=== PATIENT | female | born 1965 | race Caucasian/White ===

== ENCOUNTER 2020-08-08 12:08 | Inpatient (IN) | payer MEDICAID, SELFPAY ==
[2020-08-08 12:09] VITALS: BP 162/102; PULSE 70; RESP 15; TEMP 36.7; O2SAT 95; BMI 22.8
--- NOTE | 2020-08-08 12:12 | ECG_ITS ---
[facility] Test Date: 2020-08-08 Pat Name: Eboni Perez Department: Room: Gender: Female Director Business Intelligence: : 1965 Requested By: Keyshawn Mccray Order Number: [id number] Wheat MD: Althea Salinas M.D. 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 [id number]
--- NOTE | 2020-08-08 12:15 | ED_ITS ---
HPI - Psych General: Chief Complaint: Psychiatric Symptoms Stated Complaint: suicidal thoughts Time Seen by Provider: 08/08/20 12:12 History of Present Illness: HPI Narrative: The patient is a 55-year-old female who comes to the ER complaining of suicidal ideations. She was released from intermediate today and says she feels suicidal like she wants to take some pills and kill herself. She was in intermediate for 15 months. She was released from intermediate and says she did not have a ride to the shelters they gave her addresses for, felt suicidal and called an ambulance. MD complaint: suicidal ideation and feels depressed Associated psychiatric symptoms: depression and suicidal ideation Associated symptoms: Reports no associated symptoms; Deny depression Treatments prior to arrival: none If self harm: admits thoughts of self harm Review of Systems General: Reports: 10 or more systems reviewed and unremarkable except in HPI and below Const: Denies: fatigue Eyes: Denies: change in vision, blurry vision or eye redness ENMT: Denies: throat pain, swelling of lips/tongue, ear or mastoid pain or nasal congestion Card: Denies: chest pain, palpitations, irregular heart rhythm, edema, dyspnea on exertion or orthopnea Resp: Denies: dyspnea, productive cough or non-productive cough GI: Denies: abdominal pain, diarrhea or GI cramping : Denies: flank pain, difficulty voiding, urinary frequency or urinary urgency Musc: Denies: neck pain, back pain, extremity pain, joint pain, joint redness, limited range of motion or muscle weakness Skin/Breast: Denies: rash, pruritus, erythema, skin pain or skin tenderness Neuro: Denies: headache(s), numbness in extremities, weakness in extremities, sensory changes, difficulty walking, dizziness, confusion or Slurred speech present Psych: Denies: anxiety or depression Endo: Denies: polyuria All/Imm: Denies: urticaria, throat swelling or tongue swelling PFSH ED PFSH: Medical History Brain aneurysm CAD (coronary artery disease) Hepatitis C History of CVA (cerebrovascular accident) Hypertension Insulin dependent type 2 diabetes mellitus Peripheral vascular disease Surgical History History of angioplasty of peripheral vessel History of appendectomy History of cholecystectomy Family History Father Cancer of kidney Social History Smoking and tobacco status: current every day smoker e-cigarettes Alcohol intake: former Physical Exam Const: COMMON NORMALS: no acute distress, average body habitus, patient oriented x3, no limitations, healthy appearing, alert and well nourished GENERAL APPEARANCE: cooperative, comfortable, well kempt and well developed ORIENTATION/CONSCIOUSNESS: Yes awake, Yes oriented to person, Yes oriented to place and Yes oriented to time HENMT: COMMON NORMALS: normocephalic, external ears normal and Normal external nose present HEAD & SCALP: normal to inspection and normocephalic NOSE: Normal external nose present EXTERNAL EAR: Yes external ears normal MOUTH: Normal oral and palatal mucosa present THROAT: posterior oropharynx normal Eye: COMMON NORMALS: Equal, round and reactive pupils present and EOMs intact bilaterally GENERAL EYE: appearance normal, both eyes and all related structures PUPIL: Yes Equal, round and reactive pupils present Neck/C-Spine: COMMON NORMALS: full ROM, no lymphadenopathy, no meningeal signs and no JVD GENERAL: Yes normal visual inspection Lymph: LYMPHATIC: no lymphadenopathy noted Chest: COMMONS NORMALS: normal inspection of the chest and normal palpation of entire chest wall Resp: COMMON NORMALS: normal respiratory effort, No retractions, No use of accessory muscles, clear to auscultation bilaterally and percussion normal EFFORT & INSPECTION: Yes able to speak in complete sentences AUSCULTATION: clear to auscultation bilaterally PERCUSSION: percussion normal Cardio: COMMON NORMALS: no JVD, regular rate, regular rhythm, S1 normal heart sound present, S2 normal heart sound present and Peripheral pulses 2+ throughout RATE: regular rate RHYTHM: regular rhythm HEART SOUNDS: S1 normal heart sound present and S2 normal heart sound present PERIPHERAL PULSES: Peripheral pulses 2+ throughout GI: COMMON NORMALS: Normal to inspection, nondistended, normoactive bowel sounds present, Soft to palpation, non-tender and no masses INSPECTION: Yes normal to inspection PALPATION: Yes Soft to palpation : COMMON NORMALS: Yes no CVA tenderness BLADDER/KIDNEY EXAM: Yes no CVA tenderness Back/Pelvis: COMMON NORMALS: no CVA tenderness, thoracic and lumbar spine normal to inspection, no thoracic nor lumbar tenderness and thoraco-lumbar ROM normal Extremity: COMMON NORMALS: normal to inspection, full ROM, capillary refill normal, no joint enlargement and no pedal edema GENERAL: Yes normal exam except as noted Neuro: COMMON NORMALS: patient oriented x3, CN's II-XII intact bilaterally, moves all extremities, no focal motor deficits, no sensory deficits noted and gait normal SENSORIUM/ORIENTATION: Yes alert, Yes oriented to person, Yes oriented to place and Yes oriented to time MENINGEAL SIGNS: Yes no meningeal signs Psych: COMMON NORMALS: mental status grossly normal, Normal thought process present, cooperative, normal affect and speech normal APPEARANCE: Yes well kempt ATTITUDE: Yes calm SPEECH: Yes normal speech THOUGHT PROCESS: Normal thought process present THOUGHT CONTENT: Yes Suicidality present Skin: COMMON NORMALS: no rashes or lesions noted GENERAL SKIN EXAM: no rashes or lesions noted MDM - Psych Lab Data: Labs: Lab Results 08/08/20 08/08/20 08/08/20 Range/Units 12:32 12:32 12:38 WBC 8.8 (4.0-10.0) 10^3/ uL RBC 5.09 (4.1-5.3) 10^6/u L Hgb 16.1 H (11.5-15.3) g/dL Hct 47.2 H (37.0-47.0) % MCV 92.7 (81-99) fL MCH 31.6 (28.0-34.0) pg MCHC 34.1 (30.0-36.0) g/dL RDW 12.0 L (12.1-15.1) % Plt Count 205 (130-400) 10^3/c mm MPV 12.2 H (7.4-10.4) fL Neut % (Auto) 57.4 % Lymph % (Auto) 34.2 % [place] % (Auto) 6.8 % Eos % (Auto) 0.9 % Baso % (Auto) 0.6 % Neut # (Auto) 5.04 (1.8-7.7) 10^3/u L Lymph # (Auto) 3.0 (0.8-4.8) 10^3/u L [place] # (Auto) 0.6 (0.2-0.9) 10^3/u L Eos # (Auto) 0.1 (0.0-0.8) 10^3/u L Baso # (Auto) 0.1 (0.0-0.1) 10^3/u L Nucleated RBC % (a uto) 0 % Nucleated RBCs # 0.0 /100WBC Sodium (136-145) mmol/L Potassium (3.5-5.1) mmol/L Chloride (98-107) mmol/L Carbon Dioxide (22-29) mmol/L Anion Gap (5-19) BUN (6-20) mg/dL Creatinine (0.5-0.9) mg/dL GFR Calculation (90-130) mL/min Glucose (65-115) mg/dL Estimat Average Gl ucose Hemoglobin A1c (4.0-6.0) % Calculated Osmolal ity (285-295) mOsm/k g Calcium (8.5-10.5) mg/dL Total Bilirubin (0.15-1.2) mg/dL AST (0-32) U/L ALT (0-33) U/L Alkaline Phosphata se (35-105) IU/L Total Protein (6.6-8.7) g/dL Albumin (3.5-5.2) g/dL Globulin (1.3-4.6) g/dL Triglycerides (0-150) mg/dL Cholesterol (0-200) mg/dL LDL Cholesterol, C alc (50-129) mg/dL HDL Cholesterol (60-100) mg/dL LDL/HDL Ratio (0.00-3.22) RATI O Cholesterol/HDL Ra jun (0.0-4.40) mg/dL TSH (0.27-4.20) uIU/ mL Urine Color Yellow (Yellow) Urine Appearance Clear (CLEAR) Urine pH 5 (5-7) Ur Specific Gravit y 1.010 (1.005-1.030) Urine Protein Neg (Negative) Urine Glucose (UA) Norm (Normal) Urine Ketones Negative (Negative) Urine Blood Neg (Negative) Urine Nitrate Negative (Negative) Urine Bilirubin 1+ H (Negative) Urine Urobilinogen Norm (Negative) mg/dL Ur Leukocyte Kianna ase 1+ H (Negative) Urine RBC 0-4 H (0-2) /hpf Urine WBC 5-10 H (0-5) /hpf Ur Squamous Epith Cells 0-4 H (0-5) /hpf Amorphous Sediment Not Reportable Urine Bacteria 2+ H (NONE) /hpf Salicylates (3-10) mg/dL Urine Opiates Scre en Negative (Negative) ng/mL Acetaminophen (10-30) ug/mL Ur Barbiturates Sc reen Negative (Negative) ng/mL Ur Phencyclidine S crn Negative (Negative) ng/mL Ur Amphetamines Sc reen Negative (Negative) ng/mL U Benzodiazepines Scrn Negative (Negative) ng/mL Urine Cocaine Scre en Negative (Negative) ng/mL U Marijuana (THC) Screen Negative (Negative) ng/mL Ethyl Alcohol (0-10) mg/dL Hepatitis A IgM Ab (Nonreactive) Hep Bs Antigen (Nonreactive) Hep B Core IgM Ab (Nonreactive) Hepatitis C Antibo dy (Nonreactive) HIV 1&2 Ab & HIV 1 Ag (Non-Reactiv) HIV 1&2 Antibody (Non-Reactiv) 08/08/20 08/08/20 08/08/20 Range/Units 12:38 12:38 12:38 WBC (4.0-10.0) 10^3/ uL RBC (4.1-5.3) 10^6/u L Hgb (11.5-15.3) g/dL Hct (37.0-47.0) % MCV (81-99) fL MCH (28.0-34.0) pg MCHC (30.0-36.0) g/dL RDW (12.1-15.1) % Plt Count (130-400) 10^3/c mm MPV (7.4-10.4) fL Neut % (Auto) % Lymph % (Auto) % [place] % (Auto) % Eos % (Auto) % Baso % (Auto) % Neut # (Auto) (1.8-7.7) 10^3/u L Lymph # (Auto) (0.8-4.8) 10^3/u L [place] # (Auto) (0.2-0.9) 10^3/u L Eos # (Auto) (0.0-0.8) 10^3/u L Baso # (Auto) (0.0-0.1) 10^3/u L Nucleated RBC % (a uto) % Nucleated RBCs # /100WBC Sodium 137 (136-145) mmol/L Potassium 4.2 (3.5-5.1) mmol/L Chloride 100 (98-107) mmol/L Carbon Dioxide 28 (22-29) mmol/L Anion Gap 13.2 (5-19) BUN 12 (6-20) mg/dL Creatinine 0.6 (0.5-0.9) mg/dL GFR Calculation 103.8 (90-130) mL/min Glucose 121 H (65-115) mg/dL Estimat Average Gl ucose 131 Hemoglobin A1c 6.2 H (4.0-6.0) % Calculated Osmolal ity 285 (285-295) mOsm/k g Calcium 9.8 (8.5-10.5) mg/dL Total Bilirubin 0.5 (0.15-1.2) mg/dL AST 89 H (0-32) U/L ALT 110 H (0-33) U/L Alkaline Phosphata se 115 H (35-105) IU/L Total Protein 8.3 (6.6-8.7) g/dL Albumin 4.3 (3.5-5.2) g/dL Globulin 4.0 (1.3-4.6) g/dL Triglycerides 103 (0-150) mg/dL Cholesterol 144 (0-200) mg/dL LDL Cholesterol, C alc 67 (50-129) mg/dL HDL Cholesterol 56 L (60-100) mg/dL LDL/HDL Ratio 1.20 (0.00-3.22) RATI O Cholesterol/HDL Ra jun 2.57 (0.0-4.40) mg/dL TSH 2.19 (0.27-4.20) uIU/ mL Urine Color (Yellow) Urine Appearance (CLEAR) Urine pH (5-7) Ur Specific Gravit y (1.005-1.030) Urine Protein (Negative) Urine Glucose (UA) (Normal) Urine Ketones (Negative) Urine Blood (Negative) Urine Nitrate (Negative) Urine Bilirubin (Negative) Urine Urobilinogen (Negative) mg/dL Ur Leukocyte Kianna ase (Negative) Urine RBC (0-2) /hpf Urine WBC (0-5) /hpf Ur Squamous Epith Cells (0-5) /hpf Amorphous Sediment Urine Bacteria (NONE) /hpf Salicylates < 0.3 L (3-10) mg/dL Urine Opiates Scre en (Negative) ng/mL Acetaminophen < 5.0 L (10-30) ug/mL Ur Barbiturates Sc reen (Negative) ng/mL Ur Phencyclidine S crn (Negative) ng/mL Ur Amphetamines Sc reen (Negative) ng/mL U Benzodiazepines Scrn (Negative) ng/mL Urine Cocaine Scre en (Negative) ng/mL U Marijuana (THC) Screen (Negative) ng/mL Ethyl Alcohol < 10 (0-10) mg/dL Hepatitis A IgM Ab (Nonreactive) Hep Bs Antigen (Nonreactive) Hep B Core IgM Ab (Nonreactive) Hepatitis C Antibo dy (Nonreactive) HIV 1&2 Ab & HIV 1 Ag (Non-Reactiv) HIV 1&2 Antibody (Non-Reactiv) 08/08/20 08/08/20 Range/Units 12:38 12:47 WBC (4.0-10.0) 10^3/ uL RBC (4.1-5.3) 10^6/u L Hgb (11.5-15.3) g/dL Hct (37.0-47.0) % MCV (81-99) fL MCH (28.0-34.0) pg MCHC (30.0-36.0) g/dL RDW (12.1-15.1) % Plt Count (130-400) 10^3/c mm MPV (7.4-10.4) fL Neut % (Auto) % Lymph % (Auto) % [place] % (Auto) % Eos % (Auto) % Baso % (Auto) % Neut # (Auto) (1.8-7.7) 10^3/u L Lymph # (Auto) (0.8-4.8) 10^3/u L [place] # (Auto) (0.2-0.9) 10^3/u L Eos # (Auto) (0.0-0.8) 10^3/u L Baso # (Auto) (0.0-0.1) 10^3/u L Nucleated RBC % (a uto) % Nucleated RBCs # /100WBC Sodium (136-145) mmol/L Potassium (3.5-5.1) mmol/L Chloride (98-107) mmol/L Carbon Dioxide (22-29) mmol/L Anion Gap (5-19) BUN (6-20) mg/dL Creatinine (0.5-0.9) mg/dL GFR Calculation (90-130) mL/min Glucose (65-115) mg/dL Estimat Average Gl ucose Hemoglobin A1c (4.0-6.0) % Calculated Osmolal ity (285-295) mOsm/k g Calcium (8.5-10.5) mg/dL Total Bilirubin (0.15-1.2) mg/dL AST (0-32) U/L ALT (0-33) U/L Alkaline Phosphata se (35-105) IU/L Total Protein (6.6-8.7) g/dL Albumin (3.5-5.2) g/dL Globulin (1.3-4.6) g/dL Triglycerides (0-150) mg/dL Cholesterol (0-200) mg/dL LDL Cholesterol, C alc (50-129) mg/dL HDL Cholesterol (60-100) mg/dL LDL/HDL Ratio (0.00-3.22) RATI O Cholesterol/HDL Ra jun (0.0-4.40) mg/dL TSH (0.27-4.20) uIU/ mL Urine Color (Yellow) Urine Appearance (CLEAR) Urine pH (5-7) Ur Specific Gravit y (1.005-1.030) Urine Protein (Negative) Urine Glucose (UA) (Normal) Urine Ketones (Negative) Urine Blood (Negative) Urine Nitrate (Negative) Urine Bilirubin (Negative) Urine Urobilinogen (Negative) mg/dL Ur Leukocyte Kianna ase (Negative) Urine RBC (0-2) /hpf Urine WBC (0-5) /hpf Ur Squamous Epith Cells (0-5) /hpf Amorphous Sediment Urine Bacteria (NONE) /hpf Salicylates (3-10) mg/dL Urine Opiates Scre en (Negative) ng/mL Acetaminophen (10-30) ug/mL Ur Barbiturates Sc reen (Negative) ng/mL Ur Phencyclidine S crn (Negative) ng/mL Ur Amphetamines Sc reen (Negative) ng/mL U Benzodiazepines Scrn (Negative) ng/mL Urine Cocaine Scre en (Negative) ng/mL U Marijuana (THC) Screen (Negative) ng/mL Ethyl Alcohol (0-10) mg/dL Hepatitis A IgM Ab Non-reactive (Nonreactive) Hep Bs Antigen Non-reactive (Nonreactive) Hep B Core IgM Ab Non-reactive (Nonreactive) Hepatitis C Antibo dy Reactive H (Nonreactive) HIV 1&2 Ab & HIV 1 Ag Non-reactive (Non-Reactiv) HIV 1&2 Antibody Non-reactive (Non-Reactiv) Discharge Plan Discharge Patient Disposition: Admitted As Inpatient Admit Provider: Berlin Garcia Condition: Stable Discharge Diet: Diabetic Discharge Activity: Resume usual activity Coding Level of Care Code 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
[2020-08-08 12:29] VITALS: O2SAT 95
[2020-08-08 12:49] LABS: Basophils # 0.1 10^3/uL (0.0-0.1); Basophils % 0.6 %; Eosinophils # 0.1 10^3/uL (0.0-0.8); Eosinophils % 0.9 %; Hematocrit 47.2 % (37.0-47.0); Hemoglobin 16.1 g/dL (11.5-15.3); Lymphocytes % 34.2 %; Mean Corpuscular HGB Conc 34.1 g/dL (30.0-36.0); Mean Corpuscular Hemoglobin 31.6 pg (28.0-34.0); Mean Corpuscular Volume 92.7 fL (81-99); Mean Platelet Volume 12.2 fL (7.4-10.4); Monocytes # 0.6 10^3/uL (0.2-0.9); Monocytes % 6.8 %; Neutrophils # 5.04 10^3/uL (1.8-7.7); Neutrophils % 57.4 %; Nucleated Red Blood Cells % 0 %; Platelet Count 205 10^3/cmm (130-400); Red Blood Count 5.09 10^6/uL (4.1-5.3); White Blood Count 8.8 10^3/uL (4.0-10.0)
[2020-08-08 13:23] LABS: Alanine Aminotransferase 110 U/L (0-33); Albumin Level 4.3 g/dL (3.5-5.2); Alkaline Phosphatase 115 IU/L (35-105); Anion Gap 13.2 (5-19); Aspartate Amino Transferase 89 U/L (0-32); Blood Urea Nitrogen 12 mg/dL (6-20); Calcium 9.8 mg/dL (8.5-10.5); Carbon Dioxide 28 mmol/L (22-29); Chloride 100 mmol/L (98-107); Glomerular Filtration Rate 103.8 mL/min (90-130); Glucose 121 mg/dL (65-115); Osmolality Calculated 285 mOsm/kg (285-295); Potassium 4.2 mmol/L (3.5-5.1); Sodium 137 mmol/L (136-145); Thyroid Stimulating Hormone 2.19 uIU/mL (0.27-4.20); Total Bilirubin 0.5 mg/dL (0.15-1.2); Total Protein 8.3 g/dL (6.6-8.7)
[2020-08-08 13:24] LABS: Acetaminophen < 5.0 ug/mL (10-30); Alcohol Level < 10 mg/dL (0-10); Salicylate < 0.3 mg/dL (3-10)
[2020-08-08 13:50] LABS: Amphetamines Screen Urine Negative (Negative); Barbiturates Screen Urine Negative (Negative); Benzodiazepines Screen Urine Negative (Negative); Cocaine Screen Urine Negative (Negative); Opiate Screen Urine Negative (Negative); PCP Screen Urine Negative (Negative); THC Screen Urine Negative (Negative)
[2020-08-08 13:51] LABS: Urine Appearance Clear (CLEAR); Urine Color Yellow (Yellow)
[2020-08-08 13:52] LABS: Add Urine Culture? Yes; Add Urine Microscopic? YES; Bacteria Urine 2+ /hpf; Bilirubin Urine 1+ (Negative); Blood Urine Neg (Negative); Glucose Urine UA Norm (Normal); Ketones Urine Negative (Negative); Leukocyte Esterase Urine 1+ (Negative); Nitrate Urine Negative (Negative); Protein Urine Neg (Negative); RBC Urine 0-4 /hpf (0-2); Squamous Epithelial Cell Urine 0-4 /hpf (0-5); Urobilinogen Urine Norm (Negative); pH Urine 5 (5-7)
[2020-08-08 15:07] LABS: Hepatitis A Antibody IgM Non-Reactive (Nonreactive); Hepatitis B Core IgM Non-Reactive (Nonreactive); Hepatitis B Surface Antigen Non-Reactive (Nonreactive)
[2020-08-08 15:15] VITALS: BP 123/68; PULSE 63; RESP 18; O2SAT 99
[2020-08-08 15:36] LABS: Hepatitis C Virus Antibody Reactive (Nonreactive)
[2020-08-08 15:53] VITALS: BP 175/85; PULSE 66; RESP 18; TEMP 36.7; O2SAT 96
[2020-08-08] MEDS: nicotine 21 mg Patch 1 PATCH TRANSDERMA (17:36)
[2020-08-08] MEDS: BuSPIRONE 10 mg Tablet PO (17:49)
--- NOTE | 2020-08-08 18:41 | PM.CONSULT ---
Providers/Reason For Consult Consulting Physican/Specialty*: Psychiatry Reason for Consult*: Type 2 diabetes, leukoplakia, hepatitis C Attending Physician: Berlin Garcia MD History of Present Illness History of Present Illness Eboni Perez is a 55 year old female with a past medical history of a brain aneurysm status post surgery, history of subclavian steal syndrome, history of CVA, history of left carotid artery stenosis, history of nonobstructive CAD, history of peripheral vascular disease, hypertension, hyperlipidemia, insulin-dependent type 2 diabetes mellitus, recent diagnosis of hepatitis C in the last few months hospitalist team was consulted for diabetic management, evaluation of patient's tongue lesion For type 2 diabetes mellitus, she takes insulin, 10 units subcu daily, she does not remember her last hemoglobin A1c, does not know she has diabetic peripheral neuropathy or nephropathy For her tongue lesion, multiple, white she has had it for a few months, it does not really hurt her, is nonpruritic, Review of Systems Const: Denies: fever(s), chills, fatigue or malaise Eyes: Denies: change in vision or blurry vision ENMT: Denies: nasal congestion Resp: Denies: dyspnea, productive cough, non-productive cough or wheezing GI: Denies: abdominal pain, nausea, vomiting, hematemesis, diarrhea, constipation, hematochezia or melena : Denies: flank pain, dysuria or urinary frequency Musc: Denies: neck pain or back pain Skin/Breast: Denies: rash Neuro: Denies: headache(s), dizziness or vertigo Endo: Denies: polyuria or polydipsia Meds/Allergies Home Medications and Allergies Home Medications Medication Instructions Recorded Confirmed Last Taken Type aspirin 81 mg PO DAILY 08/08/20 08/08/20 08/08/20 History buspirone 10 mg PO BID 08/08/20 08/08/20 08/08/20 History insulin NPH isoph U-100 human 10 unit SUBCUT DAILY 08/08/20 08/08/20 08/08/20 History [Novolin N Flexpen] metoprolol tartrate 50 mg PO BID 08/08/20 08/08/20 08/08/20 History Allergies Allergy/AdvReac Type Severity Reaction Status Date / Time acetaminophen [From Vicodin] Allergy ADR-Nausea Verified 08/08/20 12:28 hydrocodone [From Vicodin] Allergy ADR-Nausea Verified 08/08/20 12:28 morphine Allergy ADR-Nausea Verified 08/08/20 12:28 Penicillins Allergy Unknown Verified 08/08/20 12:28 Current Medications Current Medications Generic Name Dose Route Start Last Admin Trade Name Freq PRN Reason Stop Dose Admin Buspirone HCl 10 mg 08/08/20 18:00 08/08/20 17:49 Buspirone 10 Mg Tablet PO 10 mg BID TIARA Administration Nicotine 1 patch 08/08/20 15:52 08/08/20 17:36 Nicotine 21 Mg Patch TRANSDERMA 1 patch DAILY PRN Administration NICOTINE WITHDRAWAL PFSH Acute PFSH: Medical History (Updated 08/08/20 @ 18:48 by Levar Hancock MD) Brain aneurysm CAD (coronary artery disease) Hepatitis C History of CVA (cerebrovascular accident) Hypertension Insulin dependent type 2 diabetes mellitus Peripheral vascular disease Surgical History (Updated 08/08/20 @ 18:45 by Levar Hancock MD) History of angioplasty of peripheral vessel History of appendectomy History of cholecystectomy Family History (Updated 08/08/20 @ 18:46 by Levar Hancock MD) Father Cancer of kidney Social History (Updated 08/08/20 @ 12:29 by Phi Sevilla RN) Smoking and tobacco status: current every day smoker e-cigarettes Alcohol intake: former Substance/Drug Use: never Vitals/I&O/Wt Last Vital Signs Temp 98.1 F 08/08/20 15:53 Pulse 66 08/08/20 15:53 Resp 18 08/08/20 15:53 BP 175/85 08/08/20 15:53 Pulse Ox 96 08/08/20 15:53 Weight last 48 hrs Weight 58.513 kg Physical Exam Const: COMMON NORMALS: no acute distress and patient oriented x3 GENERAL APPEARANCE: cooperative and comfortable HENMT: COMMON NORMALS: normocephalic HEAD & SCALP: normocephalic OTHER: Tongue, has multiple clear white, solid white lesions largest measuring 2 x 1 cm, with irregular borders, round Eye: COMMON NORMALS: Equal, round and reactive pupils present and EOMs intact bilaterally GENERAL EYE: appearance normal, both eyes and all related structures PUPIL: Yes Equal, round and reactive pupils present Neck/C-Spine: COMMON NORMALS: full ROM and no JVD Lymph: LYMPHATIC: no lymphadenopathy noted Resp: COMMON NORMALS: normal respiratory effort, No retractions, No use of accessory muscles and clear to auscultation bilaterally AUSCULTATION: clear to auscultation bilaterally Cardio: COMMON NORMALS: no JVD, regular rate, regular rhythm, S1 normal heart sound present, S2 normal heart sound present, No gallops present (Cardio), No clicks present (Cardio) and No murmurs present (Cardio) RATE: regular rate RHYTHM: regular rhythm HEART SOUNDS: S1 normal heart sound present and S2 normal heart sound present GI: COMMON NORMALS: Normal to inspection, nondistended, normoactive bowel sounds present, Soft to palpation, non-tender and No hepatosplenomegaly present PALPATION: Yes Soft to palpation and Yes No hepatosplenomegaly present Extremity: COMMON NORMALS: normal to inspection, full ROM and no pedal edema Neuro: COMMON NORMALS: patient oriented x3 and moves all extremities Psych: COMMON NORMALS: mental status grossly normal A&P Assessment and plan (1) CAD (coronary artery disease): Status: Acute (2) Peripheral vascular disease: Continue aspirin 81 mg Hold off on atorvastatin until LFTs are monitored Status: Acute (3) History of CVA (cerebrovascular accident): Status: Acute (4) Brain aneurysm: Status: Acute (5) Hypertension: Continue metoprolol 50 twice daily Add Norvasc 5 mg daily Status: Acute (6) Insulin dependent type 2 diabetes mellitus: Switch to insulin sliding scale monitor blood sugars, hemoglobin A1c Status: Acute (7) Hepatitis C: We will get a right upper quadrant ultrasound, monitor LFTs, order HIV Status: Acute (8) Leukoplakia: -History of smoking -Does have hep C -Differential his blood including lichen planus, multifocal leukoplakia, white spongy nevus, malignancy -We will need an outpatient follow-up with ENT for biopsy Status: Acute Coding Level of Care Code 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
[2020-08-08] MEDS: amlodipine 10 mg Tablet PO (18:52)
[2020-08-08 19:05] LABS: Chol HDL Ratio 2.57 mg/dL (0.0-4.40); Cholesterol 144 mg/dL (0-200); HDL Cholesterol 56 mg/dL (60-100); LDL Cholesterol Calculated 67 mg/dL (50-129); Triglycerides 103 mg/dL (0-150)
[2020-08-08 19:17] LABS: Estmated Average Glucose 131; Hemoglobin A1C 6.2 % (4.0-6.0)
[2020-08-08 20:03] LABS: HIV 1 & 2 Antibody Non-Reactive (Non-Reactiv); HIV 1 & 2 Antigen Non-Reactive (Non-Reactiv)
[2020-08-08] MEDS: OLANZapine 5 mg ODT PO (21:22)
[2020-08-08] MEDS: metoprolol tartrate 50 mg Tablet PO (21:22)
[2020-08-08] MEDS: trazodone 50 mg Tablet PO (21:23)
[2020-08-08 22:00] VITALS: BP 131/72; PULSE 73; RESP 16; TEMP 36.6; O2SAT 98
--- NOTE | 2020-08-08 23:15 | PC.NURSE ---
NURSE NOTE: AT 21:22, GAVE ZYPREXA 5MG PO FOR RACING THOUGHTS AND TRAZADONE 50MG PO FOR HELP WITH SLEEP. F/U: PT RESTING QUIETLY WITH EYES CLOSED. NO S&S OF DISTRESS OR ANXIETY NOTED AT THIS TIME.
[2020-08-09 06:00] VITALS: BP 88/56; PULSE 64; RESP 16; TEMP 36.7; O2SAT 96
--- NOTE | 2020-08-09 06:00 | US_ITS ---
WS: [id number] ULTRASOUND ABDOMEN LIMITED CLINICAL INFORMATION: acute hepatitis COMPARISON: None. FINDINGS: Liver Size: Hepatomegaly Craniocaudal length: 19.8 cm. Echogenicity: Normal. Surface nodularity: None. Mass (size and location): None. Bile ducts Intrahepatic ducts: Normal. Common bile duct diameter: 0.4 cm. Gallbladder Normal. Gallstones: None. Gallbladder sludge: None. Gallbladder wall thickening: None. Pericholecystic fluid: None. Sonographic Trejo sign: Absent. Pancreas Normal as visualized. Right kidney: Normal. Hydronephrosis: None. Size: 10.9 cm x 5.6 cm x 3.7 cm. Abdominal aorta and IVC Visualized portions are normal. Ascites: None. US/US liver [id number] IMPRESSION: 1. Hepatomegaly. Liver is otherwise normal in appearance. 2. Normal gallbladder. 3. No hydronephrosis in right kidney.
[2020-08-09 06:32] LABS: Glucose Point of Care 137 mg/dL (70-110)
[2020-08-09 07:05] LABS: Basophils % 0.4 %; Eosinophils # 0.1 10^3/uL (0.0-0.8); Eosinophils % 1.4 %; Hematocrit 39.9 % (37.0-47.0); Hemoglobin 13.8 g/dL (11.5-15.3); Lymphocytes # 3.2 10^3/uL (0.8-4.8); Lymphocytes % 45.6 %; Mean Corpuscular HGB Conc 34.6 g/dL (30.0-36.0); Mean Corpuscular Hemoglobin 31.9 pg (28.0-34.0); Mean Corpuscular Volume 92.4 fL (81-99); Mean Platelet Volume 12.4 fL (7.4-10.4); Monocytes # 0.5 10^3/uL (0.2-0.9); Neutrophils # 3.16 10^3/uL (1.8-7.7); Neutrophils % 45.5 %; Nucleated Red Blood Cells % 0 %; Platelet Count 139 10^3/cmm (130-400); Red Blood Count 4.32 10^6/uL (4.1-5.3)
[2020-08-09 07:54] LABS: Alanine Aminotransferase 78 U/L (0-33); Albumin Level 3.6 g/dL (3.5-5.2); Alkaline Phosphatase 100 IU/L (35-105); Anion Gap 14.7 (5-19); Aspartate Amino Transferase 58 U/L (0-32); Blood Urea Nitrogen 12 mg/dL (6-20); Calcium 8.7 mg/dL (8.5-10.5); Carbon Dioxide 24 mmol/L (22-29); Chloride 102 mmol/L (98-107); Globulin 2.7 g/dL (1.3-4.6); Glomerular Filtration Rate 128.1 mL/min (90-130); Glucose 212 mg/dL (65-115); Osmolality Calculated 288 mOsm/kg (285-295); Potassium 4.7 mmol/L (3.5-5.1); Sodium 136 mmol/L (136-145); Total Bilirubin 0.3 mg/dL (0.15-1.2); Total Protein 6.3 g/dL (6.6-8.7)
[2020-08-09] MEDS: BuSPIRONE 10 mg Tablet PO ×2 (08:37→21:18)
[2020-08-09] MEDS: sulfamethoxazole-trimeth DS 160-800 mg Tablet 1 TAB PO ×2 (08:37→21:17)
[2020-08-09] MEDS: aspirin 81 mg EC Tablet PO (08:37)
[2020-08-09] MEDS: metoprolol tartrate 50 mg Tablet PO ×2 (08:42→21:16)
[2020-08-09 11:34] LABS: Glucose Point of Care 310 mg/dL (70-110)
--- NOTE | 2020-08-09 11:57 | PM.NHP ---
Providers/Chief Complaint Admitting Physician: Jordana Evans DO Chief Complaint: suicidal thoughts HPI NPU History of Present Illness Eboni Perez is a 55 year old female with history of a brain aneurysm status post surgery, history of subclavian steal syndrome, history of CVA, history of left carotid artery stenosis, history of nonobstructive CAD, history of peripheral vascular disease, hypertension, hyperlipidemia, insulin-dependent type 2 diabetes mellitus, recent diagnosis of hepatitis C in the last few months presented to the emergency department after getting out of assisted for the past year reporting suicidal ideation and that she did not have a ride to a fci. Patient reports past substance abuse but currently denying any recent substance use or abuse. Patient reports past history of anxiety and depression but states that she had not been on any psychotropic medication for greater than 20 years and only recalls previously being on Xanax. Patient reports past suicide attempt by overdose over 20 years ago but denies any interval suicidal behavior or suicide attempts. She denies any interval psychiatric treatment or follow-up during this time. Patient reports experiencing intermittent depressive symptoms for periods of 7 to 10 days in which she experiences crying spells, low mood, decreased energy and interest in her usual activities with decreased motivation. She currently reports passive suicidal thoughts but denies any active intent or plan of harming herself. She denies any periods of manic or hypomanic symptoms. She denies any current or past psychotic symptoms. She states that she currently has no place to stay and does not have a means of supporting herself and plans on staying at a homeless fci when she discharges from the hospital. She reports being interested in starting low-dose SSRI targeting depressive symptoms, suicidal ideation. Review of Systems General: Reports: 10 or more systems reviewed and unremarkable except in HPI and below Meds NPU Home Medications Medication Instructions Recorded Confirmed Last Taken Type aspirin 81 mg PO DAILY 08/08/20 08/08/20 08/08/20 History buspirone 10 mg PO BID 08/08/20 08/08/20 08/08/20 History insulin NPH isoph U-100 human 10 unit SUBCUT DAILY 08/08/20 08/08/20 08/08/20 History [Novolin N Flexpen] metoprolol tartrate 50 mg PO BID 08/08/20 08/08/20 08/08/20 History Allergies Allergy/AdvReac Type Severity Reaction Status Date / Time acetaminophen [From Vicodin] Allergy ADR-Nausea Verified 08/08/20 12:28 hydrocodone [From Vicodin] Allergy ADR-Nausea Verified 08/08/20 12:28 morphine Allergy ADR-Nausea Verified 08/08/20 12:28 Penicillins Allergy Unknown Verified 08/08/20 12:28 PFSH NPU PFSH: Medical History Brain aneurysm CAD (coronary artery disease) Hepatitis C History of CVA (cerebrovascular accident) Hypertension Insulin dependent type 2 diabetes mellitus Peripheral vascular disease Surgical History History of angioplasty of peripheral vessel History of appendectomy History of cholecystectomy Family History Father Cancer of kidney Social History Smoking and tobacco status: current every day smoker e-cigarettes Alcohol intake: former Substance/Drug Use: never Other Psychiatric History: Other Psychiatric History: Per above, reports remote psychiatric treatment greater than 20 years ago, recalls being treated with Xanax but does not recall any other psychiatric medications. Reports previous psychiatric hospitalization around the time above after overdose attempt. Mental Status Exam MSE Comments: Appears older than stated age, long stringy, greasy hair, initially sitting at dining table eating her lunch, calm, cooperative, polite, good eye contact Psychomotor activity is somewhat decreased, no agitation Speech is low volume, normal rate, spontaneous, clear articulation, not pressured I feel depressed, constricted, not labile Alert and oriented to person, place, time, situation Memory and concentration appear to be fair per interview Intellectual functioning appears to be average at best based on vocabulary, interview Thought process, linear, no flight of ideas, no looseness of associations Thought content, no delusions, no hallucinations, reports passive suicidal ideation with no active intent or plan, no homicidal ideation Insight and judgment appear to be fair to intact Vitals/I&O/Wt Last Vital Signs Temp 98.0 F 08/09/20 06:00 Pulse 64 08/09/20 06:00 Resp 16 08/09/20 06:00 BP 88/56 08/09/20 06:00 Pulse Ox 96 08/09/20 06:00 Weight last 48 hrs Weight 58.513 kg Data NPU : 08/09/20 06:54 08/09/20 06:54 Micro: Microbiology 08/08/20 12:32 Urine Culture - Preliminary Urine,Clean Catch Microbiology 08/08/20 12:32 Urine,Clean Catch Urine Culture - Preliminary A&P Assessment and plan (1) Suicidal ideation: Status: Acute (2) Depressive disorder: Status: Acute Additional A&P Information 55-year-old female with multiple chronic medical issues to include insulin-dependent diabetes, coronary artery disease, history of brain aneurysm presented to the emergency department after getting out of assisted with suicidal ideation stating that she did not have a ride to a fci. Patient continues to report depressive symptoms and passive suicidal ideation with no active intent or plan. Patient would benefit from starting low-dose antidepressant and titrating for effect while coordinating for safe discharge, follow-up psychiatric care. VOLUNTARY ADMIT to inpatient psychiatry Appreciate hospitalist consult recommendations START citalopram 10 mg daily targeting depressive symptoms, suicidal ideation Encourage patient participate in unit activities to include unit milieu Coordinate with social work for post discharge follow-up Involuntary Hold Information 96 Hour Hold: 96 Hour Involuntary Admission: No Attestations NPU Medical Necessity Statement*: Require psychiatric hospitalization secondary to ongoing suicidal ideation in the context of multiple stressors, off medication Anticipate hospital stay to exceed 2 midnights Time Spent in Patient Care: Greater than 35 minutes (>than 50% of time spent in counselling and/or direct pt care on unit). Coding Level of Care Code Acute Client Service Executive for Mario Nielsen Diagnoses Suicidal ideation R45.851 Depressive disorder F32.9
[2020-08-09] MEDS: citalopram 20 mg Tablet 10 MG PO (12:12)
[2020-08-09 14:00] VITALS: BP 120/80; PULSE 72; RESP 18; TEMP 37.4; O2SAT 97
[2020-08-09 16:44] LABS: Glucose Point of Care 135 mg/dL (70-110)
--- NOTE | 2020-08-09 18:50 | USCV_ITS ---
Eboni Perez Age: 55 Gender: F : 1965 Exam Date: 08/09/2020 09:09 Ordering Phys: Levar Hanccok MD Technologist: Jarrett Muhammad Exam Location: [facility] [place] Indication: LT SUB CLAV GRAFT Risk Factors: Smoker Previous Vascular Surgery: Right Brachial BP: / Left Brachial BP: / Right Left Velocity (cm/s) Spectral Plaque Velocity (cm/s) Spectral Plaque Syst/Diast Broadening Syst/Diast Broadening 71.70/ 18.70 Prox CCA 53.60 / 14.20 62.80/ 16.50 Mid CCA 61.10 / 18.60 57.30/ 17.60 Hetro Distal CCA 55.10 / 14.90 Hetro 55.20/ 16.40 Hetro Prox ICA 69.30 / 13.40 Hetro 73.60/ 23.70 Hetro Mid ICA 76.00 / 23.10 Hetro 73.70/ 24.60 Distal ICA 53.60 / 17.90 101.40 ECA 96.80 1.03 ICA/CCA 1.24 Antegrade Vertebral Antegrade 29.80/ 2.20 cm/s 49.20/ 10.40 cm/s Bi Subclavian Bi 52.10 53.60 CONCLUSIONS Right ICA stenosis <50%. Mild atheromatous plaque right carotid bulb/ICA. Left ICA stenosis <50%. Mild atheromatous plaque left carotid bulb/ICA. Normal antegrade Doppler flow noted in the right vertebral artery. Normal antegrade Doppler flow noted in the left vertebral artery. Mustapha Durant MD (Electronically Signed) Final Date: 09 August 2020 10:30 S
[2020-08-09 19:33] LABS: Glucose Point of Care 207 mg/dL (70-110)
[2020-08-09 20:16] VITALS: BP 141/89; PULSE 88; RESP 18; TEMP 37.8; O2SAT 97
[2020-08-09] MEDS: amlodipine 10 mg Tablet PO (20:47)
[2020-08-09] MEDS: ibuprofen 600 mg Tablet PO (21:17)
[2020-08-09] MEDS: trazodone 50 mg Tablet PO (21:17)
[2020-08-09] MEDS: hyDROXYzine 25 mg Capsule 50 MG PO (21:18)
[2020-08-10 06:00] VITALS: BP 85/67; PULSE 68; RESP 15; TEMP 36.5; O2SAT 96
[2020-08-10 06:34] LABS: Glucose Point of Care 147 mg/dL (70-110)
[2020-08-10 07:13] LABS: Basophils % 0.4 %; Eosinophils # 0.1 10^3/uL (0.0-0.8); Eosinophils % 2.7 %; Hemoglobin 14.3 g/dL (11.5-15.3); Mean Corpuscular Hemoglobin 32.3 pg (28.0-34.0); Mean Corpuscular Volume 94.8 fL (81-99); Mean Platelet Volume 12.1 fL (7.4-10.4); Monocytes # 0.4 10^3/uL (0.2-0.9); Monocytes % 7.8 %; Neutrophils # 3.55 10^3/uL (1.8-7.7); Neutrophils % 69.7 %; Nucleated Red Blood Cells % 0 %; Platelet Count 118 10^3/cmm (130-400); Red Blood Count 4.43 10^6/uL (4.1-5.3); Red Cell Distribution Width 12.1 % (12.1-15.1); White Blood Count 5.1 10^3/uL (4.0-10.0)
[2020-08-10] MEDS: aspirin 81 mg EC Tablet PO (07:39)
[2020-08-10] MEDS: sulfamethoxazole-trimeth DS 160-800 mg Tablet 1 TAB PO (07:39)
[2020-08-10] MEDS: metoprolol tartrate 50 mg Tablet PO (07:39)
[2020-08-10 07:40] LABS: Alanine Aminotransferase 69 U/L (0-33); Albumin Level 3.7 g/dL (3.5-5.2); Alkaline Phosphatase 101 IU/L (35-105); Anion Gap 14.5 (5-19); Aspartate Amino Transferase 45 U/L (0-32); Blood Urea Nitrogen 18 mg/dL (6-20); Calcium 9.3 mg/dL (8.5-10.5); Carbon Dioxide 25 mmol/L (22-29); Chloride 102 mmol/L (98-107); Globulin 2.7 g/dL (1.3-4.6); Glomerular Filtration Rate 86.9 mL/min (90-130); Glucose 141 mg/dL (65-115); Osmolality Calculated 288 mOsm/kg (285-295); Potassium 4.5 mmol/L (3.5-5.1); Sodium 137 mmol/L (136-145); Total Bilirubin 0.4 mg/dL (0.15-1.2); Total Protein 6.4 g/dL (6.6-8.7)
[2020-08-10] MEDS: citalopram 20 mg Tablet 10 MG PO (07:40)
[2020-08-10] MEDS: BuSPIRONE 10 mg Tablet PO (07:41)
[2020-08-10] MEDS: ibuprofen 600 mg Tablet PO (07:41)
--- NOTE | 2020-08-10 09:33 | P.DS_ITS ---
Diagnoses at Discharge Discharge Diagnosis (1) Suicidal ideation: Status: Acute (2) Depressive disorder: Status: Acute Reason for Visit Reason for Visit: suicidal thoughts Hospital Course Hospital Course 55-year-old female with multiple chronic medical issues presented to the emergency department with suicidal ideation after getting out of long term. Some confusion with regards to recent substance use although patient states that she had not used any substances for many years. Patient also reported no psychiatric treatment or contact with mental health for over 20 years at which time she had been hospitalized for an overdose. Patient was reporting some depressive symptoms as well as multiple physical complaints and was medically cleared by the emergency department with further diagnostic testing including ultrasound of liver which demonstrated hepatomegaly but otherwise unremarkable and a carotid Doppler which was essentially unremarkable. Hospitalist was consulted for recommendations for management of her diabetes. Patient was started on citalopram 10 mg daily targeting her depressive symptoms. At the time of evaluation patient was no longer endorsing suicidal ideation. Patient participated in unit milieu with no reports of any behavioral disturbances. Social work had coordinated for patient to discharge to a local fpc with coordination for post discharge follow-up with primary care for medication management as well as for further evaluation and management of her chronic medical issues. Patient was not suicidal at the time of discharge and did not appear to pose an imminent threat of harm to self or others. Low to moderate risk of harm to self given no current suicidal ideation, no current depressive symptoms although patient's risk may be elevated if she is noncompliant with her medication, medication management follow-up and continues to have difficulty with mounting appropriate coping strategies in the context of ongoing stressors to include recent legal issues and unstable living arrangement. Risk mitigation included psychiatric hospitalization, medication stabilization as well as observation for return of any suicidal ideation and recommendation to abstain from the use of any substances or alcohol. Patient was able to indicate her understanding of the need to abstain from the use of any substances and alcohol as well as the need for compliance with the medication, medication management follow-up in order to further mitigate her risk of harm to herself. Involuntary Hold Information 96 Hour Hold: 96 Hour Involuntary Admission: No Mental Status Exam MSE Comments: Lying in bed, appears older than stated age, calm, cooperative, polite, good eye contact Psychomotor activity is somewhat decreased, no agitation Speech is low volume, normal rate, spontaneous, clear articulation, not pressured I feel much better, full range, not labile Alert and oriented to person, place, time, situation Memory and concentration appear to be fair to intact per interview Intellectual functioning appears to be average at best based on vocabulary, interview Thought process, linear, no flight of ideas, no looseness of associations Thought content, no delusions, no hallucinations, reports passive suicidal ideation with no active intent or plan, no homicidal ideation Insight and judgment appear to be fair to intact Discharge Data Data Completed and Pending: Completed Studies During Hospitalization Category Date Time Status CV carotid duplex BI* [id number] Routine Ultrasound 08/09/20 18:50 Completed US liver 79191 Ro utine Ultrasound 08/09/20 06:00 Completed Pending at discharge Category Date Time Status Complete Blood Co unt w/Auto AM LABS Lab 08/11/20 04:00 Ordered Comprehensive Met abolic Panel AM LA BS Lab 08/11/20 04:00 Ordered Urine Culture Sta t Lab 08/08/20 12:32 Results Labs from last 24 hours 08/10/20 08/10/20 08/10/20 06:52 06:52 06:05 WBC 5.1 RBC 4.43 Hgb 14.3 Hct 42.0 MCV 94.8 MCH 32.3 MCHC 34.0 RDW 12.1 Plt Count 118 L MPV 12.1 H Neut % (Auto) 69.7 Lymph % (Auto) 19.0 [place] % (Auto) 7.8 Eos % (Auto) 2.7 Baso % (Auto) 0.4 Neut # (Auto) 3.55 Lymph # (Auto) 1.0 [place] # (Auto) 0.4 Eos # (Auto) 0.1 Baso # (Auto) 0.0 Nucleated RBC % (a uto) 0 Nucleated RBCs # 0.0 Sodium 137 Potassium 4.5 Chloride 102 Carbon Dioxide 25 Anion Gap 14.5 BUN 18 Creatinine 0.7 GFR Calculation 86.9 L Glucose 141 H POC Glucose 147 H Calculated Osmolal ity 288 Calcium 9.3 Total Bilirubin 0.4 AST 45 H ALT 69 H Alkaline Phosphata se 101 Total Protein 6.4 L Albumin 3.7 Globulin 2.7 08/09/20 08/09/20 08/09/20 19:24 16:29 11:18 WBC RBC Hgb Hct MCV MCH MCHC RDW Plt Count MPV Neut % (Auto) Lymph % (Auto) [place] % (Auto) Eos % (Auto) Baso % (Auto) Neut # (Auto) Lymph # (Auto) [place] # (Auto) Eos # (Auto) Baso # (Auto) Nucleated RBC % (a uto) Nucleated RBCs # Sodium Potassium Chloride Carbon Dioxide Anion Gap BUN Creatinine GFR Calculation Glucose POC Glucose 207 H 135 H 310 H Calculated Osmolal ity Calcium Total Bilirubin AST ALT Alkaline Phosphata se Total Protein Albumin Globulin Vitals: Last Vital Signs Temp 97.7 F 08/10/20 06:00 Pulse 68 08/10/20 06:00 Resp 15 08/10/20 06:00 BP 85/67 08/10/20 06:00 Pulse Ox 96 08/10/20 06:00 Discharge Plan Discharge Prescriptions: New aspirin 81 mg Tablet,Delayed Release (Dr/Ec) 81 mg PO DAILY Qty: 30 RF: 0 citalopram 20 mg Tablet 10 mg PO DAILY Qty: 30 RF: 0 metoprolol tartrate 50 mg Tablet 50 mg PO 0900,2100 Qty: 60 RF: 0 amlodipine 10 mg Tablet 10 mg PO Q24H Qty: 30 RF: 0 buspirone 10 mg Tablet 10 mg PO 0900,2100 Qty: 60 RF: 0 sulfamethoxazole-trimethoprim 800-160 mg Tablet 1 tab PO 0900,2100 Qty: 16 RF: 0 Continued Novolin N Flexpen 100 unit/mL (3 mL) insulin pen 10 unit SUBCUT DAILY RF: 0 No Action aspirin 81 mg tablet,delayed release (DR/EC) 81 mg PO DAILY RF: 0 buspirone 10 mg tablet 10 mg PO BID RF: 0 metoprolol tartrate 50 mg tablet 50 mg PO BID RF: 0 Discharge Orders: Discharge Order (Routine); Ordered 08/10/20 Ordered By: Jordana Evans Referrals: [facility] [place] [facility] [Outside] Jenniffer Beltrán DO [Physician] - 08/30/20 9:00 am (You have a new patient appointment with Dr. Beltrán at the [facility] clinic on August 30 at 9AM. If unable to make it to the appointment, please call and cancel in advance.) Discharge Diet: Diabetic Discharge Activity: Resume usual activity Discharge Attestations NPU Time Spent in Discharge Care*: greater than 30 min Status at Discharge: Cognitive status at discharge: cognitively intact , Behavioral status at discharge: cooperative , Functional status at discharge: independent ambulation Overall status at discharge: patient is back to baseline Coding Level of Care Code Acute [employer] Dean for [employer] Fwd Diagnoses Suicidal ideation R45.851 Depressive disorder F32.9
[2020-08-10 09:57] VITALS: BP 85/67; PULSE 68; RESP 15; TEMP 36.5; O2SAT 96
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
--- NOTE | 2020-08-10 17:33 | PC.RESP ---
SMOKING CESSATION INFORMATION SENT TO PATIENT.
== END 2020-08-10 13:17 | disposition home or self-care (01) | DRG 880 ==
LOC: ER 13:22 → NP 15:41
PROVIDERS: Family Medicine; Admitting Provider Psychiatry & Neurology Psychiatry; Emergency Provider Family Medicine; Visit Provider Psychiatry & Neurology Psychiatry
DX: F41.8 Other specified anxiety disorders (principal); R45.851 Suicidal ideations; Z79.82 Long term (current) use of aspirin; Z91.5 Personal history of self-harm; Z59.0 Homelessness; Z86.73 Personal history of transient ischemic attack (TIA), and cerebral infarction without residual deficits; I25.10 Atherosclerotic heart disease of native coronary artery without angina pectoris; I50.814 Right heart failure due to left heart failure; I10 Essential (primary) hypertension; E11.51 Type 2 diabetes mellitus with diabetic peripheral angiopathy without gangrene; Z79.4 Long term (current) use of insulin; E78.5 Hyperlipidemia, unspecified; B19.20 Unspecified viral hepatitis C without hepatic coma; F17.290 Nicotine dependence, other tobacco product, uncomplicated
CPT/HCPCS: 12345; 36415; 36416; 76705; 80053; 80061; 80074; 80306; 80307; 81001; 82962; 83036; 84443; 85025; 87086; 87806; 90471; 90686; 93005; 93880; 96372; 99284; J1815

== ENCOUNTER 2020-10-18 18:37 | Emergency (ER) | payer MEDICAID, SELFPAY ==
--- NOTE | 2020-10-18 18:39 | XR_ITS ---
WS: [id number] Portable AP upright chest, Clinical Data: cp Comparison: None. Findings: No nodules, masses or effusions are seen. The heart is normal. The pulmonary vascularity is not increased. No pneumonia or pneumothorax is seen. There are clips in the right upper quadrant fro m a cholecystectomy. XR/XR chest 1V portable [id number] Impression: Negative chest.
--- NOTE | 2020-10-18 18:39 | ECG_ITS ---
[facility] Test Date: 2020-10-18 Pat Name: Eboni Perez Department: Room: Gender: Female Diagrammer: : 1965 Requested By: Sherice Ledesma Order Number: [id number] Jarret MD: Althea Salinas M.D. Measurements Intervals [place] Rate: 73 P: 75 CT: 133 QRS: 61 QRSD: 81 T: 26 QT: 372 QTc: 411 Interpretive Statements SINUS RHYTHM NONSPECIFIC ST & T-WAVE ABNORMALITY Compared to ECG 08/08/2020 12:35:25 T-wave abnormality now present Electronically Signed On 10-20-2020 5:21:10 CDT by Althea Salinas M.D. [id number] f
[2020-10-18 18:53] VITALS: BP 170/95; PULSE 77; RESP 18; TEMP 36.8; O2SAT 97; BMI 23.0
--- NOTE | 2020-10-18 20:39 | ECG_ITS ---
[facility] Test Date: 2020-10-18 Pat Name: Eboni Perez Department: Room: Gender: Female [employer] Technical: : 1965 Requested By: Sherice Ledesma Order Number: [id number] Jarret MD: Althea Salinas M.D. Measurements Intervals [address] Rate: 74 P: 74 AK: 133 QRS: 56 QRSD: 81 T: 53 QT: 416 QTc: 462 Interpretive Statements SINUS RHYTHM WARNING: DATA QUALITY MAY AFFECT INTERPRETATION Compared to ECG 08/08/2020 12:35:25 No significant changes Electronically Signed On 10-20-2020 5:27:48 CDT by Althea Salinas M.D. [email or web address]
--- NOTE | 2020-10-18 21:15 | W.ED.CHESTPA ---
HPI - Chest Pain General: Chief Complaint: Chest Pain Stated Complaint: LOSS OF TASTE X 2 DAYS, CP TODAY Time Seen by Provider: 10/18/20 20:53 Source: patient Mode of arrival: ambulatory Limitations: no limitations History of Present Illness: HPI narrative: 55-year-old female states she had a cough along with sinus congestion over the last 3 to 4 days. States her cough has been productive of sputum as well. States today started having a sharp pain in her left chest is worse with cough and palpation. States pain is currently 3 out of 10. She denies any dyspnea. Denies any fevers. She denies any radiation of her pain. She states she is also had thrush to her tongue as well. Associated symptoms: Deny abdominal pain, fever(s), nausea or vomiting Review of Systems Const: Denies: fever(s), chills, body aches or change in appetite Eyes: Denies: blurry vision or eye discomfort ENMT: Denies: throat pain or dental pain Card: Reports: chest pain Resp: Reports: non-productive cough and wheezing GI: Denies: abdominal pain, nausea, vomiting or diarrhea : Denies: dysuria Musc: Denies: neck pain or back pain Skin/Breast: Denies: rash Neuro: Denies: headache(s) Psych: Denies: depression Harish/Lymph: Denies: easy bruising All/Imm: Denies: urticaria PFSH ED PFSH: Medical History Brain aneurysm CAD (coronary artery disease) Hepatitis C History of CVA (cerebrovascular accident) Hypertension Insulin dependent type 2 diabetes mellitus Peripheral vascular disease Surgical History History of angioplasty of peripheral vessel History of appendectomy History of cholecystectomy Family History Father Cancer of kidney Social History Smoking and tobacco status: current every day smoker e-cigarettes Alcohol intake: former Physical Exam Const: COMMON NORMALS: no acute distress, patient oriented x3 and healthy appearing HENMT: COMMON NORMALS: normocephalic and atraumatic HEAD & SCALP: normocephalic and atraumatic OTHER: Multiple lesions to her tongue and mouth with thrush as well Eye: COMMON NORMALS: Equal, round and reactive pupils present and EOMs intact bilaterally PUPIL: Yes Equal, round and reactive pupils present Neck/C-Spine: COMMON NORMALS: full ROM and supple Chest: COMMONS NORMALS: normal inspection of the chest OTHER: Point tender to left chest Resp: COMMON NORMALS: normal respiratory effort, No retractions, No use of accessory muscles and clear to auscultation bilaterally AUSCULTATION: clear to auscultation bilaterally Cardio: COMMON NORMALS: regular rate, regular rhythm and No murmurs present (Cardio) RATE: regular rate RHYTHM: regular rhythm GI: COMMON NORMALS: Normal to inspection, nondistended, normoactive bowel sounds present, Soft to palpation, non-tender and no masses PALPATION: Yes Soft to palpation Extremity: COMMON NORMALS: normal to inspection and full ROM Neuro: COMMON NORMALS: patient oriented x3, moves all extremities and no focal motor deficits Psych: COMMON NORMALS: mental status grossly normal, Normal thought process present and cooperative THOUGHT PROCESS: Normal thought process present Skin: COMMON NORMALS: no rashes or lesions noted and no wounds GENERAL SKIN EXAM: no rashes or lesions noted Course Vital Signs: Vital signs: Vital Signs Temperature 98.2 F 10/18/20 18:53 Pulse Rate 65 10/18/20 22:02 Respiratory Rate 21 H 10/18/20 22:02 Blood Pressure 160/86 10/18/20 22:02 Pulse Oximetry 97 10/18/20 22:02 MDM - Chest Pain MDM Narrative: Medical decision making narrative: Presents with cough congestion likely bronchitis. Believe this is likely causing her chest pain as her initial and repeat troponin are negative. She has no signs of pulmonary embolism or acute coronary syndrome. We will place her on antibiotics. She does have some severe thrush with lesions on her tongue. We will place her on gentian beau and have her follow-up with ear nose and throat. Patient understands and agrees to plan is to return if worsening. Lab Data: Labs: Lab Results 10/18/20 10/18/20 10/18/20 Range/Units 21:40 21:40 21:40 WBC 5.3 (4.0-10.0) 10^3/ uL RBC 4.78 (4.1-5.3) 10^6/u L Hgb 15.0 (11.5-15.3) g/dL Hct 44.8 (37.0-47.0) % MCV 93.7 (81-99) fL MCH 31.4 (28.0-34.0) pg MCHC 33.5 (30.0-36.0) g/dL RDW 12.4 (12.1-15.1) % Plt Count 139 (130-400) 10^3/c mm MPV 12.3 H (7.4-10.4) fL Neut % (Auto) 50.3 % Lymph % (Auto) 38.2 % [place] % (Auto) 9.4 % Eos % (Auto) 1.3 % Baso % (Auto) 0.4 % Neut # (Auto) 2.69 (1.8-7.7) 10^3/u L Lymph # (Auto) 2.0 (0.8-4.8) 10^3/u L [place] # (Auto) 0.5 (0.2-0.9) 10^3/u L Eos # (Auto) 0.1 (0.0-0.8) 10^3/u L Baso # (Auto) 0.0 (0.0-0.1) 10^3/u L Nucleated RBC % (a uto) 0 % Nucleated RBCs # 0.0 /100WBC Sodium 137 (136-145) mmol/L Potassium 3.9 (3.5-5.1) mmol/L Chloride 98 (98-107) mmol/L Carbon Dioxide 30 H (22-29) mmol/L Anion Gap 12.9 (5-19) BUN 10 (6-20) mg/dL Creatinine 0.6 (0.5-0.9) mg/dL GFR Calculation 103.8 (90-130) mL/min Glucose 206 H (65-115) mg/dL Calculated Osmolal ity 289 (285-295) mOsm/k g Calcium 9.0 (8.5-10.5) mg/dL Total Bilirubin 0.3 (0.15-1.2) mg/dL AST 66 H (0-32) U/L ALT 72 H (0-33) U/L Alkaline Phosphata se 127 H (35-105) IU/L Troponin T Baselin e 7 (0-10) ng/L Troponin T 120 Min [place] (0-10) ng/L Delta Troponin T (0-10) ABS# Total Protein 6.9 (6.6-8.7) g/dL Albumin 4.1 (3.5-5.2) g/dL Globulin 2.8 (1.3-4.6) g/dL 10/18/20 Range/Units 23:33 WBC (4.0-10.0) 10^3/ uL RBC (4.1-5.3) 10^6/u L Hgb (11.5-15.3) g/dL Hct (37.0-47.0) % MCV (81-99) fL MCH (28.0-34.0) pg MCHC (30.0-36.0) g/dL RDW (12.1-15.1) % Plt Count (130-400) 10^3/c mm MPV (7.4-10.4) fL Neut % (Auto) % Lymph % (Auto) % [place] % (Auto) % Eos % (Auto) % Baso % (Auto) % Neut # (Auto) (1.8-7.7) 10^3/u L Lymph # (Auto) (0.8-4.8) 10^3/u L [place] # (Auto) (0.2-0.9) 10^3/u L Eos # (Auto) (0.0-0.8) 10^3/u L Baso # (Auto) (0.0-0.1) 10^3/u L Nucleated RBC % (a uto) % Nucleated RBCs # /100WBC Sodium (136-145) mmol/L Potassium (3.5-5.1) mmol/L Chloride (98-107) mmol/L Carbon Dioxide (22-29) mmol/L Anion Gap (5-19) BUN (6-20) mg/dL Creatinine (0.5-0.9) mg/dL GFR Calculation (90-130) mL/min Glucose (65-115) mg/dL Calculated Osmolal ity (285-295) mOsm/k g Calcium (8.5-10.5) mg/dL Total Bilirubin (0.15-1.2) mg/dL AST (0-32) U/L ALT (0-33) U/L Alkaline Phosphata se (35-105) IU/L Troponin T Baselin e (0-10) ng/L Troponin T 120 Min [place] 6.00 (0-10) ng/L Delta Troponin T -1.00 L (0-10) ABS# Total Protein (6.6-8.7) g/dL Albumin (3.5-5.2) g/dL Globulin (1.3-4.6) g/dL Imaging Data^: CXR: Attestation: I personally reviewed and interpreted this imaging study as follows: My impression: no acute abnormality EKG Data^: EKG 1: Attestation: I personally reviewed and interpreted this EKG as follows: EKG interpretation date: 10/18/20 EKG interpretation time: 18:58 Interpretation: nsr hr [address] or t wave abnormalities qrs 81 qtc 398 EKG 2: Attestation: I personally reviewed and interpreted this EKG as follows: EKG interpretation date: 10/18/20 EKG interpretation time: 23:26 Interpretation: nsr hr [address] or t wave abnormalities qrs 81 qtc 443 Discharge Plan Discharge Patient Disposition: Home Clinical Impression: Bronchitis, Atypical chest pain, Tongue lesion Condition: Stable Prescriptions: New cephalexin 500 mg capsule 500 mg PO TID 7 Days Qty: 21 RF: 0 gentian beau 2 % solution 1 applic topical BID 3 Days RF: 0 No Action Novolin N Flexpen 100 unit/mL (3 mL) insulin pen 10 unit SUBCUT DAILY@12 RF: 0 ibuprofen 200 mg Tablet 600 mg PO PRN RF: 0 aspirin 81 mg tablet,delayed release (DR/EC) 81 mg PO DAILY@10 RF: 0 metoprolol tartrate 50 mg tablet 50 mg PO BID@10,22 RF: 0 Discharge Orders: Discharge ED (Routine); Ordered 10/18/20 Ordered By: Sherice Ledesma Referrals: Artie Rodriguez MD [Physician] - 1-3 days Discharge Diet: Advance as tolerated Discharge Activity: Resume usual activity Patient Instructions: Acute Bronchitis (ED) Coding Level of Care Code ED Reagent Tender Helper for Chg Fwd Exam Comprehensive
--- NOTE | 2020-10-18 21:18 | PC.PHAR ---
PT STATES SHE TAKES CARE OF HER OWN MEDICATIONS-PT STATES SHE HASNT HAD HER NOVOLIN N FLEXPEN IN 3 WEEKS-PT STATES SHE CANT AFFORD THE MEDICATION-[facility] IS CLOSED TO CALL TO VERIFY CORRECT INSULIN AND LAST TIME FILLED-PT STATES SHE WAS TAKING AMLODIPINE, BUSPAR,CELEXA BUT ONLY TOOK THEM FOR A MONTH AND THEN HAD NO REFILLS EXT MED HISTORY SHOWS LAST FILLED ON 08/10/20 30D/S-PT STATES SHE USE TO BE ON A BLOOD THINNER AND AMITRIPTYLINE BUT HASNT TAKEN FOR OVER A YEAR
[2020-10-18 21:55] VITALS: RESP 18
[2020-10-18 21:55] LABS: Basophils % 0.4 %; Eosinophils # 0.1 10^3/uL (0.0-0.8); Eosinophils % 1.3 %; Hematocrit 44.8 % (37.0-47.0); Lymphocytes % 38.2 %; Mean Corpuscular HGB Conc 33.5 g/dL (30.0-36.0); Mean Corpuscular Hemoglobin 31.4 pg (28.0-34.0); Mean Corpuscular Volume 93.7 fL (81-99); Mean Platelet Volume 12.3 fL (7.4-10.4); Monocytes # 0.5 10^3/uL (0.2-0.9); Monocytes % 9.4 %; Neutrophils # 2.69 10^3/uL (1.8-7.7); Neutrophils % 50.3 %; Nucleated Red Blood Cells % 0 %; Platelet Count 139 10^3/cmm (130-400); Red Blood Count 4.78 10^6/uL (4.1-5.3); Red Cell Distribution Width 12.4 % (12.1-15.1); White Blood Count 5.3 10^3/uL (4.0-10.0)
[2020-10-18] MEDS: HYDROmorphone 1 mg/mL INJ 1 mL 0.5 MG IVP (21:55)
[2020-10-18] MEDS: ondansetron 2 mg/ML SDV 2 mL 4 MG IVP (21:56)
[2020-10-18 22:02] VITALS: BP 160/86; PULSE 65; RESP 21; O2SAT 97
[2020-10-18 22:22] LABS: Alanine Aminotransferase 72 U/L (0-33); Albumin Level 4.1 g/dL (3.5-5.2); Alkaline Phosphatase 127 IU/L (35-105); Anion Gap 12.9 (5-19); Aspartate Amino Transferase 66 U/L (0-32); Blood Urea Nitrogen 10 mg/dL (6-20); Carbon Dioxide 30 mmol/L (22-29); Chloride 98 mmol/L (98-107); Globulin 2.8 g/dL (1.3-4.6); Glomerular Filtration Rate 103.8 mL/min (90-130); Glucose 206 mg/dL (65-115); Osmolality Calculated 289 mOsm/kg (285-295); Potassium 3.9 mmol/L (3.5-5.1); Sodium 137 mmol/L (136-145); Total Bilirubin 0.3 mg/dL (0.15-1.2); Total Protein 6.9 g/dL (6.6-8.7)
[2020-10-18 22:24] LABS: Troponin(5th) Baseline 7 ng/L (0-10)
[2020-10-18 23:02] VITALS: BP 129/75; PULSE 64; RESP 17; O2SAT 96
[2020-10-19 01:00] VITALS: RESP 20; O2SAT 97
[2020-10-19] MEDS: HYDROmorphone 1 mg/mL INJ 1 mL IVP (01:00)
[2020-10-19 01:15] VITALS: BP 114/59; PULSE 67; RESP 18; O2SAT 98
[2020-10-19 01:27] LABS: HIV 1 & 2 Antibody Non-Reactive (Non-Reactiv); HIV 1 & 2 Antigen Non-Reactive (Non-Reactiv)
--- NOTE | 2020-10-19 07:35 | DCPLANNER ---
partnership manager had message to schedule a follow up appointment for patient with ENT for tongue lesions. partnership manager emailed patients information to [facility] at [facility] ENT clinic. Patients information will be printed and reviewed. Clinic will call patient with appointment information.
--- NOTE | 2020-10-22 13:43 | DCPLANNER ---
Patient has a follow up appointment scheduled for Friday, October 23, 2020 at 8:[address] Rodriguez. Clinic will call patient with appointment information.
[2020-10-23 15:53] LABS: HIV RNA (CPY/ML) <1.30 NOT DETECTED (NOT DETECTED); HIV RNA LOG <20 NOT DETECTED copies/mL (NOT DETECTED)
--- NOTE | 2020-10-24 11:01 | DCPLANNER ---
Patient had a follow up appointment scheduled for 10.23.[address] Rodriguez, ENT - patient did attend appointment.
== END 2020-10-19 00:55 | disposition home or self-care (01) ==
PROVIDERS: Emergency Provider Emergency Medicine
DX: J40 Bronchitis, not specified as acute or chronic (principal); R07.89 Other chest pain; K14.8 Other diseases of tongue; Z79.82 Long term (current) use of aspirin; Z79.4 Long term (current) use of insulin; I25.10 Atherosclerotic heart disease of native coronary artery without angina pectoris; Z86.19 Personal history of other infectious and parasitic diseases; Z86.73 Personal history of transient ischemic attack (TIA), and cerebral infarction without residual deficits; I10 Essential (primary) hypertension; E11.9 Type 2 diabetes mellitus without complications; F17.290 Nicotine dependence, other tobacco product, uncomplicated
CPT/HCPCS: 36415; 71045; 80053; 84484; 85025; 87536; 87806; 93005; 96374; 96375; 96376; 99284; J1170; J2405

== ENCOUNTER → 2020-10-25 09:41 | Outpatient (BNVA) | payer MEDICAID, SELFPAY | PROVIDERS: Visit Provider Otolaryngology | DX: K13.70 Unspecified lesions of oral mucosa (principal) | CPT/HCPCS: 87635 ==

== ENCOUNTER 2020-11-02 12:51 | Emergency (ER) | payer MEDICAID, SELFPAY ==
[2020-11-02 13:03] VITALS: BP 147/93; PULSE 83; RESP 17; O2SAT 96; BMI 23.0
--- NOTE | 2020-11-02 13:38 | W.ED.GENADLT ---
HPI - General Adult General: Chief complaint: General Medical Stated complaint: L LEG ISSUE, L ARM ISSUE Time Seen by Provider: 11/02/20 13:37 Source: patient Mode of arrival: ambulatory Limitations: physical limitation (walker) History of Present Illness: HPI narrative: left leg and arm pain started yesterday, some tingling Radiation: non-radiation Severity scale (1-10): 6 Quality: aching Pain Consistency: intermittent Review of Systems General: Reports: 10 or more systems reviewed and unremarkable except in HPI and below PFSH ED PFSH: Medical History Brain aneurysm CAD (coronary artery disease) Hepatitis C History of CVA (cerebrovascular accident) Hypertension Insulin dependent type 2 diabetes mellitus Peripheral vascular disease Surgical History History of angioplasty of peripheral vessel History of appendectomy History of cholecystectomy Family History Father Cancer of kidney Social History Smoking and tobacco status: current every day smoker e-cigarettes Quit status (tobacco): has quit using tobacco Year quit tobacco: 2019 Former quit date comment: 1 PPD X 20 YEARS Alcohol intake: former Physical Exam Const: COMMON NORMALS: no acute distress, patient oriented x3, no limitations and alert GENERAL APPEARANCE: cooperative and comfortable ORIENTATION/CONSCIOUSNESS: Yes awake, Yes oriented to person, Yes oriented to place and Yes oriented to time HENMT: COMMON NORMALS: normocephalic, atraumatic, external ears normal, EAC's normal, TM's normal bilaterally and Normal external nose present HEAD & SCALP: normal to inspection, normocephalic and atraumatic FACE & SINUS: normal facial exam, sinuses nontender and face symmetric NOSE: Normal external nose present, Normal nares present and No nasal discharge present EXTERNAL EAR: Yes external ears normal EXTERNAL AUDITORY CANAL: EAC's normal TYMPANIC MEMBRANE: TM's normal bilaterally MOUTH: Normal oral and palatal mucosa present, lip normal and tongue normal THROAT: posterior oropharynx normal, tonsils normal and uvula midline Eye: COMMON NORMALS: Equal, round and reactive pupils present, EOMs intact bilaterally and conjunctivae normal GENERAL EYE: appearance normal, both eyes and all related structures and normal light reflex EYELID: eyelids normal CONJUNCTIVA: Yes conjunctivae normal PUPIL: Yes Equal, round and reactive pupils present EOM: Yes EOM abnormal DIRECT OPHTHALMOSCOPY: Yes normal light reflex Neck/C-Spine: COMMON NORMALS: full ROM, no lymphadenopathy, supple, no meningeal signs, no JVD and Thyroid normal GENERAL: Yes normal visual inspection THYROID: Thyroid normal CERVICAL SPINE: Yes cervical ROM normal and Yes normal cervical lordosis Lymph: LYMPHATIC: no lymphadenopathy noted Chest: COMMONS NORMALS: normal inspection of the chest and normal palpation of entire chest wall Resp: COMMON NORMALS: normal respiratory effort, No retractions and clear to auscultation bilaterally AUSCULTATION: clear to auscultation bilaterally Cardio: COMMON NORMALS: no JVD, regular rate, regular rhythm, S1 normal heart sound present, S2 normal heart sound present, No gallops present (Cardio), No clicks present (Cardio), No murmurs present (Cardio), No rub (Cardio) and Peripheral pulses 2+ throughout RATE: regular rate RHYTHM: regular rhythm HEART SOUNDS: S1 normal heart sound present and S2 normal heart sound present PERIPHERAL PULSES: Peripheral pulses 2+ throughout GI: COMMON NORMALS: Normal to inspection, nondistended, normoactive bowel sounds present, Soft to palpation, non-tender and no masses PALPATION: Yes Soft to palpation : COMMON NORMALS: Yes no CVA tenderness and Yes normal external appearance BLADDER/KIDNEY EXAM: Yes no CVA tenderness Back/Pelvis: COMMON NORMALS: no CVA tenderness, thoracic and lumbar spine normal to inspection, no thoracic nor lumbar tenderness and thoraco-lumbar ROM normal Extremity: COMMON NORMALS: normal to inspection, full ROM, capillary refill normal, no joint enlargement, no clubbing, cyanosis or edema, no calf tenderness and no pedal edema GENERAL: Yes normal exam except as noted LEFT UPPER EXTREMITY: Yes upper arm Left upper arm: Yes inspection (wnl) LEFT LOWER EXTREMITY: Yes upper leg (wnl) Left upper leg: Yes inspection (wnl) and Yes neurovascular exam (wnl) and Yes lower leg (wnl) Left lower leg: Yes inspection (normal) and Yes neurovascular exam (intact) Neuro: COMMON NORMALS: patient oriented x3, moves all extremities, no focal motor deficits, no sensory deficits noted and gait normal SENSORIUM/ORIENTATION: Yes alert, Yes oriented to person, Yes oriented to place and Yes oriented to time MENINGEAL SIGNS: Yes no meningeal signs Psych: COMMON NORMALS: mental status grossly normal, Normal thought process present, cooperative, normal affect, speech normal and activity/motor behavior normal SPEECH: Yes normal speech THOUGHT PROCESS: Normal thought process present Skin: COMMON NORMALS: no rashes or lesions noted, no wounds and turgor normal GENERAL SKIN EXAM: no rashes or lesions noted and turgor normal Course ED course: Pt presents to ER with complaints or left sided pain, most notably in the left arm and leg. She states she had no known traumas and that she also has had some tingling and radiating pain shooting down the side of her left leg. CT ordered. Reevaluation(s): Reevaluation #1: Pt ct does not show evidence of any acute abnormalities. We will proceed with tx for cervical radiculopathy and DC pt. Time: 16:31 Vital Signs: Vital signs: Vital Signs Pulse Rate 83 11/02/20 13:03 Respiratory Rate 17 11/02/20 13:03 Blood Pressure 147/93 11/02/20 13:03 Pulse Oximetry 96 11/02/20 13:03 [facility] - General Adult Imaging Data^: CT Head: Radiologist's impression: [address] [address] [address] Scan Report Signed Patient: Eboni Perez Unit #: [id number] : 1965 Age/Sex: 55 / F ADM Date: 11/02/20 Loc: ER Room/Bed: Attending Dr: Ordering Provider/Ordering MD: Cristal Johnson NP Date of Service: 11/02/20 Procedure(s): CT head wo con* [id number] Accession Number(s): [id number] Report Number: [id number] PROCEDURE INFORMATION: Exam: CT Head Without Contrast Exam date and time: 11/02/2020 3:11 PM Age: 55 years old Clinical indication: Numbness / parasthesia; Left; Prior surgery; Surgery date: 6+ months; Surgery type: Craniotomy; Patient HX: C/O L side tingling w HX of CVA and aneurysm; Additional info: Left side pain and numbness TECHNIQUE: Imaging protocol: Computed tomography of the head without contrast. Radiation optimization: All CT scans at this facility use at least one of these dose optimization techniques: automated exposure control; mA and/or kV adjustment per patient size (includes targeted exams where dose is matched to clinical indication); or iterative reconstruction. COMPARISON: No relevant prior studies available. RADIATION DOSE METRICS: Total DLP (mGy-cm): 723.69 FINDINGS: Brain: There is encephalomalacia in the left frontal lobe.Moderate white matter disease and volume loss are identified. There is no acute infarct or edema. No hemorrhage. Cerebral ventricles: No ventriculomegaly. Bones/joints: Unremarkable. No acute fracture. Paranasal sinuses: Visualized sinuses are unremarkable. No fluid levels. Mastoid air cells: Visualized mastoid air cells are well aerated. Vasculature: There has been a left sided craniotomy with left MCA aneurysm clipping. Soft tissues: Unremarkable. CT/CT head wo con* [id number] IMPRESSION: There are no acute concerning abnormalities. Radiation Dose CTDIVOL = (mGy): DLP = 723.69 (mGy-cm) Dictated By: Al Jackson MD Signed By: Al Jackson MD Signed Date/Time: 11/02/201554 DD/ 53 Discharge Plan Discharge Patient Disposition: Home Clinical Impression: Cervical radiculopathy Condition: Stable Prescriptions: New Medrol (Carlos) 4 mg tablets,dose pack See Rx Instructions .ROUTE .COMPLEX Qty: 21 RF: 0 cyclobenzaprine 10 mg tablet 10 mg PO BID Qty: 10 RF: 0 tramadol 50 mg tablet 25 mg PO Q6H PRN (Reason: pain) Qty: 10 RF: 0 No Action Novolin N Flexpen 100 unit/mL (3 mL) insulin pen 10 unit SUBCUT DAILY@12 RF: 0 ibuprofen 200 mg Tablet 600 mg PO PRN RF: 0 aspirin 81 mg tablet,delayed release (DR/EC) 81 mg PO DAILY@10 RF: 0 metoprolol tartrate 50 mg tablet 50 mg PO BID@,22 RF: 0 Discharge Orders: Discharge ED (Routine); Ordered 11/02/20 Ordered By: Cristal Johnson Discharge Diet: Usual diet Discharge Activity: Increase activity as tolerated Patient Instructions: Opioid Safety Activity Restrictions/Additional Instructions: please return to ER if new or worsening symptoms follow up with PCP on Thursday to ensure evaluation of tx plan is still appropriate MRI not indicated today per ct results Coding Level of Care Code ED Defect Repairer Glassware for Mario Nielsen
--- NOTE | 2020-11-02 13:59 | CTR_ITS ---
PROCEDURE INFORMATION: Exam: CT Head Without Contrast Exam date and time: 11/02/2020 3:11 PM Age: 55 years old Clinical indication: Numbness / parasthesia; Left; Prior surgery; Surgery date: 6+ months; Surgery type: Craniotomy; Patient HX: C/O L side tingling w HX of CVA and aneurysm; Additional info: Left side pain and numbness TECHNIQUE: Imaging protocol: Computed tomography of the head without contrast. Radiation optimization: All CT scans at this facility use at least one of these dose optimization techniques: automated exposure control; mA and/or kV adjustment per patient size (includes targeted exams where dose is matched to clinical indication); or iterative reconstruction. COMPARISON: No relevant prior studies available. RADIATION DOSE METRICS: Total DLP (mGy-cm): 723.69 FINDINGS: Brain: There is encephalomalacia in the left frontal lobe.Moderate white matter disease and volume loss are identified. There is no acute infarct or edema. No hemorrhage. Cerebral ventricles: No ventriculomegaly. Bones/joints: Unremarkable. No acute fracture. Paranasal sinuses: Visualized sinuses are unremarkable. No fluid levels. Mastoid air cells: Visualized mastoid air cells are well aerated. Vasculature: There has been a left sided craniotomy with left MCA aneurysm clipping. Soft tissues: Unremarkable. CT/CT head wo con* [id number] IMPRESSION: There are no acute concerning abnormalities. Radiation Dose CTDIVOL = (mGy): DLP = 723.69 (mGy-cm)
--- NOTE | 2020-11-02 14:04 | PC.NURSE ---
Pt refused XR
[2020-11-02] MEDS: dexamethasone 10 mg/mL INJ IM (14:16)
[2020-11-02] MEDS: orphenadrine 30 mg/mL Inj 2 mL 60 MG IM (14:16)
[2020-11-02] MEDS: ketorolac 30 mg/mL INJ IM (14:16)
[2020-11-02] MEDS: TRAMadol 50 mg Tablet PO (15:50)
== END 2020-11-02 16:58 | disposition home or self-care (01) ==
PROVIDERS: Emergency Provider Nurse Practitioner Family
DX: M54.12 Radiculopathy, cervical region (principal); Z79.82 Long term (current) use of aspirin; I25.10 Atherosclerotic heart disease of native coronary artery without angina pectoris; Z86.19 Personal history of other infectious and parasitic diseases; I10 Essential (primary) hypertension; E11.9 Type 2 diabetes mellitus without complications; F17.290 Nicotine dependence, other tobacco product, uncomplicated
CPT/HCPCS: 70450; 96372; 99283; J1100; J1885; J2360

== ENCOUNTER 2020-12-18 16:55 | Emergency (ER) | payer MEDICAID, SELFPAY ==
[2020-12-18 17:08] VITALS: BP 151/94; PULSE 84; RESP 16; TEMP 36.9; O2SAT 94; BMI 21.7
--- NOTE | 2020-12-18 17:25 | ED_ITS ---
HPI - General Adult General: Chief complaint: Dental/Oral Stated complaint: pain in mouth, blisters Time Seen by Provider: 12/18/20 17:16 History of Present Illness: HPI narrative: Patient is a 55-year-old female comes to the ED with painful oral sores on the mouth. Patient saw Dr. Rodriguez the early intervention school psychologist on October 23 for same complaint. He set up a follow-up appointment on October 31 for patient to get a biopsy done on multiple lesions but patient says that she received a call from the office and they run delaying the biopsy procedure because her Medicaid has not activated yet. Patient says she is in the process still of getting her Medicaid and wants it is active she will be able to get the biopsy. Her main complaint today is the pain that they are causing and with like some relief. Associated symptoms: Deny chest pain, dyspnea, headache(s), nausea, rash, palpitations or vomiting Review of Systems Const: Denies: fever(s), chills or fatigue Eyes: Denies: change in vision or eye discomfort ENMT: Reports: oral sores (Patient has oral sores on tongue); Denies: throat pain, odynophagia, nasal discharge or nasal congestion Card: Denies: chest pain, palpitations, edema, swelling of feet/ankles, dyspnea on exertion or orthopnea Resp: Denies: dyspnea, productive cough or non-productive cough GI: Denies: abdominal pain, nausea, vomiting, diarrhea, constipation or hematochezia : Denies: flank pain, dysuria or hematuria Musc: Denies: neck pain, back pain or extremity swelling Skin/Breast: Denies: rash or new lesions Neuro: Denies: headache(s), numbness in extremities or weakness in extremities PFS ED PFSH: Medical History Brain aneurysm CAD (coronary artery disease) Hepatitis C History of CVA (cerebrovascular accident) Hypertension Insulin dependent type 2 diabetes mellitus Peripheral vascular disease Surgical History History of angioplasty of peripheral vessel History of appendectomy History of cholecystectomy Family History Father Cancer of kidney Social History Smoking and tobacco status: current every day smoker e-cigarettes Quit status (tobacco): has quit using tobacco Year quit tobacco: 2019 Former quit date comment: 1 PPD X 20 YEARS Alcohol intake: former Physical Exam Const: COMMON NORMALS: no acute distress, patient oriented x3 and alert GENERAL APPEARANCE: cooperative and comfortable HENMT: COMMON NORMALS: normocephalic HEAD & SCALP: normocephalic MOUTH: Normal oral and palatal mucosa present TEETH & GINGIVA: Yes caries and Yes poor dentition THROAT: posterior oropharynx normal and uvula midline OTHER: Abnormal oral and palate mucosa-patches of erythema and leukoplakia and ulceration throughout. Tongue has erythema and white areas of superficial ulcerations and is tender. Neck/C-Spine: COMMON NORMALS: supple GENERAL: Yes normal visual inspection Resp: COMMON NORMALS: normal respiratory effort, No retractions, No use of accessory muscles and clear to auscultation bilaterally AUSCULTATION: clear to auscultation bilaterally Cardio: COMMON NORMALS: regular rate, regular rhythm, S1 normal heart sound present, S2 normal heart sound present, No gallops present (Cardio), No clicks present (Cardio), No murmurs present (Cardio) and Peripheral pulses 2+ throughout RATE: regular rate RHYTHM: regular rhythm HEART SOUNDS: S1 normal heart sound present and S2 normal heart sound present PERIPHERAL PULSES: Peripheral pulses 2+ throughout GI: COMMON NORMALS: Normal to inspection, nondistended, normoactive bowel sounds present, Soft to palpation, non-tender and no masses PALPATION: Yes Soft to palpation : COMMON NORMALS: Yes no CVA tenderness BLADDER/KIDNEY EXAM: Yes no CVA tenderness Back/Pelvis: COMMON NORMALS: no CVA tenderness Extremity: COMMON NORMALS: normal to inspection Neuro: COMMON NORMALS: patient oriented x3 and moves all extremities SENSORIUM/ORIENTATION: Yes alert Skin: GENERAL SKIN EXAM: dry skin Course Vital Signs: Vital signs: Vital Signs Temperature 98.4 F 12/18/20 17:08 Pulse Rate 84 12/18/20 17:08 Respiratory Rate 16 12/18/20 17:08 Blood Pressure 151/94 12/18/20 17:08 Pulse Oximetry 94 12/18/20 17:08 MDM - General Adult MDM Narrative: Medical decision making narrative: Patient is a 55-year-old female comes to the ED with painful oral sores on the mouth. Patient saw Dr. Rodriguez the early intervention school psychologist on October 23 for same complaint. He set up a follow-up appointment on October 31 for patient to get a biopsy done on multiple lesions but patient says that she received a call from the office and they run delaying the biopsy procedure because her Medicaid has not activated yet. Patient says she is just waiting on her Medicaid to be fully active so she can get the biopsy done at the ear nose and throat doctor. Patient complaint was continued pain in mouth due to oral lesions. She denied having any other symptoms currently. Here in the ED patient was given some tramadol for pain. She was discharged home with a prescription for tramadol to help with pain and told to follow-up with Dr. Rodriguez early intervention school psychologist as soon as she can to get the biopsy complete. Patient understood and agree with plan. Discharge Plan Discharge Patient Disposition: Home Clinical Impression: Erythroplakia of mouth or tongue, Oral mucosal lesion Condition: Stable Prescriptions: New Zofran 4 mg tablet 4 mg PO Q8H PRN (Reason: nausea and vomiting) Qty: 20 RF: 0 cyclobenzaprine 10 mg tablet 10 mg PO BID PRN (Reason: muscle spasm) Qty: 15 RF: 0 No Action Novolin N Flexpen 100 unit/mL (3 mL) insulin pen 10 unit SUBCUT DAILY@12 RF: 0 ibuprofen 200 mg Tablet 600 mg PO PRN RF: 0 aspirin 81 mg tablet,delayed release (DR/EC) 81 mg PO DAILY@10 RF: 0 metoprolol tartrate 50 mg tablet 50 mg PO BID@10,22 RF: 0 Medrol (Carlos) 4 mg tablets,dose pack See Rx Instructions .ROUTE .COMPLEX Qty: 21 RF: 0 cyclobenzaprine 10 mg tablet 10 mg PO BID Qty: 10 RF: 0 tramadol 50 mg tablet 25 mg PO Q6H PRN (Reason: pain) Qty: 10 RF: 0 Discharge Orders: Discharge ED (Routine); Ordered 12/18/20 Ordered By: Silvio Lane Discharge Diet: Regular Discharge Activity: Resume usual activity Patient Instructions: Tramadol (By mouth) Activity Restrictions/Additional Instructions: Follow-up with your ear nose and throat doctor to get biopsy of oral lesions as soon as possible. Take medications as prescribed. Return to the ER or your medical provider if condition worsens. Please read and understand discharge instructions. Thank you for choosing [facility] for your healthcare needs today. Please realize this is an emergency room and that we are providing you with a medical screening exam and this may not be complete and all inclusive of all the testing and or work up that you may need to determine your ailment or severity of your illness. It is very important that you follow up as instructed or that you return to the Emergency Department should you have concerns or if your condition changes or worsens in any way. Coding Level of Care Code ED Plant Science Professor for Mario Fwd Exam Comprehensive
[2020-12-18] MEDS: TRAMadol 50 mg Tablet 100 MG PO (18:07)
[2020-12-18] MEDS: ondansetron 4 MG Tablet PO (18:08)
== END 2020-12-18 18:36 | disposition home or self-care (01) ==
PROVIDERS: Emergency Provider Physician Assistant
DX: K13.29 Other disturbances of oral epithelium, including tongue (principal); Z79.4 Long term (current) use of insulin; Z79.82 Long term (current) use of aspirin; I25.10 Atherosclerotic heart disease of native coronary artery without angina pectoris; Z86.19 Personal history of other infectious and parasitic diseases; Z86.73 Personal history of transient ischemic attack (TIA), and cerebral infarction without residual deficits; I10 Essential (primary) hypertension; E11.9 Type 2 diabetes mellitus without complications; F17.290 Nicotine dependence, other tobacco product, uncomplicated
CPT/HCPCS: 99283; Q0162

== ENCOUNTER → 2021-01-31 08:48 | Outpatient (BNVA) | payer MEDICAID, SELFPAY | PROVIDERS: Visit Provider Otolaryngology | DX: K13.70 Unspecified lesions of oral mucosa (principal); K14.0 Glossitis; K12.1 Other forms of stomatitis; K12.30 Oral mucositis (ulcerative), unspecified; E11.9 Type 2 diabetes mellitus without complications; K13.29 Other disturbances of oral epithelium, including tongue; I10 Essential (primary) hypertension; Z79.4 Long term (current) use of insulin; Z86.73 Personal history of transient ischemic attack (TIA), and cerebral infarction without residual deficits | CPT/HCPCS: 87635 ==

== ENCOUNTER 2021-02-05 10:40 | Day surgery (SDC) | payer MEDICAID, SELFPAY ==
[2021-02-04 16:43] VITALS: BMI 21.9
[2021-02-05] VITALS (7 sets, daily range): BP systolic 101–169; BP diastolic 58–87; PULSE 57–71; RESP 16–18; TEMP 36.8–37.3; O2SAT 92–97
[2021-02-05] MEDS: sodium chloride 0.9% 1,000 ML 30 ML IV (11:25)
[2021-02-05 11:27] LABS: Glucose Point of Care 203 mg/dL (70-110)
--- NOTE | 2021-02-05 12:48 | W.PM.OPSUD ---
Surgery/Procedure H&P Update DATE OF PROCEDURE: February 05, 2021 DATE H&P PERFORMED: 01/31/21 H&P UPDATE INFORMATION: I have reviewed H&P completed within last 30 days, I have examined patient prior to procedure and No changes to prior documentation PREOP DIAGNOSIS: Glossitis/stomatitis/mucositis/multiple oral ulcerations PLANNED PROCEDURE: Operation Date: 02/05/21 13:00 Proposed Procedures p BIOPSY VESTIBULE OF MOUTH 12741, BIOPSY TONGUE 60332 K14.0(Not Applicable) - Artie Rodriguez MD
--- NOTE | 2021-02-05 12:52 | ANES.PREANE2 ---
Pre-Anesthetic Assessment Pre-Anesthetic Assessment: Height/Weight: Height 1.6 m Weight 56.245 kg Temp Pulse Resp BP Pulse Ox 98.2 F 67 18 142/84 96 02/05/21 11:12 02/05/21 11:12 02/05/21 11:12 02/05/21 11:12 02/05/21 11:12 Preop Diagnosis: Glossitis/stomatitis/mucositis/multiple oral ulcerations Proposed Procedure: Operation Date: 02/05/21 13:00 Proposed Procedures p BIOPSY VESTIBULE OF MOUTH 98918, BIOPSY TONGUE 67292 K14.0(Not Applicable) - Artie Rodriguez MD Was Beta Rica taken within 24 hours: Yes Was Clonidine taken within 24 hours: N/A Last intake: Intake Last Liquid Date 02/05/21 Last Liquid Time 06:30 Last Solid Date 02/04/21 Last Solid Time 21:00 Social: Social History: Tobacco and No alcohol Exam: Pre-Anes Outpt Exam: alert, oriented x 3 and regular rate & rhythm Airway: Submandibular: WNL Cervical ROM: WNL MP: 2 Dentition: Chipped and Loose Additional comments: Very poor dentition Pulmonary: Pulmonary: COPD CV/HEM: CV/HEM: CAD, HTN and PVD Hepatic: Hepatic: Hepatitis Comments: Hep C Metabolic: Metabolic: DM Neuropsych: Neuropsych: Anxiety and Depression Anesthetic Plan: ASA status: 3 Anesthesia: General Risk of > 500 ml blood loss (7ml/kg in children): No Meds/Allergies Current Medications: Current Medications Generic Name Dose Route Start Last Admin Trade Name Freq PRN Reason Stop Dose Admin Sodium Chloride 1,000 mls @ 30 ml s/hr 02/05/21 11:15 02/05/21 11:25 Sodium Chloride 0.9% IV 02/06/21 11:14 30 mls/hr .Q24H TIARA Administration PFSH Anesthesia PFSH: Medical History Brain aneurysm CAD (coronary artery disease) Hepatitis C History of CVA (cerebrovascular accident) Hypertension Insulin dependent type 2 diabetes mellitus Peripheral vascular disease Surgical History History of angioplasty of peripheral vessel History of appendectomy History of cholecystectomy Family History Father Cancer of kidney Social History Alcohol intake: former Data Anesthesia Other Labs: Laboratory Results - last 48 hr 02/05/21 11:23 POC Glucose 203 H Cardiac Studies: No Data to Display
--- NOTE | 2021-02-05 13:59 | PM.OP ---
Operative Report Date of procedure: February 05, 2021 Pre-op Diagnosis: Glossitis/stomatitis/mucositis/multiple oral ulcerations Post-op diagnosis: same Post-op Findings: Multiple surface ulcerations of tongue with thick leukoplakic changes and generalized erythroplakia and leukoplakia of the buccal membranes with ulcerations. Procedure Done: Incisional biopsies of both buccal membrane lesions and central tongue incisional biopsy. Length of incisions 1.5 cm for each buccal membrane lesion excisions and 3 cm central tongue biopsy anterior to posterior. Specimens removed/disposition: Bilateral buccal membrane specimens and central tongue specimen. Pathology: Sent to pathology for fresh handling and culture and sensitivity. Surgeon: Artie Rodriguez Anesthesia: General and Local Estimated blood loss (mL): 20 Complications: No complications were encountered. Findings: Findings: Multiple dental abnormalities with cracked teeth and caries. Generalized gingivitis and stomatitis with worse areas on tongue with thick central leukoplakia and surface ulcerations centrally anteriorly and laterally on both sides. Both buccal membranes with superficial ulceration erythroplakia and leukoplakia. Condition: stable Disposition: PACU Brief History: 55-year-old female patient has had stomatitis glossitis and generalized mouth ulcerations and sores with erythema and white changes that have been going on for over a year. She was a smoker. She vapes. The patient has been treated with multiple antifungal medications as well as antibiotics and Magic mouthwash. Over the many months nothing has seemed to help and most of the treatments actually seem to aggravate it. As a result this patient is being brought to the operating room at this time to undergo biopsies of multiple areas for diagnosis and culture with sensitivity. The patient understood the procedure to include numbing medication to be injected after she is asleep into the biopsy areas and excisions of these lesions for diagnostic purposes with closure with sutures. Risks and complications discussed included bleeding infection numbness scarring swelling bruising persistence of problem need for additional treatment and more serious risk such as heart attack stroke or not surviving the surgery. She is certainly going to need to have her dentition evaluated and treated aggressively. 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 Patient understands and informed consent was granted and witnessed. Procedure: Description of procedure the patient was placed on the operating table in supine position. Adequate general endotracheal tube anesthesia was obtained. She was given Ancef IV for prophylaxis. A timeout was accomplished identifying the patient date of plan procedure allergies fire risk and medications given. With all in agreement the procedure continued. The table was rotated 90 degrees. The head was dropped 15 degrees to the horizontal. The eyes were taped shut and a head drape was applied in usual fashion. Infiltration with local was done in both buccal membrane area centrally and the central tongue. A total of 10 mL of 2% Xylocaine with 1-100,000 epinephrine was utilized. The left buccal biopsy was done first. This was done from anterior to posterior measuring approximately 1-1/2 cm. This was taken down to the subcutaneous tissue. This was an area with erythroplakia leukoplakia and surface ulcer. This was sent to pathology for fresh handling for culture and sensitivity as well as pathology. The surgical defect oozed somewhat but was controlled with sutures placed using 3-0 Vicryl suture interrupted. Then the central tongue biopsy was taken from near the tip ventrally to approximately two thirds of the tongue towards the posterior aspect. This incorporated a large area of leukoplakia thickening and ulceration. After the excision which was done down to the muscle layer the repair was done again with interrupted 3-0 Vicryl suture. Specimen was handed handled in a similar way. The right buccal membrane lesion was then done in a similar fashion nose was done on the left side. After completion the procedure note was no active bleeding encountered. The area was suctioned clean irrigated with saline and suctioned again including the oropharynx and hypopharyngeal area. With no bleeding evident self-retaining retractors were removed there was 1 small segment of a broken tooth that was removed. There was no evidence of further fractured segments. The drapes were removed. The face was cleansed and the patient was returned to the anesthesiologist for wake-up and extubation. She tolerated the procedure well and has been a blood loss of 20 mL and arrived in recovery in stable condition.
--- NOTE | 2021-02-05 14:26 | SUR.PHASEI ---
PT AWAKE ALERT ON RA SATS 92-93%, PT TAKING ICE CHIPS AND DENIES PAIN AND NAUSEA AT THIS TIME MONITOR SR NO ECTOPY VSS.
[2021-02-05 14:50] LABS: Glucose Point of Care 181 mg/dL (70-110)
--- NOTE | 2021-02-05 16:03 | ANE.PACU2 ---
Inpatient post-anesthesia follow up: Airway intact: Yes Vital signs: Temperature 98.8 F Pulse Rate 60 Respiratory Rate 16 Blood Pressure 101/58 Pulse Oximetry 92 Oxygen Delivery Me thod Room Air Oxygen Flow Rate 8 Fraction of Inspir ed Oxygen Hydration adequate: Yes Nausea and vomiting: No Pain level: 2 Mental status: Baseline
== END 2021-02-05 15:25 | disposition home or self-care (01) ==
PROVIDERS: PCP Family Medicine; Visit Provider Otolaryngology
PROC: (CPT 41100; principal; 2021-02-05 13:00)
DX: L43.9 Lichen planus, unspecified (principal); K14.0 Glossitis; K12.1 Other forms of stomatitis; K12.30 Oral mucositis (ulcerative), unspecified; F17.290 Nicotine dependence, other tobacco product, uncomplicated; K05.10 Chronic gingivitis, plaque induced; J44.9 Chronic obstructive pulmonary disease, unspecified; I25.10 Atherosclerotic heart disease of native coronary artery without angina pectoris; I10 Essential (primary) hypertension; Z86.19 Personal history of other infectious and parasitic diseases; E11.9 Type 2 diabetes mellitus without complications; F41.9 Anxiety disorder, unspecified; F32.9 Major depressive disorder, single episode, unspecified; Z86.73 Personal history of transient ischemic attack (TIA), and cerebral infarction without residual deficits
CPT/HCPCS: 41100; 41105; 36416; 82962; 87070; 87075; 87205; 88305; J0690; J2704; J2710; J3010; J3490; J7030

== ENCOUNTER → 2021-04-16 09:45 | Outpatient (BNVA) | payer MEDICAID, SELFPAY | PROVIDERS: PCP Family Medicine; Visit Provider Specialist | DX: I67.1 Cerebral aneurysm, nonruptured (principal); I73.9 Peripheral vascular disease, unspecified; G43.711 Chronic migraine without aura, intractable, with status migrainosus; I69.30 Unspecified sequelae of cerebral infarction | CPT/HCPCS: 99204 ==

== ENCOUNTER 2021-07-30 14:01 | Outpatient (CLI) | payer MEDICAID, SELFPAY ==
--- NOTE | 2021-07-30 15:45 | USR_ITS ---
PROCEDURE INFORMATION: Exam: US Duplex Lower Extremity Arteries Exam date and time: 07/30/2021 3:45 PM Age: 56 years old Clinical indication: Condition or disease; Peripheral vascular disease; Prior surgery; Surgery date: 6+ months; Surgery type: Unknown date of surgery. HX of balloon angioplasty; Additional info: I73.9 - peripheral vascular disease, unspecified, h/o pad with bilateral balloon angioplasty TECHNIQUE: Imaging protocol: Real-time ultrasound scan of the arteries of the bilateral lower extremities with 2-D valles scale, color Doppler flow and spectral waveform analysis. Images documented and saved. COMPARISON: No relevant prior studies available. FINDINGS: Right common femoral artery: No occlusion or significant stenosis. Biphasic waveform. Right superficial femoral artery: No occlusion or significant stenosis. Biphasic waveform. Right popliteal artery: No occlusion or significant stenosis. Biphasic waveform. Right calf/foot arteries: No occlusion or significant stenosis in the visualized arteries. Biphasic waveforms. Dorsalis pedis artery is patent. Left common femoral artery: No occlusion or significant stenosis. Normal waveform. Left superficial femoral artery: No occlusion or significant stenosis. Normal waveform. Left popliteal artery: No occlusion or significant stenosis. Normal waveform. Left calf/foot arteries: No occlusion or significant stenosis in the visualized arteries. Normal waveforms. Dorsalis pedis artery is patent. US/[place] [id number] IMPRESSION: Abnormal biphasic arterial waveforms within the right lower extremity, no significant stenosis or occlusion within either extremity.
== END 2021-07-30 14:02 | disposition home or self-care (01) ==
LOC: RAD 14:05
PROVIDERS: PCP Family Medicine; Visit Provider Internal Medicine Cardiovascular Disease
DX: I73.9 Peripheral vascular disease, unspecified (principal)
CPT/HCPCS: 93925

== ENCOUNTER 2021-08-15 13:28 | Outpatient (CLI) | payer MEDICAID, SELFPAY ==
--- NOTE | 2021-08-15 13:30 | USCV_ITS ---
Chris Eboni Age: 56 Gender: F : 1965 Exam Date: 08/15/2021 13:56 Ordering Phys: Althea Salinas MD ([email or web address]) Technologist: Jarrett Muhammad [place] [facility] [place]: chest pain BP: 180 / 90 HR: 73 Rhythm: Sinus Technical Quality: Adequate MEASUREMENTS (Male / Female) Normal Values 2D ECHO LV Diastolic Diameter PLAX 2.8 cm 4.2 - 5.9 / 3.9 - 5.3 cm LV Systolic Diameter PLAX 2.1 cm IVS Diastolic Thickness 0.6 cm 0.6 - 1.0 / 0.6 - 0.9 cm IVS Systolic Thickness 1.2 cm LVPW Diastolic Thickness 2.8 cm 0.6 - 1.0 / 0.6 - 0.9 cm LVPW Systolic Thickness 1.3 cm LVOT Diameter 1.9 cm LV Ejection Fraction 2D Teich 75.6 % LV Ejection Fraction MOD 2C 76.5 % LV Ejection Fraction 2C AL 77.2 % LA Diameter 2.4 cm Aorta at Sinotubular Diameter 2.3 cm M-MODE Aortic Annulus Diameter 3.6 cm LA Ao Ratio MM 0.8 MV E Point Septal Separation 0.7 cm DOPPLER AV Peak Velocity 105.7 cm/s LVOT Peak Velocity 80.0 cm/s AV Area Cont Eq vti 2.3 cm squared AV Area Cont Eq pk 2.2 cm squared MV Area PHT 4.5 cm squared Mitral E to A Ratio 0.7 MV E' Velocity 46.0 cm/s TR Peak Velocity 129.0 cm/s TR Peak Gradient 6.7 mmHg TV Peak E Velocity 56.0 cm/s Right Atrial Pressure 3.0 mmHg Pulmonary Artery Systolic Pressu 9.7 mmHg PV Peak Velocity 83.0 cm/s FINDINGS Left Ventricle Normal left ventricular size, systolic function and wall thickness, with no regional wall motion abnormalities. Left ventricular ejection fraction is estimated at 70 %. Right Ventricle Normal right ventricular size and systolic function. Normal right ventricular systolic pressure. Right Atrium Normal right atrial size. Left Atrium Normal left atrial size. Mitral Valve Mildly thickened mitral valve. No mitral valve stenosis. Mild mitral valve regurgitation. Aortic Valve Aortic valve not well visualized. No aortic valve stenosis. No aortic valve regurgitation. Tricuspid Valve Structurally normal tricuspid valve. Trace tricuspid valve regurgitation. Pulmonic Valve Pulmonic valve not well visualized. No pulmonary valve stenosis. Pericardium No pericardial effusion. Aorta Normal-sized aortic root. CONCLUSIONS 1. This is a technically difficult study. Ultrasound enhancing agent (Optison) was used per protocol. 2. Normal left ventricular size, systolic function and wall thickness, with no regional wall motion abnormalities. Left ventricular ejection fraction is estimated at 70 %. 3. Normal right ventricular size and systolic function. 4. Mild mitral valve regurgitation. 5. No prior similar studies to compare. Althea Salinas MD (Electronically Signed) Final Date: 16 August 2021 16:39 Amended: 20 August 2021 17:41 C
[2021-08-15] MEDS: perflutren protein-a microsphr 0.22 mg/mL SDV 3 mL IV (14:49)
== END 2021-08-15 13:29 | disposition home or self-care (01) ==
LOC: RAD 13:29
PROVIDERS: PCP Family Medicine; Visit Provider Internal Medicine Cardiovascular Disease
DX: I25.10 Atherosclerotic heart disease of native coronary artery without angina pectoris (principal); R07.9 Chest pain, unspecified; I34.0 Nonrheumatic mitral (valve) insufficiency
CPT/HCPCS: C8929

== ENCOUNTER → 2021-08-19 10:15 | Outpatient (BNVA) | payer MEDICAID, SELFPAY | PROVIDERS: PCP Family Medicine; Visit Provider Social Worker | DX: F32.9 Major depressive disorder, single episode, unspecified (principal); F41.1 Generalized anxiety disorder | CPT/HCPCS: 90834 ==

== ENCOUNTER 2021-09-11 22:30 | Emergency (ER) | payer MEDICAID, SELFPAY ==
[2021-09-11 22:33] VITALS: PULSE 75; RESP 18; TEMP 36.8; O2SAT 96
--- NOTE | 2021-09-11 22:43 | ECG_ITS ---
[facility] Test Date: 2021-09-12 Pat Name: Eboni Perez Department: Room: Gender: Female Puller Through: : 1965 Requested By: Mary Jo Borden Order Number: [id number] Jarret MD: Rosana Segovia M.D. Measurements Intervals Guild Rate: 72 P: 67 ND: 151 QRS: 52 QRSD: 88 T: 70 QT: 420 QTc: 460 Interpretive Statements SINUS RHYTHM NONSPECIFIC ST & T-WAVE ABNORMALITY Compared to ECG 10/18/2020 23:26:11 T-wave abnormality now present Electronically Signed On 09-12-2021 21:56:55 CDT by Rosana Segovia M.D. [email or web address]
--- NOTE | 2021-09-11 22:43 | CTR_ITS ---
PROCEDURE INFORMATION: Exam: CT Head Without Contrast Exam date and time: 09/11/2021 10:43 PM Age: 56 years old Clinical indication: Injury or trauma; Fall; Blunt trauma (contusions or hematomas); Syncope and collapse; Prior surgery; Surgery type: Craniotomy; Patient HX: Patient had syncopal episode and fell at home. History of CVA. ; Additional info: Fall, lightheaded; Reported loc TECHNIQUE: Imaging protocol: Computed tomography of the head without contrast. Radiation optimization: All CT scans at this facility use at least one of these dose optimization techniques: automated exposure control; mA and/or kV adjustment per patient size (includes targeted exams where dose is matched to clinical indication); or iterative reconstruction. COMPARISON: CT head wo con* [id number] 11/02/2020 3:23 PM RADIATION DOSE METRICS: Total DLP (mGy-cm): 793.68 FINDINGS: Brain: Chronic moderate size left frontal infarct with encephalomalacia. Mild generalized sulcal widening is an age related change. Aneurysm clips are noted in the left middle cranial fossa. Cerebral ventricles: mild age related large mint. Paranasal sinuses: Mild mucosal thickening in the paranasal sinuses. Mastoid air cells: Visualized mastoid air cells are well aerated. Bones/joints: Chronic left frontoparietal craniotomy changes. Soft tissues: Unremarkable. CT/CT head wo con* [id number] IMPRESSION: 1. No acute findings. 2. Chronic left frontal infarct with associated aneurysm clipping. 3. Other incidental findings as described
--- NOTE | 2021-09-11 22:44 | XRR_ITS ---
PROCEDURE INFORMATION: Exam: XR Chest Exam date and time: 09/11/2021 10:44 PM Age: 56 years old Clinical indication: Other: Syncope; Additional info: Fall, dizzy TECHNIQUE: Imaging protocol: XR of the chest. Views: 1 view. COMPARISON: CR XR chest 1V portable [id number] 10/18/2020 7:43 PM FINDINGS: Lungs: Unremarkable. No consolidation. Pleural spaces: Unremarkable. No pleural effusion. No pneumothorax. Heart/Mediastinum: There is a metallic stent arising superiorly from the aortic arch which is unchanged.. No cardiomegaly. Bones/joints: Unremarkable. XR/XR chest 1V portable [id number] IMPRESSION: No acute findings.
--- NOTE | 2021-09-11 22:44 | ED_ITS ---
Documented by User: AKIN Felix 09/12/21 18:21 HPI - Fall General: Chief Complaint: Fall Stated Complaint: fall Time Seen by Provider: 09/11/21 22:34 Source: patient Mode of arrival: EMS Limitations: no limitations History of Present Illness: Patient 56-year-old female presents to ED today with complaint of a fall. Patient tells me she has fallen approximately 5 times over the past month. When asked what is causing her to fall she is not really able to give me a definitive answer. First she tells me that she has chronic weakness to her bilateral lower extremities and feels like sometimes they give out . She states this has been chronic since her previous stroke. She is supposed to use a walker at all times but reportedly has not been when the falls are occuring. States she recently had arterial US on the LEs that were normal. Other times she tells me she feels like she gets slightly lightheaded. Patient tells me she is not ever having chest pains, shortness of breath, difficulty breathing, or palpitations. Patient recently had echo through cardiology-this was reviewed. She denies any injuries on the falls and currently has no physical complaints. She currently tells me that she feels at her baseline. She states her roommate called an ambulance today after she fell because she was not able to get up on her own secondary to the chronic leg weakness. complaint: fall Onset (ago): hour(s) Fall from: standing Fall witnessed: yes, by family Place fall occurred: home Loss of consciousness: None Length of LOC: minutes(s) Prolonged down time: yes Symptoms prior to fall: lightheadedness Associated symptoms-after fall: Denies abdominal pain, chest pain, confusion, headache(s), hematuria, lightheadedness or neck pain Review of Systems Const: Denies: fever(s), chills, body aches, fatigue or malaise Eyes: Denies: change in vision or blurry vision Card: Denies: chest pain, palpitations, irregular heart rhythm, edema, swelling of feet/ankles, lightheadedness, syncope, pre-syncope or dyspnea on exertion Resp: Denies: dyspnea, productive cough or pain on inspiration GI: Denies: abdominal pain, nausea, vomiting, heartburn or diarrhea : Denies: flank pain, dysuria or hematuria Musc: Reports: muscle weakness (bilateral LEs); Denies: neck pain, back pain, extremity pain, extremity swelling or joint pain Skin/Breast: Denies: rash Neuro: Reports: frequent falls and dizziness; Denies: headache(s), numbness in extremities, weakness in extremities, sensory changes, lack of coordination, confusion, behavioral changes, Slurred speech present, difficulty communicating thoughts or seizure-like activity PFSH ED PFSH: Medical History Brain aneurysm CAD (coronary artery disease) Hepatitis C History of CVA (cerebrovascular accident) Hypertension Insulin dependent type 2 diabetes mellitus Peripheral vascular disease Psychiatric care Surgical History History of angioplasty of peripheral vessel History of appendectomy History of cholecystectomy Family History Father Cancer of kidney Social History Smoking and tobacco status: current every day smoker cigarettes Packs smoked per day: 0.5 Years cigarettes smoked: 30 Alcohol intake: former Physical Exam Const: COMMON NORMALS: no acute distress, patient oriented x3, no limitations and alert GENERAL APPEARANCE: cooperative ORIENTATION/CONSCIOUSNESS: Yes awake, Yes oriented to person, Yes oriented to place and Yes oriented to time HENMT: COMMON NORMALS: normocephalic and atraumatic HEAD & SCALP: normal to inspection, normocephalic and atraumatic FACE & SINUS: normal facial exam TEETH & GINGIVA: Yes poor dentition Eye: COMMON NORMALS: Equal, round and reactive pupils present and EOMs intact bilaterally GENERAL EYE: appearance normal, both eyes and all related structures PUPIL: Yes Equal, round and reactive pupils present Neck/C-Spine: COMMON NORMALS: full ROM CERVICAL SPINE: Yes cervical ROM normal, No pain with cervical ROM, No Cervical spine tenderness, No step off deformity and No Paracervical muscle tenderness Chest: COMMONS NORMALS: normal inspection of the chest and normal palpation of the breasts BREAST/AXILLA PALPATION: Yes normal palpation of the breasts Resp: COMMON NORMALS: normal respiratory effort and clear to auscultation bilaterally AUSCULTATION: clear to auscultation bilaterally Cardio: COMMON NORMALS: regular rate and regular rhythm RATE: regular rate RHYTHM: regular rhythm GI: COMMON NORMALS: Normal to inspection, nondistended, normoactive bowel sounds present, Soft to palpation, non-tender, No hepatosplenomegaly present and no masses PALPATION: Yes Soft to palpation and Yes No hepatosplenomegaly present : COMMON NORMALS: Yes no CVA tenderness BLADDER/KIDNEY EXAM: Yes no CVA tenderness Back/Pelvis: COMMON NORMALS: no CVA tenderness, thoracic and lumbar spine normal to inspection, no thoracic nor lumbar tenderness and thoraco-lumbar ROM normal Extremity: COMMON NORMALS: normal to inspection and full ROM GENERAL: Yes normal exam except as noted Neuro: MARY COMA SCALE: document GCS findings [place] coma scale eye opening: Spontaneous Mary coma scale verbal response: Orientated [place] coma scale motor response: Obey commands [place] coma scale total score: 15 COMMON NORMALS: patient oriented x3, moves all extremities, no focal motor deficits and no sensory deficits noted SENSORIUM/ORIENTATION: Yes alert, Yes oriented to person, Yes oriented to place and Yes oriented to time MOTOR EXAM: 5/5 motor strength present throughout (overall poor conditioning but strength to UEs/LEs equal against resistance ) Psych: COMMON NORMALS: mental status grossly normal Skin: COMMON NORMALS: no rashes or lesions noted GENERAL SKIN EXAM: no rashes or lesions noted TRAUMA: no lacerations or abrasions Course Vital Signs: Vital signs: Vital Signs Temperature 98.2 F 09/11/21 22:33 Pulse Rate 75 09/12/21 09:43 Respiratory Rate 12 09/12/21 09:43 Blood Pressure 101/67 09/12/21 09:43 Pulse Oximetry 96 09/12/21 06:54 MDM - Fall Medical Decision Making Patient is a 56-year-old female here following a fall. Patient has no physical complaints. She states her roommate called an ambulance because she was unable to get herself off of the floor secondary to chronic lower extremity weakness. Patient states she is supposed to be walking with a walker at all times however was reportedly not using this when she fell. Again she has no physical complaints at this time. Patient's vital signs are stable. Labs overall are fairly unremarkable. She has mild hypokalemia at 3.2. She was given oral potassium supplementation for this. Glucose is elevated at 339. She admittedly has not taken her insulin today. This has improved after insulin here.She has no signs or symptoms and I have no concern for DKA. She has chronic mild LFT elevations. UA culture obtained. Head CT shows no acute findings. She has a chronic left frontal infarct. Patient's EKG showing some nonspecific T wave inversions to her inferior leads and V5/V6. Patient has no complaints of chest pain or difficulty breathing. She has no palpitations. Patient just had an echocardiogram by her manager social media last month-this was reviewed. EKG also reviewed with Dr. Rodríguez. Troponin here is negative. Recommend she follow-up with her manager social media and/or her PCP later this week or early next week for re- evaluation. Strict return ED precautions verbally given. Lab Data : 09/12/21 00:47 09/12/21 00:[address] 09/11/21 22:43 IMPRESSION: 1. No acute findings. 2. Chronic left frontal infarct with associated aneurysm clipping. 3. Other incidental findings as described Chest X-Ray 09/11/21 22:44 IMPRESSION: No acute findings. Laboratory Results WBC 7.3 10^3/uL (4.0-10.0) 09/12/21 00:47 RBC 4.53 10^6/uL (4.1-5.3) 09/12/21 00:47 Hgb 14.4 g/dL (11.5-15.3) 09/12/21 00:47 Hct 40.4 % (37.0-47.0) 09/12/21 00:47 MCV 89.2 fl (81-99) 09/12/21 00:47 MCH 31.8 pg (28.0-34.0) 09/12/21 00:47 MCHC 35.6 g/dL (30.0-36.0) 09/12/21 00:47 RDW 12.2 % (12.1-15.1) 09/12/21 00:47 Plt Count 104 10^3/cmm (130-400) L 09/12/21 00:47 MPV 12.8 fL (7.4-10.4) H 09/12/21 00:47 Neut % (Auto) 60.0 % 09/12/21 00:47 Lymph % (Auto) 31.5 % 09/12/21 00:47 [place] % (Auto) 6.7 % 09/12/21 00:47 Eos % (Auto) 1.0 % 09/12/21 00:47 Baso % (Auto) 0.5 % 09/12/21 00:47 Neut # (Auto) 4.39 10^3/uL (1.8-7.7) 09/12/21 00:47 Lymph # (Auto) 2.3 10^3/uL (0.8-4.8) 09/12/21 00:47 [place] # (Auto) 0.5 10^3/uL (0.2-0.9) 09/12/21 00:47 Eos # (Auto) 0.1 10^3/uL (0.0-0.8) 09/12/21 00:47 Baso # (Auto) 0.0 10^3/uL (0.0-0.1) 09/12/21 00:47 Nucleated RBC % (auto) 0 % 09/12/21 00:47 Nucleated RBCs # 0.0 /100WBC 09/12/21 00:47 Sodium 134 mmol/L (136-145) L 09/12/21 00:47 Potassium 3.2 mmol/L (3.5-5.1) L 09/12/21 00:47 Chloride 97 mmol/L (98-107) L 09/12/21 00:47 Carbon Dioxide 25 mmol/L (22-29) 09/12/21 00:47 Anion Gap 15.2 (5-19) 09/12/21 00:47 BUN 5 mg/dL (6-20) L 09/12/21 00:47 Creatinine 0.5 mg/dL (0.5-0.9) 09/12/21 00:47 GFR Calculation 127.6 mL/min (90-130) 09/12/21 00:47 Glucose 339 mg/dL (65-115) H 09/12/21 00:47 POC Glucose 110 mg/dL (70-110) 09/12/21 08:17 Calculated Osmolality 289 mOsm/kg (285-295) 09/12/21 00:47 Calcium 8.8 mg/dL (8.5-10.5) 09/12/21 00:47 Total Bilirubin 0.8 mg/dL (0.15-1.2) 09/12/21 00:47 AST 42 U/L (0-32) H 09/12/21 00:47 ALT 43 U/L (0-33) H 09/12/21 00:47 Alkaline Phosphatase 127 IU/L (35-105) H 09/12/21 00:47 Creatine Kinase 35 U/L (26-192) 09/12/21 00:47 Troponin T Gen 5 ng/L 8 ng/L (0-10) 09/12/21 00:47 Total Protein 6.4 g/dL (6.6-8.7) L 09/12/21 00:47 Albumin 3.6 g/dL (3.5-5.2) 09/12/21 00:47 Globulin 2.8 g/dL (1.3-4.6) 09/12/21 00:47 Urine Color Yellow (Yellow) 09/12/21 01:50 Urine Appearance Clear (CLEAR) 09/12/21 01:50 Urine pH 7 (5-7) 09/12/21 01:50 Ur Specific [place] 1.010 (1.005-1.030) 09/12/21 01:50 Urine Protein Neg (Negative) 09/12/21 01:50 Urine Glucose (UA) 4+ (Normal) H 09/12/21 01:50 Urine Ketones Negative (Negative) 09/12/21 01:50 Urine Blood Neg (Negative) 09/12/21 01:50 Urine Nitrate Negative (Negative) 09/12/21 01:50 Urine Bilirubin Neg (Negative) 09/12/21 01:50 Urine Urobilinogen 4 mg/dL (Negative) H 09/12/21 01:50 Ur Leukocyte Esterase Trace (Negative) H 09/12/21 01:50 Urine RBC 0-4 /hpf (0-2) H 09/12/21 01:50 Urine WBC 5-10 /hpf (0-5) H 09/12/21 01:50 Ur Squamous Epith Cells 0-4 /hpf (0-5) H 09/12/21 01:50 Amorphous Sediment 1+ /hpf 09/12/21 01:50 Urine Bacteria 1+ /hpf (NONE) H 09/12/21 01:50 Discharge Plan Discharge Patient Disposition: Home Clinical Impression: Bilateral leg weakness, Frequent falls, Acute hypokalemia, Acute hyperglycemia Condition: Stable Prescriptions: No Action topiramate 50 mg tablet 50 mg PO DAILY Qty: 30 3RF lisinopril 10 mg tablet 10 mg PO DAILY Qty: 30 3RF amitriptyline 10 mg tablet 10 mg PO DAILY 0RF clopidogrel [Plavix] 75 mg tablet 75 mg PO DAILY 0RF paroxetine HCl [Paxil] 10 mg tablet 10 mg PO DAILY 0RF aspirin 81 mg tablet,delayed release (DR/EC) 81 mg PO DAILY 0RF metoprolol tartrate 50 mg tablet 75 mg PO BID 0RF cyclobenzaprine 10 mg tablet 10 mg PO DAILY 0RF insulin NPH and regular human 100 unit/mL (70-30) Cartridge 10 unit SUBCUT QNOON 0RF Discharge Orders: Discharge ED (Routine); Ordered 09/12/21 Ordered By: Mary Jo Borden Referrals: Salomon Harp MD [Primary Care Provider] - Coding Level of Care Code ED Machine Shop Inspector for Chg Fwd Exam Comprehensive Documented by User: Gil Rodríguez MD 09/13/21 09:14 HPI - Fall General: Chief Complaint: Fall Stated Complaint: fall Time Seen by Provider: 09/11/21 22:34 PFS ED PFSH: Medical History Brain aneurysm CAD (coronary artery disease) Hepatitis C History of CVA (cerebrovascular accident) Hypertension Insulin dependent type 2 diabetes mellitus Peripheral vascular disease Psychiatric care Surgical History History of angioplasty of peripheral vessel History of appendectomy History of cholecystectomy Family History Father Cancer of kidney Social History Smoking and tobacco status: current every day smoker cigarettes Packs smoked per day: 0.5 Years cigarettes smoked: 30 Alcohol intake: former Physical Exam Neuro: MARY COMA SCALE: document GCS findings [place] coma scale total score: 15 Course Vital Signs: Vital signs: Vital Signs Temperature 98.2 F 09/11/21 22:33 Pulse Rate 75 09/12/21 09:43 Respiratory Rate 12 09/12/21 09:43 Blood Pressure 101/67 09/12/21 09:43 Pulse Oximetry 96 09/12/21 06:54 MDM - Fall Medical Decision Making Patient is a 56-year-old female here following a fall. Patient has no physical complaints. She states her roommate called an ambulance because she was unable to get herself off of the floor secondary to chronic lower extremity weakness. Patient states she is supposed to be walking with a walker at all times however was reportedly not using this when she fell. Again she has no physical complaints at this time. Patient's vital signs are stable. Labs overall are fairly unremarkable. She has mild hypokalemia at 3.2. She was given oral potassium supplementation for this. Glucose is elevated at 339. She admittedly has not taken her insulin today. This has improved after insulin here.She has no signs or symptoms and I have no concern for DKA. She has chronic mild LFT elevations. UA culture obtained. Head CT shows no acute findings. She has a chronic left frontal infarct. Patient's EKG showing some nonspecific T wave inversions to her inferior leads and V5/V6. Patient has no complaints of chest pain or difficulty breathing. She has no palpitations. Patient just had an echocardiogram by her manager social media last month-this was reviewed. EKG also reviewed with Dr. Rodríguez. Troponin here is negative. Recommend she follow-up with her manager social media and/or her PCP later this week or early next week for re-evaluation. Strict return ED precautions verbally given. I discussed this case with AKIN Felix. I have reviewed documentation, labs, imaging. Gil Rodríguez MD Emergency Medicine Lab Data : 09/12/21 00:47 09/12/21 00:[address] 09/11/21 22:43 IMPRESSION: 1. No acute findings. 2. Chronic left frontal infarct with associated aneurysm clipping. 3. Other incidental findings as described Chest X-Ray 09/11/21 22:44 IMPRESSION: No acute findings. Laboratory Results WBC 7.3 10^3/uL (4.0-10.0) 09/12/21 00:47 RBC 4.53 10^6/uL (4.1-5.3) 09/12/21 00:47 Hgb 14.4 g/dL (11.5-15.3) 09/12/21 00:47 Hct 40.4 % (37.0-47.0) 09/12/21 00:47 MCV 89.2 fl (81-99) 09/12/21 00:47 MCH 31.8 pg (28.0-34.0) 09/12/21 00:47 MCHC 35.6 g/dL (30.0-36.0) 09/12/21 00:47 RDW 12.2 % (12.1-15.1) 09/12/21 00:47 Plt Count 104 10^3/cmm (130-400) L 09/12/21 00:47 MPV 12.8 fL (7.4-10.4) H 09/12/21 00:47 Neut % (Auto) 60.0 % 09/12/21 00:47 Lymph % (Auto) 31.5 % 09/12/21 00:47 [place] % (Auto) 6.7 % 09/12/21 00:47 Eos % (Auto) 1.0 % 09/12/21 00:47 Baso % (Auto) 0.5 % 09/12/21 00:47 Neut # (Auto) 4.39 10^3/uL (1.8-7.7) 09/12/21 00:47 Lymph # (Auto) 2.3 10^3/uL (0.8-4.8) 09/12/21 00:47 [place] # (Auto) 0.5 10^3/uL (0.2-0.9) 09/12/21 00:47 Eos # (Auto) 0.1 10^3/uL (0.0-0.8) 09/12/21 00:47 Baso # (Auto) 0.0 10^3/uL (0.0-0.1) 09/12/21 00:47 Nucleated RBC % (auto) 0 % 09/12/21 00:47 Nucleated RBCs # 0.0 /100WBC 09/12/21 00:47 Sodium 134 mmol/L (136-145) L 09/12/21 00:47 Potassium 3.2 mmol/L (3.5-5.1) L 09/12/21 00:47 Chloride 97 mmol/L (98-107) L 09/12/21 00:47 Carbon Dioxide 25 mmol/L (22-29) 09/12/21 00:47 Anion Gap 15.2 (5-19) 09/12/21 00:47 BUN 5 mg/dL (6-20) L 09/12/21 00:47 Creatinine 0.5 mg/dL (0.5-0.9) 09/12/21 00:47 GFR Calculation 127.6 mL/min (90-130) 09/12/21 00:47 Glucose 339 mg/dL (65-115) H 09/12/21 00:47 POC Glucose 110 mg/dL (70-110) 09/12/21 08:17 Calculated Osmolality 289 mOsm/kg (285-295) 09/12/21 00:47 Calcium 8.8 mg/dL (8.5-10.5) 09/12/21 00:47 Total Bilirubin 0.8 mg/dL (0.15-1.2) 09/12/21 00:47 AST 42 U/L (0-32) H 09/12/21 00:47 ALT 43 U/L (0-33) H 09/12/21 00:47 Alkaline Phosphatase 127 IU/L (35-105) H 09/12/21 00:47 Creatine Kinase 35 U/L (26-192) 09/12/21 00:47 Troponin T Gen 5 ng/L 8 ng/L (0-10) 09/12/21 00:47 Total Protein 6.4 g/dL (6.6-8.7) L 09/12/21 00:47 Albumin 3.6 g/dL (3.5-5.2) 09/12/21 00:47 Globulin 2.8 g/dL (1.3-4.6) 03 00:47 Urine Color Yellow (Yellow) 09/12/21 01:50 Urine Appearance Clear (CLEAR) 09/12/21 01:50 Urine pH 7 (5-7) 09/12/21 01:50 Ur Specific [place] 1.010 (1.005-1.030) 09/12/21 01:50 Urine Protein Neg (Negative) 09/12/21 01:50 Urine Glucose (UA) 4+ (Normal) H 09/12/21 01:50 Urine Ketones Negative (Negative) 09/12/21 01:50 Urine Blood Neg (Negative) 09/12/21 01:50 Urine Nitrate Negative (Negative) 09/12/21 01:50 Urine Bilirubin Neg (Negative) 09/12/21 01:50 Urine Urobilinogen 4 mg/dL (Negative) H 09/12/21 01:50 Ur Leukocyte Esterase Trace (Negative) H 09/12/21 01:50 Urine RBC 0-4 /hpf (0-2) H 09/12/21 01:50 Urine WBC 5-10 /hpf (0-5) H 09/12/21 01:50 Ur Squamous Epith Cells 0-4 /hpf (0-5) H 09/12/21 01:50 Amorphous Sediment 1+ /hpf 09/12/21 01:50 Urine Bacteria 1+ /hpf (NONE) H 09/12/21 01:50 Discharge Plan Discharge Patient Disposition: Home Clinical Impression: Bilateral leg weakness, Frequent falls, Acute hypokalemia, Acute hyperglycemia Condition: Stable Prescriptions: No Action topiramate 50 mg tablet 50 mg PO DAILY Qty: 30 3RF lisinopril 10 mg tablet 10 mg PO DAILY Qty: 30 3RF amitriptyline 10 mg tablet 10 mg PO DAILY 0RF clopidogrel [Plavix] 75 mg tablet 75 mg PO DAILY 0RF paroxetine HCl [Paxil] 10 mg tablet 10 mg PO DAILY 0RF aspirin 81 mg tablet,delayed release (DR/EC) 81 mg PO DAILY 0RF metoprolol tartrate 50 mg tablet 75 mg PO BID 0RF cyclobenzaprine 10 mg tablet 10 mg PO DAILY 0RF insulin NPH and regular human 100 unit/mL (70-30) Cartridge 10 unit SUBCUT QNOON 0RF Discharge Orders: Discharge ED (Routine); Ordered 09/12/21 Ordered By: Mary Jo Borden Referrals: Salomon Harp MD [Primary Care Provider] - Coding Level of Care Code ED Machine Shop Inspector for Chg Fwd Exam Comprehensive
[2021-09-11 23:26] VITALS: BP 132/94; PULSE 74; RESP 16; O2SAT 94
[2021-09-12 00:54] LABS: Basophils % 0.5 %; Eosinophils # 0.1 10^3/uL (0.0-0.8); Hematocrit 40.4 % (37.0-47.0); Hemoglobin 14.4 g/dL (11.5-15.3); Lymphocytes # 2.3 10^3/uL (0.8-4.8); Lymphocytes % 31.5 %; Mean Corpuscular HGB Conc 35.6 g/dL (30.0-36.0); Mean Corpuscular Hemoglobin 31.8 pg (28.0-34.0); Mean Corpuscular Volume 89.2 fl (81-99); Mean Platelet Volume 12.8 fL (7.4-10.4); Monocytes # 0.5 10^3/uL (0.2-0.9); Monocytes % 6.7 %; Neutrophils # 4.39 10^3/uL (1.8-7.7); Nucleated Red Blood Cells % 0 %; Platelet Count 104 10^3/cmm (130-400); Red Blood Count 4.53 10^6/uL (4.1-5.3); Red Cell Distribution Width 12.2 % (12.1-15.1); White Blood Count 7.3 10^3/uL (4.0-10.0)
[2021-09-12 01:19] VITALS: BP 141/83; PULSE 74; RESP 17; O2SAT 94
[2021-09-12 01:25] LABS: Alanine Aminotransferase 43 U/L (0-33); Albumin Level 3.6 g/dL (3.5-5.2); Alkaline Phosphatase 127 IU/L (35-105); Anion Gap 15.2 (5-19); Aspartate Amino Transferase 42 U/L (0-32); Blood Urea Nitrogen 5 mg/dL (6-20); Calcium 8.8 mg/dL (8.5-10.5); Carbon Dioxide 25 mmol/L (22-29); Chloride 97 mmol/L (98-107); Creatine Phosphokinase 35 U/L (26-192); Globulin 2.8 g/dL (1.3-4.6); Glomerular Filtration Rate 127.6 mL/min (90-130); Glucose 339 mg/dL (65-115); Osmolality Calculated 289 mOsm/kg (285-295); Potassium 3.2 mmol/L (3.5-5.1); Sodium 134 mmol/L (136-145); Total Bilirubin 0.8 mg/dL (0.15-1.2); Total Protein 6.4 g/dL (6.6-8.7); Troponin T (5th) Once 8 ng/L (0-10)
[2021-09-12 02:03] LABS: Urine Appearance Clear (CLEAR); Urine Color Yellow (Yellow); pH Urine 7 (5-7)
[2021-09-12 02:04] LABS: Add Urine Culture? No; Add Urine Microscopic? YES; Amorphous Sediment Urine 1+ /hpf; Bacteria Urine 1+ /hpf; Bilirubin Urine Neg (Negative); Blood Urine Neg (Negative); Glucose Urine UA 4+ (Normal); Ketones Urine Negative (Negative); Leukocyte Esterase Urine Trace (Negative); Nitrate Urine Negative (Negative); Protein Urine Neg (Negative); RBC Urine 0-4 /hpf (0-2); Squamous Epithelial Cell Urine 0-4 /hpf (0-5); Urobilinogen Urine 4 mg/dL (Negative)
[2021-09-12] MEDS: potassium chloride ER 20 mEq Tablet 40 MEQ PO (02:24)
[2021-09-12] MEDS: insulin regular-human 100 units/1 mL 10 UNIT SUBCUT (02:25)
[2021-09-12 02:26] VITALS: BP 125/77; PULSE 74; RESP 16; O2SAT 94
[2021-09-12 02:57] LABS: Glucose Point of Care 314 mg/dL (70-110)
[2021-09-12] MEDS: insulin regular-human 100 units/1 mL 10 UNIT IVP (03:20)
[2021-09-12 03:50] LABS: Glucose Point of Care 278 mg/dL (70-110)
[2021-09-12 05:12] VITALS: BP 118/74; PULSE 68; RESP 16; O2SAT 95
[2021-09-12 06:54] VITALS: BP 109/67; PULSE 68; RESP 17; O2SAT 96
[2021-09-12 08:10] VITALS: BP 128/76; PULSE 80; RESP 14
[2021-09-12 08:21] LABS: Glucose Point of Care 110 mg/dL (70-110)
[2021-09-12 09:43] VITALS: BP 101/67; PULSE 75; RESP 12
== END 2021-09-12 09:44 | disposition home or self-care (01) ==
PROVIDERS: Emergency Provider Physician Assistant; PCP Family Medicine
DX: R29.6 Repeated falls (principal); R53.1 Weakness; E87.6 Hypokalemia; E11.65 Type 2 diabetes mellitus with hyperglycemia; I25.10 Atherosclerotic heart disease of native coronary artery without angina pectoris; Z86.19 Personal history of other infectious and parasitic diseases; Z86.73 Personal history of transient ischemic attack (TIA), and cerebral infarction without residual deficits; I10 Essential (primary) hypertension; F17.210 Nicotine dependence, cigarettes, uncomplicated; Z79.4 Long term (current) use of insulin; Z79.02 Long term (current) use of antithrombotics/antiplatelets; Z79.82 Long term (current) use of aspirin
CPT/HCPCS: 36415; 36416; 70450; 71045; 80053; 81001; 82550; 82962; 84484; 85025; 87086; 93005; 96372; 96374; 99284; J1815

== ENCOUNTER 2021-09-13 17:27 | Emergency (ER) | payer MEDICAID, SELFPAY ==
[2021-09-13 17:31] VITALS: BP 150/78; PULSE 89; RESP 16; TEMP 36.5; O2SAT 98; BMI 21.1
--- NOTE | 2021-09-13 17:52 | XRR_ITS ---
PROCEDURE INFORMATION: Exam: XR Chest Exam date and time: 09/13/2021 4:57 PM Age: 56 years old Clinical indication: Shortness of breath; Additional info: SOB TECHNIQUE: Imaging protocol: XR of the chest. Views: 1 view. COMPARISON: CR (CHEST, ) 09/11/2021 9:50 PM FINDINGS: Lungs: Right lower lobe minimal atelectasis versus early infiltrate. Pleural spaces: Unremarkable. No pleural effusion. No pneumothorax. Heart/Mediastinum: Unremarkable. No cardiomegaly. Bones/joints: Unremarkable. XR/XR chest 1V portable [id number] IMPRESSION: Right lower lobe minimal atelectasis versus early infiltrate.
--- NOTE | 2021-09-13 17:52 | ECG_ITS ---
[facility] Test Date: 2021-09-13 Pat Name: Eboni Perez Department: Room: Gender: Female [employer]'S [employer] Consultant: : 1965 Requested By: Sherice Ledesma Order Number: [id number] Jarret MD: Brandon Condon M.D. Measurements Intervals [place] Rate: 88 P: 80 CO: 132 QRS: 76 QRSD: 76 T: 81 QT: 368 QTc: 446 Interpretive Statements SINUS RHYTHM NONSPECIFIC ST & T-WAVE ABNORMALITY Compared to ECG 09/12/2021 00:19:11 No significant changes Electronically Signed On 09-13-2021 20:07:28 CDT by Brandon Condon M.D. [email or web address]
--- NOTE | 2021-09-13 17:54 | ED_ITS ---
HPI - General Adult General: Chief complaint: General Medical Stated complaint: Blood sugar high Time Seen by Provider: 09/13/21 17:33 Source: patient Mode of arrival: ambulatory Limitations: no limitations History of Present Illness: 56-year-old female has a history of diabetes and states the last 2 days she has not been feeling very well states she had a slight cough runny nose her boyfriend has been sick as well. States that her blood sugars been running high at home and earlier today was 410. States she also been having some lightheadedness and is passed out today. She denies any vomiting or diarrhea denies any chest pain denies any recent change of her diet. Associated symptoms: Deny chest pain, headache(s), nausea, rash or vomiting Review of Systems Const: Reports: chills and fatigue Eyes: Denies: blurry vision or eye discomfort ENMT: Denies: throat pain or dental pain Card: Denies: chest pain Resp: Reports: non-productive cough GI: Denies: abdominal pain, nausea, vomiting or diarrhea : Denies: dysuria Musc: Denies: neck pain or back pain Skin/Breast: Denies: rash Neuro: Denies: headache(s) Psych: Denies: depression Harish/Lymph: Denies: easy bruising All/Imm: Denies: urticaria PFSH ED PFSH: Medical History Brain aneurysm CAD (coronary artery disease) Hepatitis C History of CVA (cerebrovascular accident) Hypertension Insulin dependent type 2 diabetes mellitus Peripheral vascular disease Psychiatric care Surgical History History of angioplasty of peripheral vessel History of appendectomy History of cholecystectomy Family History Father Cancer of kidney Social History Smoking and tobacco status: current every day smoker cigarettes Packs smoked per day: 0.5 Years cigarettes smoked: 30 Alcohol intake: former Physical Exam Const: COMMON NORMALS: no acute distress, patient oriented x3 and healthy appearing HENMT: COMMON NORMALS: normocephalic and atraumatic HEAD & SCALP: normocephalic and atraumatic Eye: COMMON NORMALS: Equal, round and reactive pupils present and EOMs intact bilaterally PUPIL: Yes Equal, round and reactive pupils present Neck/C-Spine: COMMON NORMALS: full ROM and supple Chest: COMMONS NORMALS: normal inspection of the chest and normal palpation of entire chest wall Resp: COMMON NORMALS: normal respiratory effort, No retractions, No use of accessory muscles and clear to auscultation bilaterally AUSCULTATION: clear to auscultation bilaterally Cardio: COMMON NORMALS: regular rate, regular rhythm and No murmurs present (Cardio) RATE: regular rate RHYTHM: regular rhythm GI: COMMON NORMALS: Normal to inspection, nondistended, normoactive bowel sounds present, Soft to palpation, non-tender and no masses PALPATION: Yes Soft to palpation Extremity: COMMON NORMALS: normal to inspection and full ROM Neuro: COMMON NORMALS: patient oriented x3, moves all extremities and no focal motor deficits Psych: COMMON NORMALS: mental status grossly normal, Normal thought process present and cooperative THOUGHT PROCESS: Normal thought process present Skin: COMMON NORMALS: no rashes or lesions noted and no wounds GENERAL SKIN EXAM: no rashes or lesions noted Course Vital Signs: Vital signs: Vital Signs Temperature 97.7 F 09/13/21 17:31 Pulse Rate 89 09/13/21 17:31 Respiratory Rate 16 09/13/21 17:31 Blood Pressure 150/78 09/13/21 17:31 Pulse Oximetry 98 09/13/21 17:31 [facility] - General Adult Medical Decision Making Patient presents here with high blood sugar that is improved after IV fluids she is not in DKA. She does have a slight pneumonia and she has had a cough can be causing her blood sugars to be running a little higher will start on doxycycline she is to Lab Data : 09/13/21 18:10 09/13/21 18:10 Radiology Impressions Chest X-Ray 09/13/21 17:52 IMPRESSION: Right lower lobe minimal atelectasis versus early infiltrate. Laboratory Results WBC 8.6 10^3/uL (4.0-10.0) 09/13/21 18:10 RBC 4.86 10^6/uL (4.1-5.3) 09/13/21 18:10 Hgb 15.5 g/dL (11.5-15.3) H 09/13/21 18:10 Hct 44.7 % (37.0-47.0) 09/13/21 18:10 MCV 92.0 fl (81-99) 09/13/21 18:10 MCH 31.9 pg (28.0-34.0) 09/13/21 18:10 MCHC 34.7 g/dL (30.0-36.0) 09/13/21 18:10 RDW 12.5 % (12.1-15.1) 09/13/21 18:10 Plt Count 125 10^3/cmm (130-400) L 09/13/21 18:10 MPV 12.6 fL (7.4-10.4) H 09/13/21 18:10 Neut % (Auto) 47.3 % 09/13/21 18:10 Lymph % (Auto) 43.3 % 09/13/21 18:10 [place] % (Auto) 7.1 % 09/13/21 18:10 Eos % (Auto) 1.4 % 09/13/21 18:10 Baso % (Auto) 0.7 % 09/13/21 18:10 Neut # (Auto) 4.06 10^3/uL (1.8-7.7) 09/13/21 18:10 Lymph # (Auto) 3.7 10^3/uL (0.8-4.8) 09/13/21 18:10 [place] # (Auto) 0.6 10^3/uL (0.2-0.9) 09/13/21 18:10 Eos # (Auto) 0.1 10^3/uL (0.0-0.8) 09/13/21 18:10 Baso # (Auto) 0.1 10^3/uL (0.0-0.1) 09/13/21 18:10 Nucleated RBC % (auto) 0 % 09/13/21 18:10 Nucleated RBCs # 0.0 /100WBC 09/13/21 18:10 Sodium 132 mmol/L (136-145) L 09/13/21 18:10 Potassium 3.6 mmol/L (3.5-5.1) 09/13/21 18:10 Chloride 94 mmol/L (98-107) L 09/13/21 18:10 Carbon Dioxide 26 mmol/L (22-29) 09/13/21 18:10 Anion Gap 15.6 (5-19) 09/13/21 18:10 BUN 4 mg/dL (6-20) L 09/13/21 18:10 Creatinine 0.7 mg/dL (0.5-0.9) 09/13/21 18:10 GFR Calculation 86.6 mL/min (90-130) L 09/13/21 18:10 Glucose 299 mg/dL (65-115) H 09/13/21 18:10 POC Glucose 208 mg/dL (70-110) H 09/13/21 19:54 Calculated Osmolality 282 mOsm/kg (285-295) L 09/13/21 18:10 Calcium 9.2 mg/dL (8.5-10.5) 09/13/21 18:10 Total Bilirubin 0.5 mg/dL (0.15-1.2) 09/13/21 18:10 AST 57 U/L (0-32) H 09/13/21 18:10 ALT 50 U/L (0-33) H 09/13/21 18:10 Alkaline Phosphatase 132 IU/L (35-105) H 09/13/21 18:10 Total Protein 6.9 g/dL (6.6-8.7) 09/13/21 18:10 Albumin 4.0 g/dL (3.5-5.2) 09/13/21 18:10 Globulin 2.9 g/dL (1.3-4.6) 09/13/21 18:10 Lipase 25 U/L (13-60) 09/13/21 18:10 Urine Color Yellow (Yellow) 09/13/21 19:00 Urine Appearance Clear (CLEAR) 09/13/21 19:00 Urine pH 6 (5-7) 09/13/21 19:00 Ur Specific [place] 1.010 (1.005-1.030) 09/13/21 19:00 Urine Protein Neg (Negative) 09/13/21 19:00 Urine Glucose (UA) 4+ (Normal) H 09/13/21 19:00 Urine Ketones Negative (Negative) 09/13/21 19:00 Urine Blood Neg (Negative) 09/13/21 19:00 Urine Nitrate Negative (Negative) 09/13/21 19:00 Urine Bilirubin Neg (Negative) 09/13/21 19:00 Urine Urobilinogen 1 mg/dL (Negative) H 09/13/21 19:00 Ur Leukocyte Esterase 1+ (Negative) H 09/13/21 19:00 Urine RBC 0-4 /hpf (0-2) H 09/13/21 19:00 Urine WBC 15-25 /hpf (0-5) H 09/13/21 19:00 Ur Squamous Epith Cells 0-4 /hpf (0-5) H 09/13/21 19:00 Amorphous Sediment Not Reportable 09/13/21 19:00 Urine Bacteria 2+ /hpf (NONE) H 09/13/21 19:00 Serum Ketones Negative (Negative) 09/13/21 18:10 Influenza Type A Ag Negative (Negative) 09/13/21 18:01 Influenza Type B Ag Negative (Negative) 09/13/21 18:01 EKG Data EKG 1: I personally reviewed and interpreted this EKG as follows: EKG interpretation date: 09/13/21 EKG interpretation time: 18:08 Interpretation: nsr hr [address] or t wave abnormalities qrs 76 qtc 413 Computer generated interpretation: Chest X-Ray 09/13/21 17:52 IMPRESSION: Right lower lobe minimal atelectasis versus early infiltrate. Discharge Plan Discharge Patient Disposition: Home Clinical Impression: Hyperglycemia Pneumonia Qualifiers: Pneumonia type: due to unspecified organism Laterality: unspecified laterality Lung location: unspecified part of lung Qualified Code(s): J18.9 - Pneumonia, unspecified organism Condition: Stable Prescriptions: New doxycycline hyclate 100 mg tablet 100 mg PO BID 7 Days Qty: 14 0RF No Action topiramate 50 mg tablet 50 mg PO DAILY Qty: 30 3RF lisinopril 10 mg tablet 10 mg PO DAILY Qty: 30 3RF amitriptyline 10 mg tablet 10 mg PO DAILY 0RF clopidogrel [Plavix] 75 mg tablet 75 mg PO DAILY 0RF paroxetine HCl [Paxil] 10 mg tablet 10 mg PO DAILY 0RF aspirin 81 mg tablet,delayed release (DR/EC) 81 mg PO DAILY 0RF metoprolol tartrate 50 mg tablet 75 mg PO BID 0RF cyclobenzaprine 10 mg tablet 10 mg PO DAILY 0RF insulin NPH and regular human 100 unit/mL (70-30) Cartridge 10 unit SUBCUT QNOON 0RF Discharge Orders: Discharge ED (Routine); Ordered 09/13/21 Ordered By: Sherice Ledesma Referrals: Salomon Harp MD [Primary Care Provider] - Discharge Diet: Advance as tolerated Discharge Activity: Resume usual activity Patient Instructions: Pneumonia (ED), Diabetic Hyperglycemia (ED) Coding Level of Care Code ED Fuel Technician for Chg Fwd Exam Comprehensive
[2021-09-13 18:04] LABS: Glucose Point of Care 327 mg/dL (70-110)
[2021-09-13] MEDS: sodium chloride 0.9% 1,000 ML 999 ML IV (18:15)
[2021-09-13 18:24] LABS: Basophils # 0.1 10^3/uL (0.0-0.1); Basophils % 0.7 %; Eosinophils # 0.1 10^3/uL (0.0-0.8); Eosinophils % 1.4 %; Hematocrit 44.7 % (37.0-47.0); Hemoglobin 15.5 g/dL (11.5-15.3); Lymphocytes # 3.7 10^3/uL (0.8-4.8); Lymphocytes % 43.3 %; Mean Corpuscular HGB Conc 34.7 g/dL (30.0-36.0); Mean Corpuscular Hemoglobin 31.9 pg (28.0-34.0); Mean Platelet Volume 12.6 fL (7.4-10.4); Monocytes # 0.6 10^3/uL (0.2-0.9); Monocytes % 7.1 %; Neutrophils # 4.06 10^3/uL (1.8-7.7); Neutrophils % 47.3 %; Nucleated Red Blood Cells % 0 %; Platelet Count 125 10^3/cmm (130-400); Red Blood Count 4.86 10^6/uL (4.1-5.3); Red Cell Distribution Width 12.5 % (12.1-15.1); White Blood Count 8.6 10^3/uL (4.0-10.0)
[2021-09-13 18:43] LABS: Alanine Aminotransferase 50 U/L (0-33); Alkaline Phosphatase 132 IU/L (35-105); Aspartate Amino Transferase 57 U/L (0-32); Blood Urea Nitrogen 4 mg/dL (6-20); Calcium 9.2 mg/dL (8.5-10.5); Carbon Dioxide 26 mmol/L (22-29); Chloride 94 mmol/L (98-107); Globulin 2.9 g/dL (1.3-4.6); Glomerular Filtration Rate 86.6 mL/min (90-130); Glucose 299 mg/dL (65-115); Lipase 25 U/L (13-60); Osmolality Calculated 282 mOsm/kg (285-295); Sodium 132 mmol/L (136-145); Total Bilirubin 0.5 mg/dL (0.15-1.2); Total Protein 6.9 g/dL (6.6-8.7)
[2021-09-13 18:47] LABS: Influenza A by IFA Negative (Negative); Influenza B by IFA Negative (Negative)
[2021-09-13 18:48] LABS: Ketone (Acetest) Serum Negative (Negative)
[2021-09-13 18:54] LABS: Anion Gap 15.6 (5-19); Potassium 3.6 mmol/L (3.5-5.1)
[2021-09-13 19:16] LABS: Add Urine Microscopic? YES; Bilirubin Urine Neg (Negative); Blood Urine Neg (Negative); Glucose Urine UA 4+ (Normal); Ketones Urine Negative (Negative); Leukocyte Esterase Urine 1+ (Negative); Nitrate Urine Negative (Negative); Protein Urine Neg (Negative); RBC Urine 0-4 /hpf (0-2); Squamous Epithelial Cell Urine 0-4 /hpf (0-5); Urine Appearance Clear (CLEAR); Urine Color Yellow (Yellow); Urobilinogen Urine 1 mg/dL (Negative); WBC Urine 15-25 /hpf (0-5); pH Urine 6 (5-7)
[2021-09-13 19:17] LABS: Add Urine Culture? Yes; Bacteria Urine 2+ /hpf
[2021-09-13 19:58] LABS: Glucose Point of Care 208 mg/dL (70-110)
[2021-09-13 20:55] VITALS: BP 147/84; PULSE 78; RESP 16; O2SAT 98
== END 2021-09-13 20:56 | disposition home or self-care (01) ==
PROVIDERS: Physician Assistant; Emergency Provider Emergency Medicine; PCP Family Medicine
DX: E11.65 Type 2 diabetes mellitus with hyperglycemia (principal); J18.9 Pneumonia, unspecified organism; Z79.02 Long term (current) use of antithrombotics/antiplatelets; Z79.82 Long term (current) use of aspirin; Z79.4 Long term (current) use of insulin; I25.10 Atherosclerotic heart disease of native coronary artery without angina pectoris; Z86.19 Personal history of other infectious and parasitic diseases; Z86.73 Personal history of transient ischemic attack (TIA), and cerebral infarction without residual deficits; I10 Essential (primary) hypertension; E11.9 Type 2 diabetes mellitus without complications; F17.210 Nicotine dependence, cigarettes, uncomplicated
CPT/HCPCS: 36416; 71045; 80053; 81001; 82009; 82962; 83690; 85025; 87086; 87804; 93005; 96360; 99283; J7030

== ENCOUNTER → 2021-10-09 10:13 | Outpatient (BNVA) | payer MEDICAID, SELFPAY | PROVIDERS: PCP Family Medicine; Visit Provider Internal Medicine Cardiovascular Disease | DX: R55 Syncope and collapse (principal); R07.9 Chest pain, unspecified; I25.10 Atherosclerotic heart disease of native coronary artery without angina pectoris; I73.9 Peripheral vascular disease, unspecified; I10 Essential (primary) hypertension; I69.30 Unspecified sequelae of cerebral infarction; E11.9 Type 2 diabetes mellitus without complications; Z79.4 Long term (current) use of insulin; I67.1 Cerebral aneurysm, nonruptured; Z79.82 Long term (current) use of aspirin; Z79.02 Long term (current) use of antithrombotics/antiplatelets; F17.210 Nicotine dependence, cigarettes, uncomplicated | CPT/HCPCS: 99215 ==

== ENCOUNTER → 2021-10-14 08:40 | Outpatient (BNVA) | payer MEDICAID, SELFPAY | PROVIDERS: PCP Family Medicine; Visit Provider Internal Medicine Cardiovascular Disease | DX: R55 Syncope and collapse (principal) | CPT/HCPCS: 93229 ==

== ENCOUNTER 2021-12-02 18:49 | Inpatient (IN) | payer MEDICAID, SELFPAY ==
--- NOTE | 2021-12-02 18:50 | XRR_ITS ---
PROCEDURE INFORMATION: Exam: XR Chest Exam date and time: 12/02/2021 7:38 PM Age: 56 years old Clinical indication: Other: AMS TECHNIQUE: Imaging protocol: XR of the chest. Views: 1 view. COMPARISON: CR XR chest 1V portable [id number] 09/13/2021 4:57 PM FINDINGS: Lungs: No consolidation. Pleural spaces: No pleural effusion. No pneumothorax. Heart/Mediastinum: No cardiomegaly. Bones/joints: Visualized osseous structures are intact. XR/XR chest 1V portable [id number] IMPRESSION: No acute findings.
--- NOTE | 2021-12-02 18:50 | ECG_ITS ---
[facility] Test Date: 2021-12-02 Pat Name: Eboni Perez Department: Room: Gender: Female Director Of Informatics: : 1965 Requested By: Asael Flowers Order Number: [id number] Jarret MD: Brandon Condon M.D. Measurements Intervals [place] Rate: 78 P: 77 WI: 138 QRS: 69 QRSD: 84 T: 76 QT: 396 QTc: 453 Interpretive Statements SINUS RHYTHM MODERATE ST DEPRESSION [0.05+ mV ST DEPRESSION] Compared to ECG 09/13/2021 18:08:14 ST (T wave) deviation now present T-wave abnormality no longer present Electronically Signed On 12-03-2021 17:56:04 CDT by Brandon Condon M.D. [id number]
--- NOTE | 2021-12-02 18:51 | W.ED.GENADLT ---
HPI - General Adult General: Chief complaint: ER Hold Stated complaint: AMS Time Seen by Provider: 12/02/21 18:50 History of Present Illness: Patient is a 56-year-old female with a history of type 2 diabetes on insulin, hypertension, CAD, prior CVA presenting to the emergency room for concerns of altered mental status and hyperglycemia. Patient was found outside of the home confused. Last seen was 2 days ago by patient's neighbor. Patient's neighbor called EMS and patient was brought to the emergency room. On arrival, patient is AAO x1 occasionally following commands. Patient has no focal complaint this time. Per EMS, patient had normal vitals. Patient had a glucose that was read as high. Patient does not know when he last took her insulin. Onset: 2 days ago Duration:2 days Location:home Severity:moderate/severe Associated symptoms: Reports confusion Review of Systems General: Reports: ROS unobtainable due to mental status Neuro: Reports: confusion PFS ED PFSH: Medical History Brain aneurysm CAD (coronary artery disease) Hepatitis C History of CVA (cerebrovascular accident) Hypertension Insulin dependent type 2 diabetes mellitus Peripheral vascular disease Psychiatric care Surgical History History of angioplasty of peripheral vessel History of appendectomy History of cholecystectomy Family History Father Cancer of kidney Social History Smoking and tobacco status: current every day smoker cigarettes Packs smoked per day: 0.5 Years cigarettes smoked: 30 Alcohol intake: former Physical Exam Const: COMMON NORMALS: alert HENMT: COMMON NORMALS: atraumatic HEAD & SCALP: atraumatic MOUTH: moist mucous membranes abnormal Eye: COMMON NORMALS: EOMs intact bilaterally and conjunctivae normal CONJUNCTIVA: Yes conjunctivae normal Neck/C-Spine: COMMON NORMALS: full ROM and supple Resp: COMMON NORMALS: normal respiratory effort and clear to auscultation bilaterally AUSCULTATION: clear to auscultation bilaterally Cardio: COMMON NORMALS: regular rate RATE: regular rate GI: COMMON NORMALS: Soft to palpation and non-tender PALPATION: Yes Soft to palpation OTHER: No focal TTP. NO guarding rebound, guarding, rigidity. No CVA tenderness to percussion. Neg Trejo/Neg McBurney's point tenderness, no suprabupic tenderness to palpation. Extremity: COMMON NORMALS: full ROM OTHER: Following commands, AAO x1 to self only, moving all extremities, cranial nerves II through grossly intact Neuro: SENSORIUM/ORIENTATION: Yes alert MOTOR EXAM: No Abnormal motor strength present and Other motor observations present (no focal motor deficits) Psych: COMMON NORMALS: speech normal SPEECH: Yes normal speech MOOD & AFFECT: Yes euthymic mood Course Vital Signs: Vital signs: Vital Signs Temperature 98.3 F 12/04/21 15:10 Pulse Rate 77 12/04/21 15:10 Respiratory Rate 16 12/04/21 15:10 Blood Pressure 156/78 12/04/21 15:10 Pulse Oximetry 97 12/04/21 15:10 [facility] - General Adult Medical Decision Making Patient is a 56-year-old female with a history of type 2 diabetes on insulin, hypertension, CAD, prior CVA presented to the emergency room with altered mental status and hyperglycemia. On physical exam the patient is noted to have dry mucous membrane. AAO x1 confused unable to follow simple complaints occasionally. White count 11.9. Glucose of 552 improved to 300 on repeat. Potassium is mildly elevated at 5.3. EKG did not show any signs of hyperkalemia. Creatinine is 0.6. Patient was 10 units of insulin and 1 L fluid. Patient is found to have UTI on blood work. Patient received ceftriaxone. CT head and x-ray chest is negative for any acute findings. Given continue altered mental status and hyperglycemia as well as inability to care for self at home, patient will be brought to hospital for observation. Disposition: admission Lab Data : 12/04/21 07:22 12/04/21 07:22 Radiology Impressions Chest X-Ray 12/02/21 18:50 IMPRESSION: No acute findings. Head CT 12/02/21 18:50 IMPRESSION: 1. No acute intracranial abnormality. 2. Focal encephalomalacia within the left frontal lobe and sequela of prior aneurysm repair. Laboratory Results WBC 10.0 10^3/uL (4.0-10.0) 12/03/21 05:39 RBC 4.47 10^6/uL (4.1-5.3) 12/03/21 05:39 Hgb 13.9 g/dL (11.5-15.3) 12/03/21 05:39 Hct 39.7 % (37.0-47.0) 12/03/21 05:39 MCV 88.8 fl (81-99) 12/03/21 05:39 MCH 31.1 pg (28.0-34.0) 12/03/21 05:39 MCHC 35.0 g/dL (30.0-36.0) 12/03/21 05:39 RDW 12.3 % (12.1-15.1) 12/03/21 05:39 Plt Count 106 10^3/cmm (130-400) L 12/03/21 05:39 MPV 12.8 fL (7.4-10.4) H 12/03/21 05:39 Neut % (Auto) 55.9 % 12/03/21 05:39 Lymph % (Auto) 32.7 % 12/03/21 05:39 [place] % (Auto) 8.2 % 12/03/21 05:39 Eos % (Auto) 2.2 % 12/03/21 05:39 Baso % (Auto) 0.6 % 12/03/21 05:39 Neut # (Auto) 5.61 10^3/uL (1.8-7.7) 12/03/21 05:39 Lymph # (Auto) 3.3 10^3/uL (0.8-4.8) 12/03/21 05:39 [place] # (Auto) 0.8 10^3/uL (0.2-0.9) 12/03/21 05:39 Eos # (Auto) 0.2 10^3/uL (0.0-0.8) 12/03/21 05:39 Baso # (Auto) 0.1 10^3/uL (0.0-0.1) 12/03/21 05:39 Nucleated RBC % (auto) 0 % 12/03/21 05:39 Total Counted 100 (0-100) 12/02/21 19:50 Atypical Lymphs % 17.0 % (0-5) H 12/02/21 19:50 Absolute Neutrophils 7.1 10^3/cmm (1.4-6.5) H 12/02/21 19:50 Segmented Neutrophils 60 % 12/02/21 19:50 Abs Segm Neuts (Man) 7.1 10/cmm (1.6-7.1) 12/02/21 19:50 Band Neutrophils 0.0 % 12/02/21 19:50 Abs Band Neuts (Man) 0.0 10^3/cmm (0.0-1.2) 12/02/21 19:50 Absolute Lymphocytes 3.8 10^3/cmm (1.2-3.4) H 12/02/21 19:50 Lymphocytes (Manual) 15 % 12/02/21 19:50 Monocytes (Manual) 8.0 % 12/02/21 19:50 Absolute Monocytes 1.0 10^3/cmm (0.1-0.6) H 12/02/21 19:50 Eosinophils (Manual) 0 % 12/02/21 19:50 Absolute Eosinophils 0.0 10^3/cmm (0.0-0.7) 12/02/21 19:50 Basophils (Manual) 0.0 % 12/02/21 19:50 Absolute Basophils 0.0 10^3/cmm (0.0-0.2) 12/02/21 19:50 Nucleated RBCs # 0.0 /100WBC 12/03/21 05:39 Platelet Estimate Normal (Normal) 12/02/21 19:50 Specimen Type Arterial 12/02/21 19:23 Sample Site Radial, left 12/02/21 19:23 ABG pH 7.45 (7.35-7.45) 12/02/21 19:23 ABG pCO2 40.9 mmHg (35-45) 12/02/21 19:23 ABG pO2 73.6 mmHg (80.0-100.0) L 12/02/21 19:23 ABG HCO3 28.1 mmol/L (22-26) H 12/02/21 19:23 ABG O2 Saturation 96.0 12/02/21 19: ABG Base Excess 3.7 mmol/L (-2.0-2.0) H 12/02/21 19:23 Asif Test Pos 12/02/21 19:23 A-a O2 Gradient 3.1 mmHg (5-10) L 12/02/21 19:23 Hematocrit 44.0 % (37-47) 12/02/21 19:23 Hgb O2 Saturation 94.1 % (95-100) L 12/02/21 19:23 Carboxyhemoglobin 1.6 %THgb (0.4-20.1) 12/02/21 19:23 Methemoglobin 0.4 % (0.4-1.5) 12/02/21 19:23 Total Hemoglobin 14.4 g/dL (12-16) 12/02/21 19:23 Sodium 131.0 mmol/L (131-143) 12/02/21 19:23 Potassium 4.2 mmol/L (3.5-5.0) 12/02/21 19:23 Glucose 517.0 mg/dL (70-115) H 12/02/21 19:23 Ionized Calcium 1.3 mmol/L (1.1-1.4) 12/02/21 19:23 O2 Delivery Device Not Reportable 12/02/21 19:23 FiO2 21.0 % 12/02/21 19:23 Health Insurance Adjuster ID [place] 12/02/21 19:23 Sodium 136 mmol/L (136-145) 12/03/21 05:39 Potassium 3.5 mmol/L (3.5-5.1) 12/03/21 05:39 Chloride 100 mmol/L (98-107) 12/03/21 05:39 Carbon Dioxide 23 mmol/L (22-29) 12/03/21 05:39 Anion Gap 16.5 (5-19) 12/03/21 05:39 BUN 10 mg/dL (6-20) 12/03/21 05:39 Creatinine 0.4 mg/dL (0.5-0.9) L 12/03/21 05:39 GFR Calculation 165.1 mL/min (90-130) H 12/03/21 05:39 Glucose 255 mg/dL (65-115) H 12/03/21 05:39 POC Glucose 291 mg/dL (70-110) H 12/03/21 06:31 Calculated Osmolality 290 mOsm/kg (285-295) 12/03/21 05:39 Calcium 7.9 mg/dL (8.5-10.5) L 12/03/21 05:39 Phosphorus 2.2 mg/dL (2.5-4.5) L 12/03/21 05:39 Magnesium 1.4 mg/dL (1.7-2.3) L 12/03/21 05:39 Total Bilirubin 0.8 mg/dL (0.15-1.2) 12/03/21 05:39 AST 51 U/L (0-32) H 12/03/21 05:39 ALT 47 U/L (0-33) H 12/03/21 05:39 Alkaline Phosphatase 136 IU/L (35-105) H 12/03/21 05:39 Ammonia 30 umol/L (11-51) 12/03/21 05:39 Creatine Kinase 85 U/L (26-192) 12/03/21 05:39 Troponin T Baseline 7 ng/L (0-10) 12/02/21 19:30 Troponin T 120 Minute 8.01 ng/L (0-10) 12/02/21 21:27 Delta Troponin T 1.01 ABS# (0-10) 12/02/21 21:27 Total Protein 6.3 g/dL (6.6-8.7) L 12/03/21 05:39 Albumin 3.2 g/dL (3.5-5.2) L 12/03/21 05:39 Globulin 3.1 g/dL (1.3-4.6) 12/03/21 05:39 TSH 1.72 uIU/mL (0.27-4.20) 12/02/21 19:30 Free T4 1.45 ng/dL (0.82-1.77) 12/02/21 19:30 Urine Color Straw (Yellow) 12/02/21 19:50 Urine Appearance Hazy (CLEAR) A 12/02/21 19:50 Urine pH 5 (5-7) 12/02/21 19:50 Ur Specific [place] 1.010 (1.005-1.030) 12/02/21 19:50 Urine Protein Neg (Negative) 12/02/21 19:50 Urine Glucose (UA) 4+ (Normal) H 12/02/21 19:50 Urine Ketones 1+ (Negative) H 12/02/21 19:50 Urine Blood Trace (Negative) H 12/02/21 19:50 Urine Nitrate Negative (Negative) 12/02/21 19:50 Urine Bilirubin Neg (Negative) 12/02/21 19:50 Urine Urobilinogen Norm mg/dL (Negative) 12/02/21 19:50 Ur Leukocyte Esterase 2+ (Negative) H 12/02/21 19:50 Urine RBC 0-4 /hpf (0-2) H 12/02/21 19:50 Urine WBC 25-40 /hpf (0-5) H 12/02/21 19:50 Ur Squamous Epith Cells 5-10 /hpf (0-5) H 12/02/21 19:50 Amorphous Sediment Not Reportable 12/02/21 19:50 Urine Bacteria 4+ /hpf (NONE) H 12/02/21 19:50 Urine Yeast 1+ /hpf H 12/02/21 19:50 Salicylates < 0.3 mg/dL (3-10) L 12/02/21 19:30 Urine Opiates Screen Negative ng/mL (Negative) 12/02/21 19:50 Acetaminophen < 5.0 ug/mL (10-30) L 12/02/21 19:30 Ur Barbiturates Screen Negative ng/mL (Negative) 12/02/21 19:50 Ur Phencyclidine Scrn Negative ng/mL (Negative) 12/02/21 19:50 Ur Amphetamines Screen Negative ng/mL (Negative) 12/02/21 19:50 U Benzodiazepines Scrn Negative ng/mL (Negative) 12/02/21 19:50 Urine Cocaine Screen Negative ng/mL (Negative) 12/02/21 19:50 U Marijuana (THC) Screen Negative ng/mL (Negative) 12/02/21 19:50 Serum Ketones Negative (Negative) 12/02/21 19:30 HCV RNA (PCR) IUs/ml 6.52 Log IU/mL (NOT DETECTED) H 12/02/21 19:30 HCV RNA (PCR) IU log10 [id number] IU/mL (NOT DETECTED) H 12/02/21 19:30 Imaging Data Other Imaging: Radiologist's impression: [address] [place] [address] CT Scan Report Signed Patient: Eboni Perez Unit #: [id number] : 1965 Age/Sex: 56 / F ADM Date: 12/02/21 Loc: ER Room/Bed: Attending Dr: Ordering Provider/Ordering MD: Asael Flowers MD Date of Service: 12/02/21 Procedure(s): CT head wo con* [id number] Accession Number(s): [id number] Report Number: [id number] PROCEDURE INFORMATION: Exam: CT Head Without Contrast Exam date and time: 12/02/2021 8:06 PM Age: 56 years old Clinical indication: Alteration of consciousness; Other: AMS; Prior surgery; Surgery date: 6+ months; Surgery type: Brain aneurysm repair; Patient HX: Increased confusion , slurred speech, and intermittent consciousness /symtpoms x 2 days with worsening altered mental status. HX of brain aneurysm/ CVA TECHNIQUE: Imaging protocol: Computed tomography of the head without contrast. Radiation optimization: All CT scans at this facility use at least one of these dose optimization techniques: automated exposure control; mA and/or kV adjustment per patient size (includes targeted exams where dose is matched to clinical indication); or iterative reconstruction. COMPARISON: CT head wo con* [id number] 09/11/2021 10:57 PM RADIATION DOSE METRICS: Total DLP (mGy-cm): 757.98 FINDINGS: Brain: No hemorrhage. No edema. Focal encephalomalacia within the left frontal lobe corresponding to sequela of prior aneurysm/repair. Aneurysm clip noted in the region of the left middle cerebral artery. No mass effect. Cerebral ventricles: No ventriculomegaly. Paranasal sinuses: Visualized sinuses are unremarkable. No fluid levels. Mastoid air cells: Visualized mastoid air cells are well aerated. Bones/joints: Left frontotemporal craniotomy changes. No acute fracture. Soft tissues: Unremarkable. CT/CT head wo con* [id number] IMPRESSION: 1. No acute intracranial abnormality. 2. Focal encephalomalacia within the left frontal lobe and sequela of prior aneurysm repair. ? Dictated By: Saleem Zacarias DO Signed By: Saleem Zacarias DO Signed Date/Time: 12/02/212023 DD/ [address] [address] XRay Report Signed Patient: Eboni Perez Unit #: [id number] : 1965 Age/Sex: 56 / F ADM Date: 12/02/21 Loc: ER Room/Bed: Attending Dr: Ordering Provider/Ordering MD: Asael Flowers MD Date of Service: 12/02/21 Procedure(s): XR chest 1V portable [id number] Accession Number(s): [id number] Report Number: [id number] PROCEDURE INFORMATION: Exam: XR Chest Exam date and time: 12/02/2021 7:38 PM Age: 56 years old Clinical indication: Other: AMS TECHNIQUE: Imaging protocol: XR of the chest. Views: 1 view. COMPARISON: CR XR chest 1V portable [id number] 09/13/2021 4:57 PM FINDINGS: Lungs: No consolidation. Pleural spaces: No pleural effusion. No pneumothorax. Heart/Mediastinum: No cardiomegaly. Bones/joints: Visualized osseous structures are intact. XR/XR chest 1V portable [id number] IMPRESSION: No acute findings. ? 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
[2021-12-02 19:06] VITALS: BP 116/80; PULSE 76; RESP 16; TEMP 37.2; O2SAT 95; BMI 23.3
[2021-12-02 19:34] LABS: ABG PCO2 40.9 mmHg (35-45); ABG PH Result 7.45 (7.35-7.45); Alveolar-Arterial Oxygen Gradi 3.1 mmHg (5-10); Base Excess ABG 3.7 mmol/L (-2.0-2.0); Blood Gas Allen Test Pos; Blood Gas Operator Identificat WALCI; Blood Gas Sample Site Radial, left; Blood Gas Sample Type Arterial; Carboxyhemoglobin 1.6 %THgb (0.4-20.1); HCO3 ABG 28.1 mmol/L (22-26); HGB O2 Sat 94.1 % (95-100); Ionized Calcium Level - ABG 1.3 mmol/L (1.1-1.4); Methemoglobin 0.4 % (0.4-1.5); PO2 ABG 73.6 mmHg (80.0-100.0); Potassium Level - ABG 4.2 mmol/L (3.5-5.0); Total Hemoglobin 14.4 g/dL (12-16)
[2021-12-02 19:38] LABS: Glucose Point of Care 534 mg/dL (70-110)
[2021-12-02 19:51] LABS: Ketone (Acetest) Serum Negative (Negative)
[2021-12-02 19:57] LABS: Hematocrit 41.3 % (37.0-47.0); Hemoglobin 14.6 g/dL (11.5-15.3); Mean Corpuscular HGB Conc 35.4 g/dL (30.0-36.0); Mean Corpuscular Hemoglobin 31.5 pg (28.0-34.0); Mean Corpuscular Volume 89.2 fl (81-99); Platelet Count 140 10^3/cmm (130-400); Red Blood Count 4.63 10^6/uL (4.1-5.3); Red Cell Distribution Width 12.4 % (12.1-15.1); White Blood Count 11.9 10^3/uL (4.0-10.0)
[2021-12-02 20:07] LABS: Troponin(5th) Baseline 7 ng/L (0-10)
[2021-12-02 20:07] LABS: Amphetamines Screen Urine Negative (Negative); Barbiturates Screen Urine Negative (Negative); Benzodiazepines Screen Urine Negative (Negative); Cocaine Screen Urine Negative (Negative); Opiate Screen Urine Negative (Negative); PCP Screen Urine Negative (Negative); THC Screen Urine Negative (Negative)
[2021-12-02 20:15] LABS: Alanine Aminotransferase 60 U/L (0-33); Albumin Level 3.8 g/dL (3.5-5.2); Alkaline Phosphatase 169 IU/L (35-105); Anion Gap 17.3 (5-19); Aspartate Amino Transferase 48 U/L (0-32); Blood Urea Nitrogen 14 mg/dL (6-20); Calcium 9.7 mg/dL (8.5-10.5); Carbon Dioxide 28 mmol/L (22-29); Chloride 92 mmol/L (98-107); Free T4 Free Thyroxine 1.45 ng/dL (0.82-1.77); Globulin 3.8 g/dL (1.3-4.6); Glomerular Filtration Rate 103.4 mL/min (90-130); Osmolality Calculated 300 mOsm/kg (285-295); Potassium 5.3 mmol/L (3.5-5.1); Sodium 132 mmol/L (136-145); Thyroid Stimulating Hormone 1.72 uIU/mL (0.27-4.20); Total Bilirubin 0.8 mg/dL (0.15-1.2); Total Protein 7.6 g/dL (6.6-8.7)
[2021-12-02 20:16] LABS: Protein Urine Neg (Negative); Urine Appearance Hazy (CLEAR); Urine Color Straw (Yellow); pH Urine 5 (5-7)
[2021-12-02 20:17] LABS: Add Urine Microscopic? YES; Bacteria Urine 4+ /hpf; Bilirubin Urine Neg (Negative); Blood Urine Trace (Negative); Glucose Urine UA 4+ (Normal); Ketones Urine 1+ (Negative); Leukocyte Esterase Urine 2+ (Negative); Nitrate Urine Negative (Negative); RBC Urine 0-4 /hpf (0-2); Urobilinogen Urine Norm (Negative); WBC Urine 25-40 /hpf (0-5)
[2021-12-02 20:18] LABS: Add Urine Culture? Yes
[2021-12-02 20:31] LABS: Slide Review Slide Review Perform
[2021-12-02 20:32] LABS: Absolute Neutrophil 7.1 10^3/cmm (1.4-6.5); Absolute Segmented Neutrophil 7.1 10/cmm (1.6-7.1); Eosinophils 0 %; Lymphocytes 15 %; Lymphocytes Absolute 3.8 10^3/cmm (1.2-3.4); Platelet Estimate Normal (Normal); Segmented Neutrophils 60 %; Total Cells Counted 100 (0-100)
[2021-12-02 20:38] LABS: Acetaminophen < 5.0 ug/mL (10-30); Salicylate < 0.3 mg/dL (3-10)
[2021-12-02 20:39] LABS: Glucose 552 mg/dL (65-115)
[2021-12-02] MEDS: insulin lispro 100 unit/1 mL 10 UNIT SUBCUT (20:53)
[2021-12-02] MEDS: sodium chloride 0.9% 1,000 ML 999 ML IV ×2 (20:54)
[2021-12-02 20:57] VITALS: BP 120/82; PULSE 82; RESP 16; O2SAT 94
[2021-12-02 21:00] LABS: Glucose Point of Care 455 mg/dL (70-110)
--- NOTE | 2021-12-02 21:21 | PC.PHAR ---
PT UNABLE TO VERIFY DO TO AMS- PT CONTACTS DO NOT KNOW PT MEDICATIONS- PT PHARMACY [facility] IS CLOSED. VERIFIED USING EXTERNAL MED HISTORY.
[2021-12-02 21:53] LABS: Troponin 5 2HR 8.01 ng/L (0-10)
[2021-12-02 21:57] LABS: Troponin 5 2HR Delta 1.01 ABS# (0-10)
[2021-12-02 21:59] LABS: Glucose Point of Care 303 mg/dL (70-110)
[2021-12-02] MEDS: cefTRIAXone 1,000 MG in sodium chloride 0.9% (plus) 50 ML 100 MG IV (22:48)
--- NOTE | 2021-12-02 23:15 | P.HP_ITS ---
Providers/Chief Complaint Primary Care Provider: Salomon Harp MD Chief Complaint: AMS History of Present Illness Eboni Perez is a 56 year old female with PMH of cerebral aneurysm, h/o CVA, migraine and peripheral artery disease, DM, Hep c , nonobstructive CAD, history of peripheral vascular disease,?subclavian steal syndrome,? left subclavian stenosis s/p stenting?was brought in with c/o after found to be confused outside her home, EMS was called by the patient neighbor,upon arrival in the ER she was found to be AAO*1. She was worked up for above mention complain. Pertinent Imaging studies: C.T Head without contrast :No acute Intrcranial pathology Xray chest : No infiltrates,effusion, ptx EKG: Sinus Rthym , non specific ST-T Wave changes. Pertinent Labs : WBC: 11.9 H&H: 14/41 PLT : 140 , Na: 132, k:5.3 BUN/SCR: 14/0.6 , RBS: 552 , A, Serum ketones: Negative AST,ALT,ALP: 48/58142 , TSH:1.72, Troponin trend :Negative Urine Analysis : Hazy , UN:Negative, ULE : Positive, wbc: 25-40 , Bacteria :4+ Patient received I.V Fluids, I.V Insulin as well as Rocephin in the ER. Review of Systems General: Reports: 10 or more systems reviewed and unremarkable except in HPI and below Const: Denies: fever(s), chills, body aches, change in appetite or diaphoresis Card: Denies: palpitations, edema, swelling of feet/ankles, dyspnea on exertion, orthopnea or leg pain with exertion Resp: Denies: dyspnea, productive cough, wheezing or pain on inspiration GI: Denies: abdominal pain, nausea, vomiting, diarrhea or constipation : Denies: flank pain Musc: Denies: back pain, extremity pain or extremity swelling Neuro: Denies: headache(s), difficulty walking or confusion Medications/Allergies Home Medications Medication Instructions Recorded Confirmed Last Taken Type aspirin 81 mg tablet,delayed 81 mg PO DAILY 10/18/20 12/02/21 01/31/21 History release amitriptyline 10 mg tablet 10 mg PO DAILY 01/31/21 12/02/21 02/01/21 History clopidogrel 75 mg tablet (Plavix) 75 mg PO DAILY 01/31/21 12/02/21 01/31/21 History lisinopril 10 mg tablet 10 mg PO DAILY #30 tab 05/29/21 12/02/21 Unknown Rx insulin aspar prt-insulin aspart 10 unit SUBCUT DAILY 12/02/21 12/02/21 Unknown History 100 unit/mL (70-30) subcutaneous soln (Novolog Mix 70-30 U-100 Insuln) metoprolol tartrate 75 mg tablet 75 mg PO BID 12/02/21 12/02/21 Unknown History paroxetine HCl 20 mg tablet 20 mg PO DAILY 12/02/21 12/02/21 Unknown History topiramate 50 mg tablet See Rx Instructions .ROUTE 12/02/21 12/02/21 Unknown Rx .COMPLEX #30 tab zolpidem 10 mg tablet 10 mg PO BEDTIME PRN 12/02/21 12/02/21 Unknown History Allergies Allergy/AdvReac Type Severity Reaction Status Date / Time acetaminophen Allergy Unknown Verified 05/28/21 11:57 codeine Allergy Unknown Verified 05/28/21 11:57 hydrocodone [From Vicodin] Allergy ADR-Nausea Verified 05/28/21 11:57 morphine Allergy ADR-Nausea Verified 05/28/21 11:57 nystatin Allergy Unknown Verified 05/28/21 11:57 Penicillins Allergy Unknown Verified 05/28/21 11:57 PFSH Acute PFSH: Medical History Brain aneurysm CAD (coronary artery disease) Hepatitis C History of CVA (cerebrovascular accident) Hypertension Insulin dependent type 2 diabetes mellitus Peripheral vascular disease Psychiatric care Surgical History History of angioplasty of peripheral vessel History of appendectomy History of cholecystectomy Family History Father Cancer of kidney Social History Smoking and tobacco status: current every day smoker cigarettes Packs smoked per day: 0.5 Years cigarettes smoked: 30 Alcohol intake: former Vitals/I&O/Wt Last Vital Signs Temp 99.0 F 12/02/21 19:06 Pulse 82 12/02/21 20:57 Resp 16 12/02/21 20:57 BP 120/82 12/02/21 20:57 Pulse Ox 94 12/02/21 20:57 Weight last 48 hrs Weight 65.771 kg Physical Exam Narrative: AAO*1 To Self HENMT: COMMON NORMALS: normocephalic and atraumatic HEAD & SCALP: normoceph alic and atraumatic Resp: COMMON NORMALS: clear to auscultation bilaterally EFFORT & INSPECTION: Yes symmetric chest movement AUSCULTATION: clear to auscultation bilaterally Cardio: COMMON NORMALS: regular rate, regular rhythm, S1 normal heart sound present, S2 normal heart sound present, No gallops present (Cardio), No murmurs present (Cardio), No rub (Cardio) and Peripheral pulses 2+ throughout RATE: regular rate RHYTHM: regular rhythm HEART SOUNDS: S1 normal heart sound present and S2 normal heart sound present PERIPHERAL PULSES: Peripheral pulses 2+ throughout GI: COMMON NORMALS: Normal to inspection, nondistended, normoactive bowel sounds present, Soft to palpation, non-tender, No hepatosplenomegaly present and no masses AUSCULTATION: Yes normoactive bowel sounds PALPATION: Yes Soft to palpation and Yes No hepatosplenomegaly present RECTAL EXAM: deferred Extremity: COMMON NORMALS: no clubbing, cyanosis or edema and no pedal edema Data : 12/03/21 05:39 12/03/21 05:39 A&P Assessment and plan (1) Altered mental status: Status: Acute (2) Hyperglycemia: Status: Acute (3) UTI (urinary tract infection): Status: Acute (4) Chronic migraine without aura, intractable, with status migrainosus: Status: Acute (5) Brain aneurysm: Status: Acute (6) History of CVA (cerebrovascular accident): Status: Acute (7) Peripheral vascular disease: Status: Acute (8) CAD (coronary artery disease): Status: Acute Qualifiers: Associated angina: without angina Coronary Disease-Associated Artery/Lesion type: [place] artery [place] vs. transplanted heart: [place] heart Qualified Code(s): I25.10 - Atherosclerotic heart disease of [place] coronary artery without angina pectoris (9) Hepatitis C: Status: Acute (10) Insulin dependent type 2 diabetes mellitus: Status: Acute (11) Hypertension: Status: Acute Qualifiers: Hypertension type: primary hypertension Qualified Code(s): I10 - Essential (primary) hypertension (12) Hyperkalemia: Status: Acute Plan 56 year old female with PMH of cerebral aneurysm, h/o CVA, migraine and peripheral artery disease, DM, Hep c , nonobstructive CAD, history of peripheral vascular disease,?subclavian steal syndrome,? left subclavian stenosis s/p stenting?was brought in with c/o after found to be confused outside her home. 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 Coding Level of Care Code Acute Guide Rail Cleaner for Chg Fwd Exam Detailed Diagnoses Altered mental status R41.82 Hyperglycemia R73.9 UTI (urinary tract infection) N39.0 Chronic migraine without aura, intractable, with status migrainosus G43.711 Brain aneurysm I67.1 History of CVA (cerebrovascular accident) Z86.73 Peripheral vascular disease I73.9 CAD (coronary artery disease) I25.10 Associated angina: without angina Coronary Disease-Associated Artery/Lesion type: [place] artery [place] vs. transplanted heart: [place] heart Hepatitis C B19.20 Insulin dependent type 2 diabetes mellitus E11.9; Z79.4 Hypertension I10 Hypertension type: primary hypertension Hyperkalemia E87.5
[2021-12-03] VITALS (11 sets, daily range): BP systolic 126–186; BP diastolic 67–95; PULSE 76–88; RESP 14–18; TEMP 36.3–37.1; O2SAT 94–98
[2021-12-03] MEDS: insulin glargine 100 units/1 mL 20 UNIT SUBCUT ×2 (00:26→20:59)
[2021-12-03] MEDS: enoxaparin 40 mg/0.4 mL Syringe SUBCUT ×2 (00:27→22:32)
[2021-12-03] MEDS: sodium chloride 0.9% 1,000 ML 75 ML IV ×2 (00:27→14:11)
[2021-12-03 00:35] LABS: Glucose Point of Care 174 mg/dL (70-110)
--- NOTE | 2021-12-03 05:03 | PC.NURSE ---
patient resting comfortably in bed at this time. patient placed on bedpan per myself and Ilda RN with no difficulties. patient given warm blankets for comfort. patient in no obivous distress.
[2021-12-03 06:05] LABS: Basophils # 0.1 10^3/uL (0.0-0.1); Basophils % 0.6 %; Eosinophils # 0.2 10^3/uL (0.0-0.8); Eosinophils % 2.2 %; Hematocrit 39.7 % (37.0-47.0); Hemoglobin 13.9 g/dL (11.5-15.3); Lymphocytes # 3.3 10^3/uL (0.8-4.8); Lymphocytes % 32.7 %; Mean Corpuscular Hemoglobin 31.1 pg (28.0-34.0); Mean Corpuscular Volume 88.8 fl (81-99); Mean Platelet Volume 12.8 fL (7.4-10.4); Monocytes # 0.8 10^3/uL (0.2-0.9); Monocytes % 8.2 %; Neutrophils # 5.61 10^3/uL (1.8-7.7); Neutrophils % 55.9 %; Nucleated Red Blood Cells % 0 %; Platelet Count 106 10^3/cmm (130-400); Red Blood Count 4.47 10^6/uL (4.1-5.3); Red Cell Distribution Width 12.3 % (12.1-15.1)
[2021-12-03 06:27] LABS: Ammonia 30 umol/L (11-51)
[2021-12-03 06:28] LABS: Alanine Aminotransferase 47 U/L (0-33); Albumin Level 3.2 g/dL (3.5-5.2); Alkaline Phosphatase 136 IU/L (35-105); Aspartate Amino Transferase 51 U/L (0-32); Blood Urea Nitrogen 10 mg/dL (6-20); Calcium 7.9 mg/dL (8.5-10.5); Carbon Dioxide 23 mmol/L (22-29); Chloride 100 mmol/L (98-107); Globulin 3.1 g/dL (1.3-4.6); Glomerular Filtration Rate 165.1 mL/min (90-130); Glucose 255 mg/dL (65-115); Magnesium 1.4 mg/dL (1.7-2.3); Osmolality Calculated 290 mOsm/kg (285-295); Phosphorus 2.2 mg/dL (2.5-4.5); Sodium 136 mmol/L (136-145); Total Bilirubin 0.8 mg/dL (0.15-1.2); Total Protein 6.3 g/dL (6.6-8.7)
[2021-12-03 06:32] LABS: Anion Gap 16.5 (5-19); Potassium 3.5 mmol/L (3.5-5.1)
[2021-12-03 06:40] LABS: Glucose Point of Care 291 mg/dL (70-110)
[2021-12-03] MEDS: insulin lispro 100 unit/1 mL SUBCUT ×4 (09:05→20:59)
[2021-12-03] MEDS: lisinopril 10 mg Tablet PO (09:07)
[2021-12-03] MEDS: cefTRIAXone 1,000 MG in sodium chloride 0.9% (plus) 50 ML 100 MG IV (09:07)
[2021-12-03] MEDS: aspirin 81 mg EC Tablet PO (09:07)
[2021-12-03] MEDS: metoprolol tartrate 25 mg Tablet 75 MG PO ×2 (09:08→18:24)
[2021-12-03] MEDS: clopidogrel 75 mg Tablet PO (09:08)
--- NOTE | 2021-12-03 10:38 | PC.CHAP ---
Pastoral Care Encounter/Spiritual Assessment Type of Contact [] Declined brake lining driller visit [] Patient/Family/Request visit [] Outpatient visit [] Follow-up visit [] Physician referral [] Code/Alert [x] Routine visit [] Staff referral [] Actively dying [] Patient sleeping [] Family support [] [] Out of room [] Palliative care [] [] Receiving care in room [] Pre-surgical visit [] Trauma [] Long length of stay [] ICU visit [] Other: Relational/Emotional Strength [x] Patient feels connected with others/family/visitors/staff [] Distress [] Loneliness/isolation [] Abandonment Spirituality of Patient [x] Person of Susy [x] Attends Synagogue of their Susy [x] Believes in Prayer [] Reads Bible or Presybeterian materials [] There are Spiritual issues to be addressed [employer] Helper Interventions [x] Prayer [x] Active listening [x] Non-anxious presence [] Spiritual/emotional support [] Crisis/trauma care [] Spiritual counseling [] Bereavement support [] Provided bereavement packet [] Provided Bible/devotional materials [] Provided toy/stuffed animal, coloring book to patient or family member [] Provided Communion [] Anointing/[place] [] Salvation [x] Completed spiritual assessment [] Other: Impact on Illness or Injury [] Angry [] Fearful [] Anxious [] Often cries [] Exhaustion [] Unable to work [] Unable to attend orthodox [] Unable to walk/stand [] Unable to read [] Unable to drive [] Unable to eat/drink [] Unable to sleep [] Unable to be with family [] Patient intubated [] Other: Summary Time spent with patient 10 min
[2021-12-03 11:09] LABS: Glucose Point of Care 158 mg/dL (70-110)
--- NOTE | 2021-12-03 11:59 | PM.PN ---
Subjective Subjective: Seen this morning. Patient appears a little confused right now. She is unable to provide much of a history. She is alert and complaining of a headache but otherwise is talking about being in a restaurant and saying irrelevant things. Vitals/I&O/Wt Last Vital Signs Temp 98.8 F 12/03/21 11:45 Pulse 86 12/03/21 11:45 Resp 17 12/03/21 11:45 BP 161/85 12/03/21 11:45 Pulse Ox 96 12/03/21 11:45 12/02/21 12/03/21 12/03/21 22:59 06:59 14:59 Intake Total 740 / 740 Balance 740 / 740 Weight last 48 hrs Weight 65.771 kg Physical Exam Narrative: General: Alert oriented to self only, patient seen sitting up in bed appearing confused. Appears disheveled and like someone who has not been able to take care of themselves. HEENT: Normocephalic, atraumatic, EOMI, breathing normally. Very poor dentition Cardio: Regular rate rhythm, normal S1-S2, no murmurs Respiratory: Clear to auscultation bilaterally no gross wheezes or rhonchi GI: Abdomen soft, nontender, nondistended, bowel sounds + Extremities: No lower extremity edema Data : 12/03/21 05:39 12/03/21 05:39 A&P Assessment and plan (1) Hyperkalemia: Status: Acute (2) Altered mental status: Status: Acute (3) Hyperglycemia: Status: Acute (4) UTI (urinary tract infection): Status: Acute (5) Chest pain: Status: Acute (6) Chronic migraine without aura, intractable, with status migrainosus: Status: Acute (7) Chronic left arterial ischemic stroke, MCA (middle cerebral artery): Status: Acute (8) Insulin dependent type 2 diabetes mellitus: Status: Acute (9) Hypertension: Status: Acute Qualifiers: Hypertension type: primary hypertension Qualified Code(s): I10 - Essential (primary) hypertension (10) Peripheral vascular disease: Status: Acute Plan #Altered mental status/acute metabolic encephalopathy most likely secondary to UTI versus [place] #Insulin dependent diabetes mellitus complicated by hyperglycemia #UTI #Hypomagnesemia #Hypokalemia #Hypophosphatemia #Brain aneurysm, status post clipping #History of CVA #Peripheral artery disease #CAD #Hepatitis C Positive History #Hypertension -Follow urine culture ? Serum ammonia normal ? Continue IV hydration with normal saline ? Continue Lantus and insulin sliding scale ? Continue to monitor blood sugar - Carbohydrate consistent diet ? Continue aspirin Plavix statin - Check HCV RNA - Replete magnesium, potassium and phosphate - Thiamine 100 daily - Continue ceftriaxone 1 g daily DVT PPX: SCDS Full code She will need case management consult for safe discharge planning. Attestations Medical Necessity Statement*: will cross 48 hours stay. she is still altered. Coding Level of Care Code Acute Investment Consultant for g Fwd Diagnoses Hyperkalemia E87.5 Altered mental status R41.82 Hyperglycemia R73.9 UTI (urinary tract infection) N39.0 Chest pain R07.9 Chronic migraine without aura, intractable, with status migrainosus G43.711 Chronic left arterial ischemic stroke, MCA (middle cerebral artery) I69.30 Insulin dependent type 2 diabetes mellitus E11.9; Z79.4 Hypertension I10 Hypertension type: primary hypertension Peripheral vascular disease I73.9
[2021-12-03] MEDS: thiamine 100 mg Tablet PO (12:31)
[2021-12-03 13:42] LABS: Creatine Phosphokinase 85 U/L (26-192)
[2021-12-03] MEDS: magnesium sulfate premix 4 GM/100 ML PREMIX IV (14:12)
[2021-12-03 17:03] LABS: Glucose Point of Care 278 mg/dL (70-110)
[2021-12-03 20:38] LABS: Glucose Point of Care 220 mg/dL (70-110)
[2021-12-03] MEDS: sodium chloride 0.9% 1,000 ML 125 ML IV (22:32)
[2021-12-04] VITALS (7 sets, daily range): BP systolic 120–170; BP diastolic 75–96; PULSE 73–95; RESP 13–16; TEMP 36.3–37.4; O2SAT 95–97
[2021-12-04 06:10] LABS: Glucose Point of Care 118 mg/dL (70-110)
[2021-12-04] MEDS: sodium chloride 0.9% 1,000 ML 125 ML IV (07:09)
[2021-12-04 07:36] LABS: Basophils % 0.6 %; Eosinophils # 0.2 10^3/uL (0.0-0.8); Eosinophils % 2.9 %; Hematocrit 37.9 % (37.0-47.0); Hemoglobin 13.3 g/dL (11.5-15.3); Lymphocytes # 2.5 10^3/uL (0.8-4.8); Lymphocytes % 47.1 %; Mean Corpuscular HGB Conc 35.1 g/dL (30.0-36.0); Mean Corpuscular Hemoglobin 31.4 pg (28.0-34.0); Mean Corpuscular Volume 89.4 fl (81-99); Mean Platelet Volume 12.5 fL (7.4-10.4); Monocytes # 0.4 10^3/uL (0.2-0.9); Monocytes % 7.9 %; Neutrophils # 2.16 10^3/uL (1.8-7.7); Neutrophils % 41.3 %; Nucleated Red Blood Cells % 0 %; Platelet Count 88 10^3/cmm (130-400); Red Blood Count 4.24 10^6/uL (4.1-5.3); Red Cell Distribution Width 12.3 % (12.1-15.1); White Blood Count 5.2 10^3/uL (4.0-10.0)
[2021-12-04 07:59] LABS: Alanine Aminotransferase 41 U/L (0-33); Albumin Level 2.8 g/dL (3.5-5.2); Alkaline Phosphatase 124 IU/L (35-105); Aspartate Amino Transferase 50 U/L (0-32); Blood Urea Nitrogen 6 mg/dL (6-20); Calcium 7.6 mg/dL (8.5-10.5); Carbon Dioxide 23 mmol/L (22-29); Chloride 104 mmol/L (98-107); Globulin 3.3 g/dL (1.3-4.6); Glomerular Filtration Rate 165.1 mL/min (90-130); Glucose 110 mg/dL (65-115); Osmolality Calculated 280 mOsm/kg (285-295); Sodium 136 mmol/L (136-145); Total Bilirubin 0.6 mg/dL (0.15-1.2); Total Protein 6.1 g/dL (6.6-8.7)
[2021-12-04] MEDS: cefTRIAXone 1,000 MG in sodium chloride 0.9% (plus) 50 ML 100 MG IV (10:02)
[2021-12-04] MEDS: aspirin 81 mg EC Tablet PO (10:02)
[2021-12-04] MEDS: PARoxetine 20 mg Tablet PO (10:03)
[2021-12-04] MEDS: lisinopril 10 mg Tablet PO (10:03)
[2021-12-04] MEDS: clopidogrel 75 mg Tablet PO (10:03)
[2021-12-04] MEDS: thiamine 100 mg Tablet PO (10:03)
[2021-12-04] MEDS: metoprolol tartrate 25 mg Tablet 75 MG PO (10:03)
[2021-12-04 11:06] LABS: Glucose Point of Care 254 mg/dL (70-110)
[2021-12-04] MEDS: potassium chloride premix 100 ML 25 MEQ IV (11:50)
[2021-12-04] MEDS: potassium chloride ER 20 mEq Tablet 40 MEQ PO (11:50)
[2021-12-04] MEDS: ondansetron 2 mg/ML SDV 2 mL 4 MG IVP (11:50)
[2021-12-04] MEDS: insulin lispro 100 unit/1 mL SUBCUT (11:55)
--- NOTE | 2021-12-04 12:25 | PM.DCS ---
Discharge Providers Date of Admission: 12/03/21 10:02 Date of Discharge: December 04, 2021 Attending Provider at Admission: Nico Ann MD Attending Provider at Discharge: Roya Rodriguez MD Primary Care Provider: Salomon Harp MD Diagnoses at Discharge Discharge Diagnosis (1) Hyperkalemia: Status: Resolved (2) Altered mental status: Status: Resolved (3) Hyperglycemia: Status: Resolved (4) UTI (urinary tract infection): Status: Resolved (5) Chest pain: Status: Resolved (6) Chronic migraine without aura, intractable, with status migrainosus: Status: Acute (7) Chronic left arterial ischemic stroke, MCA (middle cerebral artery): Status: Acute (8) Insulin dependent type 2 diabetes mellitus: Status: Acute (9) Hypertension: Status: Acute Qualifiers: Hypertension type: primary hypertension Qualified Code(s): I10 - Essential (primary) hypertension (10) Peripheral vascular disease: Status: Acute Reason for Visit Reason for Visit: AMS Brief History: Eboni Perez is a 56 year old female with PMH of?cerebral aneurysm, h/o CVA, migraine and peripheral artery disease, DM, Hep c , nonobstructive CAD, history of peripheral vascular disease,?subclavian steal syndrome,? left subclavian stenosis s/p stenting?was brought in with c/o after found to be confused outside her home, EMS was called by the patient neighbor,upon arrival in the ER she was found to be AAO*1. She was worked up for above mention complain. Pertinent Imaging studies: C.T Head without contrast :No acute Intrcranial pathology Xray chest : No infiltrates,effusion, ptx EKG: Sinus Rthym , non specific ST-T Wave changes. Pertinent Labs : WBC: 11.9 H&H: 14/41 PLT : 140 , Na: 132, k:5.3 BUN/SCR: 14/0.6 , RBS: 552 , A, Serum ketones: Negative AST,ALT,ALP: 48/71424 ,? TSH:1.72, Troponin trend :Negative Urine Analysis : Hazy , UN:Negative, ULE : Positive, wbc: 25-40 , Bacteria :4+ ?Patient received I.V Fluids, I.V Insulin as well as Rocephin in the ER. Hospital Course Hospital Course Patient was admitted for altered mental status secondary to hypoglycemia/dehydration versus UTI. U tox was negative. Day 3 of hospitalization patient's mental status improved and she was back to baseline. She declined to have HIV testing during this hospital stay. Hepatitis C antibody was positive. HCV RNA [id number]. she was asked to follow-up with her primary care doctor for further management of hepatitis C. This is a new diagnosis for her. She says she will be seeing Dr. Harp soon. She also stated that she needed refill on all her medications and that she ran out on a lot of them. She said even the insulin she was running out of. She said that she was compliant to diet and is not sure how her sugar went up so high. She was hypokalemic during hospital stay and was repleted with potassium prior to discharge. She also says that she has not followed up with her primary care doctor in the last couple of months when she should have. She says she she will be compliant to medication and will also see her doctor this time at discharge. Due to these above reasons I did not increase her insulin at discharge and It at 10 units daily. I added metformin 500 mg twice daily. I gave her cefdinir 300 mg twice daily for 5 days to complete treatment of her UTI. All other home meds were refilled. I strongly advised her to follow-up with her primary care doctor. Patient was sent home in stable condition. Her boyfriend was going to come pick her up. Her blood pressure remained elevated during entire hospital stay. Her lisinopril was increased to 10 mg to 20 mg daily. Patient has a Rollator walker which she uses to get around and was independent at discharge. Physical Exam Narrative: General: Alert orientedx3, patient seen sitting up in bed comfortably. No acute distress, appears very well compared to admission. HEENT: Normocephalic, atraumatic, EOMI, breathing normally.? Very poor dentition Cardio: Regular rate rhythm, normal S1-S2, no murmurs Respiratory: Clear to auscultation bilaterally no gross wheezes or rhonchi GI: Abdomen soft, nontender, nondistended, bowel sounds + Extremities: No lower extremity edema Discharge Data Studies Completed and Pending Completed Studies During Hospitalization Category Date Time Status CT head wo con* [id number] Urgent Cat Scan 12/02/21 18:50 Completed XR chest 1V portable [id number] Urgent Exams 12/02/21 18:50 Completed Pending at discharge Category Date Time Status ABG FULL [Arterial Blood Gas Full] Stat Lab 12/02/21 19:23 Results Complete Blood Count w/Auto AM LABS Lab 12/05/21 04:00 Ordered Comprehensive Metabolic Panel AM LABS Lab 12/05/21 04:00 Ordered Hepatitis C RNA Viral Load Qnt Routine Lab 12/03/21 12:07 Received Urine Culture Routine Lab 12/02/21 23:07 Uncollected Urine Culture Stat Lab 12/02/21 19:50 Results Radiology Impressions Chest X-Ray 12/02/21 18:50 IMPRESSION: No acute findings. Head CT 12/02/21 18:50 IMPRESSION: 1. No acute intracranial abnormality. 2. Focal encephalomalacia within the left frontal lobe and sequela of prior aneurysm repair. Laboratory Results WBC 5.2 10^3/uL (4.0-10.0) 12/04/21 07:22 RBC 4.24 10^6/uL (4.1-5.3) 12/04/21 07:22 Hgb 13.3 g/dL (11.5-15.3) 12/04/21 07:22 Hct 37.9 % (37.0-47.0) 12/04/21 07:22 MCV 89.4 fl (81-99) 12/04/21 07:22 MCH 31.4 pg (28.0-34.0) 12/04/21 07:22 MCHC 35.1 g/dL (30.0-36.0) 12/04/21 07:22 RDW 12.3 % (12.1-15.1) 12/04/21 07:22 Plt Count 88 10^3/cmm (130-400) L 12/04/21 07:22 MPV 12.5 fL (7.4-10.4) H 12/04/21 07:22 Neut % (Auto) 41.3 % 12/04/21 07:22 Lymph % (Auto) 47.1 % 12/04/21 07:22 Josephine % (Auto) 7.9 % 12/04/21 07:22 Eos % (Auto) 2.9 % 12/04/21 07:22 Baso % (Auto) 0.6 % 12/04/21 07:22 Neut # (Auto) 2.16 10^3/uL (1.8-7.7) 12/04/21 07: Lymph # (Auto) 2.5 10^3/uL (0.8-4.8) 12/04/21 07:22 Josephine # (Auto) 0.4 10^3/uL (0.2-0.9) 12/04/21 07:22 Eos # (Auto) 0.2 10^3/uL (0.0-0.8) 12/04/21 07: Baso # (Auto) 0.0 10^3/uL (0.0-0.1) 12/04/21 07: Nucleated RBC % (auto) 0 % 12/04/21 07: Total Counted 100 (0-100) 12/02/21 19:50 Atypical Lymphs % 17.0 % (0-5) H 12/02/21 19:50 Absolute Neutrophils 7.1 10^3/cmm (1.4-6.5) H 12/02/21 19:50 Segmented Neutrophils 60 % 12/02/21 19:50 Abs Segm Neuts (Man) 7.1 10/cmm (1.6-7.1) 12/02/21 19:50 Band Neutrophils 0.0 % 12/02/21 19:50 Abs Band Neuts (Man) 0.0 10^3/cmm (0.0-1.2) 12/02/21 19:50 Absolute Lymphocytes 3.8 10^3/cmm (1.2-3.4) H 12/02/21 19:50 Lymphocytes (Manual) 15 % 12/02/21 19:50 Monocytes (Manual) 8.0 % 12/02/21 19:50 Absolute Monocytes 1.0 10^3/cmm (0.1-0.6) H 12/02/21 19:50 Eosinophils (Manual) 0 % 12/02/21 19:50 Absolute Eosinophils 0.0 10^3/cmm (0.0-0.7) 12/02/21 19:50 Basophils (Manual) 0.0 % 12/02/21 19:50 Absolute Basophils 0.0 10^3/cmm (0.0-0.2) 12/02/21 19:50 Nucleated RBCs # 0.0 /100WBC 12/04/21 07:22 Platelet Estimate Normal (Normal) 12/02/21 19:50 Specimen Type Arterial 12/02/21 19:23 Sample Site Radial, left 12/02/21 19: ABG pH 7.45 (7.35-7.45) 12/02/21: ABG pCO2 40.9 mmHg (35-45) 12/02/21: ABG pO2 73.6 mmHg (80.0-100.0) L 12/02/21 19: ABG HCO3 28.1 mmol/L (22-26) H 12/02/21 19:23 ABG O2 Saturation 96.0 12/02/21: ABG Base Excess 3.7 mmol/L (-2.0-2.0) H 12/02/21 19:23 Asif Test Pos 12/02/21: A-a O2 Gradient 3.1 mmHg (5-10) L 12/02/21 19: Hematocrit 44.0 % (37-47) 12/02/21 19: Hgb O2 Saturation 94.1 % (95-100) L 12/02/21 19:23 Carboxyhemoglobin 1.6 %THgb (0.4-20.1) 12/02/21 19: Methemoglobin 0.4 % (0.4-1.5) 12/02/21 19: Total Hemoglobin 14.4 g/dL (12-16) 12/02/21 19:23 Sodium 131.0 mmol/L (131-143) 12/02/21 19:23 Potassium 4.2 mmol/L (3.5-5.0) 12/02/21 19:23 Glucose 517.0 mg/dL (70-115) H 12/02/21 19:23 Ionized Calcium 1.3 mmol/L (1.1-1.4) 12/02/21 19:23 FiO2 21.0 % 12/02/21 19: Bicycle Racer ID [place] 12/02/21 19:23 Sodium 136 mmol/L (136-145) 12/04/21 07:22 Potassium 3.0 mmol/L (3.5-5.1) L 12/04/21 07:22 Chloride 104 mmol/L (98-107) 12/04/21 07:22 Carbon Dioxide 23 mmol/L (22-29) 12/04/21 07:22 Anion Gap 12.0 (5-19) 12/04/21 07:22 BUN 6 mg/dL (6-20) 12/04/21 07:22 Creatinine 0.4 mg/dL (0.5-0.9) L 12/04/21 07:22 GFR Calculation 165.1 mL/min (90-130) H 12/04/21 07:22 Glucose 110 mg/dL (65-115) 12/04/21 07:22 POC Glucose 254 mg/dL (70-110) H 12/04/21 10:54 Calculated Osmolality 280 mOsm/kg (285-295) L 12/04/21 07:22 Calcium 7.6 mg/dL (8.5-10.5) L 12/04/21 07:22 Phosphorus 2.2 mg/dL (2.5-4.5) L 12/03/21 05:39 Magnesium 1.4 mg/dL (1.7-2.3) L 12/03/21 05:39 Total Bilirubin 0.6 mg/dL (0.15-1.2) 12/04/21 07:22 AST 50 U/L (0-32) H 12/04/21 07:22 ALT 41 U/L (0-33) H 12/04/21 07:22 Alkaline Phosphatase 124 IU/L (35-105) H 12/04/21 07:22 Ammonia 30 umol/L (11-51) 12/03/21 05:39 Creatine Kinase 85 U/L (26-192) 12/03/21 05:39 Troponin T Baseline 7 ng/L (0-10) 12/02/21 19:30 Troponin T 120 Minute 8.01 ng/L (0-10) 12/02/21 21:27 Delta Troponin T 1.01 ABS# (0-10) 12/02/21 21:27 Total Protein 6.1 g/dL (6.6-8.7) L 12/04/21 07:22 Albumin 2.8 g/dL (3.5-5.2) L 12/04/21 07:22 Globulin 3.3 g/dL (1.3-4.6) 12/04/21 07:22 TSH 1.72 uIU/mL (0.27-4.20) 12/02/21 19:30 Free T4 1.45 ng/dL (0.82-1.77) 12/02/21 19:30 Urine Color Straw (Yellow) 12/02/21 19:50 Urine Appearance Hazy (CLEAR) A 12/02/21 19:50 Urine pH 5 (5-7) 12/02/21 19:50 Ur Specific [place] 1.010 (1.005-1.030) 12/02/21 19:50 Urine Protein Neg (Negative) 12/02/21 19:50 Urine Glucose (UA) 4+ (Normal) H 12/02/21 19:50 Urine Ketones 1+ (Negative) H 12/02/21 19:50 Urine Blood Trace (Negative) H 12/02/21 19:50 Urine Nitrate Negative (Negative) 12/02/21 19:50 Urine Bilirubin Neg (Negative) 12/02/21 19:50 Urine Urobilinogen Norm mg/dL (Negative) 12/02/21 19:50 Ur Leukocyte Esterase 2+ (Negative) H 12/02/21 19:50 Urine RBC 0-4 /hpf (0-2) H 12/02/21 19:50 Urine WBC 25-40 /hpf (0-5) H 12/02/21 19:50 Ur Squamous Epith Cells 5-10 /hpf (0-5) H 12/02/21 19:50 Amorphous Sediment Not Reportable 12/02/21 19:50 Urine Bacteria 4+ /hpf (NONE) H 12/02/21 19:50 Urine Yeast 1+ /hpf H 12/02/21 19:50 Salicylates < 0.3 mg/dL (3-10) L 12/02/21 19:30 Urine Opiates Screen Negative ng/mL (Negative) 12/02/21 19:50 Acetaminophen < 5.0 ug/mL (10-30) L 12/02/21 19:30 Ur Barbiturates Screen Negative ng/mL (Negative) 12/02/21 19:50 Ur Phencyclidine Scrn Negative ng/mL (Negative) 12/02/21 19:50 Ur Amphetamines Screen Negative ng/mL (Negative) 12/02/21 19:50 U Benzodiazepines Scrn Negative ng/mL (Negative) 12/02/21 19:50 Urine Cocaine Screen Negative ng/mL (Negative) 12/02/21 19:50 U Marijuana (THC) Screen Negative ng/mL (Negative) 12/02/21 19:50 Serum Ketones Negative (Negative) 12/02/21 19:30 Vitals Last Vital Signs Temp 97.3 F L 12/04/21 08:00 Pulse 95 12/04/21 10:45 Resp 14 12/04/21 08:00 BP 148/96 12/04/21 08:00 Pulse Ox 97 12/04/21 10:45 Discharge Plan Discharge Patient Disposition: Home Condition: Stable Prescriptions: New Vitamin B-1 (mononitrate) 100 mg Tablet 100 mg PO DAILY 30 Days Qty: 30 0RF cefdinir 300 mg capsule 300 mg PO BID 5 Days Qty: 10 0RF metformin 500 mg tablet 500 mg PO BID 30 Days Qty: 60 0RF lisinopril 20 mg tablet 20 mg PO DAILY 30 Days Qty: 30 0RF Continued amitriptyline 10 mg tablet 10 mg PO DAILY 0RF Plavix 75 mg tablet 75 mg PO DAILY 30 Days Qty: 30 0RF aspirin 81 mg tablet,delayed release (DR/EC) 81 mg PO DAILY 30 Days Qty: 30 0RF paroxetine HCl 20 mg Tablet 20 mg PO DAILY 30 Days Qty: 30 0RF topiramate 50 mg tablet See Rx Instructions .ROUTE .COMPLEX 30 Days Qty: 30 3RF Dose Instruction: TAKE 1 TABLET BY MOUTH EVERY DAY Rx Instructions: TAKE 1 TABLET BY MOUTH EVERY DAY metoprolol tartrate 75 mg Tablet 75 mg PO BID 30 Days Qty: 60 0RF Novolog Mix 70-30 U-100 Insuln 100 unit/mL (70-30) solution 10 unit SUBCUT DAILY 30 Days Qty: 3 0RF Held zolpidem 10 mg Tablet 10 mg PO BEDTIME PRN (Reason: Sleep) 0RF Hold Instructions: hold until seen by primary care doc Discontinued lisinopril 10 mg tablet 10 mg PO DAILY Qty: 30 3RF Discharge Orders: Discharge Order (Routine); Ordered 12/04/21 Ordered By: Roya Rodriguez Other Ambulatory Orders: Complete Blood Count w/Auto (Routine) Timeframe: 3 Days Location: Determined by Patient Ordered By: Roya Rodriguez Referrals: Salomon Harp MD [Primary Care Provider] - 12/09/21 10:30 am Discharge Diet: Cardiac and Diabetic Discharge Activity: Resume usual activity Patient Instructions: Lisinopril (By mouth), Thiamine (By mouth), Metformin (By mouth), Cefdinir (By mouth), Opioid Safety Activity Restrictions/Additional Instructions: Please follow-up with your primary care physician for treatment of hepatitis C as discussed in the hospital. Also please follow-up with your primary care for management of your diabetes. I have provided you refills for 1 month as per your request. Please complete your antibiotic until finished for urinary tract infection. Discharge Attestations Time Spent in Discharge Care*: greater than 30 min Status at Discharge: Cognitive status at discharge: cognitively intact, Behavioral status at discharge: cooperative, Quality Metrics Clinical Quality Measures [ No reported AMI, CVA or VTE this stay] Coding Level of Care Code Acute g FW MT note Diagnoses Hyperkalemia E87.5 Altered mental status R41.82 Hyperglycemia R73.9 UTI (urinary tract infection) N39.0 Chest pain R07.9 Chronic migraine without aura, intractable, with status migrainosus G43.711 Chronic left arterial ischemic stroke, MCA (middle cerebral artery) I69.30 Insulin dependent type 2 diabetes mellitus E11.9; Z79.4 Hypertension I10 Hypertension type: primary hypertension Peripheral vascular disease I73.9
[2021-12-05 07:38] LABS: HEP C RNA Viral Load Quant 3280000 IU/mL (NOT DETECTED); HEP C RNA Viral Load Quant 6.52 Log IU/mL (NOT DETECTED)
== END 2021-12-04 14:46 | disposition home or self-care (01) | DRG 689 ==
LOC: ER 12-03 03:34 → MEDSURG 12-03 05:40
PROVIDERS: Admitting Provider Internal Medicine; Emergency Provider Emergency Medicine; PCP Family Medicine; Visit Provider Internal Medicine
DX: N39.0 Urinary tract infection, site not specified (principal); G93.41 Metabolic encephalopathy; Z86.73 Personal history of transient ischemic attack (TIA), and cerebral infarction without residual deficits; E11.65 Type 2 diabetes mellitus with hyperglycemia; E11.51 Type 2 diabetes mellitus with diabetic peripheral angiopathy without gangrene; Z95.820 Peripheral vascular angioplasty status with implants and grafts; B19.20 Unspecified viral hepatitis C without hepatic coma; I25.10 Atherosclerotic heart disease of native coronary artery without angina pectoris; I10 Essential (primary) hypertension; F17.210 Nicotine dependence, cigarettes, uncomplicated; G43.711 Chronic migraine without aura, intractable, with status migrainosus; E86.0 Dehydration; E87.5 Hyperkalemia; Z79.4 Long term (current) use of insulin; Z79.82 Long term (current) use of aspirin; Z79.02 Long term (current) use of antithrombotics/antiplatelets; Z91.14 Patient's other noncompliance with medication regimen; E83.42 Hypomagnesemia
CPT/HCPCS: 36415; 36416; 36600; 70450; 71045; 80051; 80053; 80306; 80307; 81001; 82009; 82140; 82330; 82550; 82805; 82962; 83735; 84100; 84439; 84443; 84484; 85007; 85025; 87086; 87106; 87522; 93005; 96365; 96372; 99285; G0378; J0696; J1650; J1815 ×2; J2405; J3475; J3480; J7030

== ENCOUNTER → 2022-01-15 14:39 | Outpatient (BNVA) | payer MEDICAID, SELFPAY | PROVIDERS: PCP Family Medicine; Visit Provider Nurse Practitioner Family | DX: I25.10 Atherosclerotic heart disease of native coronary artery without angina pectoris (principal); I10 Essential (primary) hypertension; F17.210 Nicotine dependence, cigarettes, uncomplicated | CPT/HCPCS: 99213 ==

== ENCOUNTER 2022-02-24 09:35 | Outpatient (CLI) | payer MEDICAID, SELFPAY ==
--- NOTE | 2022-02-24 10:25 | MM_ITS ---
WS: [id number] SCREENING DIGITAL BREAST TOMOSYNTHESIS MAMMOGRAM WITH CAD HISTORY: SCREENING COMPARISON: None available. Bilateral CC and MLO with tomosynthesis and synthetic mammography submitted. Computer aided detection analyzed. Breast composition: There are scattered areas of fibroglandular density. Several bilateral benign-lianna earing calcifications. There are also well-circumscribed nodules in each breast. 4 mm nodule with a w all calcification in the central RIGHT breast near the 12:00 axis. There is an ovoid nodule measuring 6 mm in the medial inferior LEFT breast near 7:00. These nodules should be further evaluated by [facility]. MM/[place] [id number] IMPRESSION: BI-RADS: 0-Incomplete: Need additional imaging evaluation FOLLOW UP: Need Additional Imaging Bilateral breast ultrasound, limited. Ultrasound RIGHT breast near 12:00 centra l breast. Ultrasound LEFT breast 7:00.
== END 2022-02-24 09:36 | disposition home or self-care (01) ==
LOC: RAD 09:36
PROVIDERS: PCP Family Medicine; Visit Provider Family Medicine
DX: Z12.31 Encounter for screening mammogram for malignant neoplasm of breast (principal); Z86.010 Personal history of colon polyps
CPT/HCPCS: 77063; 77067; 99203

== ENCOUNTER 2022-03-07 11:35 | Outpatient (CLI) | payer MEDICAID, SELFPAY ==
--- NOTE | 2022-03-07 11:42 | US_ITS ---
WS: [id number] ULTRASOUND RIGHT BREAST, limited HISTORY: LUMP OR MASS IN BREAST/12 O'CLOCK R BREAST LEFT @ 7OCLOCK COMPARISON: Mammogram 02/24/2022 TECHNIQUE: 2-D and Doppler. Small hypoechoic nodule at 12:00, 1 cm from the nipple with an adjacent calcification. This nodule sl ightly lobulated measuring 5 x 6 x 4 mm. Corresponds in size and location to the mammographic abnorma lity. As this is not completely cystic 6 month follow-up is recommended. US/US breast BI limited* [id number] IMPRESSION: BI-RADS: 3-Probably Benign FOLLOW-UP: 6 Month Follow-up Limited RIGHT breast ultrasound follow-up in 6 months at 12:00 to reevaluate th e complex cystic nodule 1 cm from the nipple.
== END 2022-03-07 11:36 | disposition home or self-care (01) ==
LOC: RAD 11:36
PROVIDERS: PCP Family Medicine; Visit Provider Family Medicine
DX: N63.15 Unspecified lump in the right breast, overlapping quadrants (principal)
CPT/HCPCS: 76642

== ENCOUNTER 2022-03-22 18:32 | Emergency (ER) | payer MEDICAID, SELFPAY ==
--- NOTE | 2022-03-22 18:34 | XRR_ITS ---
PROCEDURE INFORMATION: Exam: XR Chest Exam date and time: 03/22/2022 7:40 PM Age: 56 years old Clinical indication: Shortness of breath; Additional info: Cough TECHNIQUE: Imaging protocol: Radiologic exam of the chest. Views: 1 view. COMPARISON: CR XR chest 1V portable [id number] 12/02/2021 7:38 PM FINDINGS: Lungs: Lungs are clear. Pleural spaces: There is no pleural effusion or pneumothorax. Heart/Mediastinum: Cardiomediastinal contours are unremarkable. Bones/joints: Bones are unremarkable. XR/XR chest 1V portable [id number] IMPRESSION: No acute findings.
[2022-03-22 18:45] VITALS: BP 113/76; PULSE 86; RESP 18; TEMP 36.6; O2SAT 97; BMI 20.8
--- NOTE | 2022-03-22 19:25 | W.ED.URI ---
HPI - URI/Sore Throat General: Chief Complaint: Upper Respiratory Infection Stated Complaint: coughing Time Seen by Provider: 03/22/22 19:24 History of Present Illness: Ms. Perez is a 56-year-old lady with history of asthma and COPD and tobaccoism who presents to the emergency department due to cough. Onset of symptoms was approximately 3 days ago and subacute. She denies associated upper respiratory or GI symptoms. Subjective fevers chills occasionally. Cough is productive and worse than her typical cough. Does have sick contacts with multiple individuals in her apartment building though she has been trying to stay away from them. Density symptoms is moderate. Course has worsened. No associated chest pain or significant shortness of breath. No other specific changes in health, exacerbating, or alleviating factors identified. Onset (ago): day(s) Consistency: progressively worsening Severity: moderate Able to tolerate fluids by mouth: Yes Relieving factors: nothing Context: sick contacts Review of Systems General: Reports: 10 or more systems reviewed and unremarkable except in HPI and below PFSH ED PFSH: Medical History Brain aneurysm CAD (coronary artery disease) Hepatitis C History of CVA (cerebrovascular accident) Hypertension Insulin dependent type 2 diabetes mellitus Peripheral vascular disease Psychiatric care Surgical History History of angioplasty of peripheral vessel History of appendectomy History of cholecystectomy Family History Father Cancer of kidney Cancer Lung Mother Hypertension CAD (coronary artery disease) Diabetes Social History Smoking and tobacco status: current every day smoker cigarettes Packs smoked per day: 0.5 Years cigarettes smoked: 30 Alcohol intake: former Physical Exam Const: COMMON NORMALS: alert GENERAL APPEARANCE: cooperative and well developed HENMT: COMMON NORMALS: normocephalic and atraumatic HEAD & SCALP: normocephalic and atraumatic THROAT: posterior oropharynx normal Eye: COMMON NORMALS: conjunctivae normal CONJUNCTIVA: Yes conjunctivae normal SCLERA: sclerae normal Neck/C-Spine: COMMON NORMALS: supple GENERAL: Yes trachea midline Resp: EFFORT & INSPECTION: Yes able to speak in complete sentences AUSCULTATION: diminished lung sounds Cardio: COMMON NORMALS: regular rate and regular rhythm RATE: regular rate RHYTHM: regular rhythm GI: COMMON NORMALS: Soft to palpation PALPATION: Yes Soft to palpation and No Tenderness to palpation present (GI) PERCUSSION: normal to percussion Extremity: GENERAL: Yes normal exam except as noted and No edema Neuro: COMMON NORMALS: moves all extremities SENSORIUM/ORIENTATION: Yes alert and No Orientation impaired Psych: COMMON NORMALS: mental status grossly normal and Normal thought process present THOUGHT PROCESS: Normal thought process present Course Vital Signs: Vital signs: Vital Signs Temperature 98 F 03/22/22 20:20 Pulse Rate 83 03/22/22 21:30 Respiratory Rate 22 H 03/22/22 21:30 Blood Pressure 142/92 03/22/22 21:30 Pulse Oximetry 97 03/22/22 21:30 Oxygen Delivery Me thod 03/22/22 20:20 MDM - URI/Sore Throat Medical Decision Making 56-year-old lady presenting with respiratory symptoms. Rapid COVID-negative. Chest x-ray with no lobar consolidation or pneumothorax. Vital signs are satisfactory. Patient improved with steroids and albuterol. Satisfactory for outpatient management of COPD exacerbation. Medical Records I reviewed the patient's medical records. Lab Data I reviewed the patient's lab results. Radiology Impressions Chest X-Ray 03/22/22 18:34 IMPRESSION: No acute findings. Laboratory Results SARS-CoV-2 Ag (Rapid) Negative (Negative) 03/22/22 20:03 Discharge Plan Discharge Patient Disposition: Home Clinical Impression: Acute exacerbation of chronic obstructive airways disease with asthma Condition: Stable Prescriptions: New albuterol sulfate 90 mcg/actuation HFA aerosol inhaler 2 inh inhalation Q4H Qty: 8.5 2RF No Action amitriptyline 10 mg tablet 10 mg PO DAILY aspirin 81 mg tablet,delayed release (DR/EC) 81 mg PO DAILY zolpidem 10 mg Tablet 10 mg PO BEDTIME PRN (Reason: Sleep) Hold Instructions: hold until seen by primary care doc paroxetine HCl 20 mg Tablet 20 mg PO DAILY 30 Days Qty: 30 0RF metoprolol tartrate 75 mg Tablet 75 mg PO BID 30 Days Qty: 60 0RF lisinopril 2.5 mg tablet 2.5 mg PO DAILY insulin asp prt-insulin aspart [Novolog Mix 70-30 U-100 Insuln] 100 unit/mL (70-30) solution 15 unit SUBCUT DAILY topiramate 50 mg tablet 50 mg PO DAILY Rx Instructions: TAKE 1 TABLET BY MOUTH EVERY DAY Discharge Orders: Discharge ED (Routine); Ordered 04/12/22 Ordered By: Gil Rodríguez Referrals: Salomon Harp MD [Primary Care Provider] - Discharge Diet: Usual diet Discharge Activity: Increase activity as tolerated Patient Instructions: COPD (Chronic Obstructive Pulmonary Disease) (ED) Activity Restrictions/Additional Instructions: Thank you for visiting the emergency department. You were seen and evaluated for cough with shortness of breath. The most likely cause of your symptoms is exacerbation of underlying lung disease. This will be treated with antibiotics, steroids, and albuterol as discussed. Please use albuterol inhaler 2 puffs every 4 hours for 24 hours followed by 2 puffs every 6 hours for 24 hours followed by 2 puffs every 8 hours for 24 hours and then resume normal schedule. Please follow-up with your primary care provider. Return to the emergency department for worsening symptoms or anything else that you are concerned about a feel needs emergency department evaluation. Coding Level of Care Code ED Customer Training Specialist for Mario Nielsen
[2022-03-22] MEDS: ipratropium-albuterol 3 mL Neb INHALATION (20:02)
[2022-03-22 20:03] VITALS: PULSE 74; RESP 22; O2SAT 97
[2022-03-22] MEDS: dexamethasone 4 mg Tablet 6 MG PO (20:18)
[2022-03-22 20:20] VITALS: BP 148/90; PULSE 83; RESP 20; TEMP 36.6; O2SAT 96
[2022-03-22 20:37] LABS: SARS Covid-2 Antigen Negative (Negative)
[2022-03-22 21:30] VITALS: BP 142/92; PULSE 83; RESP 22; O2SAT 97
== END 2022-03-22 21:30 | disposition home or self-care (01) ==
PROVIDERS: Emergency Provider Emergency Medicine; PCP Family Medicine
DX: J44.1 Chronic obstructive pulmonary disease with (acute) exacerbation (principal); Z79.82 Long term (current) use of aspirin; Z79.4 Long term (current) use of insulin; Z20.822 Contact with and (suspected) exposure to COVID-19; I25.10 Atherosclerotic heart disease of native coronary artery without angina pectoris; Z86.19 Personal history of other infectious and parasitic diseases; Z86.73 Personal history of transient ischemic attack (TIA), and cerebral infarction without residual deficits; I10 Essential (primary) hypertension; E11.9 Type 2 diabetes mellitus without complications; F17.210 Nicotine dependence, cigarettes, uncomplicated
CPT/HCPCS: 71045; 87426; 94640; 99283; J8540

== ENCOUNTER 2022-03-31 14:57 | Emergency (ER) | payer MEDICAID, SELFPAY ==
[2022-03-31 15:02] VITALS: BP 141/84; PULSE 71; RESP 16; TEMP 36.5; O2SAT 98
--- NOTE | 2022-03-31 15:09 | ECG_ITS ---
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 Measurements Intervals [place] Rate: 66 P: 80 NM: 144 QRS: 67 QRSD: 83 T: 69 QT: 411 QTc: 432 Interpretive Statements SINUS RHYTHM Compared to ECG 12/02/2021 19:21:59 ST (T wave) deviation no longer present Electronically Signed On 03-31-2022 17:35:57 CDT by Brandon Condon M.D. [id number]
== END 2022-03-31 16:55 | disposition left against medical advice (07) ==
PROVIDERS: Emergency Provider Family Medicine; PCP Family Medicine
DX: R07.9 Chest pain, unspecified (principal); R06.02 Shortness of breath; J44.9 Chronic obstructive pulmonary disease, unspecified; R91.8 Other nonspecific abnormal finding of lung field; Z53.21 Procedure and treatment not carried out due to patient leaving prior to being seen by health care provider
CPT/HCPCS: 93005

== ENCOUNTER → 2022-04-07 11:10 | Outpatient (BNVA) | payer MEDICAID, SELFPAY | PROVIDERS: PCP Family Medicine; Visit Provider Internal Medicine Cardiovascular Disease | DX: I67.1 Cerebral aneurysm, nonruptured (principal); Z86.73 Personal history of transient ischemic attack (TIA), and cerebral infarction without residual deficits; I25.10 Atherosclerotic heart disease of native coronary artery without angina pectoris; I73.9 Peripheral vascular disease, unspecified; I10 Essential (primary) hypertension; F17.210 Nicotine dependence, cigarettes, uncomplicated | CPT/HCPCS: 99214 ==

== ENCOUNTER 2022-04-10 06:00 | Day surgery (SDC) | payer MEDICAID, SELFPAY ==
[2022-04-07 10:48] VITALS: BMI 20.9
--- NOTE | 2022-04-10 06:18 | W.PM.OPSFHP ---
Same Day Surgery H&P Indication for Procedure/HPI DATE OF PROCEDURE: April 10, 2022 CHIEF COMPLAINT/INDICATIONFOR SURGICAL PROCEDURE: History of colon polyps PREOP DIAGNOSIS: history of colon polyps PLANNED PROCEDURE: Operation Date: 04/10/22 07:30 Proposed Procedures p Colonoscopy 20955,Z86.010(Not Applicable) - Carlos Quiñones MD This is a pleasant 56 years old female patient with history of colon polyps. Comes today for surveillance colonoscopy. ROS All systems have been reviewed negative except as for the above or per problem list. Medications/Allergies* Home Medications Medication Instructions Recorded Confirmed Type amitriptyline 10 mg tablet 10 mg PO DAILY 01/31/21 04/07/22 History zolpidem 10 mg tablet 10 mg PO BEDTIME PRN Sleep 12/02/21 04/07/22 History aspirin 81 mg tablet,delayed 81 mg PO DAILY 04/07/22 04/10/22 History release insulin aspar prt-insulin aspart 15 unit SUBCUT DAILY 04/07/22 04/10/22 History 100 unit/mL (70-30) subcutaneous soln (Novolog Mix 70-30 U-100 Insuln) lisinopril 2.5 mg tablet 2.5 mg PO DAILY 04/07/22 04/07/22 History topiramate 50 mg tablet 50 mg PO DAILY 04/07/22 04/07/22 History Allergies/Adverse Reactions Allergy/AdvReac Type Severity Reaction Status Date / Time codeine Allergy Unknown Verified 04/13/22 09:39 hydrocodone [From Vicodin] Allergy ADR-Nausea Verified 04/13/22 09:39 morphine Allergy ADR-Nausea Verified 04/13/22 09:39 nystatin Allergy Unknown Verified 04/13/22 09:39 Penicillins Allergy Unknown Verified 04/13/22 09:39 metformin Allergy Intermediate ADR-Vomitin Uncoded 04/13/22 09:39 g Pertinent History/Comorbid Conditions* Medical History (Updated 03/30/22 @ 00:01 by ) Brain aneurysm CAD (coronary artery disease) Hepatitis C History of CVA (cerebrovascular accident) Hypertension Insulin dependent type 2 diabetes mellitus Peripheral vascular disease Psychiatric care Surgical History (Updated 08/08/20 @ 18:45 by Levar Hancock MD) History of angioplasty of peripheral vessel History of appendectomy History of cholecystectomy Family History (Updated 12/11/21 @ 14:11 by Karen Moreno) Diabetes Mother CAD (coronary artery disease) Mother Cancer of kidney Father Cancer Father Lung Hypertension Mother Social History Smoking and tobacco status: current every day smoker cigarettes Packs smoked per day: 0.5 Years cigarettes smoked: 30 Alcohol intake: former Pertinent Exam Findings alert, oriented x 3, regular rate & rhythm and procedure specific exam findings (Abdominal exam nontender nondistended soft) Recommendations Surgery/Procedure today (Colonoscopy with possible biopsy) Coding Level of Care Code Acute [employer]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
[2022-04-10 06:29] VITALS: BP 162/99; PULSE 74; RESP 18; TEMP 36.2; O2SAT 97
[2022-04-10] MEDS: sodium chloride 0.9% 1,000 ML 30 ML IV (06:35)
[2022-04-10 06:37] LABS: Glucose Point of Care 225 mg/dL (70-110)
--- NOTE | 2022-04-10 07:06 | ANES.PREANE2 ---
Pre-Anesthetic Assessment Height/Weight: Height 1.68 m Weight 58.967 kg Temp Pulse Resp BP Pulse Ox O2 Del Method 97.2 F L 74 18 162/99 97 04/10/22 06:29 04/10/22 06:29 04/10/22 06:29 04/10/22 06:29 04/10/22 06:29 04/10/22 06:29 Preop Diagnosis: history of colon polyps Operation Date: 04/10/22 07:30 Proposed Procedures p Colonoscopy 42379,Z86.010(Not Applicable) - Carlos Quiñones MD Familial anesthetic complications: None Was Beta [place] taken within 24 hours: N/A Was Clonidine taken within 24 hours: N/A Last intake: Intake Last Liquid Date 04/09/22 Last Liquid Time 12:00 Last Solid Date 04/08/22 Last Solid Time 16:00 Social Tobacco and No tobacco 0.5 pack(s) per day 30 pack years Exam alert, oriented x 3, clear to auscultation bilaterally and regular rate & rhythm Airway Submandibular: within normal limits Cervical ROM: within normal limits Mallampati: Class II Dentition: chipped Comments: Comments: multiple broken and chipped. Poor dentition History/ROS No significant history except as noted Pulmonary Asthma and Chronic Obstructive Pulmonary Disease CV/HEM Coronary Artery Disease, Hypertension and Peripheral Vascular Disease None reported Hepatic Hepatitis (hepatitis c) GI None reported Metabolic Diabetes Mellitus (DM type 2) [facility] [place] None reported Neuropsych pt states she has had a brain aneurysm since 2010, stable with no symptoms. Extensive discussion regarding the risks of proceeding with procedure, Dr. Quiñones at bedside and discussed with Dr. Lamb. Pt aware of risks and wishes to proceed with procedure. Anesthetic Plan Anesthesia: Anesthesia Evaluation and MAC Risk of > 500 ml blood loss (7ml/kg in children): No Medications/Allergies Home Medications Medication Instructions Recorded Confirmed Last Taken Type amitriptyline 10 mg tablet 10 mg PO DAILY 01/31/21 04/07/22 04/03/22 History zolpidem 10 mg tablet 10 mg PO BEDTIME PRN Sleep 12/02/21 04/07/22 04/09/22 History metoprolol tartrate 75 mg tablet 75 mg PO BID 30 days #60 tabs 12/04/21 04/07/22 04/09/22 Rx paroxetine HCl 20 mg tablet 20 mg PO DAILY 30 days #30 tabs 12/04/21 04/07/22 04/03/22 Rx albuterol sulfate 90 mcg/actuation 2 inh inhalation Q4H #8.5 grams 03/22/22 04/07/22 04/09/22 Rx aerosol inhaler aspirin 81 mg tablet,delayed 81 mg PO DAILY 04/07/22 04/10/22 03/06/22 History release insulin aspar prt-insulin aspart 15 unit SUBCUT DAILY 04/07/22 04/10/22 04/08/22 History 100 unit/mL (70-30) subcutaneous soln (Novolog Mix 70-30 U-100 Insuln) lisinopril 2.5 mg tablet 2.5 mg PO DAILY 04/07/22 04/07/22 04/03/22 History topiramate 50 mg tablet 50 mg PO DAILY 04/07/22 04/07/22 04/03/22 History Allergies Allergy/AdvReac Type Severity Reaction Status Date / Time codeine Allergy Unknown Verified 04/07/22 10:44 hydrocodone [From Vicodin] Allergy ADR-Nausea Verified 04/07/22 10:44 morphine Allergy ADR-Nausea Verified 04/07/22 10:44 nystatin Allergy Unknown Verified 04/07/22 10:44 Penicillins Allergy Unknown Verified 04/07/22 10:44 metformin Allergy Intermediate ADR-Vomitin Uncoded 04/07/22 10:44 g Current Medications Generic Name Dose Route Start Last Admin Trade Name Freq PRN Reason Stop Dose Admin Sodium Chloride 1,000 mls @ 30 mls/hr 04/10/22 06:15 04/10/22 06:35 Sodium Chloride 0.9% IV 04/11/22 06:14 30 mls/hr .Q24H TIARA Administration PFSH Anesthesia Medical History Brain aneurysm CAD (coronary artery disease) Hepatitis C History of CVA (cerebrovascular accident) Hypertension Insulin dependent type 2 diabetes mellitus Peripheral vascular disease Psychiatric care Surgical History History of angioplasty of peripheral vessel History of appendectomy History of cholecystectomy Family History Father Cancer of kidney Cancer Lung Mother Hypertension CAD (coronary artery disease) Diabetes Social History Smoking and tobacco status: current every day smoker cigarettes Packs smoked per day: 0.5 Years cigarettes smoked: 30 Alcohol intake: former Data Anesthesia Cardiac Studies: Echocardiogram 08/15/21 Cardiac Event Monitor 10/14/21
[2022-04-10 07:29] VITALS: BP 89/59; PULSE 62; RESP 16; TEMP 36.1; O2SAT 99
[2022-04-10 07:34] VITALS: BP 102/69; PULSE 67; RESP 16; O2SAT 96
[2022-04-10 07:44] VITALS: BP 148/90; PULSE 69; RESP 18; O2SAT 98
--- NOTE | 2022-04-10 14:01 | ANE.PACU2 ---
Inpatient post-anesthesia follow up: Airway intact: Yes Vital signs: Temperature 97.0 F Pulse Rate 69 Respiratory Rate 18 Blood Pressure 148/90 Pulse Oximetry 98 Oxygen Delivery Me thod Room Air Oxygen Flow Rate Fraction of Inspir ed Oxygen Hydration adequate: Yes Nausea and vomiting: No Pain level: 1 Mental status: Baseline
== END 2022-04-10 08:02 | disposition home or self-care (01) ==
PROVIDERS: PCP Family Medicine; Visit Provider Surgery
PROC: 0DJD8ZZ Inspection of Lower Intestinal Tract, Via Natural or Artificial Opening Endoscopic (ICD-10-PCS; CPT 45378; principal; 2022-04-10 07:30)
DX: Z12.11 Encounter for screening for malignant neoplasm of colon (principal); Z86.010 Personal history of colon polyps; I25.10 Atherosclerotic heart disease of native coronary artery without angina pectoris; Z86.19 Personal history of other infectious and parasitic diseases; Z86.73 Personal history of transient ischemic attack (TIA), and cerebral infarction without residual deficits; I10 Essential (primary) hypertension; E11.9 Type 2 diabetes mellitus without complications; Z79.4 Long term (current) use of insulin; Z79.82 Long term (current) use of aspirin; F17.210 Nicotine dependence, cigarettes, uncomplicated
CPT/HCPCS: 36416; 45378; 82962; J2704; J3010; J7030

== ENCOUNTER 2022-07-07 15:49 | Emergency (ER) | payer MEDICAID, SELFPAY ==
[2022-07-07 15:55] VITALS: BP 142/93; PULSE 74; RESP 14; TEMP 36.8; O2SAT 98
--- NOTE | 2022-07-07 16:10 | ED_ITS ---
Documented by User: Efrain Bergeron DO 07/21/22 07:20 HPI - Altered Mental Status General: Chief Complaint: Altered Mental Status Stated Complaint: slurred speech, AMS Time Seen by Provider: 07/07/22 16:04 Source: family Mode of arrival: ambulatory History of Present Illness: 57 yo female presents emergency room with a complaint of altered mental status and slurred speech headache I felt she was drifting to her left side her last known well was Thursday which would have been 72 hours ago. She has a history of a previous brain aneurysm which was clipped she is also had some strokes. Caregiver thought that yesterday she talk to the patient on the phone her speech was not slurred but it is somewhat now. Onset (ago): day(s) (3) Severity: mild Review of Systems Const: Denies: fever(s), chills, body aches, change in appetite, fatigue or malaise ENMT: Denies: throat pain, ear or mastoid pain, nasal discharge or nasal congestion Card: Denies: chest pain, edema, dyspnea on exertion or orthopnea Resp: Denies: dyspnea, productive cough or non-productive cough GI: Denies: abdominal pain, nausea, vomiting, hematemesis, coffee ground emes is, diarrhea, constipation, bloating, hematochezia or melena : Denies: flank pain, difficulty voiding, dysuria, urinary frequency or urinary urgency Skin/Breast: Denies: rash or pruritus PFSH ED PFSH: Medical History Brain aneurysm CAD (coronary artery disease) Hepatitis C History of CVA (cerebrovascular accident) Hypertension Insulin dependent type 2 diabetes mellitus Peripheral vascular disease Psychiatric care Surgical History History of angioplasty of peripheral vessel History of appendectomy History of cholecystectomy Family History Father Cancer of kidney Cancer Lung Mother Hypertension CAD (coronary artery disease) Diabetes Social History Smoking and tobacco status: current every day smoker cigarettes Packs smoked per day: 0.5 Years cigarettes smoked: 30 Alcohol intake: former Physical Exam Const: COMMON NORMALS: no acute distress HENMT: COMMON NORMALS: normocephalic and atraumatic HEAD & SCALP: normocephalic and atraumatic Eye: COMMON NORMALS: Equal, round and reactive pupils present, EOMs intact bilaterally, conjunctivae normal and no scleral icterus GENERAL EYE: normal light reflex CONJUNCTIVA: Yes conjunctivae normal PUPIL: Yes Equal, round and reactive pupils present and Yes Pupil accommodation reflex normal DIRECT OPHTHALMOSCOPY: Yes normal light reflex Neck/C-Spine: COMMON NORMALS: full ROM, no lymphadenopathy and supple Resp: COMMON NORMALS: normal respiratory effort, No retractions, No use of accessory muscles and clear to auscultation bilaterally AUSCULTATION: clear to auscultation bilaterally Cardio: COMMON NORMALS: regular rate and regular rhythm RATE: regular rate RHYTHM: regular rhythm GI: COMMON NORMALS: Normal to inspection, nondistended, normoactive bowel sounds present, Soft to palpation, non-tender, No hepatosplenomegaly present and no masses PALPATION: Yes Soft to palpation and Yes No hepatosplenomegaly present : COMMON NORMALS: Yes no CVA tenderness BLADDER/KIDNEY EXAM: Yes no CVA tenderness Back/Pelvis: COMMON NORMALS: no CVA tenderness Course Vital Signs: Vital signs: Vital Signs Temperature 98.2 F 07/07/22 15:55 Pulse Rate 70 07/07/22 20:30 Respiratory Rate 12 07/07/22 20:30 Blood Pressure 128/93 07/07/22 20:30 Pulse Oximetry 98 07/07/22 20:30 Oxygen Delivery Me thod 07/07/22 18:22 MDM - Altered Mental Status Medical Decision Making Care signed out to Dr. Rodríguez at change of shift. See final notes for diagnosis a nd disposition. Patient care handoff received from Dr. Bergeron and completion of ED evaluation. Last known well places patient outside of tPA window. I personally reevaluated the patient and reperformed carvalho portions of E/M. Laboratory studies with mild hemoconcentration, thrombocytopenia noted and appears similar to prior. Mild dehydration on metabolic panel without significant derangement requiring acute intervention, glucose is elevated however no evidence of DKA. Transaminitis present and also similar to prior. Urinalysis with squamous epithelial contamination. Chest x-ray with no lobar consolidation or pneumothorax. CT negative for acute hemorrhage, prior MCA intervention noted. CTA without evidence of large vessel occlusion mild to moderate stenosis. Plans discussed with patient including incidental findings. On reassessment patient feels improved with fluids and analgesia. Given atypical nature of symptoms even though patient has squamous epithelial contamination I will treat for abnormal urinalysis. Patient reports a history of intolerance to statins, she is on aspirin for secondary stroke prevention. Most likely etiology of patient's symptoms is somewhat unclear and likely multifactorial. She prefers outpatient management. The results of ED evaluation were discussed with the patient including prescriptions and/or symptomatic cares (if applicable) including appropriate and responsible use, followup plan, and return precautions. The patient verbalized understanding and felt safe for discharge. Lab Data 07/07/22 18:10 07/07/22 18:[address] 07/07/22 16:11 IMPRESSION: 1. No acute intracranial abnormalities. 2. Stable area of encephalomalacia left posterior frontal lobe secondary to old insult. 3. Prior left MCA aneurysm clipping. Chest X-Ray 07/07/22 16:12 IMPRESSION: Negative chest Head/Neck CTA 07/07/22 19:03 IMPRESSION: 1. Left MCA bifurcation aneurysm clipping postoperative changes. No recurrent aneurysm identified. 2. No large vessel occlusion intracranially. Anatomic variant diminutive vertebrobasilar system with origin of both posterior cerebral arteries. IMPRESSION: Bilateral carotid bifurcation atherosclerosis, with 50% stenosis of the proximal left internal carotid artery. No high-grade narrowing identified. REFERENCES: NASCET CRITERIA. The degree of stenosis in the cervical segment of the internal carotid artery is based on NASCET criteria. Normal is no stenosis. Mild is less than 50% stenosis. Moderate is 50-69% stenosis. Severe is 70% to 99% stenosis. Total occlusion is no detectable patent lumen. Laboratory Results WBC 8.8 10^3/uL (4.0-10.0) 07/07/22 18:10 RBC 5.96 10^6/uL (4.1-5.3) H 07/07/22 18:10 Hgb 18.9 g/dL (11.5-15.3) H 07/07/22 18:10 Hct 55.2 % (37.0-47.0) H 07/07/22 18:10 MCV 92.6 fl (81-99) 07/07/22 18:10 MCH 31.7 pg (28.0-34.0) 07/07/22 18:10 MCHC 34.2 g/dL (30.0-36.0) 07/07/22 18:10 RDW 12.3 % (12.1-15.1) 07/07/22 18:10 Plt Count 128 10^3/cmm (130-400) L 07/07/22 18:10 MPV 12.2 fL (7.4-10.4) H 07/07/22 18:10 Neut % (Auto) 47.4 % 07/07/22 18:10 Lymph % (Auto) 45.0 % 07/07/22 18:10 [place] % (Auto) 5.4 % 07/07/22 18:10 Eos % (Auto) 1.4 % 07/07/22 18:10 Baso % (Auto) 0.6 % 07/07/22 18:10 Neut # (Auto) 4.18 10^3/uL (1.8-7.7) 07/07/22 18:10 Lymph # (Auto) 4.0 10^3/uL (0.8-4.8) 07/07/22 18:10 [place] # (Auto) 0.5 10^3/uL (0.2-0.9) 07/07/22 18:10 Eos # (Auto) 0.1 10^3/uL (0.0-0.8) 07/07/22 18:10 Baso # (Auto) 0.1 10^3/uL (0.0-0.1) 07/07/22 18:10 Nucleated RBC % (auto) 0 % 07/07/22 18:10 Nucleated RBCs # 0.0 /100WBC 07/07/22 18:10 Sodium 135 mmol/L (136-145) L 07/07/22 18:10 Potassium 4.2 mmol/L (3.5-5.1) 07/07/22 18:10 Chloride 96 mmol/L (98-107) L 07/07/22 18:10 Carbon Dioxide 28 mmol/L (22-29) 07/07/22 18:10 Anion Gap 15.2 (5-19) 07/07/22 18:10 BUN 8 mg/dL (6-20) 07/07/22 18:10 Creatinine 0.6 mg/dL (0.5-0.9) 07/07/22 18:10 GFR Calculation 103.0 mL/min (90-130) 07/07/22 18:10 Glucose 305 mg/dL (65-115) H 07/07/22 18:10 Calculated Osmolality 290 mOsm/kg (285-295) 07/07/22 18:10 Calcium 10.1 mg/dL (8.5-10.5) 07/07/22 18:10 Total Bilirubin 0.8 mg/dL (0.15-1.2) 07/07/22 18:10 AST 81 U/L (0-32) H 07/07/22 18:10 ALT 86 U/L (0-33) H 07/07/22 18:10 Alkaline Phosphatase 216 U/L (35-105) H 07/07/22 18:10 Total Protein 8.2 g/dL (6.6-8.7) 07/07/22 18:10 Albumin 4.2 g/dL (3.5-5.2) 07/07/22 18:10 Globulin 4.0 g/dL (1.3-4.6) 07/07/22 18:10 Urine Color Yellow (Yellow) 07/07/22 19:05 Urine Appearance Cloudy (CLEAR) A 07/07/22 19:05 Urine pH 5 (5-7) 07/07/22 19:05 Ur Specific [place] 1.020 (1.005-1.030) 07/07/22 19:05 Urine Protein Neg (Negative) 07/07/22 19:05 Urine Glucose (UA) 4+ (Normal) H 07/07/22 19:05 Urine Ketones Negative (Negative) 07/07/22 19:05 Urine Blood 2+ (Negative) H 07/07/22 19:05 Urine Nitrate Negative (Negative) 07/07/22 19:05 Urine Bilirubin Neg (Negative) 07/07/22 19:05 Urine Urobilinogen Neg mg/dL (Negative) 07/07/22 19:05 Ur Leukocyte Esterase 2+ (Negative) H 07/07/22 19:05 Urine RBC 15-25 /hpf (0-2) H 07/07/22 19:05 Urine WBC 25-40 /hpf (0-5) H 07/07/22 19:05 Ur Squamous Epith Cells 25-40 /hpf (0-5) H 07/07/22 19:05 Amorphous Sediment 1+ /hpf 07/07/22 19:05 Urine Bacteria 1+ /hpf (NONE) H 07/07/22 19:05 Urine Mucus 1+ /hpf 07/07/22 19:05 Discharge Plan Discharge Patient Disposition: Home Clinical Impression: Generalized weakness, Malaise and fatigue, Mild dehydration, Thrombocytopenia, Transaminitis Condition: Stable Prescriptions: No Action amitriptyline 10 mg tablet 10 mg PO BEDTIME aspirin 81 mg tablet,delayed release (DR/EC) 81 mg PO DAILY Farxiga 5 mg Tablet 5 mg PO DAILY albuterol sulfate 90 mcg/actuation HFA aerosol inhaler 2 inh inhalation Q4H PRN (Reason: Shortness Of Breath) zolpidem 10 mg Tablet 10 mg PO BEDTIME PRN (Reason: Sleep) Hold Instructions: hold until seen by primary care doc paroxetine HCl 20 mg Tablet 20 mg PO DAILY 30 Days Qty: 30 0RF metoprolol tartrate 75 mg Tablet 75 mg PO BID 30 Days Qty: 60 0RF insulin asp prt-insulin aspart [Novolog Mix 70-30 U-100 Insuln] 100 unit/mL (70-30) solution 15 unit SUBCUT DAILY topiramate 50 mg tablet 50 mg PO DAILY Rx Instructions: TAKE 1 TABLET BY MOUTH EVERY DAY Discharge Orders: Discharge ED (Routine); Ordered 07/07/22 Ordered By: Gil Rodríguez Referrals: Salomon Harp MD [Primary Care Provider] - Discharge Diet: Usual diet Discharge Activity: Increase activity as tolerated Patient Instructions: Dehydration (ED), Weakness (ED), Urinary Tract Infection in Older Adults (ED) Activity Restrictions/Additional Instructions: Thank you for visiting the emergency department. You were seen and evaluated for generalized weakness and malaise. The exact cause of your symptoms is unclear. You were found to have mild urinary tract infection which will be treated as well as dehydration which should improve with fluids. Please ensure that you are staying hydrated. I would expect improvement in symptoms over the next few days. Please follow-up with your primary care provider. You are again noted to have mild elevation in your AST and ALT as well as mildly decreased platelet count. This should be evaluated as deemed appropriate by your primary care provider. Return to the emergency department for worsening symptoms or anything else that you are concerned about a feel needs emergency department evaluation. Sign Out Sign Out Data: Patient Sign Out occurred on 07/07/22 at 18:21. Patient's care was discussed, and care was transferred from to Gil Rodríguez MD. Coding Level of Care Code ED Student Success Advisor for Chg Fwd Exam Comprehensive NIH stroke score NIHSS Level Of Consciousness - 1a: 0 Level Of Consciousness Questions - 1b: Both Correct Level Of Consciousness Commands - 1c: Both Correct Best Gaze - 2: Normal Visual Vincent - 3: No Visual Loss Facial Palsy - 4: Normal Motor Arm Right - 5: No Drift Motor Arm Left - 5: No Drift Motor Leg Right - 6: No Drift Motor Leg Left - 6: No Drift Limb Ataxia - 7: Absent Sensory - 8: Normal Best Language - 9: No Aphasia Dysarthia - 10: Normal Extinction And Inattention - 11: 0 Score Total Score: 0 Documented by User: Gil Rodríguez MD 07/15/22 04:53 HPI - Altered Mental Status General: Chief Complaint: Altered Mental Status Stated Complaint: slurred speech, AMS Time Seen by Provider: 07/07/22 16:04 [facility] ED PFSH: Medical History Brain aneurysm CAD (coronary artery disease) Hepatitis C History of CVA (cerebrovascular accident) Hypertension Insulin dependent type 2 diabetes mellitus Peripheral vascular disease Psychiatric care Surgical History History of angioplasty of peripheral vessel History of appendectomy History of cholecystectomy Family History Father Cancer of kidney Cancer Lung Mother Hypertension CAD (coronary artery disease) Diabetes Social History Smoking and tobacco status: current every day smoker cigarettes Packs smoked per day: 0.5 Years cigarettes smoked: 30 Alcohol intake: former Course Vital Signs: Vital signs: Vital Signs Temperature 98.2 F 07/07/22 15:55 Pulse Rate 70 07/07/22 20:30 Respiratory Rate 12 07/07/22 20:30 Blood Pressure 128/93 07/07/22 20:30 Pulse Oximetry 98 07/07/22 20:30 Oxygen Delivery Me thod 07/07/22 18:22 MDM - Altered Mental Status Medical Decision Making Patient care handoff received from Dr. Bergeron and completion of ED evaluation. Last known well places patient outside of tPA window. I personally reevaluated the patient and reperformed carvalho portions of E/M. Laboratory studies with mild hemoconcentration, thrombocytopenia noted and appears similar to prior. Mild dehydration on metabolic panel without significant derangement requiring acute intervention, glucose is elevated however no evidence of DKA. Transaminitis present and also similar to prior. Urinalysis with squamous epithelial contamination. Chest x-ray with no lobar consolidation or pneumothorax. CT negative for acute hemorrhage, prior MCA intervention noted. CTA without evidence of large vessel occlusion mild to moderate stenosis. Plans discussed with patient including inc idental findings. On reassessment patient feels improved with fluids and analgesia. Given atypical nature of symptoms even though patient has squamous epithelial contamination I will treat for abnormal urinalysis. Patient reports a history of intolerance to statins, she is on aspirin for secondary stroke prevention. Most likely etiology of patient's symptoms is somewhat unclear and likely mult ifactorial. She prefers outpatient management. The results of ED evaluation were discussed with the patient including prescriptions and/or symptomatic cares (if applicable) including appropriate and responsible use, followup plan, and return precautions. The patient verbalized understanding and felt safe for discharge. Lab Data 07/07/22 18:10 07/07/22 18:[address] 07/07/22 16:11 IMPRESSION: 1. No acute intracranial abnormalities. 2. Stable area of encephalomalacia left posterior frontal lobe secondary to old insult. 3. Prior left MCA aneurysm clipping. Chest X-Ray 07/07/22 16:12 IMPRESSION: Negative chest Head/Neck CTA 07/07/22 19:03 IMPRESSION: 1. Left MCA bifurcation aneurysm clipping postoperative changes. No recurrent aneurysm identified. 2. No large vessel occlusion intracranially. Anatomic variant diminutive vertebrobasilar system with origin of both posterior cerebral arteries. IMPRESSION: Bilateral carotid bifurcation atherosclerosis, with 50% stenosis of the proximal left internal carotid artery. No high-grade narrowing identified. REFERENCES: NASCET CRITERIA. The degree of stenosis in the cervical segment of the internal carotid artery is based on NASCET criteria. Normal is no stenosis. Mild is less than 50% stenosis. Moderate is 50-69% stenosis. Severe is 70% to 99% stenosis. Total occlusion is no detectable patent lumen. Laboratory Results WBC 8.8 10^3/uL (4.0-10.0) 07/07/22 18:10 RBC 5.96 10^6/uL (4.1-5.3) H 07/07/22 18:10 Hgb 18.9 g/dL (11.5-15.3) H 07/07/22 18:10 Hct 55.2 % (37.0-47.0) H 07/07/22 18:10 MCV 92.6 fl (81-99) 07/07/22 18:10 MCH 31.7 pg (28.0-34.0) 07/07/22 18:10 MCHC 34.2 g/dL (30.0-36.0) 07/07/22 18:10 RDW 12.3 % (12.1-15.1) 07/07/22 18:10 Plt Count 128 10^3/cmm (130-400) L 07/07/22 18:10 MPV 12.2 fL (7.4-10.4) H 07/07/22 18:10 Neut % (Auto) 47.4 % 07/07/22 18:10 Lymph % (Auto) 45.0 % 07/07/22 18:10 [place] % (Auto) 5.4 % 07/07/22 18:10 Eos % (Auto) 1.4 % 07/07/22 18:10 Baso % (Auto) 0.6 % 07/07/22 18:10 Neut # (Auto) 4.18 10^3/uL (1.8-7.7) 07/07/22 18:10 Lymph # (Auto) 4.0 10^3/uL (0.8-4.8) 07/07/22 18:10 [place] # (Auto) 0.5 10^3/uL (0.2-0.9) 07/07/22 18:10 Eos # (Auto) 0.1 10^3/uL (0.0-0.8) 07/07/22 18:10 Baso # (Auto) 0.1 10^3/uL (0.0-0.1) 07/07/22 18:10 Nucleated RBC % (auto) 0 % 07/07/22 18:10 Nucleated RBCs # 0.0 /100WBC 07/07/22 18:10 Sodium 135 mmol/L (136-145) L 07/07/22 18:10 Potassium 4.2 mmol/L (3.5-5.1) 07/07/22 18:10 Chloride 96 mmol/L (98-107) L 07/07/22 18:10 Carbon Dioxide 28 mmol/L (22-29) 07/07/22 18:10 Anion Gap 15.2 (5-19) 07/07/22 18:10 BUN 8 mg/dL (6-20) 07/07/22 18:10 Creatinine 0.6 mg/dL (0.5-0.9) 07/07/22 18:10 GFR Calculation 103.0 mL/min (90-130) 07/07/22 18:10 Glucose 305 mg/dL (65-115) H 07/07/22 18:10 Calculated Osmolality 290 mOsm/kg (285-295) 07/07/22 18:10 Calcium 10.1 mg/dL (8.5-10.5) 07/07/22 18:10 Total Bilirubin 0.8 mg/dL (0.15-1.2) 07/07/22 18:10 AST 81 U/L (0-32) H 07/07/22 18:10 ALT 86 U/L (0-33) H 07/07/22 18:10 Alkaline Phosphatase 216 U/L (35-105) H 07/07/22 18:10 Total Protein 8.2 g/dL (6.6-8.7) 07/07/22 18:10 Albumin 4.2 g/dL (3.5-5.2) 07/07/22 18:10 Globulin 4.0 g/dL (1.3-4.6) 07/07/22 18:10 Urine Color Yellow (Yellow) 07/07/22 19:05 Urine Appearance Cloudy (CLEAR) A 07/07/22 19:05 Urine pH 5 (5-7) 07/07/22 19:05 Ur Specific [place] 1.020 (1.005-1.030) 07/07/22 19:05 Urine Protein Neg (Negative) 07/07/22 19:05 Urine Glucose (UA) 4+ (Normal) H 07/07/22 19:05 Urine Ketones Negative (Negative) 07/07/22 19:05 Urine Blood 2+ (Negative) H 07/07/22 19:05 Urine Nitrate Negative (Negative) 07/07/22 19:05 Urine Bilirubin Neg (Negative) 07/07/22 19:05 Urine Urobilinogen Neg mg/dL (Negative) 07/07/22 19:05 Ur Leukocyte Esterase 2+ (Negative) H 07/07/22 19:05 Urine RBC 15-25 /hpf (0-2) H 07/07/22 19:05 Urine WBC 25-40 /hpf (0-5) H 07/07/22 19:05 Ur Squamous Epith Cells 25-40 /hpf (0-5) H 07/07/22 19:05 Amorphous Sediment 1+ /hpf 07/07/22 19:05 Urine Bacteria 1+ /hpf (NONE) H 07/07/22 19:05 Urine Mucus 1+ /hpf 07/07/22 19:05 Discharge Plan Discharge Patient Disposition: Home Clinical Impression: Generalized weakness, Malaise and fatigue, Mild dehydration, Thrombocytopenia, Transaminitis Condition: Stable Prescriptions: No Action amitriptyline 10 mg tablet 10 mg PO BEDTIME aspirin 81 mg tablet,delayed release (DR/EC) 81 mg PO DAILY Farxiga 5 mg Tablet 5 mg PO DAILY albuterol sulfate 90 mcg/actuation HFA aerosol inhaler 2 inh inhalation Q4H PRN (Reason: Shortness Of Breath) zolpidem 10 mg Tablet 10 mg PO BEDTIME PRN (Reason: Sleep) Hold Instructions: hold until seen by primary care doc paroxetine HCl 20 mg Tablet 20 mg PO DAILY 30 Days Qty: 30 0RF metoprolol tartrate 75 mg Tablet 75 mg PO BID 30 Days Qty: 60 0RF insulin asp prt-insulin aspart [Novolog Mix 70-30 U-100 Insuln] 100 unit/mL (70-30) solution 15 unit SUBCUT DAILY topiramate 50 mg tablet 50 mg PO DAILY Rx Instructions: TAKE 1 TABLET BY MOUTH EVERY DAY Discharge Orders: Discharge ED (Routine); Ordered 07/07/22 Ordered By: Gil Rodríguez Referrals: Salomon Harp MD [Primary Care Provider] - Discharge Diet: Usual diet Discharge Activity: Increase activity as tolerated Patient Instructions: Dehydration (ED), Weakness (ED), Urinary Tract Infection in Older Adults (ED) Activity Restrictions/Additional Instructions: Thank you for visiting the emergency department. You were seen and evaluated for generalized weakness and malaise. The exact cause of your symptoms is unclear. You were found to have mild urinary tract infection which will be treated as well as dehydration which should improve with fluids. Please ensure that you are staying hydrated. I would expect improvement in symptoms over the next few days. Please follow-up with your primary care provider. You are again noted to have mild elevation in your AST and ALT as well as mildly decreased platelet count. This should be evaluated as deemed appropriate by your primary care provider. Return to the emergency department for worsening symptoms or anything else that you are concerned about a feel needs emergency department evaluation. Sign Out Sign Out Data: Patient Sign Out occurred on 07/07/22 at 18:21. Patient's care was discussed, and care was transferred from to Gil Rodríguez MD. Coding Level of Care Code ED Student Success Advisor for Mario Fwd Exam Comprehensive NIH stroke score Score Total Score: 0
--- NOTE | 2022-07-07 16:11 | CTR_ITS ---
PROCEDURE INFORMATION: Exam: CT Head Without Contrast Exam date and time: 07/07/2022 5:36 PM Age: 57 years old Clinical indication: Other: Left side weakness; Prior surgery; Surgery date: 6+ months; Surgery type: Left side headache, HX of 2 aneurysm repairs; Additional info: Altered mental status headache left-sided weakness TECHNIQUE: Imaging protocol: Computed tomography of the head without contrast. Radiation optimization: All CT scans at this facility use at least one of these dose optimization techniques: automated exposure control; mA and/or kV adjustment per patient size (includes targeted exams where dose is matched to clinical indication); or iterative reconstruction. COMPARISON: CT head wo con* [id number] 12/02/2021 8:06 PM RADIATION DOSE METRICS: Total DLP (mGy-cm): 995.38 FINDINGS: Brain: There is a moderate size area of encephalomalacia left posterior frontal lobe unchanged consistent with old insult. There is adjacent aneurysm clipping of the left MCA unchanged. There are no other focal abnormalities detected. There is no evidence of intracranial hemorrhage. There are no areas of mass effect, edema or midline shift. Cerebral ventricles: Unremarkable for age. Paranasal sinuses: Visualized sinuses are unremarkable. No fluid levels. Mastoid air cells: Visualized mastoid air cells are well aerated. Bones/joints: There is a left craniotomy defect unchanged otherwise calvarium is unremarkable. Soft tissues: Unremarkable. CT/CT head wo con* [id number] IMPRESSION: 1. No acute intracranial abnormalities. 2. Stable area of encephalomalacia left posterior frontal lobe secondary to old insult. 3. Prior left MCA aneurysm clipping.
--- NOTE | 2022-07-07 16:12 | XRR_ITS ---
PROCEDURE INFORMATION: Exam: XR Chest Exam date and time: 07/07/2022 4:20 PM Age: 57 years old Clinical indication: Cough and dyspnea; Patient HX: Headache, slurred speech, sideways walking, tooth pain, lumps in breast. HX of cervical cancer; Additional info: Dyspnea/cough TECHNIQUE: Imaging protocol: Radiologic exam of the chest. Views: 1 view. COMPARISON: CR XR chest 1V portable [id number] 03/22/2022 7:40 PM FINDINGS: Lungs: Unremarkable. No consolidation. Pleural spaces: Unremarkable. No pleural effusion. No pneumothorax. Heart/Mediastinum: Unremarkable. No cardiomegaly. Bones/joints: Unremarkable for age. XR/XR chest 1V portable [id number] IMPRESSION: Negative chest
[2022-07-07 18:22] VITALS: BP 143/95; PULSE 70; O2SAT 97
[2022-07-07 18:36] LABS: Basophils # 0.1 10^3/uL (0.0-0.1); Basophils % 0.6 %; Eosinophils # 0.1 10^3/uL (0.0-0.8); Eosinophils % 1.4 %; Hematocrit 55.2 % (37.0-47.0); Hemoglobin 18.9 g/dL (11.5-15.3); Mean Corpuscular HGB Conc 34.2 g/dL (30.0-36.0); Mean Corpuscular Hemoglobin 31.7 pg (28.0-34.0); Mean Corpuscular Volume 92.6 fl (81-99); Mean Platelet Volume 12.2 fL (7.4-10.4); Monocytes # 0.5 10^3/uL (0.2-0.9); Monocytes % 5.4 %; Neutrophils # 4.18 10^3/uL (1.8-7.7); Neutrophils % 47.4 %; Nucleated Red Blood Cells % 0 %; Platelet Count 128 10^3/cmm (130-400); Red Blood Count 5.96 10^6/uL (4.1-5.3); Red Cell Distribution Width 12.3 % (12.1-15.1); White Blood Count 8.8 10^3/uL (4.0-10.0)
[2022-07-07] MEDS: sodium chloride 0.9% 1,000 ML 999 ML IV (18:42)
[2022-07-07 18:58] LABS: Alanine Aminotransferase 86 U/L (0-33); Albumin Level 4.2 g/dL (3.5-5.2); Alkaline Phosphatase 216 U/L (35-105); Anion Gap 15.2 (5-19); Aspartate Amino Transferase 81 U/L (0-32); Blood Urea Nitrogen 8 mg/dL (6-20); Calcium 10.1 mg/dL (8.5-10.5); Carbon Dioxide 28 mmol/L (22-29); Chloride 96 mmol/L (98-107); Glucose 305 mg/dL (65-115); Osmolality Calculated 290 mOsm/kg (285-295); Potassium 4.2 mmol/L (3.5-5.1); Sodium 135 mmol/L (136-145); Total Bilirubin 0.8 mg/dL (0.15-1.2); Total Protein 8.2 g/dL (6.6-8.7)
--- NOTE | 2022-07-07 19:03 | CTR_ITS ---
PROCEDURE INFORMATION: Exam: CTA Head With Contrast, Arteriography Exam date and time: 07/07/2022 7:37 PM Age: 57 years old Clinical indication: Weakness; Prior surgery; Surgery date: 6+ months; Surgery type: Aneurysm x 2, ; additional info: AMS, HX aneurysm, left side weakness with slurring of speech TECHNIQUE: Imaging protocol: Computed tomographic angiography of the head with contrast. Exam focused on the arteries. 3D rendering (Not supervised by radiologist): MIP and/or 3D reconstructed images were created by the technologist. Radiation optimization: All CT scans at this facility use at least one of these dose optimization techniques: automated exposure control; mA and/or kV adjustment per patient size (includes targeted exams where dose is matched to clinical indication); or iterative reconstruction. Contrast material: OMNIPAQUE 350; Contrast volume: 75 ml; Contrast route: INTRAVENOUS (IV); COMPARISON: 1. CT head wo con* [id number] 07/07/2022 5:36 PM 2. Aneurysm Clip present in the left sylvian fissure distally at the level of the MCA bifurcation. No residual or recurrent aneurysm is identified. Overlying left pterional region craniotomy postoperative changes are present. 3. Intracranial findings are stable with comparison noncontrast CT head same day. 4. origin of the bilateral lathe spotter is present, anatomic variant. The vertebrobasilar system is small in caliber, which is likely congenital. The distal basilar artery is diminutive. 5. Atherosclerosis of the intracranial carotids. RADIATION DOSE METRICS: Total DLP (mGy-cm): 392.87 FINDINGS: ANTERIOR CIRCULATION: Right internal carotid artery: Intracranial segment is patent with no significant stenosis. No aneurysm. Right middle cerebral artery: No occlusion or significant stenosis. No aneurysm. Right anterior cerebral artery: No occlusion or significant stenosis. No aneurysm. Left internal carotid artery: Intracranial segment is patent with no significant stenosis. No aneurysm. Left middle cerebral artery: No occlusion or significant stenosis. No aneurysm. Left anterior cerebral artery: No occlusion or significant stenosis. No aneurysm. POSTERIOR CIRCULATION: Right vertebral artery: No occlusion or significant stenosis. No aneurysm. Left vertebral artery: No occlusion or significant stenosis. No aneurysm. Basilar artery: No occlusion or significant stenosis. No aneurysm. Right posterior cerebral artery: No occlusion or significant stenosis. No aneurysm. Left posterior cerebral artery: No occlusion or significant stenosis. No aneurysm. Brain: No definite mass, mass effect, or midline shift. Cerebral ventricles: No ventriculomegaly. Bones/joints: Unremarkable. No acute fracture. Soft tissues: Unremarkable. PROCEDURE INFORMATION: Exam: CTA Neck With Contrast Exam date and time: 07/07/2022 7:37 PM Age: 57 years old Clinical indication: Weakness; Prior surgery; Surgery date: 6+ months; Surgery type: Aneurysm x 2, ; additional info: AMS, HX aneurysm, left side weakness with slurring of speech TECHNIQUE: Imaging protocol: Computed tomographic angiography of the neck with contrast. 3D rendering (Not supervised by radiologist): MIP and/or 3D reconstructed images were created by the technologist. Radiation optimization: All CT scans at this facility use at least one of these dose optimization techniques: automated exposure control; mA and/or kV adjustment per patient size (includes targeted exams where dose is matched to clinical indication); or iterative reconstruction. Contrast material: OMNIPAQUE 350; Contrast volume: 75 ml; Contrast route: INTRAVENOUS (IV); COMPARISON: CT head wo con* [id number] 07/07/2022 5:36 PM RADIATION DOSE METRICS: Total DLP (mGy-cm): 392.87 FINDINGS: Right common carotid artery: No stenosis. No dissection or occlusion. Right internal carotid artery: No stenosis of the extracranial segment. No dissection or occlusion. Right external carotid artery: No occlusion or stenosis of the origin. Left common carotid artery: Stent in the proximal left common carotid artery. Left internal carotid artery: Moderate calcified atherosclerotic plaque bilaterally in the carotid bulbs. No significant right-sided stenosis. On the left there is 50% stenosis of the proximal internal carotid artery, which is not considered significant by NASCET criteria. Left external carotid artery: No occlusion or stenosis of the origin. Right vertebral artery: No stenosis. No dissection or occlusion. Left vertebral artery: No stenosis. No dissection or occlusion. Soft tissues: Normal. No significant soft tissue swelling. Bones/joints: No acute fracture. CT/CT angio headneck* [id number] IMPRESSION: 1. Left MCA bifurcation aneurysm clipping postoperative changes. No recurrent aneurysm identified. 2. No large vessel occlusion intracranially. Anatomic variant diminutive vertebrobasilar system with origin of both posterior cerebral arteries. IMPRESSION: Bilateral carotid bifurcation atherosclerosis, with 50% stenosis of the proximal left internal carotid artery. No high-grade narrowing identified. REFERENCES: NASCET CRITERIA. The degree of stenosis in the cervical segment of the internal carotid artery is based on NASCET criteria. Normal is no stenosis. Mild is less than 50% stenosis. Moderate is 50-69% stenosis. Severe is 70% to 99% stenosis. Total occlusion is no detectable patent lumen.
[2022-07-07] MEDS: ketorolac 30 mg/mL INJ 15 MG IVP (19:16)
[2022-07-07] MEDS: acetaminophen 325 mg Tablet 650 MG PO (19:16)
[2022-07-07 19:24] VITALS: PULSE 67; RESP 12; O2SAT 98
[2022-07-07 19:50] VITALS: BP 130/102; PULSE 74; RESP 14; O2SAT 98
[2022-07-07 20:00] VITALS: BP 143/82; PULSE 71; RESP 12; O2SAT 97
[2022-07-07 20:01] LABS: Bilirubin Urine Neg (Negative); Blood Urine 2+ (Negative); Glucose Urine UA 4+ (Normal); Ketones Urine Negative (Negative); Nitrate Urine Negative (Negative); Protein Urine Neg (Negative); Urine Appearance Cloudy (CLEAR); Urine Color Yellow (Yellow); Urobilinogen Urine Neg (Negative); pH Urine 5 (5-7)
[2022-07-07 20:02] LABS: Add Urine Microscopic? YES; Amorphous Sediment Urine 1+ /hpf; Bacteria Urine 1+ /hpf; Leukocyte Esterase Urine 2+ (Negative); Mucus Urine 1+ /hpf; RBC Urine 15-25 /hpf (0-2); Squamous Epithelial Cell Urine 25-40 /hpf (0-5); WBC Urine 25-40 /hpf (0-5)
[2022-07-07 20:03] LABS: Add Urine Culture? No
[2022-07-07] MEDS: iohexol 350 mg/mL 500 mL Btl (per mL) IV (20:04)
[2022-07-07 20:30] VITALS: BP 128/93; PULSE 70; RESP 12; O2SAT 98
[2022-07-07] MEDS: cefTRIAXone 1,000 MG in sodium chloride 0.9% (plus) 50 ML 100 MG IV (21:11)
== END 2022-07-07 21:25 | disposition home or self-care (01) ==
PROVIDERS: Family Medicine; Emergency Provider Emergency Medicine; PCP Family Medicine
DX: R53.1 Weakness (principal); R53.81 Other malaise; R53.83 Other fatigue; E86.0 Dehydration; D69.6 Thrombocytopenia, unspecified; R74.01 Elevation of levels of liver transaminase levels; Z79.82 Long term (current) use of aspirin; Z79.4 Long term (current) use of insulin; F17.210 Nicotine dependence, cigarettes, uncomplicated; I25.10 Atherosclerotic heart disease of native coronary artery without angina pectoris; Z86.19 Personal history of other infectious and parasitic diseases; Z86.73 Personal history of transient ischemic attack (TIA), and cerebral infarction without residual deficits; I10 Essential (primary) hypertension; E11.9 Type 2 diabetes mellitus without complications
CPT/HCPCS: 70450; 70496; 70498; 71045; 80053; 81001; 85025; 96361; 96374; 99285; J0696; J1885; J7030; Q9967

== ENCOUNTER 2022-07-30 22:22 | Emergency (ER) | payer MEDICAID, SELFPAY ==
[2022-07-30 22:23] VITALS: BP 147/82; PULSE 74; RESP 18; TEMP 36.6; O2SAT 96; BMI 21.3
--- NOTE | 2022-07-30 22:27 | XRR_ITS ---
PROCEDURE INFORMATION: Exam: XR Chest Exam date and time: 07/30/2022 10:34 PM Age: 57 years old Clinical indication: Other: Weakness TECHNIQUE: Imaging protocol: Radiologic exam of the chest. Views: 1 view. COMPARISON: CR XR chest 1V portable [id number] 07/07/2022 4:20 PM FINDINGS: Lungs: Lungs are normally inflated and clear. There is no pulmonary venous congestion. Pleural spaces: Unremarkable. No pleural effusion. No pneumothorax. Heart/Mediastinum: Heart is within normal limits of size. Bones/joints: Unremarkable. XR/XR chest 1V portable [id number] IMPRESSION: No acute infiltrate.
--- NOTE | 2022-07-30 22:28 | W.ED.WEAKNES ---
HPI - Weakness General: Chief complaint: General Medical Stated complaint: WEAKNESS Time Seen by Provider: 07/30/22 22:26 Source: patient and EMS Mode of arrival: EMS Limitations: no limitations History of Present Illness: 57-year-old female states she been having generalized weakness for the last 2 months. She was seen here in June had a full work-up including CT angio that showed no acute occlusions she states that today she is feeling slightly weaker than normal states she felt like her legs were heavy patient able to ambulate here she had no slurred speech here she denies headache she did have some hyperglycemia. Denies any chest pain. Associated symptoms: Denies chest pain, dysuria, easy bruising, headache(s), nausea or vomiting Review of Systems Const: Reports: fatigue and malaise Eyes: Denies: blurry vision or eye discomfort ENMT: Denies: throat pain or dental pain Card: Denies: chest pain Resp: Denies: dyspnea GI: Denies: abdominal pain, nausea, vomiting or diarrhea : Denies: dysuria Musc: Denies: neck pain or back pain Skin/Breast: Denies: rash Neuro: Denies: headache(s) Psych: Denies: depression Harish/Lymph: Denies: easy bruising All/Imm: Denies: urticaria PFSH ED PFSH: Medical History Brain aneurysm CAD (coronary artery disease) Hepatitis C History of CVA (cerebrovascular accident) Hypertension Insulin dependent type 2 diabetes mellitus Peripheral vascular disease Psychiatric care Surgical History History of angioplasty of peripheral vessel History of appendectomy History of cholecystectomy Family History Father Cancer of kidney Cancer Lung Mother Hypertension CAD (coronary artery disease) Diabetes Social History Smoking and tobacco status: current every day smoker cigarettes Packs smoked per day: 0.5 Years cigarettes smoked: 30 Alcohol intake: former Physical Exam Const: COMMON NORMALS: no acute distress, patient oriented x3 and healthy appearing HENMT: COMMON NORMALS: normocephalic and atraumatic HEAD & SCALP: normocephalic and atraumatic Eye: COMMON NORMALS: Equal, round and reactive pupils present and EOMs intact bilaterally PUPIL: Yes Equal, round and reactive pupils present Neck/C-Spine: COMMON NORMALS: full ROM and supple Chest: COMMONS NORMALS: normal inspection of the chest and normal palpation of entire chest wall Resp: COMMON NORMALS: normal respiratory effort, No retractions, No use of accessory muscles and clear to auscultation bilaterally AUSCULTATION: clear to auscultation bilaterally Cardio: COMMON NORMALS: regular rate, regular rhythm and No murmurs present (Cardio) RATE: regular rate RHYTHM: regular rhythm GI: COMMON NORMALS: Normal to inspection, nondistended, normoactive bowel sounds present, Soft to palpation, non-tender and no masses PALPATION: Yes Soft to palpation Extremity: COMMON NORMALS: normal to inspection and full ROM Neuro: COMMON NORMALS: patient oriented x3, moves all extremities and no focal motor deficits CRANIAL NERVES: Yes CN normal except as noted SPEECH: speech normal MOTOR EXAM: 5/5 motor strength present throughout Psych: COMMON NORMALS: mental status grossly normal, Normal thought process present and cooperative THOUGHT PROCESS: Normal thought process present Skin: COMMON NORMALS: no rashes or lesions noted and no wounds GENERAL SKIN EXAM: no rashes or lesions noted Course Vital Signs: Vital signs: Vital Signs Temperature 97.8 F 07/30/22 22:23 Pulse Rate 71 07/31/22 01:33 Respiratory Rate 18 07/31/22 01:33 Blood Pressure 147/88 07/31/22 01:33 Pulse Oximetry 97 07/31/22 01:33 Oxygen Delivery Me thod 07/30/22 22:33 MDM - Weakness Medical Decision Making Patient presents here with generalized weakness she is well-appearing here blood work is normal her troponins are normal she did had a CT angio recently has no new findings does not need another CT scan of her head she is ambulatory she is stable for discharge her blood sugars improved. Her NIH here is 0 at discharge she is able to stand and ambulate her symptoms have been going on for months. Lab Data 07/30/22 22:51 07/30/22 22:51 Radiology Impressions Chest X-Ray 07/30/22 22:27 IMPRESSION: No acute infiltrate. Laboratory Results WBC 7.1 10^3/uL (4.0-10.0) 07/30/22 22:51 RBC 5.31 10^6/uL (4.1-5.3) H 07/30/22 22:51 Hgb 16.5 g/dL (11.5-15.3) H 07/30/22 22:51 Hct 48.5 % (37.0-47.0) H 07/30/22 22:51 MCV 91.3 fl (81-99) 07/30/22 22:51 MCH 31.1 pg (28.0-34.0) 07/30/22 22:51 MCHC 34.0 g/dL (30.0-36.0) 07/30/22 22:51 RDW 12.3 % (12.1-15.1) 07/30/22 22:51 Plt Count 93 10^3/cmm (130-400) L 07/30/22 22:51 MPV 11.8 fL (7.4-10.4) H 07/30/22 22:51 Neut % (Auto) 44.8 % 07/30/22 22:51 Lymph % (Auto) 46.0 % 07/30/22 22:51 [place] % (Auto) 6.5 % 07/30/22 22:51 Eos % (Auto) 1.7 % 07/30/22 22:51 Baso % (Auto) 0.7 % 07/30/22 22:51 Neut # (Auto) 3.20 10^3/uL (1.8-7.7) 07/30/22 22:51 Lymph # (Auto) 3.3 10^3/uL (0.8-4.8) 07/30/22 22:51 [place] # (Auto) 0.5 10^3/uL (0.2-0.9) 07/30/22 22:51 Eos # (Auto) 0.1 10^3/uL (0.0-0.8) 07/30/22 22:51 Baso # (Auto) 0.1 10^3/uL (0.0-0.1) 07/30/22 22:51 Nucleated RBC % (auto) 0 % 07/30/22 22:51 Nucleated RBCs # 0.0 /100WBC 07/30/22 22:51 PT 14.00 SECONDS (12.1-14.9) 07/30/22 22:51 INR 1.05 (0.8-1.2) 07/30/22 22:51 Sodium 136 mmol/L (136-145) 07/30/22 22:51 Potassium 4.5 mmol/L (3.5-5.1) 07/30/22 22:51 Chloride 98 mmol/L (98-107) 07/30/22 22:51 Carbon Dioxide 26 mmol/L (22-29) 07/30/22 22:51 Anion Gap 16.5 (5-19) 07/30/22 22:51 BUN 8 mg/dL (6-20) 07/30/22 22:51 Creatinine 0.5 mg/dL (0.5-0.9) 07/30/22 22:51 GFR Calculation 127.2 mL/min (90-130) 07/30/22 22:51 Glucose 246 mg/dL (65-115) H 07/30/22 22:51 Calculated Osmolality 289 mOsm/kg (285-295) 07/30/22 22:51 Calcium 9.2 mg/dL (8.5-10.5) 07/30/22 22:51 Total Bilirubin 0.6 mg/dL (0.15-1.2) 07/30/22 22:51 AST 70 U/L (0-32) H 07/30/22 22:51 ALT 71 U/L (0-33) H 07/30/22 22:51 Alkaline Phosphatase 168 U/L (35-105) H 07/30/22 22:51 Troponin T Baseline 6 ng/L (0-10) 07/30/22 22:51 Troponin T 120 Minute 6.00 ng/L (0-10) 07/31/22 00:35 Delta Troponin T 0 ABS# (0-10) 07/31/22 00:35 Total Protein 7.0 g/dL (6.6-8.7) 07/30/22 22:51 Albumin 3.7 g/dL (3.5-5.2) 07/30/22 22:51 Globulin 3.3 g/dL (1.3-4.6) 07/30/22 22:51 Urine Color Yellow (Yellow) 07/30/22 23:04 Urine Appearance Clear (CLEAR) 07/30/22 23:04 Urine pH 6 (5-7) 07/30/22 23:04 Ur Specific [place] 1.020 (1.005-1.030) 07/30/22 23:04 Urine Protein Neg (Negative) 07/30/22 23:04 Urine Glucose (UA) 4+ (Normal) H 07/30/22 23:04 Urine Ketones Negative (Negative) 07/30/22 23:04 Urine Blood Neg (Negative) 07/30/22 23:04 Urine Nitrate Negative (Negative) 07/30/22 23:04 Urine Bilirubin Neg (Negative) 07/30/22 23:04 Urine Urobilinogen Norm mg/dL (Negative) 07/30/22 23:04 Ur Leukocyte Esterase Negative (Negative) 07/30/22 23:04 EKG Data EKG 1: I personally reviewed and interpreted this EKG as follows: EKG interpretation date: 07/30/22 EKG interpretation time: 22:34 Interpretation: nsr hr [address] or t wave abnormalities qrs 84 qtc 420 Discharge Plan Discharge Patient Disposition: Home Clinical Impression: Weakness Condition: Stable Prescriptions: No Action amitriptyline 10 mg tablet 10 mg PO BEDTIME aspirin 81 mg tablet,delayed release (DR/EC) 81 mg PO DAILY Farxiga 5 mg Tablet 5 mg PO DAILY albuterol sulfate 90 mcg/actuation HFA aerosol inhaler 2 inh inhalation Q4H PRN (Reason: Shortness Of Breath) zolpidem 10 mg Tablet 10 mg PO BEDTIME PRN (Reason: Sleep) Hold Instructions: hold until seen by primary care doc paroxetine HCl 20 mg Tablet 20 mg PO DAILY 30 Days Qty: 30 0RF metoprolol tartrate 75 mg Tablet 75 mg PO BID 30 Days Qty: 60 0RF insulin asp prt-insulin aspart [Novolog Mix 70-30 U-100 Insuln] 100 unit/mL (70-30) solution 15 unit SUBCUT DAILY topiramate 50 mg tablet 50 mg PO DAILY Rx Instructions: TAKE 1 TABLET BY MOUTH EVERY DAY Discharge Orders: Discharge ED (Routine); Ordered 07/31/22 Ordered By: Sherice Ledesma Referrals: Salomon Harp MD [Primary Care Provider] - 1-3 days Discharge Diet: Advance as tolerated Discharge Activity: Resume usual activity Coding Level of Care Code ED Remnant Sorter for Chg Fwd Exam Comprehensive NIH stroke score NIHSS Level Of Consciousness - 1a: 0 Level Of Consciousness Questions - 1b: Both Correct Level Of Consciousness Commands - 1c: Both Correct Best Gaze - 2: Normal Visual Vincent - 3: No Visual Loss Facial Palsy - 4: Normal Motor Arm Right - 5: No Drift Motor Arm Left - 5: No Drift Motor Leg Right - 6: No Drift Motor Leg Left - 6: No Drift Limb Ataxia - 7: Absent Sensory - 8: Normal Best Language - 9: No Aphasia Dysarthia - 10: Normal Extinction And Inattention - 11: 0 Score Total Score: 0
[2022-07-30 22:33] VITALS: BP 114/95; PULSE 71; O2SAT 94
--- NOTE | 2022-07-30 22:34 | ECG_ITS ---
[facility] Test Date: 2022-07-30 Pat Name: Eboni Perez Department: Room: Gender: Female Edi Programmer: : 1965 Requested By: Sherice Ledesma Order Number: [id number] Jarrte MD: Brandon Condon M.D. Measurements Intervals [place] Rate: 69 P: 66 CO: 151 QRS: 53 QRSD: 84 T: 63 QT: 401 QTc: 431 Interpretive Statements SINUS RHYTHM Compared to ECG 03/31/2022 15:07:11 No significant changes Electronically Signed On 07-31-2022 8:08:43 PRODUCT MANAGENT INTERN by Brandon Condon M.D. [id number]
[2022-07-30] MEDS: sodium chloride 0.9% 1,000 ML 999 ML IV (22:53)
[2022-07-30 22:56] LABS: Basophils # 0.1 10^3/uL (0.0-0.1); Basophils % 0.7 %; Eosinophils # 0.1 10^3/uL (0.0-0.8); Eosinophils % 1.7 %; Hematocrit 48.5 % (37.0-47.0); Hemoglobin 16.5 g/dL (11.5-15.3); Lymphocytes # 3.3 10^3/uL (0.8-4.8); Mean Corpuscular Hemoglobin 31.1 pg (28.0-34.0); Mean Corpuscular Volume 91.3 fl (81-99); Mean Platelet Volume 11.8 fL (7.4-10.4); Monocytes # 0.5 10^3/uL (0.2-0.9); Monocytes % 6.5 %; Neutrophils % 44.8 %; Nucleated Red Blood Cells % 0 %; Platelet Count 93 10^3/cmm (130-400); Red Blood Count 5.31 10^6/uL (4.1-5.3); Red Cell Distribution Width 12.3 % (12.1-15.1); White Blood Count 7.1 10^3/uL (4.0-10.0)
[2022-07-30 23:06] LABS: INR 1.05 (0.8-1.2)
[2022-07-30 23:10] LABS: Add Urine Microscopic? NO; Charge for UA Resulting for Rev
[2022-07-30 23:12] VITALS: BP 129/84; PULSE 72; RESP 16; O2SAT 94
[2022-07-30 23:15] LABS: Alanine Aminotransferase 71 U/L (0-33); Albumin Level 3.7 g/dL (3.5-5.2); Alkaline Phosphatase 168 U/L (35-105); Aspartate Amino Transferase 70 U/L (0-32); Blood Urea Nitrogen 8 mg/dL (6-20); Calcium 9.2 mg/dL (8.5-10.5); Carbon Dioxide 26 mmol/L (22-29); Chloride 98 mmol/L (98-107); Globulin 3.3 g/dL (1.3-4.6); Glomerular Filtration Rate 127.2 mL/min (90-130); Glucose 246 mg/dL (65-115); Osmolality Calculated 289 mOsm/kg (285-295); Sodium 136 mmol/L (136-145); Total Bilirubin 0.6 mg/dL (0.15-1.2); Troponin(5th) Baseline 6 ng/L (0-10)
[2022-07-30 23:21] LABS: Anion Gap 16.5 (5-19); Potassium 4.5 mmol/L (3.5-5.1)
[2022-07-30 23:22] LABS: Glucose Urine UA 4+ (Normal); Protein Urine Neg (Negative); Urine Appearance Clear (CLEAR); Urine Color Yellow (Yellow); pH Urine 6 (5-7)
[2022-07-30 23:23] LABS: Bilirubin Urine Neg (Negative); Blood Urine Neg (Negative); Ketones Urine Negative (Negative); Leukocyte Esterase Urine Negative (Negative); Nitrate Urine Negative (Negative); Urobilinogen Urine Norm (Negative)
[2022-07-31] VITALS: BP 127/80; PULSE 69; RESP 14; O2SAT 94
--- NOTE | 2022-07-31 00:27 | ECG_ITS ---
[facility] Test Date: 2022-07-31 Pat Name: Eboni Perez Department: Room: Gender: Female Etiologist: : 1965 Requested By: Sherice Ledesma Order Number: [id number] Jarret MD: Althea Salinas M.D. Measurements Intervals [place] Rate: 68 P: 61 ND: 163 QRS: 51 QRSD: 88 T: 53 QT: 417 QTc: 444 Interpretive Statements SINUS RHYTHM Compared to ECG 07/30/2022 22:34:36 No significant changes Electronically Signed On 07-31-2022 8:40:47 CEMENT CAR DUMPER by Althea Salinas M.D. [id number]
[2022-07-31 01:02] LABS: Troponin 5 2HR Delta 0 ABS# (0-10)
[2022-07-31 01:33] VITALS: BP 147/88; PULSE 71; RESP 18; O2SAT 97
== END 2022-07-31 01:35 | disposition home or self-care (01) ==
PROVIDERS: Emergency Provider Emergency Medicine; PCP Family Medicine
DX: R53.1 Weakness (principal); I25.10 Atherosclerotic heart disease of native coronary artery without angina pectoris; I10 Essential (primary) hypertension; E11.9 Type 2 diabetes mellitus without complications
CPT/HCPCS: 71045; 80053; 81003; 84484; 85025; 85610; 93005; 96360; 99285; J7030

== ENCOUNTER → 2022-09-02 14:42 | Outpatient (BNVA) | payer MEDICAID, SELFPAY | PROVIDERS: PCP Family Medicine; Visit Provider Thoracic Surgery (Cardiothoracic Vascular Surgery) | DX: I65.23 Occlusion and stenosis of bilateral carotid arteries (principal); I10 Essential (primary) hypertension; F17.210 Nicotine dependence, cigarettes, uncomplicated | CPT/HCPCS: 99203 ==

== ENCOUNTER 2022-09-25 11:12 | Outpatient (CLI) | payer MEDICAID, SELFPAY ==
--- NOTE | 2022-09-25 11:25 | US_ITS ---
WS: [id number] ULTRASOUND RIGHT BREAST HISTORY: Follow-up indeterminate mass RIGHT breast. COMPARISON: Mammogram 02/24/2022 and prior ultrasound 03/07/2022 TECHNIQUE: 2-D and Doppler. Indeterminate but unchanged mass is reidentified within the RIGHT breast at 12:00, 1 cm from the nipp le. Slightly irregular mass measures 5 x 3 x 5 mm with central calcification. No increase in size. US/US breast RT limited* [id number] IMPRESSION: BI-RADS: 3-Probably Benign FOLLOW-UP: 6 Month Follow-up 1. No interval change in the indeterminate mass RIGHT breast at 12:00. Favor b enign etiology. 2. Patient should return for annual mammogram and January 2023. Ultrasound shou ld be performed of the RIGHT breast mass at that time to document continued sta bility.
== END 2022-09-25 11:13 | disposition home or self-care (01) ==
LOC: RAD 11:16
PROVIDERS: PCP Family Medicine; Visit Provider Family Medicine
DX: N63.15 Unspecified lump in the right breast, overlapping quadrants (principal)
CPT/HCPCS: 76642

== ENCOUNTER → 2022-11-04 07:59 | Outpatient (BNVA) | payer MEDICAID, SELFPAY | PROVIDERS: PCP Family Medicine; Visit Provider Specialist | DX: G43.711 Chronic migraine without aura, intractable, with status migrainosus (principal); R55 Syncope and collapse; I69.398 Other sequelae of cerebral infarction; G93.89 Other specified disorders of brain; F17.210 Nicotine dependence, cigarettes, uncomplicated | CPT/HCPCS: 99215 ==

== ENCOUNTER → 2023-02-26 09:28 | Outpatient (BNVA) | payer MEDICAID, SELFPAY | PROVIDERS: PCP Family Medicine; Visit Provider Student in an Organized Health Care Education/Training Program | DX: B19.20 Unspecified viral hepatitis C without hepatic coma (principal) | CPT/HCPCS: 36415; 86705; 86706; 86709; 86803; 87340; 87522; 99205 ==

== ENCOUNTER 2023-02-27 11:14 | Outpatient (CLI) | payer MEDICAID, SELFPAY ==
--- NOTE | 2023-02-27 12:00 | USCV_ITS ---
Eboni Perez Age: 57 Gender: F : 1965 Exam Date: 02/27/2023 11:50 Ordering Phys: William Davies MD (Andy) [email or web address] [place] Technologist: JOY [place] [facility] [place]: EVAL FOR CAROTID STENOSIS Risk Factors: Previous Vascular Surgery: Right Brachial BP: / Left Brachial BP: / Right Left Velocity (cm/s) Spectral Plaque Velocity (cm/s) Spectral Plaque Syst/Diast Broadening Syst/Diast Broadening 88.20/ 9.90 Prox CCA 62.90 / 14.80 60.30/ 14.20 Mid CCA 60.60 / 17.90 51.30/ 15.80 Distal CCA 55.90 / 15.50 44.30/ 14.80 Prox ICA 52.00 / 13.20 66.00/ 26.40 Mid ICA 69.90 / 23.30 56.40/ 21.40 Distal ICA 55.80 / 19.10 81.50 ECA 74.60 0.75 ICA/CCA 1.11 Antegrade Vertebral Antegrade 32.60/ 9.60 cm/s 39.60/ 13.90 cm/s Tri Subclavian Tri 70.70 87.70 FINDINGS Comparison:. 08/09/20 No significant elevation of systolic or diastolic velocities. Waveforms are normal. Mild carotid atherosclerosis. Antegrade vertebral arteries. CONCLUSIONS Bilateral ICA stenosis less than 50%. Mild carotid plaque. No interval change in stenosis since prior exam. Dr. Isabel Hernandez DO (Electronically Signed) Final Date: 27 February 2023 14:00 S
== END 2023-02-27 11:15 | disposition home or self-care (01) ==
LOC: RAD 11:17
PROVIDERS: PCP Family Medicine; Visit Provider Thoracic Surgery (Cardiothoracic Vascular Surgery)
DX: I65.23 Occlusion and stenosis of bilateral carotid arteries (principal)
CPT/HCPCS: 93880

== ENCOUNTER 2023-03-12 06:46 | Outpatient (CLI) | payer MEDICAID, SELFPAY ==
--- NOTE | 2023-03-12 07:30 | US_ITS ---
WS: [id number] RIGHT UPPER QUADRANT ULTRASOUND HISTORY: hepatitis C COMPARISON: 08/09/2020 Liver: 19.3 cm in length. Liver is mildly enlarged but similar size as the prior study. Surface of th e liver is irregular and nodular. No bile duct dilatation and no mass. Portal Vein: Normal hepatopetal flow with monophasic waveform. Gallbladder: Status post cholecystectomy. CBD: 0.4 cm Pancreas: Normal size and echogenicity. Right kidney: 11.6 cm in length. Normal size and echogenicity. No hydronephrosis or mass. Aorta and IVC: Unremarkable abdominal aorta and IVC. No ascites. IMPRESSION: 1. Status post cholecystectomy. 2. Mild hepatomegaly similar to the prior study from 08/09/2020. 3. Suspect cirrhosis.
== END 2023-03-12 06:47 | disposition home or self-care (01) ==
LOC: RAD 06:46
PROVIDERS: PCP Family Medicine; Visit Provider Student in an Organized Health Care Education/Training Program
DX: B19.20 Unspecified viral hepatitis C without hepatic coma (principal); R16.0 Hepatomegaly, not elsewhere classified; Z90.49 Acquired absence of other specified parts of digestive tract
CPT/HCPCS: 76705

== ENCOUNTER → 2023-03-26 10:08 | Outpatient (BNVA) | payer MEDICAID, SELFPAY | PROVIDERS: PCP Family Medicine; Visit Provider Thoracic Surgery (Cardiothoracic Vascular Surgery) | DX: I77.9 Disorder of arteries and arterioles, unspecified (principal) | CPT/HCPCS: 99213 ==

== ENCOUNTER 2023-03-30 09:44 | Outpatient (CLI) | payer MEDICAID, SELFPAY ==
--- NOTE | 2023-03-30 10:07 | MM_ITS ---
WS: [id number] DIAGNOSTIC BILATERAL DIGITAL BREAST TOMOSYNTHESIS MAMMOGRAPHY WITH CAD RIGHT breast ultrasound, limited HISTORY: 6-month follow-up RIGHT breast nodule. COMPARISON: 02/24/2022 and 09/25/2022, 03/07/2022 TECHNIQUE: Bilateral craniocaudad, mediolateral oblique, and mediolateral views are submitted with to mosynthesis and SM. Spot compression RIGHT MLO and CC computer aided detection utilized. Breast composition: There are scattered areas of fibroglandular density. Benign calcifications in eac h breast. Previously described nodule in the RIGHT breast adjacent to a calcification appears smaller in size and nearly completely resolved measuring approximately 3 mm. RIGHT breast ultrasound, limited. At 12:00, 1 cm from the nipple is a round 4 x 4 x 3 mm mass which corresponds to the mammographic abn ormality in the prior ultrasound. This is probably a small complex cyst or lymph node. IMPRESSION: MM/[place] [id number] BI-RADS: 2-Benign FOLLOW UP: 1 Year Follow-up Recommend return to annual screening mammography.
== END 2023-03-30 09:45 | disposition home or self-care (01) ==
LOC: RAD 09:44
PROVIDERS: PCP Family Medicine; Visit Provider Family Medicine
DX: R92.8 Other abnormal and inconclusive findings on diagnostic imaging of breast (principal)
CPT/HCPCS: 76642; 77062; G0279

== ENCOUNTER → 2023-06-11 11:42 | Outpatient (BNVA) | payer MEDICAID, SELFPAY | PROVIDERS: PCP Family Medicine; Visit Provider Thoracic Surgery (Cardiothoracic Vascular Surgery) | DX: I77.9 Disorder of arteries and arterioles, unspecified (principal) | CPT/HCPCS: 99213 ==

== ENCOUNTER 2023-07-02 21:20 | Emergency (ER) | payer MEDICAID, SELFPAY ==
[2023-07-02 21:21] VITALS: BP 137/97; PULSE 85; RESP 18; TEMP 37.1; O2SAT 97; BMI 22.6
--- NOTE | 2023-07-02 21:25 | ECG_ITS ---
[facility] Test Date: 2023-07-02 Pat Name: Eboni Perez Department: Room: Gender: Female Vessel Crew Member: : 1965 Requested By: Zac Frye Order Number: [id number] Jarret MD: Brandon Condon M.D. Measurements Intervals [place] Rate: 84 P: 63 WV: 150 QRS: 39 QRSD: 85 T: 63 QT: 375 QTc: 445 Interpretive Statements SINUS RHYTHM MODERATE ST DEPRESSION [0.05+ mV ST DEPRESSION] Compared to ECG 07/31/2022 00:32:49 ST (T wave) deviation now present Electronically Signed On 07-03-2023 7:40:18 BRAND MARKETING SPECIALIST by Brandon Condon M.D. [email or web address] UnwiredBrand a Trend GmbHascension standish [email or web address].[employer])/store/NU/[id number] f
--- NOTE | 2023-07-02 21:30 | CTR_ITS ---
PROCEDURE INFORMATION: Exam: CT Head Without Contrast Exam date and time: 07/02/2023 9:45 PM Age: 58 years old Clinical indication: Injury or trauma; Fall; Other: GARCIA; Prior surgery; Surgery date: 6+ months; Surgery type: HX aneurysm; Additional info: Fall headache TECHNIQUE: Imaging protocol: Computed tomography of the head without contrast. Radiation optimization: All CT scans at this facility use at least one of these dose optimization techniques: automated exposure control; mA and/or kV adjustment per patient size (includes targeted exams where dose is matched to clinical indication); or iterative reconstruction. COMPARISON: CT angio headneck* [id number] 07/07/2022 7:37 PM RADIATION DOSE METRICS: Total DLP (mGy-cm): 1004.48 FINDINGS: Brain: Encephalomalacia in the left frontal lobe. No acute intracranial abnormality. Cerebral ventricles: No ventriculomegaly. Paranasal sinuses: Mucous retention cyst in the right maxillary sinus. Mastoid air cells: Visualized mastoid air cells are well aerated. Bones/joints: Left frontal and temporal craniotomy. Soft tissues: Unremarkable. Vasculature: Vascular clip in the region the left middle cerebral artery. CT/CT head wo con* [id number] IMPRESSION: 1. No acute intracranial abnormality. 2. Encephalomalacia in the left frontal lobe.
--- NOTE | 2023-07-02 21:44 | W.ED.FALL ---
HPI - Fall General: Chief Complaint: Fall Stated Complaint: FALL Time Seen by Provider: 07/02/23 21:21 History of Present Illness: Patient presents to the ER with history of fall. Patient states she is to get dizzy and falls and has a history of this. Patient is currently being worked up for syncope per neurology and cardiovascular surgery. Patient denies loss consciousness and hitting her head. Patient does report having headache x 2 days. Patient also reports history of a stroke back in 2010. The headache is frontal in nature. Review of Systems General: Reports: 10 or more systems reviewed and unremarkable except in HPI and below PFSH ED PFSH: Medical History Hypertension Insulin dependent type 2 diabetes mellitus Hepatitis C CAD (coronary artery disease) Peripheral vascular disease History of CVA (cerebrovascular accident) Brain aneurysm Surgical History History of angioplasty of peripheral vessel History of appendectomy History of cholecystectomy Family History Father Renal cancer Cancer Lung Mother Hypertension CAD (coronary artery disease) Diabetes Social History Smoking and tobacco/nicotine status: current every day tobacco/nicotine user cigarettes Packs smoked per day: 0.5 Years cigarettes smoked: 30 Alcohol intake: former Substance/Drug Use: never Physical Exam Const: COMMON NORMALS: no acute distress, average body habitus, patient oriented x3, no limitations, healthy appearing, alert and well nourished HENMT: COMMON NORMALS: normocephalic, atraumatic, hearing grossly normal bilaterally, external ears normal, Normal external nose present, moist oral mucous membranes and oropharynx normal HEAD & SCALP: normocephalic and atraumatic NOSE: Normal external nose present EXTERNAL EAR: Yes external ears normal Eye: COMMON NORMALS: Equal, round and reactive pupils present, EOMs intact bilaterally, conjunctivae normal and no scleral icterus CONJUNCTIVA: Yes conjunctivae normal PUPIL: Yes Equal, round and reactive pupils present Neck/C-Spine: COMMON NORMALS: full ROM, no lymphadenopathy, supple, no meningeal signs, no JVD and Thyroid normal THYROID: Thyroid normal Chest: COMMONS NORMALS: normal inspection of the chest and normal palpation of entire chest wall Resp: COMMON NORMALS: normal respiratory effort, No retractions, No use of accessory muscles and clear to auscultation bilaterally AUSCULTATION: clear to auscultation bilaterally Cardio: COMMON NORMALS: no JVD, regular rate, regular rhythm, S1 normal heart sound present, S2 normal heart sound present, No gallops present (Cardio), No clicks present (Cardio), No murmurs present (Cardio) and No rub (Cardio) RATE: regular rate RHYTHM: regular rhythm HEART SOUNDS: S1 normal heart sound present and S2 normal heart sound present GI: COMMON NORMALS: Normal to inspection, nondistended, normoactive bowel sounds present, Soft to palpation, non-tender, No hepatosplenomegaly present and no masses PALPATION: Yes Soft to palpation and Yes No hepatosplenomegaly present Neuro: COMMON NORMALS: patient oriented x3 SENSORIUM/ORIENTATION: Yes alert MENINGEAL SIGNS: Yes no meningeal signs Course Vital Signs: Vital signs: Vital Signs Temperature 98.8 F 07/02/23 21:21 Pulse Rate 84 07/02/23 22:44 Respiratory Rate 16 07/02/23 22:44 Blood Pressure 137/97 07/02/23 22:44 Pulse Oximetry 94 07/02/23 22:44 Oxygen Delivery Me thod Room Air 07/02/23 22:44 MDM - Fall Medical Decision Making Patient presents to the ER status post fall with a headache. Patient head CT which is essentially negative as well as lab work that which showed patient's potassium is low at 3.1 and a urinary tract infection is present. Patient was given 40 mEq potassium and Cipro 500 mg both p.o. in ER. Patient be discharged home on potassium and Cipro to finish course treatment. Differential Diagnosis Unlikely syncope, dislocation of shoulder region, fracture of wrist, compression fracture, concussion with loss of consciousness or concussion without loss of consciousness Medical Records I reviewed the patient's medical records. Lab Data I reviewed the patient's lab results. 07/02/23 22:07 07/02/23 22:[address] 07/02/23 21:30 IMPRESSION: 1. No acute intracranial abnormality. 2. Encephalomalacia in the left frontal lobe. Laboratory Results WBC 7.58 10^3/uL (3.29-11.43) 07/02/23 22:07 RBC 5.02 10^6/uL (3.85-5.65) 07/02/23 22:07 Hgb 15.90 g/dL (11.27-16.99) 07/02/23 22:07 Hct 45.6 % (36-47) 07/02/23 22:07 MCV 90.8 fl (85-98) 07/02/23 22:07 MCH 31.7 pg (27-33) 07/02/23 22:07 MCHC 34.9 g/dL (30-55) 07/02/23 22:07 RDW 13.1 % (12.1-15.1) 07/02/23 22:07 Plt Count 117 10^3/cmm (157-399) L 07/02/23 22:07 MPV 12.1 fL (7.4-10.4) H 07/02/23 22:07 Neut % (Auto) 56.9 % 07/02/23 22:07 Lymph % (Auto) 32.3 % 07/02/23 22:07 [place] % (Auto) 8.7 % 07/02/23 22:07 Eos % (Auto) 1.1 % 07/02/23 22:07 Baso % (Auto) 0.7 % 07/02/23 22:07 Neut # (Auto) 4.32 10^3/uL (1.8-7.7) 07/02/23 22:07 Lymph # (Auto) 2.5 10^3/uL (0.8-4.8) 07/02/23 22:07 [place] # (Auto) 0.7 10^3/uL (0.2-0.9) 07/02/23 22:07 Eos # (Auto) 0.1 10^3/uL (0.0-0.8) 07/02/23 22:07 Baso # (Auto) 0.1 10^3/uL (0.0-0.1) 07/02/23 22:07 Nucleated RBC % (auto) 0 % 07/02/23 22:07 Nucleated RBCs # 0.0 /100WBC 07/02/23 22:07 Sodium 138 mmol/L (136-145) 07/02/23 22:07 Potassium 3.1 mmol/L (3.5-5.1) L 07/02/23 22:07 Chloride 99 mmol/L (98-107) 07/02/23 22:07 Carbon Dioxide 24 mmol/L (22-29) 07/02/23 22:07 Anion Gap 18.1 (5-19) 07/02/23 22:07 BUN 12 mg/dL (6-20) 07/02/23 22:07 Creatinine 0.8 mg/dL (0.5-0.9) 07/02/23 22:07 GFR Calculation 73.7 mL/min (90-130) L 07/02/23 22:07 Glucose 212 mg/dL (65-115) H 07/02/23 22:07 Calculated Osmolality 292 mOsm/kg (285-295) 07/02/23 22:07 Calcium 9.5 mg/dL (8.5-10.5) 07/02/23 22:07 Total Bilirubin 0.4 mg/dL (0.15-1.2) 07/02/23 22:07 AST 40 U/L (0-32) H 07/02/23 22:07 ALT 39 U/L (0-33) H 07/02/23 22:07 Alkaline Phosphatase 155 U/L (35-105) H 07/02/23 22:07 Total Protein 6.9 g/dL (6.6-8.7) 07/02/23 22:07 Albumin 3.5 g/dL (3.5-5.2) 07/02/23 22:07 Globulin 3.4 g/dL (1.3-4.6) 07/02/23 22:07 Urine Color Yellow (Yellow) 07/02/23 22:19 Urine Appearance Hazy (CLEAR) A 07/02/23 22:19 Urine pH 6 (5-7) 07/02/23 22:19 Ur Specific [place] 1.010 (1.005-1.030) 07/02/23 22:19 Urine Protein Neg (Negative) 07/02/23 22:19 Urine Glucose (UA) 4+ (Normal) H 07/02/23 22:19 Urine Ketones Negative (Negative) 07/02/23 22:19 Urine Blood Trace (Negative) H 07/02/23 22:19 Urine Nitrate Negative (Negative) 07/02/23 22:19 Urine Bilirubin Neg (Negative) 07/02/23 22:19 Urine Urobilinogen Norm mg/dL (Negative) 07/02/23 22:19 Ur Leukocyte Esterase 2+ (Negative) H 07/02/23 22:19 Urine RBC 0-4 /hpf (0-2) H 07/02/23 22:19 Urine WBC >100 /hpf (0-5) H 07/02/23 22:19 Ur Squamous Epith Cells 5-10 /hpf (0-5) H 07/02/23 22:19 Amorphous Sediment Not Reportable 07/02/23 22:19 Urine Bacteria 2+ /hpf (NONE) H 07/02/23 22:19 Urine Yeast Trace /hpf 07/02/23 22:19 All radiology interpretation(s) finalized by discharge EKG Data EKG 1: I personally reviewed and interpreted this EKG as follows: EKG interpretation date: 07/02/23 EKG interpretation time: 21:27 Prior EKG tracings: not available for review Interpretation: EKG showed ventricular rate 84 bpm, MO interval 150, QRS duration 85, QTc of 416, sinus rhythm, Discharge Plan Discharge Patient Disposition: Home Clinical Impression: Urinary tract infection, Acute hypokalemia Condition: Stable Prescriptions: No Action amitriptyline 10 mg tablet 10 mg PO BEDTIME aspirin 81 mg tablet,delayed release (DR/EC) 325 mg PO DAILY Trulicity 0.75 mg/0.5 mL pen injector SUBCUT Mavyret 100-40 mg tablet 3 tab PO DAILY 56 Days Qty: 168 0RF Rx Instructions: must administer with a meal/food Farxiga 5 mg Tablet 5 mg PO DAILY albuterol sulfate 90 mcg/actuation HFA aerosol inhaler 2 inh inhalation Q4H PRN (Reason: Shortness Of Breath) zolpidem 10 mg Tablet 10 mg PO BEDTIME PRN (Reason: Sleep) Hold Instructions: hold until seen by primary care doc paroxetine HCl 20 mg Tablet 20 mg PO DAILY 30 Days Qty: 30 0RF metoprolol tartrate 75 mg Tablet 75 mg PO BID 30 Days Qty: 60 0RF insulin asp prt-insulin aspart [Novolog Mix 70-30 U-100 Insuln] 100 unit/mL (70-30) solution 20 unit SUBCUT DAILY Discharge Orders: Discharge ED (Routine); Ordered 07/02/23 Ordered By: Zac Frye Referrals: Salomon Harp MD [Primary Care Provider] - 1 week Patient Instructions: Urinary Tract Infection in Women (DC), Hypokalemia (ED) Activity Restrictions/Additional Instructions: Please take all your medicine as directed. Please follow-up with your family practice physician within the next 7 to 10 days for further evaluation and treatment. Coding Level of Care Code ED Printing Sales Representative for Mario Nielsen
[2023-07-02 22:01] VITALS: BP 137/97; PULSE 84; RESP 22; O2SAT 91
[2023-07-02 22:13] LABS: Basophils # 0.1 10^3/uL (0.0-0.1); Basophils % 0.7 %; Eosinophils # 0.1 10^3/uL (0.0-0.8); Eosinophils % 1.1 %; Hematocrit 45.6 % (36-47); Lymphocytes # 2.5 10^3/uL (0.8-4.8); Lymphocytes % 32.3 %; Mean Corpuscular HGB Conc 34.9 g/dL (30-55); Mean Corpuscular Hemoglobin 31.7 pg (27-33); Mean Corpuscular Volume 90.8 fl (85-98); Mean Platelet Volume 12.1 fL (7.4-10.4); Monocytes # 0.7 10^3/uL (0.2-0.9); Monocytes % 8.7 %; Neutrophils # 4.32 10^3/uL (1.8-7.7); Neutrophils % 56.9 %; Nucleated Red Blood Cells % 0 %; Platelet Count 117 10^3/cmm (157-399); Red Blood Count 5.02 10^6/uL (3.85-5.65); Red Cell Distribution Width 13.1 % (12.1-15.1); White Blood Count 7.58 10^3/uL (3.29-11.43)
[2023-07-02 22:28] LABS: Alanine Aminotransferase 39 U/L (0-33); Albumin Level 3.5 g/dL (3.5-5.2); Alkaline Phosphatase 155 U/L (35-105); Anion Gap 18.1 (5-19); Aspartate Amino Transferase 40 U/L (0-32); Blood Urea Nitrogen 12 mg/dL (6-20); Calcium 9.5 mg/dL (8.5-10.5); Carbon Dioxide 24 mmol/L (22-29); Chloride 99 mmol/L (98-107); Globulin 3.4 g/dL (1.3-4.6); Glomerular Filtration Rate 73.7 mL/min (90-130); Glucose 212 mg/dL (65-115); Osmolality Calculated 292 mOsm/kg (285-295); Potassium 3.1 mmol/L (3.5-5.1); Sodium 138 mmol/L (136-145); Total Bilirubin 0.4 mg/dL (0.15-1.2); Total Protein 6.9 g/dL (6.6-8.7)
[2023-07-02 22:34] LABS: Bilirubin Urine Neg (Negative); Blood Urine Trace (Negative); Glucose Urine UA 4+ (Normal); Ketones Urine Negative (Negative); Nitrate Urine Negative (Negative); Protein Urine Neg (Negative); Urine Appearance Hazy (CLEAR); Urine Color Yellow (Yellow); pH Urine 6 (5-7)
[2023-07-02 22:35] LABS: Leukocyte Esterase Urine 2+ (Negative); Urobilinogen Urine Norm (Negative)
[2023-07-02 22:36] LABS: Add Urine Microscopic? YES; Bacteria Urine 2+ /hpf; RBC Urine 0-4 /hpf (0-2); WBC Urine >100 /hpf (0-5)
[2023-07-02 22:37] LABS: Add Urine Culture? Yes
[2023-07-02] MEDS: potassium chloride ER 20 mEq Tablet 40 MEQ PO (22:43)
[2023-07-02] MEDS: ciprofloxacin 500 mg Tablet PO (22:43)
[2023-07-02 22:44] VITALS: BP 137/97; PULSE 84; RESP 16; O2SAT 94
== END 2023-07-03 00:25 | disposition home or self-care (01) ==
PROVIDERS: Emergency Provider Emergency Medicine; PCP Family Medicine
DX: N39.0 Urinary tract infection, site not specified (principal); E87.6 Hypokalemia; Z79.82 Long term (current) use of aspirin; Z79.85 Long-term (current) use of injectable non-insulin antidiabetic drugs; Z79.4 Long term (current) use of insulin; F17.210 Nicotine dependence, cigarettes, uncomplicated; I10 Essential (primary) hypertension; E11.9 Type 2 diabetes mellitus without complications; Z86.19 Personal history of other infectious and parasitic diseases; I25.10 Atherosclerotic heart disease of native coronary artery without angina pectoris; Z86.73 Personal history of transient ischemic attack (TIA), and cerebral infarction without residual deficits
CPT/HCPCS: 36415; 70450; 80053; 81001; 85025; 87086; 93005; 99285

== ENCOUNTER → 2023-07-07 12:39 | Outpatient (BNVA) | payer MEDICAID, SELFPAY | PROVIDERS: PCP Family Medicine; Visit Provider Specialist | DX: R55 Syncope and collapse (principal) | CPT/HCPCS: 95816 ==

== ENCOUNTER 2023-09-10 11:50 | Outpatient (CLI) | payer MEDICAID, SELFPAY ==
--- NOTE | 2023-09-10 13:00 | USCV_ITS ---
Eboni Perez Age: 58 Gender: F : 1965 Exam Date: 09/10/2023 12:41 Ordering Phys: William Davies MD (Andy) Technologist: Exam Location: [facility] [place] Indication: tia cad Risk Factors: Previous Vascular Surgery: Right Brachial BP: / Left Brachial BP: / Right Left Velocity (cm/s) Spectral Plaque Velocity (cm/s) Spectral Plaque Syst/Diast Broadening Syst/Diast Broadening 63.40/ 16.70 Prox CCA 51.40 / 11.20 69.70/ 16.70 Mid CCA 52.10 / 13.80 35.70/ 11.40 Hetro Distal CCA 57.30 / 13.00 Hetro 43.00/ 12.00 Hetro Prox ICA 56.00 / 13.00 Hetro 46.70/ 16.30 Mid ICA 44.90 / 14.60 64.40/ 22.60 Distal ICA 46.10 / 15.90 63.10 ECA 72.00 1.80 ICA/CCA 0.90 Antegrade Vertebral Antegrade 21.20/ 6.30 cm/s 43.30/ 11.60 cm/s Bi Subclavian Bi FINDINGS Comparison: none available. No significant elevation of systolic or diastolic velocities. Waveforms are normal. Minimal amount of calcified plaque identified. Antegrade vertebral arteries. CONCLUSIONS Bilateral ICA stenosis less than 50%. Mild carotid atherosclerosis. Dr. Isabel Hernandez DO (Electronically Signed) Final Date: 10 September 2023 15:12 S
== END 2023-09-10 11:51 | disposition home or self-care (01) ==
LOC: RAD 11:50
PROVIDERS: PCP Family Medicine; Visit Provider Thoracic Surgery (Cardiothoracic Vascular Surgery)
DX: I65.23 Occlusion and stenosis of bilateral carotid arteries (principal)
CPT/HCPCS: 93880

== ENCOUNTER → 2023-09-28 12:29 | Outpatient (BNVA) | payer MEDICAID, SELFPAY | PROVIDERS: PCP Family Medicine; Visit Provider Thoracic Surgery (Cardiothoracic Vascular Surgery) | DX: I77.9 Disorder of arteries and arterioles, unspecified (principal); F17.210 Nicotine dependence, cigarettes, uncomplicated | CPT/HCPCS: 99213 ==

== ENCOUNTER 2023-10-19 09:46 | Inpatient (IN) | payer MEDICAID, SELFPAY ==
[2023-10-19] VITALS (71 sets, daily range): BP systolic 116–227; BP diastolic 64–155; PULSE 89–113; RESP 14–38; TEMP 35.9–36.8; O2SAT 93–100
--- NOTE | 2023-10-19 09:47 | CT_ITS ---
WS: [id number] CT HEAD NONCONTRAST HISTORY: Symptoms of acute stroke TECHNIQUE: Contiguous axial imaging performed through the brain in 2.5 mm imaging. Bone and soft tiss ue windows. Sagittal and coronal reformats reviewed. All CT scans at [facility] use at least one of these dose optimization techniques: automated exposure control; mA and/or kV adjustment per pa tient size (includes targeted exams where dose is matched to clinical indication); or iterative recon struction. DLP: 964.28 mGy COMPARISON: 07/02/2023 Large area of encephalomalacia in the LEFT frontal lobe. Volume loss with prior infarct. Prior aneury sm clip in the LEFT MCA. Mild atrophy and mild small vessel ischemic disease. No acute blood. Mild cerebellar atrophy. Ventricles: No ventriculomegaly. There is slight ex vacuo dilatation of the LEFT lateral ventricle ne ar the encephalomalacia. No inferior displacement of the cerebellar tonsils. Paranasal sinuses: As visualized are clear. Mastoid air cells: Well pneumatized. Calvarium and scalp: LEFT craniotomy defect. IMPRESSION: 1. No acute intracranial hemorrhage or edema. 2. Large stable area of encephalomalacia in the LEFT frontal lobe. 3. Prior aneurysm clipping LEFT MCA. Notified Efrain Bergeron DO at 10/19/2023 10:07 AM.
--- NOTE | 2023-10-19 09:52 | ED_ITS ---
HPI - Neuro Symptoms/Deficit 2 General: Chief Complaint: Altered Mental Status Stated Complaint: Headache/N/V Time Seen by Provider: 10/19/23 09:47 Source: patient Mode of arrival: ambulatory History of Present Illness: 58-year-old female presents emergency ro with complaint of headache for the last 2 days and difficulty with speaking. EMS was not able to get a distinct last known well from patient's significant other who was on scene patient is unable to really provide either. Reviewing her chart she has a history of previous CVA history of aneurysms that were clipped. She does according to Dr. Owens does not have some residual difficulty with speech and weakness in her legs from previous stroke although I am not sure of the extent of it. She presents extremely hypertensive she denies chest or abdominal pain does seem to indicate she still has a headache. No family in attendance when patient first arrives. She does have a history of hypertension diabetes mellitus chronic headaches previous strokes and history of cerebral aneurysm Onset (ago): unknown Location: speech History of same: Yes Quality: weak Associated symptoms: Reports headache(s) and weakness; Deny chest pain, cough, diaphoresis, fevers/chills, anorexia, malaise, nausea, seizures, short of breath, syncope, tingling, vertigo or vomiting Review of Systems 2 Const: Denies: malaise or diaphoresis Card: Denies: chest pain or syncope Resp: Denies: dyspnea GI: Denies: abdominal pain, nausea or vomiting : Denies: dysuria, urinary frequency or urinary urgency Musc: Denies: neck pain or back pain Skin/Breast: Denies: rash Neuro: Reports: headache(s), Slurred speech present and difficulty communicating thoughts; Denies: vertigo PFSH ED 2 PFSH: Medical History Hypertension Insulin dependent type 2 diabetes mellitus Hepatitis C CAD (coronary artery disease) Peripheral vascular disease History of CVA (cerebrovascular accident) Brain aneurysm Surgical History History of angioplasty of peripheral vessel History of appendectomy History of cholecystectomy Family History Father Renal cancer Cancer Lung Mother Hypertension CAD (coronary artery disease) Diabetes Social History Smoking and tobacco/nicotine status: current every day tobacco/nicotine user cigarettes Packs smoked per day: 0.5 Years cigarettes smoked: 30 Alcohol intake: former Substance/Drug Use: never NIH stroke score 2 NIHSS: Level Of Consciousness - 1a: 0 Level Of Consciousness Questions - 1b: Both Correct Level Of Consciousness Commands - 1c: Both Correct Best Gaze - 2: Normal Visual Vincent - 3: No Visual Loss Facial Palsy - 4: N ormal Motor Arm Right - 5: No Drift Motor Arm Left - 5: No Drift Motor Leg Right - 6: No Drift Motor Leg Left - 6: No Drift Limb Ataxia - 7: A bsent Sensory - 8: Normal Best Language - 9: Mild/Moderate Aphasia D ysarthia - 10: Mild/Moderate Dysarthia Extinction And Inattention - 11: 0 Score: Total Score: 2 Course 2 Vital Signs: Vital signs: Vital Signs Temperature 98.2 F 10/19/23 09:46 Pulse Rate 109 H 10/19/23 13:46 Respiratory Rate 20 H 10/19/23 13:46 Blood Pressure 155/99 10/19/23 13:46 Pulse Oximetry 98 10/19/23 13:46 Oxygen Delivery Me thod Room Air 10/19/23 12:46 MDM - Neuro Symptoms/Deficit Medical Decision Making Initially on presentation patient has a stroke score of 2 with difficulty with aphasia and dysarthria. Reviewing her chart some of this may be a chronic baseline there is no family available to establish a last known well or help establish a baseline stroke order set was initiated with a stroke alert was not called at this time because of the history we were able to reveal in the old chart. Patient given antihypertensives and a CT for acute neurodeficit ordered immediately. Febrile to the finger trying to find family to establish last known well time and establish her baseline. Labs and imaging reviewed. Patient's blood pressure remained elevated despite labetalol and hydralazine and started on nicardipine we were able to control her pressure. Will admit. She seems to be mostly at her baseline she continues to have the nausea vomiting CT of the abdomen done showed some questionable colitis with increased attenuation in the colon and small bowel. Reviewed case with Dr. Holman orders written for admission. Medical Records I reviewed the patient's medical records. Lab Data I reviewed the patient's lab results. 10/19/23 10:15 10/19/23 11:30 Laboratory Results WBC 11.81 10^3/uL (3.29-11.43) H 10/19/23 10:15 RBC 5.33 10^6/uL (3.85-5.65) 10/19/23 10:15 Hgb 17.10 g/dL (11.27-16.99) H 10/19/23 10:15 Hct 47.9 % (36-47) H 10/19/23 10:15 MCV 89.9 fl (85-98) 10/19/23 10:15 MCH 32.1 pg (27-33) 10/19/23 10:15 MCHC 35.7 g/dL (30-55) 10/19/23 10:15 RDW 13.6 % (12.1-15.1) 10/19/23 10:15 Plt Count 168 10^3/cmm (157-399) 10/19/23 10:15 MPV 12.5 fL (7.4-10.4) H 10/19/23 10:15 Neut % (Auto) 77.9 % 10/19/23 10:15 Lymph % (Auto) 18.5 % 10/19/23 10:15 [place] % (Auto) 2.5 % 10/19/23 10:15 Eos % (Auto) 0.3 % 10/19/23 10:15 Baso % (Auto) 0.5 % 10/19/23 10:15 Neut # (Auto) 9.19 10^3/uL (1.8-7.7) H 10/19/23 10:15 Lymph # (Auto) 2.2 10^3/uL (0.8-4.8) 10/19/23 10:15 [place] # (Auto) 0.3 10^3/uL (0.2-0.9) 10/19/23 10:15 Eos # (Auto) 0.0 10^3/uL (0.0-0.8) 10/19/23 10:15 Baso # (Auto) 0.1 10^3/uL (0.0-0.1) 10/19/23 10:15 Nucleated RBC % (auto) 0 % 10/19/23 10:15 Nucleated RBCs # 0.0 /100WBC 10/19/23 10:15 PT 13.90 SECONDS (12.1-14.9) 10/19/23 11:30 INR 1.04 (0.8-1.2) 10/19/23 11:30 APTT 26.3 SECONDS (23.9-36.7) 10/19/23 11:30 Specimen Type Arterial 10/19/23 12:01 Sample Site Radial, left 10/19/23 12:01 ABG pH 7.48 (7.35-7.45) H 10/19/23 12:01 ABG pCO2 32.6 mmHg (35-45) L 10/19/23 12:01 ABG pO2 81.3 mmHg (80.0-100.0) 10/19/23 12:01 ABG PO2/FiO2 Ratio 0 10/19/23 12:01 ABG HCO3 24.1 mmol/L (22-26) 10/19/23 12:01 ABG O2 Saturation 97.4 10/19/23 12:01 ABG Base Excess 1.3 mmol/L (-2.0-2.0) 10/19/23 12:01 Asif Test Pos 10/19/23 12:01 A-a O2 Gradient 3.7 mmHg (5-10) L 10/19/23 12:01 Hematocrit 53.6 % (37-47) H 10/19/23 12:01 Hgb O2 Saturation 95.9 % (95-100) 10/19/23 12:01 Carboxyhemoglobin 1.4 %THgb (0.4-20.1) 10/19/23 12:01 Methemoglobin 0.1 % (0.4-1.5) L 10/19/23 12:01 Total Hemoglobin 17.5 g/dL (12-16) H 10/19/23 12:01 Sodium 138.0 mmol/L (131-143) 10/19/23 12:01 Potassium 3.5 mmol/L (3.5-5.0) 10/19/23 12:01 Glucose 271.0 mg/dL (70-115) H 10/19/23 12:01 Ionized Calcium 1.2 mmol/L (1.1-1.4) 10/19/23 12:01 O2 Delivery Device Room air 10/19/23 12:01 FiO2 21.0 % 10/19/23 12:01 Design And Sales Consultant ID [id number] 10/19/23 12:01 Sodium 136 mmol/L (136-145) 10/19/23 11:30 Potassium 4.1 mmol/L (3.5-5.1) 10/19/23 11:30 Chloride 96 mmol/L (98-107) L 10/19/23 11:30 Carbon Dioxide 23 mmol/L (22-29) 10/19/23 11:30 Anion Gap 21.1 (5-19) H 10/19/23 11:30 BUN 13 mg/dL (6-20) 10/19/23 11:30 Creatinine 0.5 mg/dL (0.5-0.9) 10/19/23 11:30 GFR Calculation 126.7 mL/min (90-130) 10/19/23 11:30 Glucose 252 mg/dL (65-115) H 10/19/23 11:30 POC Glucose 257 mg/dL (70-110) H 10/19/23 10:33 Calculated Osmolality 291 mOsm/kg (285-295) 10/19/23 11:30 Calcium 9.7 mg/dL (8.5-10.5) 10/19/23 11:30 Total Bilirubin 0.7 mg/dL (0.15-1.2) 10/19/23 11:30 AST 38 U/L (0-32) H 10/19/23 11:30 ALT 35 U/L (0-33) H 10/19/23 11:30 Alkaline Phosphatase 126 U/L (35-105) H 10/19/23 11:30 Troponin T Baseline < 6 ng/L (0-10) 10/19/23 11:30 Total Protein 8.5 g/dL (6.6-8.7) 10/19/23 11:30 Albumin 4.1 g/dL (3.5-5.2) 10/19/23 11:30 Globulin 4.4 g/dL (1.3-4.6) 10/19/23 11:30 Serum Ketones Negative (Negative) 10/19/23 11:30 All radiology interpretation(s) finalized by discharge Discharge Plan Discharge Patient Disposition: Admitted As Inpatient Admit Provider: Murtaza Elliott Clinical Impression: Accelerated hypertension, History of CVA (cerebrovascular accident) Condition: Stable Coding Level of Care Code ED Store Hand for Mario Nielsen
[2023-10-19 10:21] LABS: Basophils # 0.1 10^3/uL (0.0-0.1); Basophils % 0.5 %; Eosinophils % 0.3 %; Hematocrit 47.9 % (36-47); Lymphocytes # 2.2 10^3/uL (0.8-4.8); Lymphocytes % 18.5 %; Mean Corpuscular HGB Conc 35.7 g/dL (30-55); Mean Corpuscular Hemoglobin 32.1 pg (27-33); Mean Corpuscular Volume 89.9 fl (85-98); Mean Platelet Volume 12.5 fL (7.4-10.4); Monocytes # 0.3 10^3/uL (0.2-0.9); Monocytes % 2.5 %; Neutrophils # 9.19 10^3/uL (1.8-7.7); Neutrophils % 77.9 %; Nucleated Red Blood Cells % 0 %; Platelet Count 168 10^3/cmm (157-399); Red Blood Count 5.33 10^6/uL (3.85-5.65); Red Cell Distribution Width 13.6 % (12.1-15.1); White Blood Count 11.81 10^3/uL (3.29-11.43)
[2023-10-19 10:35] LABS: Glucose Point of Care 257 mg/dL (70-110)
--- NOTE | 2023-10-19 10:48 | ECG_ITS ---
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 Measurements Intervals [place] Rate: 91 P: 66 [place]: 160 QRS: 40 QRSD: 77 T: 42 QT: 388 QTc: 479 Interpretive Statements SINUS RHYTHM MODERATE ST DEPRESSION [0.05+ mV ST DEPRESSION] Compared to ECG 07/02/2023 21:27:54 No significant changes Electronically Signed On 10-19-2023 15:03:42 CDT by Nasir Leonardo M.D. [id number]
[2023-10-19] MEDS: labetalol 5 mg/mL SDV 20mL 10 MG IVP (11:04)
[2023-10-19] MEDS: hyDRALAzine 20 mg/mL INJ 1 mL 10 MG IVP (11:05)
--- NOTE | 2023-10-19 11:34 | PC.PHAR ---
Addendum entered by Karissa Leonardo 10/19/23 12:28: pts home health nurse silvina jeffrey [phone] called back states she was out of the office and didnt have the pts med list but states she knew them-silvina states the pt stop taking her mavyret ext shows last filled 08/03/23 28d/s states pt stop taking because it made her sick-states the pt takes care of her own insulin-pt states she takes insulin aspart 20 units hs ext shows last filled 15 units daily on 10/03/23 66d/s- Original Note: pt unable to verify medications states she has home healthcare-family states she uses [facility]-called [facility] [phone] aerial from [facility] states she will fax med list
[2023-10-19] MEDS: nicardipine 20 MG/200 ML PREMIX 50 MG IV ×2 (11:44→16:14)
[2023-10-19 11:49] LABS: INR 1.04 (0.8-1.2); Partial Thromboplastin Time 26.3 SECONDS (23.9-36.7)
[2023-10-19 11:50] LABS: Ketone (Acetest) Serum Negative (Negative)
[2023-10-19 11:56] LABS: Albumin Level 4.1 g/dL (3.5-5.2); Alkaline Phosphatase 126 U/L (35-105); Blood Urea Nitrogen 13 mg/dL (6-20); Calcium 9.7 mg/dL (8.5-10.5); Carbon Dioxide 23 mmol/L (22-29); Chloride 96 mmol/L (98-107); Globulin 4.4 g/dL (1.3-4.6); Glomerular Filtration Rate 126.7 mL/min (90-130); Glucose 252 mg/dL (65-115); Osmolality Calculated 291 mOsm/kg (285-295); Sodium 136 mmol/L (136-145); Total Bilirubin 0.7 mg/dL (0.15-1.2); Total Protein 8.5 g/dL (6.6-8.7)
[2023-10-19 12:02] LABS: Alanine Aminotransferase 35 U/L (0-33); Anion Gap 21.1 (5-19); Aspartate Amino Transferase 38 U/L (0-32); Potassium 4.1 mmol/L (3.5-5.1)
[2023-10-19 12:10] LABS: ABG PCO2 32.6 mmHg (35-45); ABG PH Result 7.48 (7.35-7.45); Alveolar-Arterial Oxygen Gradi 3.7 mmHg (5-10); Arterial Blood Gas Hematocrit 53.6 % (37-47); Base Excess ABG 1.3 mmol/L (-2.0-2.0); Blood Gas Allen Test Pos; Blood Gas Operator Identificat glc; Blood Gas Sample Site Radial, left; Blood Gas Sample Type Arterial; Carboxyhemoglobin 1.4 %THgb (0.4-20.1); HCO3 ABG 24.1 mmol/L (22-26); HGB O2 Sat 95.9 % (95-100); Ionized Calcium Level - ABG 1.2 mmol/L (1.1-1.4); Methemoglobin 0.1 % (0.4-1.5); Oxygen Device ROOM AIR; Oxygen Saturation ABG 97.4; PO2 ABG 81.3 mmHg (80.0-100.0); PO2 FiO2 Ratio Arterial Blood 0; Potassium Level - ABG 3.5 mmol/L (3.5-5.0); Total Hemoglobin 17.5 g/dL (12-16)
--- NOTE | 2023-10-19 12:28 | CT_ITS ---
WS: [id number] CT ABDOMEN AND PELVIS WITH CONTRAST HISTORY: abd pain TECHNIQUE: Imaging performed of the abdomen and pelvis with IV contrast. Single phase imaging of the abdomen. Coronal and sagittal reformats are submitted. All CT scans at [facility] use at [address] one of these dose optimization techniques: automated exposure control; mA and/or kV adjustment per patient size (includes targeted exams where dose is matched to clinical indication); or iterative re construction. IV CONTRAST: Omnipaque 350; 100 mL IV. Oral contrast: No DLP: 430.62 mGy.cm COMPARISON: None available. Lower thorax: Lung bases are clear. Heart is normal size. Small hiatal hernia. Liver/biliary system: Mild hepatomegaly. No mass. Normal portal vein. Gallbladder: Status post cholecystectomy. Pancreas: Normal size pancreas and pancreatic duct. No adjacent inflammation. Spleen: Normal size spleen. No mass or infarct. Adrenal glands: Normal. Right kidney: Motion artifact. No abnormality identified. Left kidney: Motion artifact. Nonobstructing calcification in the mid kidney. Aorta: Moderate atherosclerosis with no aneurysm. Lymphadenopathy: None. Free fluid: None. GI tract: Stomach is distended with fluid. No small bowel obstruction. Mild submucosal haziness. Jung on artifact is causing limited evaluation of the GI tract. There is a mild shaggy attenuation involvi ng portions of the colon suggesting colitis. No obstructive pattern. Prior appendectomy. Abdominal wall: Unremarkable abdominal wall. No hernia. Pelvis: Well-distended urinary bladder. No free fluid and no adenopathy. Heavy calcification in the i liac arteries. Bones: Grade 1 spondylolisthesis of L5 with bilateral pars defects. IMPRESSION: 1. This study is compromised by motion artifact. 2. No GI tract obstruction. 3. Mild hazy attenuation involving portions of the colon and small bowel suggestive of colitis and i leitis. Consider infectious process due to the extent of the abnormality. 4. There is no ascites or adenopathy. 5. Prior appendectomy. 6. Heavy calcification in the aorta and the iliac arteries. More than expected for patient of this a ge. Component of arterial stenosis is likely.
[2023-10-19 12:59] LABS: Troponin(5th) Baseline < 6 ng/L (0-10)
[2023-10-19] MEDS: metoprolol tartrate 50 mg Tablet PO (13:00)
[2023-10-19] MEDS: iohexol 350 mg/mL 500 mL Btl (per mL) IV (13:01)
--- NOTE | 2023-10-19 13:57 | ECG_ITS ---
[facility] Test Date: 2023-10-19 Pat Name: Eboni Perez Department: Room: [facility] Gender: Female Route Agent: : 1965 Requested By: Efrain Gupta Order Number: [id number] Jarret MD: Nasir Leonardo M.D. Measurements Intervals [place] Rate: 110 P: 74 [place]: 163 QRS: 48 QRSD: 79 T: 52 QT: 342 QTc: 464 Interpretive Statements SINUS TACHYCARDIA NONSPECIFIC ST & T-WAVE ABNORMALITY ABNORMAL RHYTHM ECG Compared to ECG 10/19/2023 10:48:37 T-wave abnormality now present Sinus rhythm no longer present ST (T wave) deviation no longer present Electronically Signed On 10-19-2023 15:05:11 CDT by Nasir Leonardo M.D. [id number]
--- NOTE | 2023-10-19 14:42 | P.HP_ITS ---
Providers/Chief Complaint 2 Admitting Physician: Murtaza Elliott MD Primary Care Provider: Salomon Harp MD Chief Complaint: Headache/N/V History of Present Illness Eboni Perez is a 58 year old female presenting to the emergency department with concerns of headache, difficulty with her speech. She is also had some abdominal pain and vomiting. She relates her may have gastroenteritis. She does not think her speech is normal at this time. She denies any focal weakness on one side or the other that is new. She has not had any diarrhea. There is no mention of fever. History is somewhat difficult to obtain secondary to the patient's speech impediment which the emergency department physician believes is at baseline. During her emergency department course she was started on nicardipine for markedly elevated blood pressures. Medications/Allergies Home Medications Medication Instructions Recorded Confirmed Last Taken Type amitriptyline 10 mg tablet 10 mg PO BEDTIME 01/31/21 10/19/23 07/06/22 History zolpidem 10 mg tablet 10 mg PO BEDTIME PRN Sleep 12/02/21 10/19/23 04/09/22 History metoprolol tartrate 75 mg tablet 75 mg PO BID 30 days #60 tabs 12/04/21 10/19/23 07/06/22 Rx albuterol sulfate 90 mcg/actuation 2 inh inhalation Q4H PRN Shortness 07/07/22 10/19/23 Unknown History aerosol inhaler Of Breath dapagliflozin propanediol 5 mg 5 mg PO DAILY 07/07/22 10/19/23 07/06/22 History tablet (Farxiga) dulaglutide 0.75 mg/0.5 mL 0.75 mg SUBCUT Q7D 06/11/23 10/19/23 Unknown History subcutaneous pen injector (Trulicity) ondansetron 4 mg disintegrating 4 mg PO Q8H PRN nausea and 08/12/23 10/19/23 Unknown Rx tablet vomiting 30 days #30 tabs aspirin 325 mg tablet 325 mg PO DAILY 10/19/23 10/19/23 Unknown History atorvastatin 20 mg tablet 20 mg PO DAILY 10/19/23 10/19/23 Unknown History insulin aspart U-100 100 unit/mL 20 unit SUBCUT BEDTIME 10/19/23 10/19/23 Unknown History subcutaneous solution pantoprazole 40 mg tablet,delayed 40 mg PO DAILY 10/19/23 10/19/23 Unknown History release (Protonix) paroxetine HCl 30 mg tablet 30 mg PO DAILY 10/19/23 10/19/23 Unknown History Allergies Allergy/AdvReac Type Severity Reaction Status Date / Time codeine Allergy Unknown Verified 09/28/23 13:32 hydrocodone [From Vicodin] Allergy ADR-Nausea Verified 09/28/23 13:32 lisinopril Allergy ADR-Headach Verified 09/28/23 13:32 e morphine Allergy ADR-Nausea Verified 09/28/23 13:32 nystatin Allergy Unknown Verified 09/28/23 13:32 Penicillins Allergy Unknown Verified 09/28/23 13:32 metformin Allergy Intermediate ADR-Vomitin Uncoded 09/28/23 13:32 g PFSH Acute 2 PFSH: Medical History Hypertension Insulin dependent type 2 diabetes mellitus Hepatitis C CAD (coronary artery disease) Peripheral vascular disease History of CVA (cerebrovascular accident) Brain aneurysm Surgical History History of angioplasty of peripheral vessel History of appendectomy History of cholecystectomy Family History Father Renal cancer Cancer Lung Mother Hypertension CAD (coronary artery disease) Diabetes Social History Smoking and tobacco/nicotine status: current every day tobacco/nicotine user cigarettes Packs smoked per day: 0.5 Years cigarettes smoked: 30 Alcohol intake: former Substance/Drug Use: never Vitals/I&O/Wt Last Vital Signs Temp 98.2 F 10/19/23 09:46 Pulse 109 H 10/19/23 13:46 Resp 20 H 10/19/23 13:46 BP 155/99 10/19/23 13:46 Pulse Ox 98 10/19/23 13:46 O2 Del Method Room Air 10/19/23 12:46 10/18/23 10/19/23 10/19/23 22:59 06:59 14:59 Intake Total 56.666 / 56.666 Balance 56.666 / 56.666 Physical Exam 2 Narrative: General exam is white female, somewhat difficult to understand. Speech is a little bit slurred but is difficult to know her baseline. HEENT: Atraumatic normocephalic. Pupils equally round and reactive. Oropharynx demonstrates extremely poor dentition Neck is supple no lymphadenopathy thyromegaly Cardiovascular regular rate and rhythm, no murmur Lungs clear no wheezing or crackles Abdomen is soft with positive bowel sounds. No obvious tenderness. exams deferred Extremities no sinus clubbing edema, cap refill brisk Skin no rash Neuro no obvious focal deficits other than perhaps slurring of speech. No facial droop or focal weakness. No obvious cerebellar signs. Data 10/19/23 10:15 10/19/23 11:30 Other Labs: ABG demonstrates pH 7.48, pCO2 32, pO2 81 on room air LFTs demonstrate elevated AST and ALT of 3835 respectively. Alk phos slightly elevated 126. Bilirubin, calcium, albumin are normal. Serum ketones negative Urinalysis, TSH ordered. Magnesium ordered Initial troponin less than [address] demonstrates possible colitis. Heavy calcification is noted encephalomalacia in the left frontal lobe EKG by my read demonstrates sinus rhythm, normal axis, no acute changes. Some nonspecific ST-T wave flattening is noted in V4 through 6. Recent carotid ultrasound less than 50% stenosis A&P Assessment and plan (1) Accelerated hypertension: Markedly elevated blood pressure on arrival Nicardipine has been initiated Stroke is doubtful. Emergency Department physician, family believes she is at baseline. Initiate her metoprolol which she missed this morning Continue neurologic checks. (2) Colitis: She has vomiting, and there is concern of colitis on CT Initiate Cipro and Flagyl C. difficile testing No need for further stool cultures currently unless symptomatology persists or worsens Secondary to vomiting Protonix IV Nausea control (3) Headache: Patient reports frequent headaches. She has seen neurology in the past There is concern currently this may be secondary to accelerated hypertension Continue treatment of blood pressure. Currently she is headache free. (4) Insulin dependent type 2 diabetes mellitus: Sliding scale insulin Consistent carb diet when starting p.o. solids Plan History of atherosclerotic disease. Continue statin and aspirin History of aneurysm Attestations 2 Medical Necessity Statement*: Will require greater than 2 midnight stay secondary to accelerated hypertension requiring nicardipine in the ICU as well as IV antibiotics for colitis. Diagnoses Accelerated hypertension I10 Colitis K52.9 Headache R51.9 Insulin dependent type 2 diabetes mellitus E11.9; Z79.4 Time Spent (min) 45
--- NOTE | 2023-10-19 15:07 | ECG_ITS ---
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 Measurements Intervals [place] Rate: 109 P: 45 RI: 163 QRS: 44 QRSD: 72 T: 46 QT: 368 QTc: 496 Interpretive Statements SINUS TACHYCARDIA NONSPECIFIC ST & T-WAVE ABNORMALITY ABNORMAL RHYTHM ECG Compared to ECG 10/19/2023 13:57:26 No significant changes Electronically Signed On 10-19-2023 15:08:30 CDT by Nasir Leonardo M.D. [id number]
[2023-10-19 15:36] LABS: Amphetamines Screen Urine Negative (Negative); Barbiturates Screen Urine Negative (Negative); Benzodiazepines Screen Urine Negative (Negative); Cocaine Screen Urine Negative (Negative); Opiate Screen Urine Negative (Negative); PCP Screen Urine Negative (Negative); THC Screen Urine Negative (Negative)
[2023-10-19 15:54] LABS: Add Urine Culture? No; Bacteria Urine TRACE /hpf; Bilirubin Urine Neg (Negative); Blood Urine Neg (Negative); Glucose Urine UA 4+ (Normal); Ketones Urine 1+ (Negative); Leukocyte Esterase Urine Negative (Negative); Nitrate Urine Negative (Negative); Protein Urine Neg (Negative); RBC Urine 0-4 /hpf (0-2); Squamous Epithelial Cell Urine 0-4 /hpf (0-5); Urine Appearance SL Hazy (CLEAR); Urine Color Yellow (Yellow); Urobilinogen Urine Norm (Negative); WBC Urine 0-4 /hpf (0-5); pH Urine 7 (5-7)
[2023-10-19 15:55] LABS: Magnesium 1.7 mg/dL (1.7-2.3); Thyroid Stimulating Hormone 4.21 uIU/mL (0.27-4.20)
[2023-10-19] MEDS: ondansetron 2 mg/ML SDV 2 mL 4 MG IVP (16:11)
[2023-10-19] MEDS: enoxaparin 40 mg/0.4 mL Syringe SUBCUT (16:12)
[2023-10-19 16:13] LABS: Glucose Point of Care 372 mg/dL (70-110)
[2023-10-19] MEDS: ciprofloxacin 400 MG/200 ML PREMIX 200 MG IV (16:15)
[2023-10-19] MEDS: metroNIDAZOLE IV 500 MG/100 ML PREMIX 100 MG IV ×2 (16:16→22:59)
[2023-10-19] MEDS: insulin lispro 100 unit/1 mL SUBCUT ×2 (17:22→20:11)
[2023-10-19 17:27] LABS: Troponin 5 2HR Delta 0.00001 ABS# (0-10)
--- NOTE | 2023-10-19 18:09 | ECG_ITS ---
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 Measurements Intervals [place] Rate: 97 P: 69 [place]: 136 QRS: 57 QRSD: 89 T: 57 QT: 365 QTc: 465 Interpretive Statements SINUS RHYTHM NONSPECIFIC ST & T-WAVE ABNORMALITY Compared to ECG 10/19/2023 15:07:12 Sinus tachycardia no longer present T-wave abnormality still present Electronically Signed On 10-20-2023 21:45:05 CDT by Rosana Segovia M.D. [id number]
[2023-10-19] MEDS: sodium chloride 0.9% 1,000 ML 100 ML IV (18:23)
[2023-10-19 20:08] LABS: Glucose Point of Care 246 mg/dL (70-110)
[2023-10-19] MEDS: metoprolol tartrate 50 mg Tablet 100 MG PO (20:11)
[2023-10-19] MEDS: amitriptyline 25 mg Tablet 12.5 MG PO (20:11)
[2023-10-19 20:55] LABS: Troponin 5 6HR Delta 0.00001 ng/L (0-12)
[2023-10-20] VITALS (36 sets, daily range): BP systolic 104–167; BP diastolic 66–99; PULSE 84–101; RESP 10–24; TEMP 36.4–36.8; O2SAT 91–98
[2023-10-20] MEDS: ondansetron 2 mg/ML SDV 2 mL 4 MG IVP ×2 (02:22→21:14)
[2023-10-20] MEDS: morphine 4 mg/mL SDV 1 mL 2 MG IVP ×4 (02:23→21:14)
[2023-10-20] MEDS: ciprofloxacin 400 MG/200 ML PREMIX 200 MG IV ×2 (02:26→15:00)
[2023-10-20] MEDS: sodium chloride 0.9% 1,000 ML 100 ML IV ×3 (03:24→22:57)
[2023-10-20 04:35] LABS: Basophils # 0.1 10^3/uL (0.0-0.1); Basophils % 0.4 %; Eosinophils # 0.1 10^3/uL (0.0-0.8); Eosinophils % 0.5 %; Lymphocytes # 3.7 10^3/uL (0.8-4.8); Lymphocytes % 23.1 %; Mean Corpuscular Volume 91.3 fl (85-98); Mean Platelet Volume 12.1 fL (7.4-10.4); Monocytes # 1.4 10^3/uL (0.2-0.9); Monocytes % 8.9 %; Neutrophils # 10.58 10^3/uL (1.8-7.7); Neutrophils % 66.6 %; Nucleated Red Blood Cells % 0 %; Platelet Count 166 10^3/cmm (157-399); Red Blood Count 4.71 10^6/uL (3.85-5.65); Red Cell Distribution Width 13.7 % (12.1-15.1); White Blood Count 15.89 10^3/uL (3.29-11.43)
[2023-10-20 04:57] LABS: Alanine Aminotransferase 26 U/L (0-33); Albumin Level 3.7 g/dL (3.5-5.2); Alkaline Phosphatase 100 U/L (35-105); Anion Gap 14.3 (5-19); Aspartate Amino Transferase 24 U/L (0-32); Blood Urea Nitrogen 14 mg/dL (6-20); Calcium 8.8 mg/dL (8.5-10.5); Carbon Dioxide 24 mmol/L (22-29); Chloride 98 mmol/L (98-107); Creatinine Clr Calc Pharmacy 118.0664; Globulin 3.7 g/dL (1.3-4.6); Glomerular Filtration Rate 126.7 mL/min (90-130); Glucose 195 mg/dL (65-115); Magnesium 1.6 mg/dL (1.7-2.3); Osmolality Calculated 282 mOsm/kg (285-295); Potassium 3.3 mmol/L (3.5-5.1); Sodium 133 mmol/L (136-145); Total Bilirubin 0.6 mg/dL (0.15-1.2); Total Protein 7.4 g/dL (6.6-8.7)
[2023-10-20] MEDS: metroNIDAZOLE IV 500 MG/100 ML PREMIX 100 MG IV ×3 (06:13→22:57)
[2023-10-20] MEDS: potassium chloride ER 20 mEq Tablet 40 MEQ PO (08:17)
[2023-10-20] MEDS: magnesium sulfate premix 2 GM/50 ML PIGGYBACK IV (08:17)
[2023-10-20] MEDS: pantoprazole 40 mg SDV IVP (08:17)
[2023-10-20] MEDS: PARoxetine 20 mg Tablet 30 MG PO (08:17)
[2023-10-20] MEDS: amlodipine 5 mg Tablet PO (08:18)
[2023-10-20] MEDS: aspirin 325 mg Tablet PO (08:18)
[2023-10-20] MEDS: atorvastatin 40 mg Tablet PO (08:18)
[2023-10-20] MEDS: metoprolol tartrate 50 mg Tablet 100 MG PO ×2 (08:18→21:15)
[2023-10-20] MEDS: insulin lispro 100 unit/1 mL SUBCUT ×3 (08:21→21:16)
[2023-10-20 09:41] LABS: Glucose Point of Care 164 mg/dL (70-110)
--- NOTE | 2023-10-20 10:15 | P.PN_ITS ---
Documented by User: JUSTIN Triana STDSHERRY 10/20/23 10:24 Subjective 2 Subjective: Patient is resting in bed on room air with sitting at bedside. Mrs. Perez reports a headache this morning and throwing up serval times overnight, the last time being at 0600 this morning. She states that she does feel a lot better compared to when she had first come in to the hospital. Denies chest pain, and shortness of breath. Medications: Reviewed: Yes Vitals/I&O/Wt Last Vital Signs Temp 97.9 F 10/20/23 08:00 Pulse 94 10/20/23 09:30 Resp 19 H 10/20/23 09:48 BP 144/84 10/20/23 10:00 Pulse Ox 94 10/20/23 09:00 O2 Del Method Room Air 10/20/23 08:00 10/19/23 10/20/23 10/20/23 22:59 06:59 14:59 Intake Total 999.167 / 9933.290 2306.500 / 2443.333 630 / 630 Output Total 400 / 400 900 / 1300 Balance 599.167 / 655.833 487.500 / 1143.333 630 / 630 Weight last 48 hrs Weight 139 lb 8 oz Weight 140 lb Physical Exam 2 Narrative: General exam is white female, somewhat difficult to understand. Speech is better this morning. HEENT:Oropharynx demonstrates extremely poor dentition Neck is supple no lymphadenopathy thyromegaly Cardiovascular regular rate and rhythm, no murmur Lungs sounds clear, no wheezing or crackles. Abdomen is soft with positive bowel sounds. No obvious tenderness. Extremities no sinus clubbing edema, cap refill brisk. Neuro no obvious focal deficits, speech recovered. No facial droop or focal weakness. No obvious cerebellar signs. Data 10/20/23 03:56 10/20/23 03:56 A&P Assessment and plan (1) Accelerated hypertension: Markedly elevated blood pressure on arrival Nicardipine has been initiated, discontinued. Patient BP this am 122/74. Stroke is doubtful. Emergency Department physician, family believes she is at baseline. Continue metoprolol Continue neurologic checks. (2) Colitis: She has vomiting, and there is concern of colitis on CT Continue Cipro and Flagyl C. difficile testing to be obtained. No need for further stool cultures currently unless symptomatology persists or worsens Secondary to vomiting Protonix IV Nausea control (3) Headache: Patient reports frequent headaches. She has seen neurology in the past There is concern currently this may be secondary to accelerated hypertension Continue treatment of blood pressure. Reports headache this morning. (4) Insulin dependent type 2 diabetes mellitus: Sliding scale insulin Consistent carb diet when starting p.o. solids Plan History of atherosclerotic disease. Continue statin and aspirin History of aneurysm Coding Level of Care Code 82190 Diagnoses Accelerated hypertension I10 Colitis K52.9 Headache R51.9 Insulin dependent type 2 diabetes mellitus E11.9; Z79.4 Time Spent (min) 24 Documented by User: Murtaza Elliott MD 10/20/23 11:38 Data 10/20/23 03:56 10/20/23 03:56 A&P Assessment and plan (1) Accelerated hypertension: Markedly elevated blood pressure on arrival Nicardipine has been initiated, discontinued. Patient BP this am 122/74. Stroke is doubtful. Emergency Department physician, family believes she is at baseline. Slurred speech is slightly improved. Patient believes it is at baseline. Metoprolol has been increased Norvasc has been added Continue to monitor blood pressure closely but can be done on the floor. (2) Colitis: She has vomiting, and there is concern of colitis on CT Continue Cipro and Flagyl C. difficile testing to be obtained. No need for further stool cultures currently unless symptomatology persists or worsens Secondary to vomiting continue Protonix IV Nausea control (3) Headache: (4) Insulin dependent type 2 diabetes mellitus: Plan Hypokalemia, supplement Hypomagnesemia, supplement History of atherosclerotic disease. Continue statin and aspirin History of aneurysm Attestations 2 Medical Necessity Statement*: Needs continued hospitalization secondary to continued nausea with poor oral intake and for adjustment of blood pressure medication for hypertension, correction of electrolytes. Diagnoses Accelerated hypertension I10 Colitis K52.9 Headache R51.9 Insulin dependent type 2 diabetes mellitus E11.9; Z79.4 Time Spent (min) 24
[2023-10-20 12:07] LABS: Glucose Point of Care 134 mg/dL (70-110)
[2023-10-20] MEDS: enoxaparin 40 mg/0.4 mL Syringe SUBCUT (15:00)
--- NOTE | 2023-10-20 16:06 | PC.NURSE ---
Transfer Note Patient transferred to [facility] from ICU via wheelchair. Handoff report given to GARFIELD Han. Patient oriented to environment and equipment. Covering service notified. Orders reviewed and will continue to monitor. Family notified. Upon transfer patient is alert/oriented x4 on room air. All patient belongings including purse, phone and clothing transferred with patient and placed at bedside.
[2023-10-20 16:34] LABS: Glucose Point of Care 169 mg/dL (70-110)
[2023-10-20 20:46] LABS: Glucose Point of Care 151 mg/dL (70-110)
[2023-10-20] MEDS: amitriptyline 25 mg Tablet 12.5 MG PO (21:15)
[2023-10-21 01:07] VITALS: BP 124/75; PULSE 83; RESP 18; TEMP 36.3; O2SAT 93
[2023-10-21] MEDS: ciprofloxacin 400 MG/200 ML PREMIX 200 MG IV (02:36)
[2023-10-21 04:00] VITALS: BP 123/71; PULSE 80; RESP 18; TEMP 36.3; O2SAT 94
[2023-10-21 04:58] LABS: Basophils # 0.1 10^3/uL (0.0-0.1); Eosinophils # 0.2 10^3/uL (0.0-0.8); Eosinophils % 2.5 %; Hematocrit 39.7 % (36-47); Lymphocytes # 2.3 10^3/uL (0.8-4.8); Mean Corpuscular HGB Conc 33.2 g/dL (30-55); Mean Corpuscular Hemoglobin 31.6 pg (27-33); Mean Platelet Volume 11.6 fL (7.4-10.4); Monocytes # 0.5 10^3/uL (0.2-0.9); Monocytes % 7.9 %; Neutrophils # 3.13 10^3/uL (1.8-7.7); Neutrophils % 51.4 %; Nucleated Red Blood Cells % 0 %; Platelet Count 79 10^3/cmm (157-399); Red Blood Count 4.18 10^6/uL (3.85-5.65); Red Cell Distribution Width 14.1 % (12.1-15.1); White Blood Count 6.08 10^3/uL (3.29-11.43)
[2023-10-21 05:17] LABS: Alanine Aminotransferase 18 U/L (0-33); Albumin Level 3.2 g/dL (3.5-5.2); Alkaline Phosphatase 90 U/L (35-105); Aspartate Amino Transferase 28 U/L (0-32); Blood Urea Nitrogen 18 mg/dL (6-20); Calcium 7.8 mg/dL (8.5-10.5); Carbon Dioxide 23 mmol/L (22-29); Chloride 106 mmol/L (98-107); Creatinine Clr Calc Pharmacy 84.2076; Globulin 3.1 g/dL (1.3-4.6); Glomerular Filtration Rate 85.9 mL/min (90-130); Glucose 177 mg/dL (65-115); Magnesium 1.9 mg/dL (1.7-2.3); Osmolality Calculated 290 mOsm/kg (285-295); Sodium 137 mmol/L (136-145); Total Bilirubin 0.3 mg/dL (0.15-1.2); Total Protein 6.3 g/dL (6.6-8.7)
[2023-10-21 05:19] LABS: Slide Review Slide Review Perform
[2023-10-21] MEDS: metroNIDAZOLE IV 500 MG/100 ML PREMIX 100 MG IV (06:14)
[2023-10-21 06:35] LABS: Glucose Point of Care 186 mg/dL (70-110)
--- NOTE | 2023-10-21 07:55 | PM.DCS ---
Discharge Providers Date of Admission: 10/19/23 12:44 Date of Discharge: October 21, 2023 Attending Provider at Admission: Murtaza Elliott MD Attending Provider at Discharge: Murtaza Elliott MD Primary Care Provider: Salomon Harp MD Diagnoses at Discharge Discharge Diagnosis (1) Accelerated hypertension: Status: Acute (2) Colitis: Status: Acute (3) Headache: Status: Acute (4) Insulin dependent type 2 diabetes mellitus: Status: Acute Reason for Visit Reason for Visit: Headache/N/V Hospital Course Hospital Course Eboni presented to the hospital with markedly elevated blood pressure and vomiting. There was concern about some slurring of her speech, but this was determined to likely be her baseline. She was placed on nicardipine, in the ICU for blood pressure lowering. Her metoprolol was increased, Norvasc added. CT scan demonstrated possible colitis and Cipro and Flagyl were initiated the following day she was doing better, endocardial pain was able to be discontinued. She was still significantly nauseous and unable to take significant liquids. Cipro and Flagyl were continued, and she was transferred out of the ICU to the floor. By October 20 she was doing much better, able to tolerate p.o. without nausea, blood pressure under control and it was thought she could transition to home with a short course of antibiotics. Medication adjustments were also made with increase of her metoprolol to 100 mg twice daily, and addition of 5 mg of Norvasc daily. She was able to ask questions, and agreed with the plan. Head CT was also done during her hospital stay which showed no acute changes. Physical Exam Narrative: General exam no distress Cardiovascular regular rate and rhythm without murmur Lungs clear Abdomen soft Extremities no sinuses lymphedema Skin no rash Neuro no focal deficits Discharge Data Studies Completed and Pending Completed Studies During Hospitalization Category Date Time Status CT abdomen pelvis w con* [id number] Stat Cat Scan 10/19/23 12:[address] head thrombolytic [id number] Stat Cat Scan 10/19/23 09:47 Completed Pending at discharge Category Date Time Status CDIFF [C.Diff PCR (Lab)] Routine Lab 10/19/23 14:57 Uncollected Laboratory Results WBC 6.08 10^3/uL (3.29-11.43) 10/21/23 04:35 RBC 4.18 10^6/uL (3.85-5.65) 10/21/23 04:35 Hgb 13.20 g/dL (11.27-16.99) 10/21/23 04:35 Hct 39.7 % (36-47) 10/21/23 04:35 MCV 95.0 fl (85-98) 10/21/23 04:35 MCH 31.6 pg (27-33) 10/21/23 04:35 MCHC 33.2 g/dL (30-55) 10/21/23 04:35 RDW 14.1 % (12.1-15.1) 10/21/23 04:35 Plt Count 79 10^3/cmm (157-399) L D 10/21/23 04:35 MPV 11.6 fL (7.4-10.4) H 10/21/23 04:35 Neut % (Auto) 51.4 % 10/21/23 04:35 Lymph % (Auto) 37.0 % 10/21/23 04:35 [place] % (Auto) 7.9 % 10/21/23 04:35 Eos % (Auto) 2.5 % 10/21/23 04:35 Baso % (Auto) 1.0 % 10/21/23 04:35 Neut # (Auto) 3.13 10^3/uL (1.8-7.7) 10/21/23 04:35 Lymph # (Auto) 2.3 10^3/uL (0.8-4.8) 10/21/23 04:35 [place] # (Auto) 0.5 10^3/uL (0.2-0.9) 10/21/23 04:35 Eos # (Auto) 0.2 10^3/uL (0.0-0.8) 10/21/23 04:35 Baso # (Auto) 0.1 10^3/uL (0.0-0.1) 10/21/23 04:35 Nucleated RBC % (auto) 0 % 10/21/23 04:35 Nucleated RBCs # 0.0 /100WBC 10/21/23 04:35 PT 13.90 SECONDS (12.1-14.9) 10/19/23 11:30 INR 1.04 (0.8-1.2) 10/19/23 11:30 APTT 26.3 SECONDS (23.9-36.7) 10/19/23 11:30 Specimen Type Arterial 10/19/23 12:01 Sample Site Radial, left 10/19/23 12:01 ABG pH 7.48 (7.35-7.45) H 10/19/23 12:01 ABG pCO2 32.6 mmHg (35-45) L 10/19/23 12:01 ABG pO2 81.3 mmHg (80.0-100.0) 10/19/23 12:01 ABG PO2/FiO2 Ratio 0 10/19/23 12:01 ABG HCO3 24.1 mmol/L (22-26) 10/19/23 12:01 ABG O2 Saturation 97.4 10/19/23 12:01 ABG Base Excess 1.3 mmol/L (-2.0-2.0) 10/19/23 12:01 Asif Test Pos 10/19/23 12:01 A-a O2 Gradient 3.7 mmHg (5-10) L 10/19/23 12:01 Hematocrit 53.6 % (37-47) H 10/19/23 12:01 Hgb O2 Saturation 95.9 % (95-100) 10/19/23 12:01 Carboxyhemoglobin 1.4 %THgb (0.4-20.1) 10/19/23 12:01 Methemoglobin 0.1 % (0.4-1.5) L 10/19/23 12:01 Total Hemoglobin 17.5 g/dL (12-16) H 10/19/23 12:01 Sodium 138.0 mmol/L (131-143) 10/19/23 12:01 Potassium 3.5 mmol/L (3.5-5.0) 10/19/23 12:01 Glucose 271.0 mg/dL (70-115) H 10/19/23 12:01 Ionized Calcium 1.2 mmol/L (1.1-1.4) 10/19/23 12:01 O2 Delivery Device Room air 10/19/23 12:01 FiO2 21.0 % 10/19/23 12:01 Accounting Officer ID glc 10/19/23 12:01 Sodium 137 mmol/L (136-145) 10/21/23 04:35 Potassium 4.0 mmol/L (3.5-5.1) 10/21/23 04:35 Chloride 106 mmol/L (98-107) 10/21/23 04:35 Carbon Dioxide 23 mmol/L (22-29) 10/21/23 04:35 Anion Gap 12.0 (5-19) 10/21/23 04:35 BUN 18 mg/dL (6-20) 10/21/23 04:35 Creatinine 0.7 mg/dL (0.5-0.9) 10/21/23 04:35 GFR Calculation 85.9 mL/min (90-130) L 10/21/23 04:35 Glucose 177 mg/dL (65-115) H 10/21/23 04:35 POC Glucose 186 mg/dL (70-110) H 10/21/23 06:32 Calculated Osmolality 290 mOsm/kg (285-295) 10/21/23 04:35 Calcium 7.8 mg/dL (8.5-10.5) L 10/21/23 04:35 Magnesium 1.9 mg/dL (1.7-2.3) 10/21/23 04:35 Total Bilirubin 0.3 mg/dL (0.15-1.2) 10/21/23 04:35 AST 28 U/L (0-32) 10/21/23 04:35 ALT 18 U/L (0-33) 10/21/23 04:35 Alkaline Phosphatase 90 U/L (35-105) 10/21/23 04:35 Troponin T Baseline < 6 ng/L (0-10) 10/19/23 11:30 Troponin T 120 Minute 6.00 ng/L (0-10) 10/19/23 16:42 Delta Troponin T 0.00040 ABS# (0-10) 10/19/23 16:42 Troponin T Hi Sens 6Hr 6.00 ng/L (0-10) 10/19/23 19:20 Troponin T Hi Sens 6Hr Delta 0.31996 ng/L (0-12) 10/19/23 19:20 Total Protein 6.3 g/dL (6.6-8.7) L 10/21/23 04:35 Albumin 3.2 g/dL (3.5-5.2) L 10/21/23 04:35 Globulin 3.1 g/dL (1.3-4.6) 10/21/23 04:35 TSH 4.21 uIU/mL (0.27-4.20) H 10/19/23 11:30 Urine Color Yellow (Yellow) 10/19/23 15:05 Urine Appearance Sl hazy (CLEAR) A 10/19/23 15:05 Urine pH 7 (5-7) 10/19/23 15:05 Ur Specific [place] 1.000 (1.005-1.030) L 10/19/23 15:05 Urine Protein Neg (Negative) 10/19/23 15:05 Urine Glucose (UA) 4+ (Normal) H 10/19/23 15:05 Urine Ketones 1+ (Negative) H 10/19/23 15:05 Urine Blood Neg (Negative) 10/19/23 15:05 Urine Nitrate Negative (Negative) 10/19/23 15:05 Urine Bilirubin Neg (Negative) 10/19/23 15:05 Urine Urobilinogen Norm mg/dL (Negative) 10/19/23 15:05 Ur Leukocyte Esterase Negative (Negative) 10/19/23 15:05 Urine RBC 0-4 /hpf (0-2) H 10/19/23 15:05 Urine WBC 0-4 /hpf (0-5) H 10/19/23 15:05 Ur Squamous Epith Cells 0-4 /hpf (0-5) H 10/19/23 15:05 Amorphous Sediment Not Reportable 10/19/23 15:05 Urine Bacteria Trace /hpf (NONE) 10/19/23 15:05 Urine Opiates Screen Negative ng/mL (Negative) 10/19/23 15:05 Ur Barbiturates Screen Negative ng/mL (Negative) 10/19/23 15:05 Ur Phencyclidine Scrn Negative ng/mL (Negative) 10/19/23 15:05 Ur Amphetamines Screen Negative ng/mL (Negative) 10/19/23 15:05 U Benzodiazepines Scrn Negative ng/mL (Negative) 10/19/23 15:05 Urine Cocaine Screen Negative ng/mL (Negative) 10/19/23 15:05 U Marijuana (THC) Screen Negative ng/mL (Negative) 10/19/23 15:05 Serum Ketones Negative (Negative) 10/19/23 11:30 Vitals Last Vital Signs Temp 97.3 F L 10/21/23 04:00 Pulse 80 10/21/23 04:00 Resp 18 04/24/24 04:00 BP 123/71 10/21/23 04:00 Pulse Ox 94 10/21/23 04:00 O2 Del Method Room Air 10/21/23 04:00 Discharge Plan Discharge Patient Disposition: Home Condition: Stable Prescriptions: New amlodipine 5 mg Tablet 5 mg PO DAILY Qty: 30 0RF metoprolol tartrate 50 mg Tablet 100 mg PO BID@0900,2100 Qty: 120 0RF Cipro 500 mg tablet 500 mg PO BID Qty: 10 0RF metronidazole 500 mg tablet 500 mg PO TID Qty: 15 0RF Continued amitriptyline 10 mg tablet 10 mg PO BEDTIME Trulicity 0.75 mg/0.5 mL pen injector 0.75 mg SUBCUT Q7D ondansetron 4 mg tablet,disintegrating 4 mg PO Q8H PRN (Reason: nausea and vomiting) 30 Days Qty: 30 0RF dapagliflozin propanediol [Farxiga] 5 mg Tablet 5 mg PO DAILY albuterol sulfate 90 mcg/actuation HFA aerosol inhaler 2 inh inhalation Q4H PRN (Reason: Shortness Of Breath) zolpidem 10 mg Tablet 10 mg PO BEDTIME PRN (Reason: Sleep) Hold Instructions: hold until seen by primary care doc atorvastatin 20 mg tablet 20 mg PO DAILY aspirin 325 mg Tablet 325 mg PO DAILY insulin aspart U-100 100 unit/mL solution 20 unit SUBCUT BEDTIME paroxetine HCl 30 mg tablet 30 mg PO DAILY Protonix 40 mg tablet,delayed release (DR/EC) 40 mg PO DAILY Discontinued metoprolol tartrate 75 mg Tablet 75 mg PO BID 30 Days Qty: 60 0RF Discharge Orders: Discharge Order (Routine); Ordered 10/21/23 Ordered By: Murtaza Elliott Referrals: Salomon Harp MD [Primary Care Provider] - 10/28/23 1:30 pm Discharge Diet: Cardiac and Diabetic Discharge Activity: Increase activity as tolerated Patient Instructions: Ciprofloxacin (By mouth), Metoprolol (By mouth), Metronidazole (By mouth), Amlodipine (By mouth), Colitis (ED), Opioid Safety Activity Restrictions/Additional Instructions: Take all medicine as prescribed Follow-up with your primary care provider 5 days Return for any concerns Take antibiotics as prescribed. Discharge Attestations Time Spent in Discharge Care*: greater than 30 min Status at Discharge: Cognitive status at discharge: cognitively intact, Behavioral status at discharge: cooperative, Quality Metrics Clinical Quality Measures [ No reported AMI, CVA or VTE this stay] Coding Level of Care Code 61942 Diagnoses Accelerated hypertension I10 Colitis K52.9 Headache R51.9 Insulin dependent type 2 diabetes mellitus E11.9; Z79.4 Time Spent (min) 33
[2023-10-21 08:00] VITALS: BP 157/85; PULSE 84; RESP 16; TEMP 36.5; O2SAT 93
[2023-10-21 08:19] VITALS: RESP 18
[2023-10-21] MEDS: insulin lispro 100 unit/1 mL SUBCUT (08:19)
[2023-10-21] MEDS: morphine 4 mg/mL SDV 1 mL 2 MG IVP (08:19)
[2023-10-21] MEDS: PARoxetine 20 mg Tablet 30 MG PO (08:20)
[2023-10-21] MEDS: pantoprazole 40 mg SDV IVP (08:20)
[2023-10-21] MEDS: metoprolol tartrate 50 mg Tablet 100 MG PO (08:21)
[2023-10-21] MEDS: atorvastatin 40 mg Tablet PO (08:21)
[2023-10-21] MEDS: aspirin 325 mg Tablet PO (08:21)
[2023-10-21] MEDS: amlodipine 5 mg Tablet PO (08:21)
[2023-10-21 11:47] VITALS: RESP 18
== END 2023-10-21 11:00 | disposition home or self-care (01) | DRG 392 ==
LOC: ER 09:58 → ICU 12:45 → MEDSURG 10-20 15:54
PROVIDERS: Admitting Provider Internal Medicine; Emergency Provider Family Medicine; PCP Family Medicine; Visit Provider Internal Medicine
DX: K52.9 Noninfective gastroenteritis and colitis, unspecified (principal); I10 Essential (primary) hypertension; R51.9 Headache, unspecified; E11.9 Type 2 diabetes mellitus without complications; Z79.4 Long term (current) use of insulin
CPT/HCPCS: 36415; 36416; 36600; 70450; 74177; 80051; 80053; 80306; 81001; 82009; 82330; 82805; 82962; 83735; 84443; 84484; 85025; 85610; 85730; 92523; 92610; 93005; 96365; 96366; 96372; 96374; 96375; 96376; 99285; C9113; J0360; J0744; J1650; J1815; J2270; J2405; J3475; J3490; J7030; Q9967

== ENCOUNTER 2023-11-12 13:45 | Outpatient (CLI) | payer MEDICAID, SELFPAY ==
--- NOTE | 2023-11-12 13:50 | XR_ITS ---
WS: [id number] Left foot, 3 views, 11/12/2023 Clinical Data: LEFT FOOT PAIN/DROPPED SOMETHING ON FOOT Comparison: None. Findings: No fractures or dislocations are seen. No bone destruction or erosion is noted. The joint spaces and soft tissues are normal. XR/XR foot LT min 3V* [id number] Impression: Negative left foot.
== END 2023-11-12 13:46 | disposition home or self-care (01) ==
LOC: RAD 13:46
PROVIDERS: PCP Family Medicine; Visit Provider Nurse Practitioner Family
DX: M79.672 Pain in left foot (principal)
CPT/HCPCS: 73630

== ENCOUNTER 2023-12-07 11:48 | Observation (INO) | payer MEDICAID, SELFPAY ==
[2023-12-07] VITALS (14 sets, daily range): BP systolic 132–202; BP diastolic 78–134; PULSE 79–95; RESP 16–18; TEMP 36.8; O2SAT 94–98; BMI 22.6
--- NOTE | 2023-12-07 11:54 | ECG_ITS ---
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 Measurements Intervals [place] Rate: 82 P: 63 [place]: 168 QRS: 45 QRSD: 78 T: 44 QT: 370 QTc: 434 Interpretive Statements SINUS RHYTHM INTERPRETATION BASED ON A DEFAULT AGE OF 40 YEARS Compared to ECG 10/19/2023 18:09:07 T-wave abnormality no longer present Electronically Signed On 12-07-2023 19:02:47 CDT by Rosana Segovia M.D. [id number] f
--- NOTE | 2023-12-07 11:54 | CT_ITS ---
WS: [id number] CT HEAD TECHNIQUE: Noncontrast CT of the head obtained from the skullbase to the vertex. CLINICAL INFORMATION: Weakness COMPARISON: CT 10/19/2023 DLP: 991.[address] scans at [facility] use at least one of these dose optimization techniques: automated e xposure control; mA and/or kV adjustment per patient size (includes targeted exams where dose is matc hed to clinical indication); or iterative reconstruction. FINDINGS: No evidence of intracranial hemorrhage or mass effect. Ventricular system and basal cisterns are avelar nt. Moderate small vessel changes with moderate parenchymal volume loss. No extra-axial fluid collect ions. No evidence of mass or mass effect. LEFT frontal craniotomy with encephalomalacia in the LEFT f rontal lobe extending into the inferior LEFT frontal lobe. Intracranial vascular calcification. Prior aneurysm clipping in the LEFT MCA territory. Paranasal sinuses and mastoid air cells are well aerated. .Normal visualized soft tissues. CT/CT head wo con* [id number] IMPRESSION: 1. No evidence of intracranial hemorrhage or mass effect. 2. Moderate small vessel changes with moderate parenchymal volume loss. 3. LEFT frontal craniotomy with encephalomalacia in the LEFT frontal lobe unch anged from previous. 4. No acute intracranial findings.
--- NOTE | 2023-12-07 11:54 | XRR_ITS ---
PROCEDURE INFORMATION: Exam: XR Chest Exam date and time: 12/07/2023 12:03 PM Age: 58 years old Clinical indication: Other: Weakness TECHNIQUE: Imaging protocol: Radiologic exam of the chest. Views: 1 view. COMPARISON: CR XR chest 1V portable [id number] 07/30/2022 10:34 PM FINDINGS: Airway: Patent Lungs: There are multiple punctate pulmonary parenchymal calcifications, consistent with remote granulomatous organism exposure. No acute interstitial or airspace disease. Pleural spaces: Unremarkable. No pleural effusion. No pneumothorax. Heart/Mediastinum: Unremarkable. No cardiomegaly. Bones/joints: No acute skeletal abnormality or aggressive osseous lesion. XR/XR chest 1V portable [id number] IMPRESSION: No acute findings.
--- NOTE | 2023-12-07 11:54 | ECG_ITS ---
[facility] Test Date: 2023-12-07 Pat Name: Eboni Perez Department: Room: Gender: Female [employer] Cr[employer] Operator: : 1965 Requested By: Sunshine Gupta Order Number: [id number] Jarret MD: Rosana Segovia M.D. Measurements Intervals [place] Rate: 82 P: 63 MI: 168 QRS: 45 QRSD: 78 T: 44 QT: 370 QTc: 434 Interpretive Statements SINUS RHYTHM INTERPRETATION BASED ON A DEFAULT AGE OF 40 YEARS Compared to ECG 10/19/2023 18:09:07 T-wave abnormality no longer present Electronically Signed On 12-07-2023 19:02:40 CDT by Rosana Segovia M.D. [id number]
--- NOTE | 2023-12-07 12:04 | W.ED.WEAKNES ---
HPI - Weakness General: Chief complaint: Weakness Stated complaint: hypertension Time Seen by Provider: 12/07/23 11:49 History of Present Illness: 58-year-old female with a history of stroke, hypertension, coronary artery disease, insulin-dependent diabetes mellitus with some baseline weakness in her legs who says today she woke up and her right leg was more weak than normal. No new altered mental status. Her right leg does seem to be slightly weaker than the left. Is not flaccid and she can lift it off the bed but cannot hold it there very long. EMS reports she was hypertensive on their arrival. No nausea or vomiting. No chest pain. No shortness of breath. No abdominal pain. Review of Systems Narrative: Constitutional symptoms: Negative except as documented in HPI. Skin symptoms: Negative except as documented in HPI. Eye symptoms: Negative except as documented in HPI. ENMT symptoms: Negative except as documented in HPI. Respiratory symptoms: Negative except as documented in HPI. Cardiovascular symptoms: Negative except as documented in HPI. Gastrointestinal symptoms: Negative except as documented in HPI. Genitourinary symptoms: Negative except as documented in HPI. Musculoskeletal symptoms: Negative except as documented in HPI. Neurologic symptoms: Negative except as documented in HPI. Psychiatric symptoms: Negative except as documented in HPI. Endocrine symptoms: Negative except as documented in HPI. [facility] ED PFSH: Medical History Hypertension Insulin dependent type 2 diabetes mellitus Hepatitis C CAD (coronary artery disease) Peripheral vascular disease History of CVA (cerebrovascular accident) Brain aneurysm Surgical History History of angioplasty of peripheral vessel History of appendectomy History of cholecystectomy Family History Father Renal cancer Cancer Lung Mother Hypertension CAD (coronary artery disease) Diabetes Social History Smoking and tobacco/nicotine status: current every day tobacco/nicotine user cigarettes Packs smoked per day: 0.5 Years cigarettes smoked: 30 Alcohol intake: former Substance/Drug Use: never Physical Exam Narrative: EXAM NARRATIVE: General: Alert, no acute distress. Skin: Warm, dry. Head: Normocephalic, atraumatic. Neck: Supple, trachea midline. Eye: Extraocular movements are intact. Ears, nose, mouth and throat: mucosa moist. Cardiovascular: Regular, Normal peripheral perfusion. Respiratory: Lungs are clear to auscultation, respirations are non-labored, breath sounds are equal, Symmetrical chest wall expansion. Gastrointestinal: Soft, Nontender, Non distended, Normal bowel sounds. Musculoskeletal: Normal ROM, no deformity. Neurological: Alert and oriented, patient is a bit weaker in her right leg than her left. She can lift the leg off the bed but seems to have more difficulty Psychiatric: Cooperative, appropriate mood & affect. Course Vital Signs: Vital signs: Vital Signs Temperature 98.3 F 12/07/23 11:52 Pulse Rate 85 12/07/23 14:30 Respiratory Rate 16 12/07/23 14:30 Blood Pressure 185/101 12/07/23 14:30 Pulse Oximetry 98 12/07/23 14:30 Oxygen Delivery Me thod Room Air 12/07/23 14:30 MDM - Weakness Medical Decision Making Medical decision making: Differential diagnosis for patient presenting with generalized weakness including but not limited to and based on the above HPI, review of systems and physical exam: Sepsis. Dehydration. Renal failure. Electrolyte abnormalities. Anemia. Congestive heart failure. Hypotension. Coronary syndrome. Hepatitis. Cirrhosis. Infections such as pneumonia, urinary tract infection, [place] illness, Cellulitis, Viral infections including influenza and Covid-19. Workup: labwork and lab/exam driven imaging ordered to evaluate, rule in and rule out above pathologies. EKG: Time 1154 rate 82. Normal sinus rhythm, No ST-T changes, no ectopy, normal NE & QRS intervals, This was reviewed and interpreted by myself the ER physician at 1200. Chest x-ray: No acute process. No infiltrate. No pneumothorax. No cardiomegaly. This was reviewed and interpreted by myself the ER physician at 12:[address] head: Large area of encephalomalacia stable compared to 10/19/2023. This is in the left frontal parietal region. No acute intracranial process. no intracranial hemorrhage, no evidence of new infarct. no evidence of acute fracture.This was reviewed and interpreted by myself the ER physician at 12:37 PM. Lab Review: Laboratory results were reviewed and interpreted by myself the emergency room physician. Patient does have a bit of a UTI which might explain her worsening symptoms, however she does not feel like she is stable to walk. And given that she is hypertensive and she has these new symptoms she may have had a subacute/acute stroke and likely needs an MRI. Consultation: I spoke with Dr. Bowie who is on-call for neurology. Patient has had an aneurysmal clipping in the past so she cannot have an MRI done but she does need a CTA. He saw the patient here in the emergency room. Consultation: I spoke with hospitalist Dr Alvarez, on-call who agrees with admission. I reviewed the patient's medical record. Reexamination: Patient continues to have right-sided leg weakness versus her left. She says this is new. She currently has no altered mental status. No slurred speech out of her baseline. Her is present and says that over the last month he has been having to pick her up off the floor a lot and she has been falling so it is a little unclear if this is an acute event. CT scan shows old encephalomalacia but nothing new. She has no increased work of breathing. No oxygen requirements. Prolonged emergency room stay: CBC was apparently clotted and had to be redrawn. Decided neck significant amount of time before I could call for admission. Assessment and plan: Cerebrovascular accident Accelerated hypertension Right-sided weakness Urinary tract infection History of traumatic brain injury and craniotomy with left frontal lobe encephalomalacia -I discussed the patient with the hospitalist on-call who is admitting the patient. - Discussed findings and plan with patient. Answered any questions. - All laboratory values were reviewed and interpreted personally by myself, the ER physician - All imaging was reviewed and interpreted personally by myself, the ER physician. - Evaluation and treatment of this problem were appropriate in the emergency setting Lab Data 12/07/23 14:55 12/07/23 12:54 Radiology Impressions Chest X-Ray 12/07/23 11:54 IMPRESSION: No acute findings. Head CT 12/07/23 11:54 IMPRESSION: 1. No evidence of intracranial hemorrhage or mass effect. 2. Moderate small vessel changes with moderate parenchymal volume loss. 3. LEFT frontal craniotomy with encephalomalacia in the LEFT frontal lobe unchanged from previous. 4. No acute intracranial findings. Laboratory Results WBC 5.53 10^3/uL (3.29-11.43) 12/07/23 14:55 Corrected WBC Cancelled 12/07/23 12:54 RBC 4.85 10^6/uL (3.85-5.65) 12/07/23 14:55 Hgb 15.00 g/dL (11.27-16.99) 12/07/23 14:55 Hct 43.7 % (36-47) 12/07/23 14:55 MCV 90.1 fl (85-98) 12/07/23 14:55 MCH 30.9 pg (27-33) 12/07/23 14:55 MCHC 34.3 g/dL (30-55) 12/07/23 14:55 RDW 12.9 % (12.1-15.1) 12/07/23 14:55 Plt Count 105 10^3/cmm (157-399) L 12/07/23 14:55 MPV 11.8 fL (7.4-10.4) H 12/07/23 14:55 Gran % Cancelled 12/07/23 12:54 Neut % (Auto) 51.0 % 12/07/23 14:55 Lymph % (Auto) 39.8 % 12/07/23 14:55 [place] % (Auto) 6.9 % 12/07/23 14:55 Eos % (Auto) 1.6 % 12/07/23 14:55 Baso % (Auto) 0.5 % 12/07/23 14:55 Neut # (Auto) 2.82 10^3/uL (1.8-7.7) 12/07/23 14:55 Lymph # (Auto) 2.2 10^3/uL (0.8-4.8) 12/07/23 14:55 [place] # (Auto) 0.4 10^3/uL (0.2-0.9) 12/07/23 14:55 Eos # (Auto) 0.1 10^3/uL (0.0-0.8) 12/07/23 14:55 Baso # (Auto) 0.0 10^3/uL (0.0-0.1) 12/07/23 14:55 Absolute Gran (auto) Cancelled 12/07/23 12:54 Nucleated RBC % (auto) 0 % 12/07/23 14:55 Nucleated RBCs # 0.0 /100WBC 12/07/23 14:55 PT 13.50 SECONDS (12.1-14.9) 12/07/23 13:45 INR 1.00 (0.8-1.2) 12/07/23 13:45 APTT 26.6 SECONDS (23.9-36.7) 12/07/23 13:45 Sodium 135 mmol/L (136-145) L 12/07/23 12:54 Potassium 4.1 mmol/L (3.5-5.1) 12/07/23 12:54 Chloride 98 mmol/L (98-107) 12/07/23 12:54 Carbon Dioxide 23 mmol/L (22-29) 12/07/23 12:54 Anion Gap 18.1 (5-19) 12/07/23 12:54 BUN 9 mg/dL (6-20) 12/07/23 12:54 Creatinine 0.5 mg/dL (0.5-0.9) 12/07/23 12:54 GFR Calculation 126.7 mL/min (90-130) 12/07/23 12:54 Glucose 141 mg/dL (65-115) H 12/07/23 12:54 Calculated Osmolality 281 mOsm/kg (285-295) L 12/07/23 12:54 Lactic Acid 2.6 mmol/L (0.5-2.2) H 12/07/23 12:54 Calcium 9.3 mg/dL (8.5-10.5) 12/07/23 12:54 Total Bilirubin 0.5 mg/dL (0.15-1.2) 12/07/23 12:54 AST 29 U/L (0-32) 12/07/23 12:54 ALT 27 U/L (0-33) 12/07/23 12:54 Alkaline Phosphatase 132 U/L (35-105) H 12/07/23 12:54 C-Reactive Protein 3.0 mg/L (0.0-4.9) 12/07/23 12:54 Total Protein 7.3 g/dL (6.6-8.7) 12/07/23 12:54 Albumin 3.8 g/dL (3.5-5.2) 12/07/23 12:54 Globulin 3.5 g/dL (1.3-4.6) 12/07/23 12:54 Urine Color Yellow (Yellow) 12/07/23 12:21 Urine Appearance Clear (CLEAR) 12/07/23 12:21 Urine pH 7 (5-7) 12/07/23 12:21 Ur Specific [place] 1.005 (1.005-1.030) 12/07/23 12:21 Urine Protein Neg (Negative) 12/07/23 12:21 Urine Glucose (UA) 4+ (Normal) H 12/07/23 12:21 Urine Ketones Negative (Negative) 12/07/23 12:21 Urine Blood Neg (Negative) 12/07/23 12:21 Urine Nitrate Negative (Negative) 12/07/23 12:21 Urine Bilirubin Neg (Negative) 12/07/23 12:21 Urine Urobilinogen Norm mg/dL (Negative) 12/07/23 12:21 Ur Leukocyte Esterase Trace (Negative) H 12/07/23 12:21 Urine RBC None /hpf (0-2) 12/07/23 12:21 Urine WBC 10-15 /hpf (0-5) H 12/07/23 12:21 Ur Squamous Epith Cells 5-10 /hpf (0-5) H 12/07/23 12:21 Amorphous Sediment Not Reportable 12/07/23 12:21 Urine Bacteria 1+ /hpf (NONE) H 12/07/23 12:21 All radiology interpretation(s) finalized by discharge Discharge Plan Discharge Patient Disposition: Admitted As Inpatient Clinical Impression: Acute right-sided muscle weakness Cerebrovascular accident Qualifiers: CVA mechanism: unspecified Qualified Code(s): I63.9 - Cerebral infarction, unspecified Condition: Stable Coding Level of Care Code ED Manager Technical Services for Mario Nielsen
[2023-12-07 12:44] LABS: Bilirubin Urine Neg (Negative); Blood Urine Neg (Negative); Glucose Urine UA 4+ (Normal); Ketones Urine Negative (Negative); Leukocyte Esterase Urine Trace (Negative); Nitrate Urine Negative (Negative); Protein Urine Neg (Negative); Specific Gravity, Urine 1.005 (1.005-1.030); Urine Appearance Clear (CLEAR); Urine Color Yellow (Yellow); Urobilinogen Urine Norm (Negative); pH Urine 7 (5-7)
[2023-12-07 12:45] LABS: Add Urine Culture? No; Bacteria Urine 1+ /hpf
[2023-12-07 13:21] LABS: Lactic Sepsis W/Reflex 2.6 mmol/L (0.5-2.2)
[2023-12-07 13:22] LABS: Alanine Aminotransferase 27 U/L (0-33); Albumin Level 3.8 g/dL (3.5-5.2); Alkaline Phosphatase 132 U/L (35-105); Blood Urea Nitrogen 9 mg/dL (6-20); Calcium 9.3 mg/dL (8.5-10.5); Carbon Dioxide 23 mmol/L (22-29); Chloride 98 mmol/L (98-107); Creatinine Clr Calc Pharmacy 118.0664; Globulin 3.5 g/dL (1.3-4.6); Glomerular Filtration Rate 126.7 mL/min (90-130); Glucose 141 mg/dL (65-115); Osmolality Calculated 281 mOsm/kg (285-295); Sodium 135 mmol/L (136-145); Total Bilirubin 0.5 mg/dL (0.15-1.2); Total Protein 7.3 g/dL (6.6-8.7)
[2023-12-07 13:24] LABS: Anion Gap 18.1 (5-19); Aspartate Amino Transferase 29 U/L (0-32); Potassium 4.1 mmol/L (3.5-5.1)
[2023-12-07] MEDS: cefTRIAXone 1,000 MG in sodium chloride 0.9% (plus) 50 ML 100 MG IV (13:56)
[2023-12-07] MEDS: sodium chloride 0.9% 1,000 ML 999 ML IV (14:06)
[2023-12-07 14:23] LABS: Partial Thromboplastin Time 26.6 SECONDS (23.9-36.7)
[2023-12-07] MEDS: hyDRALAzine 20 mg/mL INJ 1 mL 10 MG IVP (14:23)
[2023-12-07 14:45] LABS: Reflex Lactate Order REFLEX LACTIC ORDERD
[2023-12-07 15:03] LABS: Basophils % 0.5 %; Eosinophils # 0.1 10^3/uL (0.0-0.8); Eosinophils % 1.6 %; Hematocrit 43.7 % (36-47); Lymphocytes # 2.2 10^3/uL (0.8-4.8); Lymphocytes % 39.8 %; Mean Corpuscular HGB Conc 34.3 g/dL (30-55); Mean Corpuscular Hemoglobin 30.9 pg (27-33); Mean Corpuscular Volume 90.1 fl (85-98); Mean Platelet Volume 11.8 fL (7.4-10.4); Monocytes # 0.4 10^3/uL (0.2-0.9); Monocytes % 6.9 %; Neutrophils # 2.82 10^3/uL (1.8-7.7); Nucleated Red Blood Cells % 0 %; Platelet Count 105 10^3/cmm (157-399); Red Blood Count 4.85 10^6/uL (3.85-5.65); Red Cell Distribution Width 12.9 % (12.1-15.1); White Blood Count 5.53 10^3/uL (3.29-11.43)
--- NOTE | 2023-12-07 16:09 | P.CONIM_ITS ---
Providers/Reason For Consult 2 Consulting Physician/Specialty*: Kenneth Bowie MD neurology and epilepsy Reason for Consult*: History of left hemispheric aneurysm coiling surgery with residual right-sided weakness and speech difficulty with reports of increasing right-sided weakness and numbness after awakening from sleep on 12/07/2023. Since the patient's last known well could not be determined, and the patient has history of left hemispheric aneurysm surgery the patient was not a candidate for thrombolytics and no thrombolytics were administered. According to the patient, the right sided weakness and speech difficulty has continued but according to the patient's the patient's speech has been this way for years. The patient underwent carotid duplex study on 09/10/2023 which revealed mild bilateral internal carotid artery stenosis measuring less than 50%. 2D echocardiogram 08/15/2021 was reported to be essentially unrevealing with ejection fraction of 70%. Cardiac event monitoring 10/14/2021 which was reported to be within normal limits. Patient admitted with elevated blood pressure in the emergency room. Blood pressure currently 186/129 heart rate 85 O2 saturation 96% on room air. NIH score = 5 (secondary to patient reporting weakness in the right leg with inability to lift the right leg off the bed, pronator drift in the right upper extremity, worsening dysarthria). Note: According to the patient's who was at the bedside in the emergency department room #2, the patient is weakness and speech findings are chronic. Serum glucose 141. Drug allergies: Codeine type reaction unknown Vicodin which resulted in nausea Lisinopril which resulted in headache Morphine which resulted in nausea Nystatin type reaction unknown Penicillins type reaction unknown Metformin which resulted in vomiting Primary Care Provider: Salomon Harp MD History of Present Illness History of Present Illness Eboni Perez is a 58 year old female History of left hemispheric aneurysm coiling surgery with residual right-sided weakness and speech difficulty with reports of increasing right-sided weakness and numbness after awakening from sleep on 12/07/2023. Since the patient's last known well could not be determined, and the patient has history of left hemispheric aneurysm surgery the patient was not a candidate for thrombolytics and no thrombolytics were administered. According to the patient, the right sided weakness and speech difficulty has continued but according to the patient's the patient's speech has been this way for years. The patient underwent carotid duplex study on 09/10/2023 which revealed mild bilateral internal carotid artery stenosis measuring less than 50%. 2D echocardiogram 08/15/2021 was reported to be essentially unrevealing with ejection fraction of 70%. Cardiac event monitoring 10/14/2021 which was reported to be within normal limits. Patient admitted with elevated blood pressure in the emergency room. Blood pressure currently 186/129 heart rate 85 O2 saturation 96% on room air. NIH score = 5 (secondary to patient reporting weakness in the right leg with inability to lift the right leg off the bed, pronator drift in the right upper extremity, worsening dysarthria). Note: According to the patient's who was at the bedside in the emergency department room #2, the patient is weakness and speech findings are chronic. Serum glucose 141. Drug allergies: Codeine type reaction unknown Vicodin which resulted in nausea Lisinopril which resulted in headache Morphine which resulted in nausea Nystatin type reaction unknown Penicillins type reaction unknown Metformin which resulted in vomiting Current medications: Elavil 10 mg p.o. nightly Norvasc 5 mg p.o. daily Aspirin 325 mg p.o. daily Lipitor 20 mg p.o. daily Farxiga 5 mg p.o. daily Dulaglutide 0.75 mg subcutaneously every 7 days Insulin 20 units subcutaneously at bedtime Metoprolol 100 mg p.o. twice daily Zofran 4 mg p.o. every 8 hours as needed Naproxen see instructions Protonix 40 mg p.o. daily Paxil 30 mg p.o. daily Ambien 10 mg p.o. nightly as needed for sleep Past medical history: Left craniotomy for aneurysm surgery. Patient reports aneurysm coiling of 2 aneurysms on the left and reports an aneurysm in the right hemisphere that was not surgically treated Remote left frontal encephalomalacia and atrophy Thrombocytopenia Chronic migraine headaches without aura Colitis Seizures Left hemispheric stroke with residual right-sided weakness and dysarthria/nonfluent aphasia History of colon polyps Lower extremity diabetic polyneuropathy Habits: The patient smokes 1 pack/day. She denied other drug use. Patient is aware of the potential health risks associated with smoking and voiced understanding. Review of Systems 2 General: Reports: 10 or more systems reviewed and unremarkable except in HPI and below Medications/Allergies Home Medications Medication Instructions Recorded Confirmed Last Taken Type amitriptyline 10 mg tablet 10 mg PO BEDTIME 01/31/21 12/07/23 12/06/23 History zolpidem 10 mg tablet 10 mg PO BEDTIME PRN Sleep 12/02/21 12/07/23 12/06/23 History dapagliflozin propanediol 5 mg 5 mg PO DAILY 07/07/22 12/07/23 12/07/23 History tablet (Farxiga) dulaglutide 0.75 mg/0.5 mL 0.75 mg SUBCUT Q7D 06/11/23 12/07/23 12/04/23 History subcutaneous pen injector (Trulicity) ondansetron 4 mg disintegrating 4 mg PO Q8H PRN nausea and 08/12/23 12/07/23 Unknown Rx tablet vomiting 30 days #30 tabs aspirin 325 mg tablet 325 mg PO DAILY 10/19/23 12/07/23 12/07/23 History atorvastatin 20 mg tablet 20 mg PO DAILY 10/19/23 12/07/23 12/07/23 History insulin aspart U-100 100 unit/mL 20 unit SUBCUT BEDTIME 10/19/23 12/07/23 12/06/23 History subcutaneous solution pantoprazole 40 mg tablet,delayed 40 mg PO DAILY 10/19/23 12/07/23 12/07/23 History release (Protonix) paroxetine HCl 30 mg tablet 30 mg PO DAILY 10/19/23 12/07/23 12/07/23 History amlodipine 5 mg tablet 5 mg PO DAILY #30 tabs 10/21/23 12/07/23 12/07/23 Rx metoprolol tartrate 100 mg tablet 100 mg PO BID 12/07/23 12/07/23 12/07/23 History naproxen 500 mg tablet See Rx Instructions .Route .COMPLEX 12/07/23 12/07/23 12/07/23 History Allergies Allergy/AdvReac Type Severity Reaction Status Date / Time codeine Allergy Unknown Verified 09/28/23 13:32 hydrocodone [From Vicodin] Allergy ADR-Nausea Verified 09/28/23 13:32 lisinopril Allergy ADR-Headach Verified 09/28/23 13:32 e morphine Allergy ADR-Nausea Verified 09/28/23 13:32 nystatin Allergy Unknown Verified 09/28/23 13:32 Penicillins Allergy Unknown Verified 09/28/23 13:32 metformin Allergy Intermediate ADR-Vomitin Uncoded 09/28/23 13:32 g PFSH Acute 2 PFSH: Medical History Hypertension Insulin dependent type 2 diabetes mellitus Hepatitis C CAD (coronary artery disease) Peripheral vascular disease History of CVA (cerebrovascular accident) Brain aneurysm Surgical History History of angioplasty of peripheral vessel History of appendectomy History of cholecystectomy Family History Father Renal cancer Cancer Lung Mother Hypertension CAD (coronary artery disease) Diabetes Social History Smoking and tobacco/nicotine status: current every day tobacco/nicotine user cigarettes Packs smoked per day: 0.5 Years cigarettes smoked: 30 Alcohol intake: former Substance/Drug Use: never Vitals/I&O/Wt Last Vital Signs Temp 98.3 F 12/07/23 11:52 Pulse 85 12/07/23 14:30 Resp 16 12/07/23 14:30 BP 185/101 12/07/23 14:30 Pulse Ox 98 12/07/23 14:30 O2 Del Method Room Air 12/07/23 14:30 Weight last 48 hrs Weight 140 lb Physical Exam 2 Narrative: NIH score = 5 (secondary to patient reporting weakness in the right leg with inability to lift the right leg off the bed, pronator drift in the right upper extremity, worsening dysarthria). Note: According to the patient's who was at the bedside in the emergency department room #2, the patient is weakness and speech findings are chronic. Serum glucose 141. Blood pressure 186/129 heart rate 85 O2 saturation 96% on room air The patient is alert and in no apparent distress. Speech dysarthric. There was some signs of intermittent nonfluent aphasia. Head revealed left craniotomy no signs of infection. Cranial nerves II through XII grossly intact pupils 4 mm round reactive to light and accommodation. Extraocular movements intact. There were no nystagmus. Motor testing revealed drift in the right upper extremity. Patient was able to hold the right arm up against resistance. There was some questionable decreased right hand belt sander stone. Patient reported difficulty lifting the right leg off of the bed. There was some increased tone/spasticity in the right lower extremity. Plantar response was extensor on the right and flexor on the left. Sensory examination was intact to touch. There was no obvious extinction on double sensory stimulation and no obvious neglect. Throat clear. Lungs clear. Heart regular rhythm and rate. Extremities were negative for cyanosis. Data 12/07/23 14:55 12/07/23 12:54 Micro: Microbiology 12/07/23 13:56 Blood Culture - Preliminary Blood SPECIMEN COLLECTED 12/07/23 13:45 Blood Culture - Preliminary Blood SPECIMEN COLLECTED A&P Assessment and plan (1) Chronic left arterial ischemic stroke, MCA (middle cerebral artery): Impression: 1. Remote left MCA distribution stroke with residual dysarthria/nonfluent aphasia and right-sided weakness with patient reporting increasing speech difficulty and right-sided weakness when she woke up on 12/07/2023. Since the patient last known well could not be determined, and the patient has history of left craniotomy with aneurysm surgery, and reported history of right aneurysm that have not been treated, the patient was not a candidate for thrombolytics and no thrombolytics were administered. 2. History of left craniotomy with left aneurysm coiling 3. History of untreated right hemispheric aneurysm 4. Type 2 diabetes mellitus, insulin requiring 5. History of thrombocytopenia 6. History of seizures 7. History of chronic migraine headaches without aura 8. History of colon polyps and colitis Plan: 1. Recommend obtaining CT angiogram of the head and neck since patient reports history of left craniotomy with aneurysm coiling and untreated right cerebral aneurysm 2. Patient cannot undergo head MRI secondary to history of left craniotomy and aneurysm surgery in the past 3. Recommend occupational therapy, physical therapy and speech therapy consult 4. Continue aspirin and lipid-lowering agents per NIH stroke protocol 5. Neurochecks per NIH stroke protocol 6. Address hypertension and lower blood pressure slowly and maintain mean arterial blood pressure (MAP) between 70 to 110 7. Fall precautions 8. Patient encouraged to stop smoking. Patient is aware of the potential risk associated with smoking and voiced understanding. Recommend nicotine patch. Do not recommend Chantix since Chantix can potentially precipitate seizures 9. Recommend discontinuing amitriptyline since the patient is on Paxil and Ambien and Zofran to minimize potential serotonin syndrome (2) Acute right-sided weakness: (3) Dysarthria: (4) History of surgery for cerebral aneurysm: Consult Attestations 2 Medical Necessity Statement: The patient was evaluated by neurology for reports of increasing right-sided weakness right nails/toe numbness and worsening speech difficulty Coding Level of Care Code 33562 Diagnoses Chronic left arterial ischemic stroke, MCA (middle cerebral artery) I69.30 Acute right-sided weakness R53.1 Dysarthria R47.1 History of surgery for cerebral aneurysm Z98.890
[2023-12-07] MEDS: hyDRALAzine 20 mg/mL INJ 1 mL IVP (17:18)
--- NOTE | 2023-12-07 17:35 | P.HP_ITS ---
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 Patient woke up from sleep 12/06 with the symptoms. Last known well time unknown. Code stroke was not called however patient was evaluated by the neurology Dr. Bowie she was not a candidate of thrombolysis or thrombolytics as per the he has helped her to get up multiple times in the last 1 month, her dysarthria is chronic. Patient has preserved ejection fraction 70%, patient was diagnosed with hypertensive emergency and had score of 5 for right- sided leg weakness, pronator drift right upper extremity worsening dysarthria, Hospitalist was requested to admit the patient for further observation Review of Systems 2 Const: Denies: fever(s) Eyes: Denies: change in vision ENMT: Denies: throat pain Card: Denies: chest pain Resp: Denies: dyspnea GI: Denies: abdominal pain : Denies: flank pain Musc: Reports: back pain Skin/Breast: Denies: rash Neuro: Reports: numbness in extremities, weakness in extremities, lack of coordination, difficulty walking and frequent falls Medications/Allergies Home Medications Medication Instructions Recorded Confirmed Last Taken Type amitriptyline 10 mg tablet 10 mg PO BEDTIME 01/31/21 12/07/23 12/06/23 History zolpidem 10 mg tablet 10 mg PO BEDTIME PRN Sleep 12/02/21 12/07/23 12/06/23 History dapagliflozin propanediol 5 mg 5 mg PO DAILY 07/07/22 12/07/23 12/07/23 History tablet (Farxiga) dulaglutide 0.75 mg/0.5 mL 0.75 mg SUBCUT Q7D 06/11/23 12/07/23 12/04/23 History subcutaneous pen injector (Trulicity) ondansetron 4 mg disintegrating 4 mg PO Q8H PRN nausea and 08/12/23 12/07/23 Unknown Rx tablet vomiting 30 days #30 tabs aspirin 325 mg tablet 325 mg PO DAILY 10/19/23 12/07/23 12/07/23 History atorvastatin 20 mg tablet 20 mg PO DAILY 10/19/23 12/07/23 12/07/23 History insulin aspart U-100 100 unit/mL 20 unit SUBCUT BEDTIME 10/19/23 12/07/23 12/06/23 History subcutaneous solution pantoprazole 40 mg tablet,delayed 40 mg PO DAILY 10/19/23 12/07/23 12/07/23 History release (Protonix) paroxetine HCl 30 mg tablet 30 mg PO DAILY 10/19/23 12/07/23 12/07/23 History amlodipine 5 mg tablet 5 mg PO DAILY #30 tabs 10/21/23 12/07/23 12/07/23 Rx metoprolol tartrate 100 mg tablet 100 mg PO BID 12/07/23 12/07/23 12/07/23 History naproxen 500 mg tablet See Rx Instructions .Route .COMPLEX 12/07/23 12/07/23 12/07/23 History Allergies Allergy/AdvReac Type Severity Reaction Status Date / Time codeine Allergy Unknown Verified 09/28/23 13:32 hydrocodone [From Vicodin] Allergy ADR-Nausea Verified 09/28/23 13:32 lisinopril Allergy ADR-Headach Verified 09/28/23 13:32 e morphine Allergy ADR-Nausea Verified 09/28/23 13:32 nystatin Allergy Unknown Verified 09/28/23 13:32 Penicillins Allergy Unknown Verified 09/28/23 13:32 metformin Allergy Intermediate ADR-Vomitin Uncoded 09/28/23 13:32 g PFSH Acute 2 PFSH: Medical History Hypertension Insulin dependent type 2 diabetes mellitus Hepatitis C CAD (coronary artery disease) Peripheral vascular disease History of CVA (cerebrovascular accident) Brain aneurysm Surgical History History of angioplasty of peripheral vessel History of appendectomy History of cholecystectomy Family History Father Renal cancer Cancer Lung Mother Hypertension CAD (coronary artery disease) Diabetes Social History Smoking and tobacco/nicotine status: current every day tobacco/nicotine user cigarettes Packs smoked per day: 0.5 Years cigarettes smoked: 30 Alcohol intake: former Substance/Drug Use: never Vitals/I&O/Wt Last Vital Signs Temp 98.3 F 12/07/23 11:52 Pulse 82 12/07/23 16:30 Resp 16 12/07/23 14:30 BP 181/134 12/07/23 17:00 Pulse Ox 96 12/07/23 16:30 O2 Del Method Room Air 12/07/23 16:30 Weight last 48 hrs Weight 63.503 kg Physical Exam 2 Narrative: Patient awake and alert Right-sided weakness Dysarthria Presented with right upper extremity, lower extremity weakness of right leg noticed Patient is hypertensive S1, S2 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 transplanted heart: minto heart Qualified Code(s): I25.10 - Atherosclerotic heart disease of minto coronary artery without angina pectoris (2) Peripheral vascular disease: (3) Carotid artery disorder: (4) Insulin dependent type 2 diabetes mellitus: (5) Acute right-sided muscle weakness: (6) Brain aneurysm: (7) History of surgery for cerebral aneurysm: Plan Acute on chronic right-sided weakness Chronic dysarthria Will request CTA head and neck Cannot go for MRI secondary to coiling of aneurysm in the past Continue aspirin and statins Request PT OT and ST Continue cardiac consistent carb diet Added insulin sliding scale Check TSH B12 level NT hemoglobin A1c Most likely she will to go home in next 24 hours after workup Appreciate neuro recommendations Diabetic retinopathy Patient endorsing floaters and change of colors She also has cataract Hypertensive emergency Optimize antihypertensive regimen, if remains resistant to as needed and oral antiplatelet regimen then will switch to Cardene gtt. Full code Cardiac consistent carb diet Sliding scale Chronic thrombocytopenia without acute worsening Attestations 2 Medical Necessity Statement*: Likely will be discharged within 48 hours Diagnoses Coronary artery disease involving minto coronary artery of minto heart without angina pectoris I25.10 Associated angina: without angina Coronary Disease-Associated Artery/Lesion type: minto artery [place] vs. transplanted heart: minto heart Peripheral vascular disease I73.9 Carotid artery disorder I77.9 Insulin dependent type 2 diabetes mellitus E11.9; Z79.4 Acute right-sided muscle weakness M62.81 Brain aneurysm I67.1 History of surgery for cerebral aneurysm Z98.890
[2023-12-07 17:42] LABS: Lactic Acid level (Lactate) 3.1 mmol/L (0.5-2.2)
--- NOTE | 2023-12-07 17:44 | PC.NURSE ---
went to call report, nurse haylie to call back when available.
--- NOTE | 2023-12-07 18:48 | PC.NURSE ---
report called to Wang at 1848
--- NOTE | 2023-12-07 19:12 | CTR_ITS ---
PROCEDURE INFORMATION: Exam: CTA Head With Contrast, Arteriography Exam date and time: 12/07/2023 8:58 PM Age: 58 years old Clinical indication: Screening exam; CVA TECHNIQUE: Imaging protocol: Computed tomographic angiography of the head with contrast. Exam focused on the arteries. 3D rendering (Not supervised by radiologist): MIP and/or 3D reconstructed images were created by the technologist. Radiation optimization: All CT scans at this facility use at least one of these dose optimization techniques: automated exposure control; mA and/or kV adjustment per patient size (includes targeted exams where dose is matched to clinical indication); or iterative reconstruction. Contrast material: OMNI 340; Contrast volume: 100 ml; Contrast route: INTRAVENOUS (IV); COMPARISON: CT angio headneck* [id number] 07/07/2022 7:37 PM RADIATION DOSE METRICS: Total DLP (mGy-cm): 462 FINDINGS: ANTERIOR CIRCULATION: Right internal carotid artery: Moderate calcified plaque is seen involving the right cavernous carotid artery. No significant stenosis or aneurysm is seen involving the petrous, cavernous, or supraclinoid right internal caroid artery. Right middle cerebral artery: Stable appearance to a 0.3 cm aneurysm off a branch point of the mid right M1 branch, best seen on series 4 image 284. No significant stenosis or large vessel occlusion is seen involving the right middle cerebral arteries Right anterior cerebral artery: No occlusion or significant stenosis. No aneurysm. Left internal carotid artery: Moderate calcified plaque is seen involving the left cavernous carotid artery without significant stenosis. No significant stenosis or aneurysm is seen involving the petrous, cavernous, or supraclinoid left internal caroid artery. Left middle cerebral artery: No occlusion or significant stenosis. No aneurysm. Redemonstration of the aneurysm clip in the region of the left middle cerebral artery trifurcation. Left anterior cerebral artery: No occlusion or significant stenosis. No aneurysm. POSTERIOR CIRCULATION: Right vertebral artery: Atherosclerotic plaque is seen involving the proximal intradural right vertebral artery with areas of moderate narrowing unchanged from prior exam. Left vertebral artery: Intradural left vertebral artery demonstrates no occlusion or significant stenosis. No aneurysm. Basilar artery: No occlusion or significant stenosis. No aneurysm. Right posterior cerebral artery: No occlusion or significant stenosis. No aneurysm. Left posterior cerebral artery: No occlusion or significant stenosis. No aneurysm. origin of the left posterior cerebral artery. Brain: Stable left frontal lobe encephalomalacia. Cerebral ventricles: No ventriculomegaly. Bones/joints: Left-sided craniotomy. Soft tissues: Visualized soft tissues are unremarkable. PROCEDURE INFORMATION: Exam: CTA Neck With Contrast Exam date and time: 12/07/2023 8:58 PM Age: 58 years old Clinical indication: Screening exam; CVA TECHNIQUE: Imaging protocol: Computed tomographic angiography of the neck with contrast. Exam focused on the cervical segments of the vasculature. 3D rendering (Not supervised by radiologist): MIP and/or 3D reconstructed images were created by the technologist. Radiation optimization: All CT scans at this facility use at least one of these dose optimization techniques: automated exposure control; mA and/or kV adjustment per patient size (includes targeted exams where dose is matched to clinical indication); or iterative reconstruction. Contrast material: OMNI 340; Contrast volume: 100 ml; Contrast route: INTRAVENOUS (IV); COMPARISON: CT angio headneck* [id number] 07/07/2022 7:37 PM RADIATION DOSE METRICS: Total DLP (mGy-cm): 462 FINDINGS: Right common carotid artery: No stenosis. No dissection or occlusion. Right internal carotid artery: Moderate calcified plaque is seen involving the right carotid bulb and proximal right cervical internal carotid artery. No significant stenosis seen by NASCET criteria. No dissection or occlusion. Right external carotid artery: No occlusion or stenosis of the origin. Left common carotid artery: No stenosis. No dissection or occlusion. Left internal carotid artery: Moderate calcified plaque is seen involving the left carotid bulb and proximal left cervical internal carotid artery with a minimal focal narrowing of 2.2 mm and a distal reference diameter of 4.9 mm corresponding to a 55% stenosis by NASCET criteria. Left external carotid artery: No occlusion or stenosis of the origin. Right vertebral artery: Moderate narrowing of the origin of the right vertebral artery secondary to calcified plaque. The right vertebral artery is otherwise normal in course and caliber. Left vertebral artery: No cervical vertebral artery stenosis. No dissection or occlusion. Soft tissues: Right apical lung bulla/blebs. Biapical lung scarring stable nonspecific bilateral submandibular lymph nodes measuring up to 1.3 x 0.7 cm. Bones/joints: No acute bony abnormality. CT/CT angio headneck* [id number] IMPRESSION: 1. No intracranial large vessel arterial stenosis or occlusion involving the bilateral middle cerebral arteries or anterior cerebral arteries. 2. Stable appearance to 0.3 cm aneurysm off a branch point of the mid right M1 branch. Recommend neurosurgical/neuro interventional consultation and follow up imaging as clinically warranted. 3. Stable appearance to aneurysm clip in the region of the left middle cerebral artery trifurcation. No definite residual aneurysm is seen. Recommend clinical correlation and follow up imaging as clinically warranted. 4. Stable focal moderate narrowing involving the proximal right intradural vertebral artery. IMPRESSION: 1. Moderate calcified plaque involving the left carotid bulb and proximal left cervical internal carotid artery resulting in a minimal focal narrowing of 2.2 mm corresponding to a 55% stenosis by NASCET criteria. 2. Moderate narrowing of the origin of the right vertebral artery secondary to calcified plaque. REFERENCES: NASCET CRITERIA. The degree of stenosis in the cervical segment of the internal carotid artery is based on NASCET criteria. Normal is no stenosis. Mild is less than 50% stenosis. Moderate is 50-69% stenosis. Severe is 70% to 99% stenosis. Total occlusion is no detectable patent lumen.
[2023-12-07] MEDS: acetaminophen 500 mg Tablet PO (19:31)
[2023-12-07] MEDS: chlorthalidone 25 mg Tablet 12.5 MG PO (19:32)
[2023-12-07] MEDS: lisinopril 10 mg Tablet PO (19:33)
[2023-12-07 20:02] LABS: Thyroid Stimulating Hormone 3.43 uIU/mL (0.27-4.20); Vitamin B12 659 pg/mL (232-1245)
[2023-12-07 20:19] LABS: Glucose Point of Care 138 mg/dL (70-110)
[2023-12-07] MEDS: enoxaparin 40 mg/0.4 mL Syringe SUBCUT (20:36)
[2023-12-07] MEDS: iohexol 350 mg/mL 500 mL Btl (per mL) IV (21:00)
[2023-12-07 21:40] LABS: Estmated Average Glucose 189; Hemoglobin A1C 8.2 % (4.0-6.0)
[2023-12-07] MEDS: zolpidem 5 mg Tablet 10 MG PO (22:38)
[2023-12-08] VITALS (91 sets, daily range): BP systolic 131–175; BP diastolic 82–107; PULSE 80–92; RESP 13–26; TEMP 36.6; O2SAT 94–98; BMI 24.0
[2023-12-08 04:33] LABS: Basophils # 0.1 10^3/uL (0.0-0.1); Basophils % 0.7 %; Eosinophils # 0.2 10^3/uL (0.0-0.8); Eosinophils % 2.1 %; Hematocrit 42.5 % (36-47); Lymphocytes # 2.9 10^3/uL (0.8-4.8); Lymphocytes % 41.7 %; Mean Corpuscular HGB Conc 33.9 g/dL (30-55); Mean Corpuscular Hemoglobin 31.2 pg (27-33); Mean Corpuscular Volume 92.2 fl (85-98); Mean Platelet Volume 11.9 fL (7.4-10.4); Monocytes # 0.5 10^3/uL (0.2-0.9); Monocytes % 7.3 %; Neutrophils # 3.37 10^3/uL (1.8-7.7); Neutrophils % 48.1 %; Nucleated Red Blood Cells % 0 %; Platelet Count 139 10^3/cmm (157-399); Red Blood Count 4.61 10^6/uL (3.85-5.65); Red Cell Distribution Width 13.1 % (12.1-15.1); White Blood Count 7.02 10^3/uL (3.29-11.43)
[2023-12-08 04:53] LABS: Anion Gap 18.5 (5-19); Blood Urea Nitrogen 11 mg/dL (6-20); Calcium 9.6 mg/dL (8.5-10.5); Carbon Dioxide 21 mmol/L (22-29); Chloride 100 mmol/L (98-107); Creatinine Clr Calc Pharmacy 86.6166; Glomerular Filtration Rate 85.9 mL/min (90-130); Glucose 157 mg/dL (65-115); Magnesium 1.8 mg/dL (1.7-2.3); Osmolality Calculated 285 mOsm/kg (285-295); Potassium 3.5 mmol/L (3.5-5.1); Sodium 136 mmol/L (136-145)
[2023-12-08 05:40] LABS: Glucose Point of Care 157 mg/dL (70-110)
[2023-12-08] MEDS: pantoprazole DR 40 mg Tablet PO (09:12)
[2023-12-08] MEDS: metoprolol tartrate 50 mg Tablet 100 MG PO (09:12)
[2023-12-08] MEDS: atorvastatin 40 mg Tablet PO (09:12)
[2023-12-08] MEDS: aspirin 325 mg Tablet PO (09:12)
[2023-12-08] MEDS: lisinopril 10 mg Tablet PO (09:12)
[2023-12-08] MEDS: chlorthalidone 25 mg Tablet 12.5 MG PO (09:12)
[2023-12-08] MEDS: amlodipine 5 mg Tablet 10 MG PO (09:12)
[2023-12-08] MEDS: insulin lispro 100 unit/1 mL SUBCUT (09:13)
--- NOTE | 2023-12-08 10:16 | P.DS_ITS ---
Discharge Providers Date of Admission: 12/07/23 16:58 Date of Discharge: December 08, 2023 Attending Provider at Admission: Vickie Alvarez MD Attending Provider at Discharge: Vickie Alvarez MD Primary Care Provider: Salomon Harp MD Diagnoses at Discharge Discharge Diagnosis (1) CAD (coronary artery disease): Status: Acute Qualifiers: Associated angina: without angina Coronary Disease-Associated Artery/Lesion type: [place] artery [place] vs. transplanted heart: [place] heart Qualified Code(s): I25.10 - Atherosclerotic heart disease of [place] coronary artery without angina pectoris (2) Peripheral vascular disease: Status: Acute (3) Carotid artery disorder: Status: Acute (4) Insulin dependent type 2 diabetes mellitus: Status: Acute (5) Acute right-sided muscle weakness: Status: Acute (6) Brain aneurysm: Status: Acute (7) History of surgery for cerebral aneurysm: Status: Acute Reason for Visit Reason for Visit: hypertension Hospital Course Hospital Course This excerpt has been taken from the neurology consultation note pleasant 58-year-old female with history of of left hemispheric aneurysm coiling surgery with residual right-sided weakness and speech difficulty with reports of increasing right-sided weakness and numbness after awakening from sleep on 12/07/2023. Since the patient's last known well could not be determined, and the patient has history of left hemispheric aneurysm surgery the patient was not a candidate for thrombolytics and no thrombolytics were administered. According to the patient, the right sided weakness and speech difficulty has continued but according to the patient's the patient's speech has been this way for years. The patient underwent carotid duplex study on 09/10/2023 which revealed mild bilateral internal carotid artery stenosis measuring less than 50%. 2D echocardiogram 08/15/2021 was reported to be essentially unrevealing with ejection fraction of 70%. Cardiac event monitoring 10/14/2021 which was reported to be within normal limits. Patient admitted with elevated blood pressure in the emergency room. Blood pressure currently 186/129 heart rate 85 O2 saturation 96% on room air. NIH score = 5 (secondary to patient reporting weakness in the right leg with inability to lift the right leg off the bed, pronator drift in the right upper extremity, worsening dysarthria). Note: According to the patient's who was at the bedside in the emergency department room #2, the patient is weakness and speech findings are chronic. Serum glucose 141. Hospital course Patient was admitted for management evaluation of right-sided weakness, she was deemed not a suitable candidate for thrombolysis or thrombolytics. Patient symptoms improved in the ER, her weakness of right side seems chronic in nature. Patient does not want to go to rehab, she was able to tolerate diet, she is wanting to go home and stating that her would be able to help her out, will try to arrange home health for her. CTA head and neck revealed left-sided carotid stenosis 55%, patient is stating that she is already following with Dr. Davies to keep an eye on carotid stenosis. She is already on high-dose aspirin and statins Physical Exam Narrative: Pleasant cooperative Chronic right-sided weakness No significant dysarthria Eating food Hemodynamically stable Discharge Data Studies Completed and Pending Completed Studies During Hospitalization Category Date Time Status CT head wo con* [id number] Stat Cat Scan 12/07/23 11:54 Completed CTA head neck [CT angio headneck* [id number]] Routine Cat Scan 12/07/23 19:12 Completed XR chest 1V portable [id number] Stat Exams 12/07/23 11:54 Completed Pending at discharge Category Date Time Status Blood Culture Stat Lab 12/07/23 13:56 Results Radiology Impressions Chest X-Ray 12/07/23 11:54 IMPRESSION: No acute findings. Head CT 12/07/23 11:54 IMPRESSION: 1. No evidence of intracranial hemorrhage or mass effect. 2. Moderate small vessel changes with moderate parenchymal volume loss. 3. LEFT frontal craniotomy with encephalomalacia in the LEFT frontal lobe unchanged from previous. 4. No acute intracranial findings. Head/Neck CTA 12/07/23 19:12 IMPRESSION: 1. No intracranial large vessel arterial stenosis or occlusion involving the bilateral middle cerebral arteries or anterior cerebral arteries. 2. Stable appearance to 0.3 cm aneurysm off a branch point of the mid right M1 branch. Recommend neurosurgical/neuro interventional consultation and follow up imaging as clinically warranted. 3. Stable appearance to aneurysm clip in the region of the left middle cerebral artery trifurcation. No definite residual aneurysm is seen. Recommend clinical correlation and follow up imaging as clinically warranted. 4. Stable focal moderate narrowing involving the proximal right intradural vertebral artery. IMPRESSION: 1. Moderate calcified plaque involving the left carotid bulb and proximal left cervical internal carotid artery resulting in a minimal focal narrowing of 2.2 mm corresponding to a 55% stenosis by NASCET criteria. 2. Moderate narrowing of the origin of the right vertebral artery secondary to calcified plaque. REFERENCES: NASCET CRITERIA. The degree of stenosis in the cervical segment of the internal carotid artery is based on NASCET criteria. Normal is no stenosis. Mild is less than 50% stenosis. Moderate is 50-69% stenosis. Severe is 70% to 99% stenosis. Total occlusion is no detectable patent lumen. ADDENDUM: 12/07/23 0415 ADDENDUM: THIS REPORT CONTAINS FINDINGS THAT MAY BE CRITICAL TO PATIENT CARE. The findings were verbally communicated via telephone conference with Dr. Keenan at 10:31 PM CDT on 12/07/2023. The findings were acknowledged and understood. Laboratory Results WBC 7.02 10^3/uL (3.29-11.43) 12/08/23 04:10 Corrected WBC Cancelled 12/07/23 12:54 RBC 4.61 10^6/uL (3.85-5.65) 12/08/23 04:10 Hgb 14.40 g/dL (11.27-16.99) 12/08/23 04:10 Hct 42.5 % (36-47) 12/08/23 04:10 MCV 92.2 fl (85-98) 12/08/23 04:10 MCH 31.2 pg (27-33) 12/08/23 04:10 MCHC 33.9 g/dL (30-55) 12/08/23 04:10 RDW 13.1 % (12.1-15.1) 12/08/23 04:10 Plt Count 139 10^3/cmm (157-399) L D 12/08/23 04:10 MPV 11.9 fL (7.4-10.4) H 12/08/23 04:10 Gran % Cancelled 12/07/23 12:54 Neut % (Auto) 48.1 % 12/08/23 04:10 Lymph % (Auto) 41.7 % 12/08/23 04:10 Long % (Auto) 7.3 % 12/08/23 04:10 Eos % (Auto) 2.1 % 12/08/23 04:10 Baso % (Auto) 0.7 % 12/08/23 04:10 Neut # (Auto) 3.37 10^3/uL (1.8-7.7) 12/08/23 04:10 Lymph # (Auto) 2.9 10^3/uL (0.8-4.8) 12/08/23 04:10 Long # (Auto) 0.5 10^3/uL (0.2-0.9) 12/08/23 04:10 Eos # (Auto) 0.2 10^3/uL (0.0-0.8) 12/08/23 04:10 Baso # (Auto) 0.1 10^3/uL (0.0-0.1) 12/08/23 04:10 Absolute Gran (auto) Cancelled 12/07/23 12:54 Nucleated RBC % (auto) 0 % 12/08/23 04:10 Nucleated RBCs # 0.0 /100WBC 12/08/23 04:10 PT 13.50 SECONDS (12.1-14.9) 12/07/23 13:45 INR 1.00 (0.8-1.2) 12/07/23 13:45 APTT 26.6 SECONDS (23.9-36.7) 12/07/23 13:45 Sodium 136 mmol/L (136-145) 12/08/23 04:10 Potassium 3.5 mmol/L (3.5-5.1) 12/08/23 04:10 Chloride 100 mmol/L (98-107) 12/08/23 04:10 Carbon Dioxide 21 mmol/L (22-29) L 12/08/23 04:10 Anion Gap 18.5 (5-19) 12/08/23 04:10 BUN 11 mg/dL (6-20) 12/08/23 04:10 Creatinine 0.7 mg/dL (0.5-0.9) 12/08/23 04:10 GFR Calculation 85.9 mL/min (90-130) L 12/08/23 04:10 Glucose 157 mg/dL (65-115) H 12/08/23 04:10 POC Glucose 157 mg/dL (70-110) H 12/08/23 05:32 Estimat Average Glucose 189 12/07/23 14:55 Hemoglobin A1c 8.2 % (4.0-6.0) H 12/07/23 14:55 Calculated Osmolality 285 mOsm/kg (285-295) 12/08/23 04:10 Lactic Acid 2.6 mmol/L (0.5-2.2) H 12/07/23 12:54 Lactic Acid (Sepsis) 3.1 mmol/L (0.5-2.2) H 12/07/23 16:15 Calcium 9.6 mg/dL (8.5-10.5) 12/08/23 04:10 Magnesium 1.8 mg/dL (1.7-2.3) 12/08/23 04:10 Total Bilirubin 0.5 mg/dL (0.15-1.2) 12/07/23 12:54 AST 29 U/L (0-32) 12/07/23 12:54 ALT 27 U/L (0-33) 12/07/23 12:54 Alkaline Phosphatase 132 U/L (35-105) H 12/07/23 12:54 C-Reactive Protein 3.0 mg/L (0.0-4.9) 12/07/23 12:54 Total Protein 7.3 g/dL (6.6-8.7) 12/07/23 12:54 Albumin 3.8 g/dL (3.5-5.2) 12/07/23 12:54 Globulin 3.5 g/dL (1.3-4.6) 12/07/23 12:54 Vitamin B12 659 pg/mL (232-1245) 12/07/23 12:54 TSH 3.43 uIU/mL (0.27-4.20) 12/07/23 12:54 Urine Color Yellow (Yellow) 12/07/23 12:21 Urine Appearance Clear (CLEAR) 12/07/23 12:21 Urine pH 7 (5-7) 12/07/23 12:21 Ur Specific [place] 1.005 (1.005-1.030) 12/07/23 12:21 Urine Protein Neg (Negative) 12/07/23 12:21 Urine Glucose (UA) 4+ (Normal) H 12/07/23 12:21 Urine Ketones Negative (Negative) 12/07/23 12:21 Urine Blood Neg (Negative) 12/07/23 12:21 Urine Nitrate Negative (Negative) 12/07/23 12:21 Urine Bilirubin Neg (Negative) 12/07/23 12:21 Urine Urobilinogen Norm mg/dL (Negative) 12/07/23 12:21 Ur Leukocyte Esterase Trace (Negative) H 12/07/23 12:21 Urine RBC None /hpf (0-2) 12/07/23 12:21 Urine WBC 10-15 /hpf (0-5) H 12/07/23 12:21 Ur Squamous Epith Cells 5-10 /hpf (0-5) H 12/07/23 12:21 Amorphous Sediment Not Reportable 12/07/23 12:21 Urine Bacteria 1+ /hpf (NONE) H 12/07/23 12:21 Vitals Last Vital Signs Temp 97.8 F 12/08/23 07:32 Pulse 84 12/08/23 08:11 Resp 17 12/08/23 08:11 BP 175/107 12/08/23 07:32 Pulse Ox 94 12/08/23 08:11 O2 Del Method Room Air 12/08/23 08:11 Discharge Plan Discharge Patient Disposition: Home Condition: Stable Prescriptions: Continued amitriptyline 10 mg tablet 10 mg PO BEDTIME Trulicity 0.75 mg/0.5 mL pen injector 0.75 mg SUBCUT Q7D Rx Instructions: FRIDAYS ondansetron 4 mg tablet,disintegrating 4 mg PO Q8H PRN (Reason: nausea and vomiting) 30 Days Qty: 30 0RF dapagliflozin propanediol [Farxiga] 5 mg Tablet 5 mg PO DAILY metoprolol tartrate 100 mg tablet 100 mg PO BID naproxen 500 mg tablet See Rx Instructions .ROUTE .COMPLEX Rx Instructions: TAKE 1 TABLET BY MOUTH TWICE DAILY for 7 days THEN NEEDED FOR PAIN. STOP FOR stomach pain. zolpidem 10 mg Tablet 10 mg PO BEDTIME PRN (Reason: Sleep) Hold Instructions: hold until seen by primary care doc atorvastatin 20 mg tablet 20 mg PO DAILY aspirin 325 mg Tablet 325 mg PO DAILY insulin aspart U-100 100 unit/mL solution 20 unit SUBCUT BEDTIME paroxetine HCl 30 mg tablet 30 mg PO DAILY pantoprazole [Protonix] 40 mg tablet,delayed release (DR/EC) 40 mg PO DAILY amlodipine 5 mg Tablet 5 mg PO DAILY Qty: 30 0RF Discharge Orders: Discharge Order (Routine); Ordered 12/08/23 Ordered By: Vickie Alvarez Referrals: Salomon Harp MD [Primary Care Provider] - 12/16/23 2:00 pm Patient Instructions: Coronary Artery Disease (DC), Peripheral Vascular Disease (DC), Hypertension (DC), Opioid Safety Activity Restrictions/Additional Instructions: To utilize Medicaid Transport, you must call [facility] Reservation line. Remember: To schedule a ride call (TTY: [phone]). All rides must be for a [employer] covered service. You must have no other way to get to and from your covered service. You can schedule a ride Thursday through Thursday from 7 a.m. to 6 p.m. You must call at least two days before your routine appointment if you live in an urban county; hospital discharges or rides to urgent care can be scheduled same day You must call at least three days before your routine appointment if you live in a [facility] or rural county; hospital discharges or rides to urgent care can be scheduled same day. Have your appointment information ready when you call. Be ready at least 15 minutes before your ride is scheduled to arrive. If your ride is late: Call [facility] at if: You have waited more than 15 minutes after the pick-up time scheduled during the original ride request You have waited more than one (1) hour after calling [facility] to schedule a return ride, if a return ride was not scheduled during the original request You cannot reach the fence post driver Discharge Attestations Time Spent in Discharge Care*: greater than 30 min Status at Discharge: Cognitive status at discharge: cognitively intact , Behavioral status at discharge: cooperative , Quality Metrics Clinical Quality Measures [ No reported AMI, CVA or VTE this stay] Coding Level of Care Code Acute Code for [facility] Fwd Diagnoses Coronary artery disease involving [place] coronary artery of [place] heart without angina pectoris I25.10 Associated angina: without angina Coronary Disease-Associated Artery/Lesion type: [place] artery [place] vs. transplanted heart: [place] heart Peripheral vascular disease I73.9 Carotid artery disorder I77.9 Insulin dependent type 2 diabetes mellitus E11.9; Z79.4 Acute right-sided muscle weakness M62.81 Brain aneurysm I67.1 History of surgery for cerebral aneurysm Z98.890
--- NOTE | 2023-12-08 10:24 | PC.CHAP ---
Pastoral Care Encounter/Spiritual Assessment Type of Contact [] Declined vehicle window tinter visit [] Patient/Family/Request visit [] Outpatient visit [] Follow-up visit [] Physician referral [] Code/Alert [x] Routine visit [] Staff referral [] Actively dying [] Patient sleeping [x] Family support [] [] Out of room [] Palliative care [] [] Receiving care in room [] Pre-surgical visit [] Trauma [] Long length of stay [] ICU visit [] Other: Relational/Emotional Strength x[] Patient feels connected with others/family/visitors/staff [] Distress [] Loneliness/isolation [] Abandonment Spirituality of Patient [x] Person of Susy [] Attends Jainism of their Susy [x] Believes in Prayer [] Reads Bible or Buddhism materials [] There are Spiritual issues to be addressed Insurance Advisor Interventions [x] Prayer x] Active listening [] Non-anxious presence [] Spiritual/emotional support [] Crisis/trauma care [] Spiritual counseling [] Bereavement support [] Provided bereavement packet [] Provided Bible/devotional materials [] Provided toy/stuffed animal, coloring book to patient or family member [] Provided Communion [] Anointing/[place] [] Salvation [x] Completed spiritual assessment [] Other: Impact on Illness or Injury [] Angry [] Fearful [] Anxious [] Often cries [] Exhaustion [] Unable to work [x] Unable to attend religious [] Unable to walk/stand [] Unable to read [] Unable to drive [] Unable to eat/drink [] Unable to sleep [] Unable to be with family [] Patient intubated [] Other: Summary Time spent with patient 10 min
--- NOTE | 2023-12-08 10:57 | P.PN_ITS ---
Subjective 2 Subjective: Patient fell in the hospital She changed her mind and would like to go to longterm now Vitals/I&O/Wt Last Vital Signs Temp 97.8 F 12/08/23 10:39 Pulse 83 12/08/23 10:39 Resp 19 H 12/08/23 10:39 BP 175/107 12/08/23 10:39 Pulse Ox 94 12/08/23 10:39 O2 Del Method Room Air 12/08/23 10:30 12/07/23 12/08/23 12/08/23 22:59 06:59 14:59 Intake Total 1530 / 1530 240 / 240 Output Total 600 / 600 Balance 930 / 930 240 / 240 Weight last 48 hrs Weight 67.631 kg Weight 63.503 kg Physical Exam 2 Narrative: Awake and alert S1, S2 Hypertensive Chronic right-sided weakness Abdomen soft Currently on room air Data 12/08/23 04:10 12/08/23 04:10 Micro: Microbiology 12/07/23 13:56 Blood Culture - Preliminary Blood SPECIMEN COLLECTED 12/07/23 13:45 Blood Culture - Preliminary Blood SPECIMEN COLLECTED A&P Assessment and plan (1) Hypertension: Qualifiers: Hypertension type: primary hypertension Qualified Code(s): I10 - Essential (primary) hypertension (2) Peripheral vascular disease: (3) Carotid artery disorder: (4) Thrombocytopenia: (5) Acute right-sided muscle weakness: (6) History of CVA (cerebrovascular accident): (7) Dysarthria: Plan Hypertensive urgency Adjust antibiotic regimen Chronic right-sided weakness Left carotid bulb 55% stenosis Outpatient evaluation Full code Cardiac consistent carb diet DVT prophylaxis on board Continue with PT and OT evaluate Attestations 2 Medical Necessity Statement*: Continue medical management Diagnoses Primary hypertension I10 Hypertension type: primary hypertension Peripheral vascular disease I73.9 Carotid artery disorder I77.9 Thrombocytopenia D69.6 Acute right-sided muscle weakness M62.81 History of CVA (cerebrovascular accident) Z86.73 Dysarthria R47.1
[2023-12-08] MEDS: spironolactone 25 mg Tablet PO (11:17)
[2023-12-08 11:45] LABS: Glucose Point of Care 136 mg/dL (70-110)
--- NOTE | 2023-12-08 12:33 | PC.NURSE ---
Patient currently sitting in chair with chair alarm plugged in.
--- NOTE | 2023-12-08 17:16 | PC.NURSE ---
Patient's stopped nurse Claudette Leonardo RN in the tucker and told her that he and the patient had been asking for a nicotine patch all day and still hadn't got one. This nurse confirmed with nurse resident, Brock, that patient had not asked for any nicotine at all that day. Previously she asked for a wheelchair to be wheeled around in and nurse advised she got have one but could not leave the floor, as she was an elopment risk. Patient then declined wheelchair. Nurse went down to tell patient that Dr. Alvarez had given written ok to start nicotine patch and I was just waiting for pharmacy to verify it. Patient then told me she was leaving. I asked her if she wanted to leave AMA and she did not respond. I told her we could get her an ama paper to sign and again she did not respond. While this nurse came to the nurses' station to see if nicotine had been verified, I asked LANI Min if she would go tell the patient we needed to move her closer to the nurses' station due to her being an elopment risk and high fall risk, as she had already fallen once this morning. Mechelle came back and told me that the patient wanted to leave and was not going to sign ama paperwork. I again went in the room and pointed out to the patient how weak she was an how it was not a bond idea to leave ama but did acknowledge that she had the right to leave anytime. Patient then began telling myself and Mechelle about how her was talking to his ex girlfriend and how he would be no help at home. I again asked her if this was an appropriate time to go home if all this was going on and she still said yes. I removed patient's 02 monitor, telemetry, and IV and we got the patient a wheelchair. She did not sign ama paperwork. Dr. Alvarez notified of what was going on. Nurse voalted doctor 101 is getting dressed to leave ama to which Dr. Alvarez replied ok. By this time Rochelle Robert RNsupervisor dock, was in the room to confirm patient really did want to leave ama and she again said she did. During this time the patient and her got into a verbal argument. Security was notified but not needed. Nurse told patient that if she did leave ama, it was likely that insurance would not pay for the stay to which the patient had no response. Hope then pushed patient out to the main entrance where complained that he had lost his cigarettes and asked Hope to go back to the room and look for them, but Hope couldn't find them. I told the patient MAURO was here if she needed absolutely anything and she said OK. apologized as patient was being wheeled out. The patient wss upset that she could not have her amitriptylline and I told her the neurologist discontinued it.
== END 2023-12-08 17:36 | disposition left against medical advice (07) ==
LOC: ER 16:15 → CSU 18:20
PROVIDERS: Admitting Provider Internal Medicine; Emergency Provider Emergency Medicine; PCP Family Medicine; Visit Provider Internal Medicine
DX: R53.1 Weakness (principal); I25.10 Atherosclerotic heart disease of native coronary artery without angina pectoris; Z53.29 Procedure and treatment not carried out because of patient's decision for other reasons; I73.9 Peripheral vascular disease, unspecified; I77.9 Disorder of arteries and arterioles, unspecified; E11.9 Type 2 diabetes mellitus without complications; Z79.4 Long term (current) use of insulin; I67.1 Cerebral aneurysm, nonruptured; Z98.890 Other specified postprocedural states; Z79.82 Long term (current) use of aspirin; I69.834 Monoplegia of upper limb following other cerebrovascular disease affecting left non-dominant side; I10 Essential (primary) hypertension; Z86.19 Personal history of other infectious and parasitic diseases; F17.210 Nicotine dependence, cigarettes, uncomplicated; E11.319 Type 2 diabetes mellitus with unspecified diabetic retinopathy without macular edema; I16.0 Hypertensive urgency
CPT/HCPCS: 36415; 36416; 70450; 70496; 70498; 71045; 80048; 80053; 81001; 82607; 82962; 83036; 83605; 83735; 84443; 85025; 85610; 85730; 86140; 87040; 92523; 92610; 93005; 96365; 96372; 96375; 96376; 97110; 97116; 97161; 97165; 99285; G0378; J0360; J0696; J1650; J1815; J7030; Q9967

== ENCOUNTER 2023-12-09 14:57 | Inpatient (IN) | payer MEDICAID, SELFPAY ==
--- NOTE | 2023-12-09 15:00 | XRR_ITS ---
PROCEDURE INFORMATION: Exam: XR Right Hip Exam date and time: 12/09/2023 3:09 PM Age: 58 years old Clinical indication: Pain and injury or trauma; Fall; Blunt trauma (contusions or hematomas); Hip pain; Right hip; Injury date: 12/09/23 TECHNIQUE: Imaging protocol: Radiologic exam of the right hip. Views: 1 view hip with pelvis when performed. COMPARISON: CT abdomen pelvis w con* [id number] 10/19/2023 12:49 PM FINDINGS: Bones/joints: Comminuted and impacted subcapital femoral neck fracture (1.7 cm impaction). No dislocation. 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 Soft tissues: Moderate soft tissue vascular calcifications. Soft tissue swelling right thigh. XR/XR hip RT 2-3V wo/w pel* [id number] IMPRESSION: Comminuted and impacted subcapital femoral neck fracture (1.7 cm impaction).
[2023-12-09 15:03] VITALS: BP 184/94; PULSE 82; RESP 18; TEMP 36.8; O2SAT 97; BMI 23.3
[2023-12-09 15:35] VITALS: BP 107/83; PULSE 81; RESP 16; O2SAT 93
--- NOTE | 2023-12-09 15:36 | W.ED.EXTPRO ---
HPI - Extremity Problem General: Chief complaint: Extremity Injury, Lower Stated complaint: Fall/ RT hip pain Time Seen by Provider: 12/09/23 14:59 History of Present Illness: 58-year-old female with a history of stroke, hypertension, coronary artery disease, insulin-dependent diabetes mellitus and history of a recent possible CVA. She had been admitted in went home a couple days ago. Apparently she fell and is now having right-sided hip pain. No head injury. No new focal motor deficits. Review of Systems Narrative: Constitutional symptoms: Negative except as documented in HPI. Skin symptoms: Negative except as documented in HPI. Eye symptoms: Negative except as documented in HPI. ENMT symptoms: Negative except as documented in HPI. Respiratory symptoms: Negative except as documented in HPI. Cardiovascular symptoms: Negative except as documented in HPI. Gastrointestinal symptoms: Negative except as documented in HPI. Genitourinary symptoms: Negative except as documented in HPI. Musculoskeletal symptoms: Negative except as documented in HPI. Neurologic symptoms: Negative except as documented in HPI. Psychiatric symptoms: Negative except as documented in HPI. Endocrine symptoms: Negative except as documented in HPI. PFSH ED PFSH: Medical History Hypertension Insulin dependent type 2 diabetes mellitus Hepatitis C CAD (coronary artery disease) Peripheral vascular disease History of CVA (cerebrovascular accident) Brain aneurysm Surgical History History of angioplasty of peripheral vessel History of appendectomy History of cholecystectomy Family History Father Renal cancer Cancer Lung Mother Hypertension CAD (coronary artery disease) Diabetes Social History Smoking and tobacco/nicotine status: current every day tobacco/nicotine user cigarettes Packs smoked per day: 0.5 Years cigarettes smoked: 30 Alcohol intake: former Substance/Drug Use: never Physical Exam Narrative: EXAM NARRATIVE: General: Alert, no acute distress. Skin: Warm, dry. Head: Normocephalic, atraumatic. Neck: Supple, trachea midline. Eye: Extraocular movements are intact. Ears, nose, mouth and throat: mucosa moist. Cardiovascular: Regular, Normal peripheral perfusion. Respiratory: Lungs are clear to auscultation, respirations are non-labored, breath sounds are equal, Symmetrical chest wall expansion. Gastrointestinal: Soft, Nontender, Non distended, Normal bowel sounds. Musculoskeletal: Shortening of the right leg. Pain at the hip with any kind of movement. Neurological: Alert and oriented, No focal neurological deficit observed. Psychiatric: Cooperative, odd affect. Course Vital Signs: Vital signs: Vital Signs Temperature 98.2 F 12/09/23 15:03 Pulse Rate 81 12/09/23 15:35 Respiratory Rate 16 12/09/23 15:35 Blood Pressure 107/83 12/09/23 15:35 Pulse Oximetry 93 12/09/23 15:35 Oxygen Delivery Me thod Room Air 12/09/23 15:35 MDM - Extremity (Nontraumatic) Medical Decision Making Medical decision making: Differential diagnosis including but not limited to and based on the above HPI, review of systems and physical exam: In this patient with traumatic right hip pain and x-ray was ordered initially to evaluate for fracture. There was a hip fracture and so presurgical workup was done including an EKG chest x-ray and basic lab work Orders placed to evaluate differential diagnosis based on the above differential, HPI and physical exam Lab Review: Laboratory results were reviewed and interpreted by myself the emergency room physician. Lab work is pending at the time of admission. I reviewed the patient's medical record. Reexamination: Patient remained stable. Still with shortening of the right leg. Pain in the right hip. No new focal motor deficits. No new altered mental status. She has no increased work of breathing at this time. Consultation: I spoke with Dr. Cisneros who has graciously accepted a consultation for surgery. Given the patient's small body habitus and low BMI this should be an acceptable surgery to be done here versus having to transfer to another facility. Consultation: I spoke with Dr. Alvarez, who is on-call for the hospitalist. He is familiar with the patient as he discharged her couple days ago. He agrees to admission. Assessment and plan: Hip fracture -I discussed the patient with the hospitalist on-call who is admitting the patient. - Discussed findings and plan with patient. Answered any questions. - All laboratory values were reviewed and interpreted personally by myself, the ER physician - All imaging was reviewed and interpreted personally by myself, the ER physician. - Evaluation and treatment of this problem were appropriate in the emergency setting All radiology interpretation(s) finalized by discharge Discharge Plan Discharge Patient Disposition: Admitted As Inpatient Clinical Impression: Closed fracture of right hip Qualifiers: Encounter type: initial encounter Qualified Code(s): S72.001A - Fracture of unspecified part of neck of right femur, initial encounter for closed fracture Condition: Stable Coding Level of Care Code ED [employer] for Mario Nielsen
--- NOTE | 2023-12-09 15:46 | CTR_ITS ---
PROCEDURE INFORMATION: Exam: CT Head Without Contrast Exam date and time: 12/09/2023 5:17 PM Age: 58 years old Clinical indication: Injury or trauma; Fall; Other: Presurgical workup; Prior surgery; Surgery date: 6+ months; Surgery type: HX of brain aneurysm TECHNIQUE: Imaging protocol: Computed tomography of the head without contrast. Radiation optimization: All CT scans at this facility use at least one of these dose optimization techniques: automated exposure control; mA and/or kV adjustment per patient size (includes targeted exams where dose is matched to clinical indication); or iterative reconstruction. COMPARISON: CT angio headneck* [id number] 12/07/2023 8:58 PM RADIATION DOSE METRICS: Total DLP (mGy-cm): 1034.78 FINDINGS: Brain: There is a large area of encephalomalacia involving the posterior portion of the left frontal lobe along with the anterior portion of the left temporal lobe. There is an overlying healed surgical bone flap. I see no evidence of acute hemorrhage, mass effect or infarct. Cerebral ventricles: No ventriculomegaly. No midline shift. Paranasal sinuses: Visualized sinuses are unremarkable. No fluid levels. Mastoid air cells: Visualized mastoid air cells are well aerated. Bones: An aneurysm clip is noted in the left temporal fossa. Soft tissues: Unremarkable. CT/CT head wo con* [id number] IMPRESSION: 1. No acute findings. 2. Surgical changes noted on the left
--- NOTE | 2023-12-09 15:49 | XRR_ITS ---
PROCEDURE INFORMATION: Exam: XR Chest Exam date and time: 12/09/2023 3:58 PM Age: 58 years old Clinical indication: Pre-operative exam; Cardiovascular screening and respiratory screening exam; Additional info: Presurgical TECHNIQUE: Imaging protocol: Radiologic exam of the chest. Views: 1 view. COMPARISON: CR XR chest 1V portable [id number] 12/07/2023 12:03 PM FINDINGS: Airway: Patent Lungs: Unremarkable. No consolidation. Pleural spaces: Left costophrenic angle not completely included. No large pleural effusion or pneumothorax. Heart/Mediastinum: Unremarkable. No cardiomegaly. Vasculature: Slightly calcified aortic arc. Bones/joints: No acute skeletal abnormality or aggressive osseous lesion. XR/XR chest 1V portable [id number] IMPRESSION: No acute findings.
--- NOTE | 2023-12-09 16:03 | PM.HP ---
Providers/Chief Complaint Primary Care Provider: Salomon Harp MD Chief Complaint: Fall/ RT hip pain History of Present Illness Eboni Perez is a 58 year old female who left AMA yesterday, came in today after sustaining a fall at home, patient left home yesterday because she was craving nicotine, we were in the midst of correction placement when she decided to leave AMA, in the ER she has been diagnosed with hip fracture, Dr. Cisneros consulted. She is hemodynamically stable. Patient is stating that she has felt 2 times at home, found her supine in the bathroom floor. Patient is regretting going home against medical recommendations yesterday. The ER she has been diagnosed with hip fracture after Amelia has been consulted, potassium will be repleted Review of Systems Const: Denies: fever(s) Eyes: Denies: change in vision ENMT: Denies: throat pain Card: Denies: chest pain Resp: Denies: dyspnea GI: Denies: abdominal pain Medications/Allergies Home Medications Medication Instructions Recorded Confirmed Last Taken Type amitriptyline 10 mg tablet 10 mg PO BEDTIME 01/31/21 12/07/23 12/06/23 History zolpidem 10 mg tablet 10 mg PO BEDTIME PRN Sleep 12/02/21 12/07/23 12/06/23 History dapagliflozin propanediol 5 mg 5 mg PO DAILY 07/07/22 12/07/23 12/07/23 History tablet (Farxiga) dulaglutide 0.75 mg/0.5 mL 0.75 mg SUBCUT Q7D 06/11/23 12/07/23 12/04/23 [facility] ondansetron 4 mg disintegrating 4 mg PO Q8H PRN nausea and 08/12/23 12/07/23 Unknown Rx tablet vomiting 30 days #30 tabs aspirin 325 mg tablet 325 mg PO DAILY 10/19/23 12/07/23 12/07/23 History atorvastatin 20 mg tablet 20 mg PO DAILY 10/19/23 12/07/23 12/07/23 History insulin aspart U-100 100 unit/mL 20 unit SUBCUT BEDTIME 10/19/23 12/07/23 12/06/23 History subcutaneous solution pantoprazole 40 mg tablet,delayed 40 mg PO DAILY 10/19/23 12/07/23 12/07/23 History release (Protonix) paroxetine HCl 30 mg tablet 30 mg PO DAILY 10/19/23 12/07/23 12/07/23 History amlodipine 5 mg tablet 5 mg PO DAILY #30 tabs 10/21/23 12/07/23 12/07/23 Rx metoprolol tartrate 100 mg tablet 100 mg PO BID 12/07/23 12/07/23 12/07/23 History naproxen 500 mg tablet See Rx Instructions .Route .COMPLEX 12/07/23 12/07/23 12/07/23 History Allergies Allergy/AdvReac Type Severity Reaction Status Date / Time codeine Allergy Unknown Verified 09/28/23 13:32 hydrocodone [From Vicodin] Allergy ADR-Nausea Verified 09/28/23 13:32 morphine Allergy ADR-Nausea Verified 09/28/23 13:32 nystatin Allergy Unknown Verified 09/28/23 13:32 Penicillins Allergy Unknown Verified 09/28/23 13:32 metformin Allergy Intermediate ADR-Vomitin Uncoded 09/28/23 13:32 g PFSH Acute PFSH: Medical History Dysarthria Acute right-sided weakness Acute right-sided muscle weakness Cerebrovascular accident Carotid artery disorder Chronic left arterial ischemic stroke, MCA (middle cerebral artery) Hypertension Insulin dependent type 2 diabetes mellitus Hepatitis C CAD (coronary artery disease) Peripheral vascular disease History of CVA (cerebrovascular accident) Brain aneurysm Surgical History History of surgery for cerebral aneurysm History of angioplasty of peripheral vessel History of appendectomy History of cholecystectomy Family History Father Renal cancer Cancer Lung Mother Hypertension CAD (coronary artery disease) Diabetes Social History Smoking and tobacco/nicotine status: current every day tobacco/nicotine user cigarettes Packs smoked per day: 0.5 Years cigarettes smoked: 30 Alcohol intake: former Substance/Drug Use: never Vitals/I&O/Wt Last Vital Signs Temp 98.2 F 12/09/23 15:03 Pulse 81 12/09/23 15:35 Resp 16 12/09/23 15:35 BP 107/83 12/09/23 15:35 Pulse Ox 93 12/09/23 15:35 O2 Del Method Room Air 12/09/23 15:35 Weight last 48 hrs Weight 65.771 kg Physical Exam Narrative: Chronic right-sided weakness Chronic dysarthria GCS 15 there is no new focal deficit Looks dehydrated No sign of neurovascular compromise of lower extremities Currently on room air Hemodynamically stable S1, S2 Data 12/09/23 16:44 12/09/23 16:44 A&P Assessment and plan (1) Depressive disorder: (2) Hypertension: Qualifiers: Hypertension type: primary hypertension Qualified Code(s): I10 - Essential (primary) hypertension (3) Thrombocytopenia: (4) Closed fracture of right hip: Qualifiers: Encounter type: initial encounter Qualified Code(s): S72.001A - Fracture of unspecified part of neck of right femur, initial encounter for closed fracture Plan Hip fracture Mechanical fall Patient recently left AMA SEWER HEAD after midnight Dr. Painting consulted Start IV fluids for today I would continue atorvastatin and metoprolol Full code DVT prophylaxis: SCDs Opioids along bowel regimen Likely will need correction placement Chronic right-sided weakness Recent stroke evaluation was completed Continue antiplatelet atorvastatin Attestations Medical Necessity Statement*: More than 2 midnights anticipated Diagnoses Depressive disorder F32.9 Primary hypertension I10 Hypertension type: primary hypertension Thrombocytopenia D69.6 Closed fracture of right hip S72.001A Encounter type: initial encounter
--- NOTE | 2023-12-09 16:06 | ECG_ITS ---
[facility] Test Date: 2023-12-09 Pat Name: Eboni Perez Department: Room: Gender: Female Butcher Scullion: : 1965 Requested By: Sunshine Gupta Order Number: [id number] Wheat MD: Brandon Condon M.D. Measurements Intervals [place] Rate: 81 P: 61 [place]: 154 QRS: 42 QRSD: 90 T: 3 QT: 391 QTc: 456 Interpretive Statements SINUS RHYTHM NONSPECIFIC ST & T-WAVE ABNORMALITY Compared to ECG 12/07/2023 11:54:14 T-wave abnormality now present Electronically Signed On 12-09-2023 17:02:46 CDT by Brandon Condon M.D. [id number] f
[2023-12-09 16:51] LABS: Basophils # 0.1 10^3/uL (0.0-0.1); Basophils % 0.5 %; Eosinophils # 0.1 10^3/uL (0.0-0.8); Eosinophils % 1.1 %; Hematocrit 42.3 % (36-47); Lymphocytes # 3.2 10^3/uL (0.8-4.8); Lymphocytes % 25.6 %; Mean Corpuscular HGB Conc 35.2 g/dL (30-55); Mean Corpuscular Hemoglobin 31.2 pg (27-33); Mean Corpuscular Volume 88.5 fl (85-98); Mean Platelet Volume 11.9 fL (7.4-10.4); Monocytes # 0.8 10^3/uL (0.2-0.9); Monocytes % 6.7 %; Neutrophils % 65.8 %; Nucleated Red Blood Cells % 0 %; Platelet Count 158 10^3/cmm (157-399); Red Blood Count 4.78 10^6/uL (3.85-5.65); White Blood Count 12.46 10^3/uL (3.29-11.43)
--- NOTE | 2023-12-09 17:09 | CTR_ITS ---
PROCEDURE INFORMATION: Exam: CT Pelvis Without Contrast; Skeletal Exam date and time: 12/09/2023 5:22 PM Age: 58 years old Clinical indication: Injury or trauma; Fall; Blunt trauma (contusions or hematomas); Bilateral; Hip; Additional info: Evaluate hip fracture TECHNIQUE: Imaging protocol: Computed tomography of the pelvis without contrast. Exam focused on the skeleton. Radiation optimization: All CT scans at this facility use at least one of these dose optimization techniques: automated exposure control; mA and/or kV adjustment per patient size (includes targeted exams where dose is matched to clinical indication); or iterative reconstruction. COMPARISON: CT abdomen pelvis w con* [id number] 10/19/2023 12:49 PM RADIATION DOSE METRICS: Total DLP (mGy-cm): 339.13 FINDINGS: Urinary bladder: A Chirinos catheter is in good position within the bladder. Bones/joints: The bony structures demonstrate diffuse osteopenia. There is an acute transverse, displaced fracture involving the right femoral neck. No other acute bony abnormality noted. Soft tissues: Unremarkable. CT/CT pelvis wo con [id number] IMPRESSION: Displaced comminuted right femoral neck fracture with osteoporosis
[2023-12-09 17:10] LABS: Alanine Aminotransferase 24 U/L (0-33); Alkaline Phosphatase 120 U/L (35-105); Anion Gap 17.4 (5-19); Aspartate Amino Transferase 24 U/L (0-32); Blood Urea Nitrogen 14 mg/dL (6-20); Calcium 9.5 mg/dL (8.5-10.5); Carbon Dioxide 24 mmol/L (22-29); Chloride 97 mmol/L (98-107); Creatinine Clr Calc Pharmacy 85.5877; Globulin 3.4 g/dL (1.3-4.6); Glomerular Filtration Rate 85.9 mL/min (90-130); Glucose 220 mg/dL (65-115); Osmolality Calculated 287 mOsm/kg (285-295); Potassium 3.4 mmol/L (3.5-5.1); Sodium 135 mmol/L (136-145); Total Bilirubin 0.5 mg/dL (0.15-1.2); Total Protein 7.4 g/dL (6.6-8.7)
[2023-12-09 17:33] LABS: Glucose Urine UA 4+ (Normal); Ketones Urine Negative (Negative); Protein Urine Neg (Negative); Urine Appearance Clear (CLEAR); Urine Color Yellow (Yellow); pH Urine 7 (5-7)
[2023-12-09 17:34] LABS: Bilirubin Urine Neg (Negative); Blood Urine Neg (Negative); Leukocyte Esterase Urine Negative (Negative); Nitrate Urine Negative (Negative); RBC Urine RARE /hpf (0-2); Urobilinogen Urine Norm (Negative)
[2023-12-09 18:12] VITALS: PULSE 80; RESP 16; O2SAT 96
[2023-12-09] MEDS: sodium chloride 0.9% 1,000 ML 75 ML IV (18:24)
[2023-12-09] MEDS: insulin lispro 100 unit/1 mL SUBCUT (18:24)
[2023-12-09] MEDS: morphine 4 mg/mL SDV 1 mL 2 MG IVP ×2 (18:25→22:32)
[2023-12-09 19:57] VITALS: RESP 16
[2023-12-09] MEDS: morphine IR 15 mg Tablet PO (19:57)
[2023-12-09 20:00] VITALS: BP 139/87; PULSE 81; RESP 18; TEMP 36.8; O2SAT 94
[2023-12-09 20:39] VITALS: BMI 23.4
[2023-12-09 21:03] LABS: Glucose Point of Care 123 mg/dL (70-110)
[2023-12-09 22:32] VITALS: RESP 16
[2023-12-10] VITALS (23 sets, daily range): BP systolic 89–147; BP diastolic 56–92; PULSE 75–91; RESP 10–18; TEMP 36.4–37.3; O2SAT 91–100; BMI 24.1
[2023-12-10 06:10] LABS: Glucose Point of Care 174 mg/dL (70-110)
[2023-12-10 06:32] LABS: Basophils # 0.1 10^3/uL (0.0-0.1); Basophils % 0.8 %; Eosinophils # 0.2 10^3/uL (0.0-0.8); Eosinophils % 1.8 %; Hematocrit 49.3 % (36-47); Lymphocytes # 3.6 10^3/uL (0.8-4.8); Lymphocytes % 36.8 %; Mean Corpuscular HGB Conc 31.4 g/dL (30-55); Mean Corpuscular Hemoglobin 31.3 pg (27-33); Mean Corpuscular Volume 99.6 fl (85-98); Monocytes # 0.9 10^3/uL (0.2-0.9); Monocytes % 9.2 %; Neutrophils # 5.02 10^3/uL (1.8-7.7); Neutrophils % 51.2 %; Nucleated Red Blood Cells % 0 %; Platelet Count 149 10^3/cmm (157-399); Red Blood Count 4.95 10^6/uL (3.85-5.65); Red Cell Distribution Width 13.4 % (12.1-15.1); White Blood Count 9.81 10^3/uL (3.29-11.43)
[2023-12-10 06:37] LABS: Blood Urea Nitrogen 20 mg/dL (6-20); Calcium 8.7 mg/dL (8.5-10.5); Carbon Dioxide 23 mmol/L (22-29); Chloride 98 mmol/L (98-107); Creatinine Clr Calc Pharmacy 55.1834; Glucose 182 mg/dL (65-115); Magnesium 1.8 mg/dL (1.7-2.3); Osmolality Calculated 287 mOsm/kg (285-295); Sodium 135 mmol/L (136-145)
[2023-12-10 06:47] LABS: Anion Gap 17.6 (5-19); Potassium 3.6 mmol/L (3.5-5.1)
[2023-12-10] MEDS: morphine 4 mg/mL SDV 1 mL 2 MG IVP (07:20)
[2023-12-10] MEDS: sodium chloride 0.9% 1,000 ML 75 ML IV ×2 (07:49→14:51)
[2023-12-10] MEDS: morphine IR 15 mg Tablet PO (09:35)
[2023-12-10] MEDS: PARoxetine 20 mg Tablet PO (09:36)
[2023-12-10] MEDS: potassium chloride ER 20 mEq Tablet 40 MEQ PO (09:36)
--- NOTE | 2023-12-10 09:47 | P.PN_ITS ---
Subjective 2 Subjective: Patient is still n.p.o. Looks clinically dehydrated Complaining of pain when she tries to move her legs Adjust her pillow to help her with her neck pain Currently she is hemodynamic stable On 1 L nasal cannula Vitals/I&O/Wt Last Vital Signs Temp 98.1 F 12/10/23 07:35 Pulse 75 12/10/23 08:17 Resp 16 12/10/23 09:35 BP 119/79 12/10/23 07:35 Pulse Ox 92 12/10/23 08:17 O2 Del Method Nasal Cannula 12/10/23 08:17 O2 Flow Rate 0.5 12/10/23 08:17 12/09/23 12/10/23 12/10/23 22:59 06:59 14:59 Intake Total 1000 / 1000 Output Total 500 / 500 50 / 550 Balance -500 / -500 -50 / -550 1000 / 1000 Weight last 48 hrs Weight 67.812 kg Weight 65.907 kg Weight 65.771 kg Physical Exam 2 Narrative: Right-sided chronic weakness On 1 L nasal cannula Hemodynamic stable No new focal deficit Chirinos catheter in place No neurovascular compromise Of lower extremities S1, S2 Abdomen soft Urinary Catheter Management: Chirinos: Cath Placed During This Visit: yes Reason for Continuing Indwelling Catheter: Required Immobilization for Trauma or Surgery or Anesthesia Urinary Catheter Date of Insertion: 12/09/23 Data 12/10/23 05:45 12/10/23 05:45 A&P Assessment and plan (1) Depressive disorder: (2) Thrombocytopenia: (3) Closed fracture of right hip: Qualifiers: Encounter type: initial encounter Qualified Code(s): S72.001A - Fracture of unspecified part of neck of right femur, initial encounter for closed fracture (4) History of CVA (cerebrovascular accident): (5) Seizures: Plan Patient is n.p.o. Intervention: Left none today Continue IV fluids Hemodynamically stable Holding off on DVT prophylaxis with anticoagulating agent, using SCDs Chirinos catheter in place Continue antidepressants opioids and bowel regimen Monitor her blood sugar Attestations 2 Medical Necessity Statement*: Continue medical management Diagnoses Depressive disorder F32.9 Thrombocytopenia D69.6 Closed fracture of right hip S72.001A Encounter type: initial encounter History of CVA (cerebrovascular accident) Z86.73 Seizures R56.9
--- NOTE | 2023-12-10 11:06 | P.ANESASSM_ITS ---
Pre-Anesthetic Assessment Height/Weight: Height 1.68 m Weight 67.812 kg Temp Pulse Resp BP Pulse Ox O2 Del Method O2 Flow Rate 98.1 F 75 16 119/79 92 Nasal Cannula 0.5 12/10/23 07:35 12/10/23 08:17 12/10/23 09:35 12/10/23 07:35 12/10/23 08:17 12/10/23 08:17 12/10/23 08:17 Operation Date: 12/10/23 12:05 Proposed Procedures p Hip Screw(Right) - Rosana Painting MD Familial anesthetic complications: none Was Beta [place] taken within 24 hours: Yes Was Clonidine taken within 24 hours: N/A Social Tobacco and No alcohol Exam alert, oriented x 3 and regular rate & rhythm Airway Submandibular: within normal limits Cervical ROM: within normal limits Mallampati: Class II Dentition: chipped Comments: Comments: Very poor dentition, most broken to alveolar ridge level Pulmonary Chronic Obstructive Pulmonary Disease CV/HEM Hypertension and Peripheral Vascular Disease Chronic Renal Insufficiency Hepatic Hepatitis (C) GI Gastroesophageal Reflux Disease Metabolic Diabetes Mellitus and Hyperlipidemia Neuropsych Anxiety, Cerebrovascular Accident, Deficit (right hemiplegia), Depression and Seizure Anesthetic Plan ASA status: 3 Anesthesia: General Medications/Allergies Home Medications Medication Instructions Recorded Confirmed Last Taken Type amitriptyline 10 mg tablet 10 mg PO BEDTIME 01/31/21 12/10/23 12/08/23 History zolpidem 10 mg tablet 10 mg PO BEDTIME PRN Sleep 12/02/21 12/10/23 12/06/23 History dapagliflozin propanediol 5 mg 5 mg PO DAILY 07/07/22 12/10/23 12/09/23 History tablet (Farxiga) dulaglutide 0.75 mg/0.5 mL 0.75 mg SUBCUT Q7D 06/11/23 12/10/23 12/04/23 History subcutaneous pen injector (Trulicity) ondansetron 4 mg disintegrating 4 mg PO Q8H PRN nausea and 08/12/23 12/10/23 Unknown Rx tablet vomiting 30 days #30 tabs aspirin 325 mg tablet 325 mg PO DAILY 10/19/23 12/10/23 12/09/23 History atorvastatin 20 mg tablet 20 mg PO DAILY 10/19/23 12/10/23 12/09/23 History insulin aspart U-100 100 unit/mL 20 unit SUBCUT BEDTIME 10/19/23 12/10/23 12/08/23 History subcutaneous solution pantoprazole 40 mg tablet,delayed 40 mg PO DAILY PRN Acid Reflux 10/19/23 12/10/23 12/07/23 History release (Protonix) paroxetine HCl 30 mg tablet 30 mg PO DAILY 10/19/23 12/10/23 12/09/23 History amlodipine 5 mg tablet 5 mg PO DAILY #30 tabs 10/21/23 12/10/23 12/09/23 Rx metoprolol tartrate 100 mg tablet 100 mg PO BID 12/07/23 12/10/23 12/09/23 History naproxen 500 mg tablet See Rx Instructions .Route .COMPLEX 12/07/23 12/10/23 12/07/23 History Allergies Allergy/AdvReac Type Severity Reaction Status Date / Time codeine Allergy Unknown Verified 09/28/23 13:32 hydrocodone [From Vicodin] Allergy ADR-Nausea Verified 09/28/23 13:32 morphine Allergy ADR-Nausea Verified 09/28/23 13:32 nystatin Allergy Unknown Verified 09/28/23 13:32 Penicillins Allergy Unknown Verified 09/28/23 13:32 metformin Allergy Intermediate ADR-Vomitin Uncoded 09/28/23 13:32 g Current Medications Generic Name Dose Route Start Last Admin Trade Name Freq PRN Reason Stop Dose Admin Sodium Chloride 1,000 mls @ 75 mls/hr 12/09/23 18:00 12/10/23 07:49 Sodium Chloride 0.9% IV 75 mls/hr .[id number] TIARA Administration Insulin Human Lispro 0 unit 12/09/23 18:00 12/10/23 07:52 Insulin Lispro 100 Unit/1 Ml SUBCUT Not Given [facility] Protocol Morphine Sulfate 15 mg 12/09/23 18:00 12/10/23 09:35 Morphine Ir 15 Mg Tablet PO 15 mg Q6H PRN Administration MODERATE PAIN Morphine Sulfate 2 mg 12/09/23 18:00 12/10/23 07:20 Morphine 4 Mg/Ml Sdv 1 Ml IVP 2 mg Q4H PRN Administration hip pain Paroxetine HCl 20 mg 12/10/23 09:00 12/10/23 09:36 Paroxetine 20 Mg Tablet PO 20 mg DAILY TIARA Administration Potassium Chloride 40 meq 12/10/23 09:00 12/10/23 09:36 Potassium Chloride Er 20 Meq Tablet PO 40 meq DAILY TIARA Administration [facility] Anesthesia Medical History (Updated 12/10/23 @ 09:49 by Vickie Alvarez MD) Colitis History of colon polyps Syncope Chronic migraine without aura, intractable, with status migrainosus Stomatitis and mucositis Erythroplakia of mouth or tongue Oral mucosal lesion Leukoplakia Dysarthria Acute right-sided weakness Acute right-sided muscle weakness Cerebrovascular accident Carotid artery disorder Chronic left arterial ischemic stroke, MCA (middle cerebral artery) Hypertension Insulin dependent type 2 diabetes mellitus Hepatitis C CAD (coronary artery disease) Peripheral vascular disease History of CVA (cerebrovascular accident) Brain aneurysm Surgical History (Updated 12/10/23 @ 09:49 by Vickie Alvarez MD) History of colonoscopy with polypectomy History of tubal ligation History of surgery for cerebral aneurysm History of angioplasty of peripheral vessel History of appendectomy History of cholecystectomy Family History Father Renal cancer Cancer Lung Mother Hypertension CAD (coronary artery disease) Diabetes Social History Smoking and tobacco/nicotine status: current every day tobacco/nicotine user cigarettes Packs smoked per day: 0.5 Years cigarettes smoked: 30 Alcohol intake: former Substance/Drug Use: never Data Anesthesia 12/10/23 05:45 12/10/23 05:45 Short CBC 12/09/23 12/10/23 Range/Units 16:44 05:45 WBC 12.46 H 9.81 (3.29-11.43) 10^3/uL Hgb 14.90 15.50 (11.27-16.99) g/dL Hct 42.3 49.3 H (36-47) % MCV 88.5 99.6 H D (85-98) fl Plt Count 158 149 L (157-399) 10^3/cmm Neut % (Auto) 65.8 51.2 % Neut # (Auto) 8.20 H 5.02 (1.8-7.7) 10^3/uL BMP 12/09/23 12/10/23 16:44 05:45 Sodium 135 L 135 L Potassium 3.4 L 3.6 Chloride 97 L 98 Carbon Dioxide 24 23 BUN 14 20 Creatinine 0.7 1.1 H Glucose 220 H 182 H Calcium 9.5 8.7 Liver Function 12/09/23 Range/Units 16:44 Total Bilirubin 0.5 (0.15-1.2) mg/dL AST 24 (0-32) U/L ALT 24 (0-33) U/L Alkaline Phosphatase 120 H (35-105) U/L Albumin 4.0 (3.5-5.2) g/dL Urine 12/09/23 Range/Units 16:59 Urine Color Yellow (Yellow) Urine Appearance Clear (CLEAR) Urine pH 7 (5-7) Ur Specific [place] 1.010 (1.005-1.030) Urine Protein Neg (Negative) Urine Glucose (UA) 4+ H (Normal) Urine Ketones Negative (Negative) Urine Nitrate Negative (Negative) Urine Bilirubin Neg (Negative) Ur Leukocyte Esterase Negative (Negative) Urine RBC Rare (0-2) /hpf Urine WBC None (0-5) /hpf Cardiac Studies: 2 Echocardiogram 08/15/21 Cardiac Event Monitor 10/14/21
--- NOTE | 2023-12-10 11:06 | P.CONIM_ITS ---
Providers/Reason For Consult 2 Consulting Physician/Specialty*: Rosana Painting MD Reason for Consult*: Right subcapital hip fracture Attending Physician: Vickie Alvarez MD Primary Care Provider: Salomon Harp MD History of Present Illness History of Present Illness Eboni Perez is a 58 year old female who presented to the emergency department complaining of right hip pain. Reportedly, she came to the emergency department the day before, but then she left AMA. The patient fell several times at home and the found her supine on the bathroom floor. She was diagnosed with a right subcapital hip fracture which was evaluated with plain films as well as CT scan. Review of Systems 2 Narrative: Constitutional symptoms: Negative except as documented in HPI. Skin symptoms: Negative except as documented in HPI. Eye symptoms: Negative except as documented in HPI. ENMT symptoms: Negative except as documented in HPI. Respiratory symptoms: Negative except as documented in HPI. Cardiovascular symptoms: Negative except as documented in HPI. Gastrointestinal symptoms: Negative except as documented in HPI. Genitourinary symptoms: Negative except as documented in HPI. Musculoskeletal symptoms: Negative except as documented in HPI. Neurologic symptoms: Negative except as documented in HPI. Psychiatric symptoms: Negative except as documented in HPI. Endocrine symptoms: Negative except as documented in HPI. Const: Denies: fever(s) Eyes: Denies: change in vision or photophobia ENMT: Denies: throat pain Card: Denies: chest pain Resp: Denies: dyspnea GI: Denies: abdominal pain All/Imm: Denies: acute wheezing Medications/Allergies Home Medications Medication Instructions Recorded Confirmed Last Taken Type amitriptyline 10 mg tablet 10 mg PO BEDTIME 01/31/21 12/10/23 12/08/23 History zolpidem 10 mg tablet 10 mg PO BEDTIME PRN Sleep 12/02/21 12/10/23 12/06/23 History dapagliflozin propanediol 5 mg 5 mg PO DAILY 07/07/22 12/10/23 12/09/23 History tablet (Farxiga) dulaglutide 0.75 mg/0.5 mL 0.75 mg SUBCUT Q7D 06/11/23 12/10/23 12/04/23 [facility] ondansetron 4 mg disintegrating 4 mg PO Q8H PRN nausea and 08/12/23 12/10/23 Unknown Rx tablet vomiting 30 days #30 tabs aspirin 325 mg tablet 325 mg PO DAILY 10/19/23 12/10/23 12/09/23 History atorvastatin 20 mg tablet 20 mg PO DAILY 10/19/23 12/10/23 12/09/23 History insulin aspart U-100 100 unit/mL 20 unit SUBCUT BEDTIME 10/19/23 12/10/23 12/08/23 History subcutaneous solution pantoprazole 40 mg tablet,delayed 40 mg PO DAILY PRN Acid Reflux 10/19/23 12/10/23 12/07/23 History release (Protonix) paroxetine HCl 30 mg tablet 30 mg PO DAILY 10/19/23 12/10/23 12/09/23 History amlodipine 5 mg tablet 5 mg PO DAILY #30 tabs 10/21/23 12/10/23 12/09/23 Rx metoprolol tartrate 100 mg tablet 100 mg PO BID 12/07/23 12/10/23 12/09/23 History naproxen 500 mg tablet See Rx Instructions .Route .COMPLEX 12/07/23 12/10/23 12/07/23 History Allergies Allergy/AdvReac Type Severity Reaction Status Date / Time codeine Allergy Unknown Verified 09/28/23 13:32 hydrocodone [From Vicodin] Allergy ADR-Nausea Verified 09/28/23 13:32 morphine Allergy ADR-Nausea Verified 09/28/23 13:32 nystatin Allergy Unknown Verified 09/28/23 13:32 Penicillins Allergy Unknown Verified 09/28/23 13:32 metformin Allergy Intermediate ADR-Vomitin Uncoded 09/28/23 13:32 g Current Medications Generic Name Dose Route Start Last Admin Trade Name Freq PRN Reason Stop Dose Admin Sodium Chloride 1,000 mls @ 75 mls/hr 12/09/23 18:00 12/10/23 07:49 Sodium Chloride 0.9% IV 75 mls/hr .[id number] TIARA Administration Insulin Human Lispro 0 unit 12/09/23 18:00 12/10/23 07:52 Insulin Lispro 100 Unit/1 Ml SUBCUT Not Given TIDWM TIARA Protocol Morphine Sulfate 15 mg 12/09/23 18:00 12/10/23 09:35 Morphine Ir 15 Mg Tablet PO 15 mg Q6H PRN Administration MODERATE PAIN Morphine Sulfate 2 mg 12/09/23 18:00 12/10/23 07:20 Morphine 4 Mg/Ml Sdv 1 Ml IVP 2 mg Q4H PRN Administration hip pain Paroxetine HCl 20 mg 12/10/23 09:00 12/10/23 09:36 Paroxetine 20 Mg Tablet PO 20 mg DAILY TIARA Administration Potassium Chloride 40 meq 12/10/23 09:00 12/10/23 09:36 Potassium Chloride Er 20 Meq Tablet PO 40 meq DAILY TIARA Administration PFSH Acute 2 PFSH: Medical History (Updated 12/10/23 @ 11:11 by Rosana Painting MD) Colitis History of colon polyps Syncope Chronic migraine without aura, intractable, with status migrainosus Stomatitis and mucositis Erythroplakia of mouth or tongue Oral mucosal lesion Leukoplakia Dysarthria Acute right-sided weakness Acute right-sided muscle weakness Cerebrovascular accident Carotid artery disorder Chronic left arterial ischemic stroke, MCA (middle cerebral artery) Hypertension Insulin dependent type 2 diabetes mellitus Hepatitis C CAD (coronary artery disease) Peripheral vascular disease History of CVA (cerebrovascular accident) Brain aneurysm Surgical History (Updated 12/10/23 @ 09:49 by Vickie Alvarez MD) History of colonoscopy with polypectomy History of tubal ligation History of surgery for cerebral aneurysm History of angioplasty of peripheral vessel History of appendectomy History of cholecystectomy Family History Father Renal cancer Cancer Lung Mother Hypertension CAD (coronary artery disease) Diabetes Social History Smoking and tobacco/nicotine status: current every day tobacco/nicotine user cigarettes Packs smoked per day: 0.5 Years cigarettes smoked: 30 Alcohol intake: former Substance/Drug Use: never Dietary Habits: Current diet type/program: regular Caffeine: Yes Vitals/I&O/Wt Last Vital Signs Temp 98.1 F 12/10/23 07:35 Pulse 75 12/10/23 08:17 Resp 16 12/10/23 09:35 BP 119/79 12/10/23 07:35 Pulse Ox 92 12/10/23 08:17 O2 Del Method Nasal Cannula 12/10/23 08:17 O2 Flow Rate 0.5 12/10/23 08:17 12/09/23 12/10/23 12/10/23 22:59 06:59 14:59 Intake Total 1000 / 1000 Output Total 500 / 500 50 / 550 Balance -500 / -500 -50 / -550 1000 / 1000 Weight last 48 hrs Weight 149 lb 8 oz Weight 145 lb 4.8 oz Weight 145 lb Physical Exam 2 Const: COMMON NORMALS: no acute distress, average body habitus, patient oriented x3 and alert GENERAL APPEARANCE: cooperative and comfortable O RIENTATION/CONSCIOUSNESS: Yes awake OTHER: Patient is status post cerebral aneurysm rupture x 3 according to her. Speech is slow and difficult to understand. HENMT: COMMON NORMALS: normocephalic and atraumatic HEAD & SCALP: n ormocephalic and atraumatic Eye: GENERAL EYE: appearance normal, both eyes and all related structures Chest: COMMONS NORMALS: normal inspection of the chest Resp: COMMON NORMALS: normal respiratory effort EFFORT & INSPECTION: Yes able to speak in complete sentences and Yes symmetric chest movement Extremity: RIGHT LOWER EXTREMITY: Yes hip joint (Pain to any range of motion) Right hip: Yes ROM (Not evaluated secondary to fracture) and Yes neurovascular exam (Intact distally) Neuro: COMMON NORMALS: patient oriented x3 SENSORIUM/ORIENTATION: Yes alert Psych: COMMON NORMALS: mental status grossly normal APPEARANCE: Yes grossly normal ATTITUDE: Yes calm and Yes engaged ATTENTION/CONCENTRATION: Yes attention grossly intact Skin: COMMON NORMALS: no rashes or lesions noted GENERAL SKIN EXAM: no rashes or lesions noted Urinary Catheter Management: Chirinos: Cath Placed During This Visit: yes Reason for Continuing Indwelling Catheter: Required Immobilization for Trauma or Surgery or Anesthesia Urinary Catheter Date of Insertion: 12/09/23 Data 12/10/23 05:45 12/10/23 05:45 Other Imaging: My impression: I have personally interpreted and reviewed plain films as well as CT scan. The patient has a significantly impacted right subcapital hip fracture with slight angulation, but on the lateral, the hip is essentially anatomic. There is no significant displacement. A&P Assessment and plan (1) Subcapital fracture of right hip: Patient is seen with her significant other in the preoperative holding area. She is slow speech secondary to multiple cerebral injuries. She notes that she fell out of bed suffering the above fracture, and her found her on the floor. X-rays demonstrate an significantly impacted right subcapital hip fracture with no angulation on lateral view but it is in a valgus position with slight angulation anterior posterior. Discussion was undertaken with the patient's regarding treatment options. We have agreed that the best option given her physical limitations would be cannulated screws. He understands the risks of eventual avascular necrosis. Qualifiers: Encounter type: initial encounter Fracture type: closed Qualified Code(s): S72.011A - Unspecified intracapsular fracture of right femur, initial encounter for closed fracture Consult Attestations 2 Medical Necessity Statement: Per hospitalist team Coding Level of Care Code Acute Code for [facility] Fwd Diagnoses Closed subcapital fracture of right femur, initial encounter S72.011A Encounter type: initial encounter Fracture type: closed
[2023-12-10] MEDS: acetaminophen 1,000 MG/100 ML PIGGYBACK 400 MG IV (11:17)
[2023-12-10] MEDS: gabapentin 300 mg Capsule PO (11:18)
[2023-12-10] MEDS: CELEcoxib 200 mg Capsule 400 MG PO (11:18)
[2023-12-10] MEDS: ceFAZolin 2,000 MG in sodium chloride 0.9% (plus) 50 ML 100 MG IV ×2 (11:51→19:29)
[2023-12-10] MEDS: lidocaine-epi 1% 20 mL INJ INJECTION (12:41)
[2023-12-10] MEDS: ceFAZolin 1,000 mg SDV 1000 MG IRRIGATION (12:42)
--- NOTE | 2023-12-10 13:10 | PM.OP ---
Operative Report Date of procedure: December 10, 2023 Pre-op diagnosis: Right subcapital hip fracture Post-op diagnosis: Right subcapital hip fracture Post-op findings: Right subcapital hip fracture Procedure done: Open reduction internal fixation right subcapital hip fracture utilizing 3 cannulated screws Implants: Harpreet cannulated screws x 3 Specimens removed/disposition: None Pathology: None Surgeon: Rosana Painting MD Retort Loader: None Anesthesia: General (Per LMA, ASA 3) Estimated blood loss (mL): 20 IV fluids (mL): 600 Urine output (mL): 200 Complications: None Condition: stable Disposition: PACU (Then return to floor for postoperative rehabilitation and pain management) Brief History: Eboni Perez is a 58 year old female who presented to the emergency department complaining of right hip pain. Reportedly, she came to the emergency department the day before, but then she left AMA. The patient fell several times at home and the found her supine on the bathroom floor. She was diagnosed with a right subcapital hip fracture which was evaluated with plain films as well as CT scan. After discussion with the patient and her , we elected to proceed with cannulated screws as an prosthesis secondary to the patient's multiple medical issues and increased risk of dislocation as well as infection. Procedure: Patient is brought to the operating theater. After undergoing adequate general anesthesia per LMA, ASA 3, the patient was transferred to the fracture table, positioned on the table and fluoroscopic guidance obtained throughout the surgical procedure. Prior to the commencement of the surgical procedure, a surgical pause was performed. At the time of the surgical pause, we confirmed the site and side of surgery as well as preoperative surgical markings and appropriate and timely administration of IV antibiotics, Ancef 2 g. Availability of equipment was also confirmed. Fluoroscopy was used to confirm the fracture was appropriately reduced in both AP and lateral planes. Fluoroscopy was utilized to determine appropriate positioning for the incision. Plans were made for an inverted triangle with the 3 cannulated screws. This was evaluated on the patient's skin and incision was made in appropriate position to allow for placement of the Anne gun. Guidewires were passed from the lateral cortex of the femur into the femoral head in appropriate position. Once these were in appropriate position, the Anne gun was removed. Positioning was again confirmed in AP and lateral planes. Measurement was then made to assure the appropriate length of screw was utilized. After measurement, each screw was placed and evaluated in AP and lateral planes. Once the 3 screws were placed. Final imaging was accomplished in AP and lateral planes with the fluoroscope scope, and these were saved to permanent imaging. Attention was then directed to closure. The hip was copiously irrigated with normal saline with antibiotics. Following this it was dried and closed. Tensor fascia daniel was closed proximally with 0 Vicryl in an interrupted fashion. Subcutaneous tissues were closed with 2-0 Monocryl, and the skin was closed with a continuous 3-0 Monocryl subcuticular stitch. This was then covered with Dermabond and Steri-Strips. OpSite was then placed. The patient was removed from the fracture table and returned to recovery in satisfactory condition. The patient will be discharged to the floor for postoperative rehabilitation and pain management. There were no specimens obtained. Related Problem List Diagnoses (1) Subcapital fracture of right hip:
--- NOTE | 2023-12-10 13:53 | ANE.PACU2 ---
Inpatient post-anesthesia follow up: Airway intact: Yes Vital signs: Temperature 98.7 F Pulse Rate 90 Respiratory Rate 14 Blood Pressure 97/60 Pulse Oximetry 96 Oxygen Delivery Me thod Nasal Cannula Oxygen Flow Rate 2 Fraction of Inspir ed Oxygen Hydration adequate: Yes Nausea and vomiting: No Pain level: 2 Mental status: Baseline
--- NOTE | 2023-12-10 15:22 | XR_ITS ---
WS: [id number] INTRAOPERATIVE TECHNIQUE: 3 Spot fluoroscopic images for intraoperative purposes. FLUOROSCOPY TIME: 92.5 seconds CLINICAL INFORMATION: JOHN PICS FINDINGS: Cannulated screw fixation across the RIGHT hip with 3 fixation screws. Hardware appears in good posit ion. XR/XR hip RT 2-3V wo/w pel* [id number] IMPRESSION: Images obtained for intraoperative purposes.
[2023-12-10 16:41] LABS: Glucose Point of Care 206 mg/dL (70-110)
[2023-12-10] MEDS: sennosides-docusate Tablet 2 TAB PO (17:10)
[2023-12-10] MEDS: insulin lispro 100 unit/1 mL SUBCUT (17:10)
[2023-12-10] MEDS: oxyCODONE 5 mg IR Tab/Cap PO ×2 (19:29→23:27)
[2023-12-10 21:03] LABS: Glucose Point of Care 152 mg/dL (70-110)
[2023-12-11] VITALS (9 sets, daily range): BP systolic 124–132; BP diastolic 71–79; PULSE 94–132; RESP 16–20; TEMP 36.3–36.9; O2SAT 91–96
--- NOTE | 2023-12-11 03:58 | PC.NURSE ---
Addendum entered by Kelly Leonardo RN 12/11/23 04:26: Neuro assessment and stroke scale completed to have a baseline for future comparison. Patient does have a history of CVA. Addendum entered by Kelly Leonardo RN 12/11/23 04:02: Ordered to hold off on PRN Oxycodone for now and give PRN IV Morphine instead for pain. Original Note: I feel patient's speech is more slurred currently than it was at the beginning of the shift. I do see any other changes from my initial assessment. Dr. Keenan notified.
[2023-12-11] MEDS: ceFAZolin 2,000 MG in sodium chloride 0.9% (plus) 50 ML 100 MG IV ×2 (04:07→11:15)
[2023-12-11] MEDS: morphine 4 mg/mL SDV 1 mL 2 MG IVP (04:07)
[2023-12-11] MEDS: sodium chloride 0.9% 1,000 ML 75 ML IV (04:08)
[2023-12-11 05:25] LABS: Basophils # 0.1 10^3/uL (0.0-0.1); Basophils % 0.5 %; Eosinophils # 0.2 10^3/uL (0.0-0.8); Eosinophils % 1.3 %; Hematocrit 40.4 % (36-47); Lymphocytes # 2.2 10^3/uL (0.8-4.8); Lymphocytes % 19.9 %; Mean Corpuscular HGB Conc 32.2 g/dL (30-55); Mean Corpuscular Hemoglobin 30.7 pg (27-33); Mean Corpuscular Volume 95.5 fl (85-98); Mean Platelet Volume 12.4 fL (7.4-10.4); Monocytes # 0.8 10^3/uL (0.2-0.9); Monocytes % 6.9 %; Neutrophils # 7.94 10^3/uL (1.8-7.7); Nucleated Red Blood Cells % 0 %; Platelet Count 119 10^3/cmm (157-399); Red Blood Count 4.23 10^6/uL (3.85-5.65); Red Cell Distribution Width 13.4 % (12.1-15.1); White Blood Count 11.19 10^3/uL (3.29-11.43)
[2023-12-11 05:46] LABS: Blood Urea Nitrogen 16 mg/dL (6-20); Creatinine Clr Calc Pharmacy 89.1258
[2023-12-11 06:13] LABS: Anion Gap 17.5 (5-19); Calcium 8.2 mg/dL (8.5-10.5); Glucose 185 mg/dL (65-115); Potassium 4.5 mmol/L (3.5-5.1)
--- NOTE | 2023-12-11 06:16 | PC.NURSE ---
Patient refusing to have johnson removed, stating her hip hurts too much. Patient refusing to have ice placed on her hip, stating that it makes her too cold.
[2023-12-11 06:26] LABS: Carbon Dioxide 23 mmol/L (22-29); Chloride 104 mmol/L (98-107); Osmolality Calculated 296 mOsm/kg (285-295); Sodium 140 mmol/L (136-145)
[2023-12-11 06:34] LABS: Glucose Point of Care 164 mg/dL (70-110)
[2023-12-11] MEDS: oxyCODONE 5 mg IR Tab/Cap PO (06:41)
[2023-12-11] MEDS: PARoxetine 20 mg Tablet PO (08:24)
[2023-12-11] MEDS: potassium chloride ER 20 mEq Tablet 40 MEQ PO (08:24)
[2023-12-11] MEDS: sennosides-docusate Tablet 2 TAB PO (08:24)
[2023-12-11] MEDS: insulin lispro 100 unit/1 mL SUBCUT ×2 (08:25→11:50)
[2023-12-11] MEDS: aspirin 325 mg EC Tablet PO (08:25)
--- NOTE | 2023-12-11 10:39 | PM.DCS ---
Discharge Providers Date of Admission: 12/09/23 16:47 Date of Discharge: December 11, 2023 Attending Provider at Admission: Vickie Alvarez MD Attending Provider at Discharge: Vickie Alvarez MD Primary Care Provider: Salomon Harp MD Diagnoses at Discharge Discharge Diagnosis (1) Subcapital fracture of right hip: Status: Acute Qualifiers: Encounter type: initial encounter Fracture type: closed Qualified Code(s): S72.011A - Unspecified intracapsular fracture of right femur, initial encounter for closed fracture Reason for Visit Reason for Visit: Fall/ RT hip pain Hospital Course Hospital Course 58-year female with chronic right-sided weakness, who was recently admitted to the hospital for management evaluation of stroke related changes, neurology was consulted who recommended continuation of antiplatelet therapy along atorvastatin, patient is already following up with Dr. Davies for carotid disease, patient left AMA when we were trying to find senior living for her, she presented within 24 hours after sustaining a fall at home, in the ER she was diagnosed with hip fracture, Dr. Cisneros was consulted patient underwent surgery next day/ORIF, 12/09, no postoperative complication, patient is being discharged to a senior living at this point. She will get Eliquis 2.5 mg twice daily for 30 days for DVT prophylaxis and then she may resume her high-dose aspirin along with atorvastatin. She is being discharged to a senior living where smoking is allowed. She is not ready to quit smoking. She specifically asked for senior living where smoking was not an issue for her. Physical Exam Narrative: Patient is awake and alert Chronic dysarthria and right-sided weakness Two-person assist S1, S2 Sinus rhythm Currently on 1 L Pleasant cooperative Nonfocal neuroexam GCS 15 Urinary Catheter Management: Chirinos: Cath Placed During This Visit: yes Reason for Continuing Indwelling Catheter: Perioperative Use in Selected Surgeries Urinary Catheter Date of Insertion: 12/09/23 Discharge Data Studies Completed and Pending Completed Studies During Hospitalization Category Date Time Status CT head wo con* [id number] Stat Cat Scan 12/09/23 15:[address] pelvis wo con [id number] Stat Cat Scan 12/09/23 17:09 Completed XR chest 1V portable [id number] Stat Exams 12/09/23 15:49 Completed XR hip RT 2-3V wo/w pel* [id number] Stat Exams 12/09/23 15:00 Completed Pending at discharge Category Date Time Status XR hip RT 2-3V wo/w pel* [id number] Routine Exams 12/10/23 15:22 Taken COVID [SARS Covid-2 Antigen] Routine Lab 12/11/23 10:15 Uncollected Radiology Impressions Head CT 12/09/23 15:46 IMPRESSION: 1. No acute findings. 2. Surgical changes noted on the left Chest X-Ray 12/09/23 15:49 IMPRESSION: No acute findings. Pelvis CT 12/09/23 17:09 IMPRESSION: Displaced comminuted right femoral neck fracture with osteoporosis Laboratory Results WBC 11.19 10^3/uL (3.29-11.43) 12/11/23 04:27 RBC 4.23 10^6/uL (3.85-5.65) 12/11/23 04:27 Hgb 13.00 g/dL (11.27-16.99) 12/11/23 04:27 Hct 40.4 % (36-47) 12/11/23 04:27 MCV 95.5 fl (85-98) 12/11/23 04:27 MCH 30.7 pg (27-33) 12/11/23 04:27 MCHC 32.2 g/dL (30-55) 12/11/23 04:27 RDW 13.4 % (12.1-15.1) 12/11/23 04:27 Plt Count 119 10^3/cmm (157-399) L 12/11/23 04:27 MPV 12.4 fL (7.4-10.4) H 12/11/23 04:27 Neut % (Auto) 71.0 % 12/11/23 04:27 Lymph % (Auto) 19.9 % 12/11/23 04:27 [place] % (Auto) 6.9 % 12/11/23 04:27 Eos % (Auto) 1.3 % 12/11/23 04:27 Baso % (Auto) 0.5 % 12/11/23 04:27 Neut # (Auto) 7.94 10^3/uL (1.8-7.7) H 12/11/23 04:27 Lymph # (Auto) 2.2 10^3/uL (0.8-4.8) 12/11/23 04:27 [place] # (Auto) 0.8 10^3/uL (0.2-0.9) 12/11/23 04:27 Eos # (Auto) 0.2 10^3/uL (0.0-0.8) 12/11/23 04:27 Baso # (Auto) 0.1 10^3/uL (0.0-0.1) 12/11/23 04:27 Nucleated RBC % (auto) 0 % 12/11/23 04:27 Nucleated RBCs # 0.0 /100WBC 12/11/23 04:27 Sodium 140 mmol/L (136-145) 12/11/23 04:27 Potassium 4.5 mmol/L (3.5-5.1) 12/11/23 04:27 Chloride 104 mmol/L (98-107) 12/11/23 04:27 Carbon Dioxide 23 mmol/L (22-29) 12/11/23 04:27 Anion Gap 17.5 (5-19) 12/11/23 04:27 BUN 16 mg/dL (6-20) 12/11/23 04:27 Creatinine 0.7 mg/dL (0.5-0.9) 12/11/23 04:27 GFR Calculation Not Reportable 12/11/23 04:27 Glucose 185 mg/dL (65-115) H 12/11/23 04:27 POC Glucose 164 mg/dL (70-110) H 12/11/23 06:30 Calculated Osmolality 296 mOsm/kg (285-295) H 12/11/23 04:27 Calcium 8.2 mg/dL (8.5-10.5) L 12/11/23 04:27 Magnesium 1.8 mg/dL (1.7-2.3) 12/10/23 05:45 Total Bilirubin 0.5 mg/dL (0.15-1.2) 12/09/23 16:44 AST 24 U/L (0-32) 12/09/23 16:44 ALT 24 U/L (0-33) 12/09/23 16:44 Alkaline Phosphatase 120 U/L (35-105) H 12/09/23 16:44 Total Protein 7.4 g/dL (6.6-8.7) 12/09/23 16:44 Albumin 4.0 g/dL (3.5-5.2) 12/09/23 16:44 Globulin 3.4 g/dL (1.3-4.6) 12/09/23 16:44 Urine Color Yellow (Yellow) 12/09/23 16:59 Urine Appearance Clear (CLEAR) 12/09/23 16:59 Urine pH 7 (5-7) 12/09/23 16:59 Ur Specific [place] 1.010 (1.005-1.030) 12/09/23 16:59 Urine Protein Neg (Negative) 12/09/23 16:59 Urine Glucose (UA) 4+ (Normal) H 12/09/23 16:59 Urine Ketones Negative (Negative) 12/09/23 16:59 Urine Blood Neg (Negative) 12/09/23 16:59 Urine Nitrate Negative (Negative) 12/09/23 16:59 Urine Bilirubin Neg (Negative) 12/09/23 16:59 Urine Urobilinogen Norm mg/dL (Negative) 12/09/23 16:59 Ur Leukocyte Esterase Negative (Negative) 12/09/23 16:59 Urine RBC Rare /hpf (0-2) 12/09/23 16:59 Urine WBC None /hpf (0-5) 12/09/23 16:59 Ur Squamous Epith Cells None /hpf (0-5) 12/09/23 16:59 Amorphous Sediment Not Reportable 12/09/23 16:59 Urine Bacteria None /hpf (NONE) 12/09/23 16:59 Vitals Last Vital Signs Temp 97.3 F L 12/11/23 07:50 Pulse 132 H 12/11/23 08:24 Resp 20 H 12/11/23 08:24 BP 132/76 12/11/23 07:50 Pulse Ox 95 12/11/23 08:24 O2 Del Method Nasal Cannula 12/11/23 08:24 O2 Flow Rate 1 12/11/23 08:24 Discharge Plan Discharge Patient Disposition: Xfer SNF Condition: Stable Prescriptions: New morphine 15 mg tablet 15 mg PO BID PRN (Reason: pain) Qty: 10 0RF Senna-S 8.6-50 mg tablet 1 tab-cap PO DAILY Qty: 10 0RF Eliquis 2.5 mg tablet 2.5 mg PO BID Qty: 60 0RF Continued Trulicity 0.75 mg/0.5 mL pen injector 0.75 mg SUBCUT Q7D Rx Instructions: FRIDAYS ondansetron 4 mg tablet,disintegrating 4 mg PO Q8H PRN (Reason: nausea and vomiting) 30 Days Qty: 30 0RF dapagliflozin propanediol [Farxiga] 5 mg Tablet 5 mg PO DAILY metoprolol tartrate 100 mg tablet 100 mg PO BID naproxen 500 mg tablet See Rx Instructions .ROUTE .COMPLEX Rx Instructions: TAKE 1 TABLET BY MOUTH TWICE DAILY for 7 days THEN NEEDED FOR PAIN. STOP FOR stomach pain. zolpidem 10 mg Tablet 10 mg PO BEDTIME PRN (Reason: Sleep) Hold Instructions: hold until seen by primary care doc atorvastatin 20 mg tablet 20 mg PO DAILY aspirin 325 mg Tablet 325 mg PO DAILY insulin aspart U-100 100 unit/mL solution 20 unit SUBCUT BEDTIME paroxetine HCl 30 mg tablet 30 mg PO DAILY pantoprazole [Protonix] 40 mg tablet,delayed release (DR/EC) 40 mg PO DAILY PRN (Reason: Acid Reflux) Changed amlodipine 5 mg Tablet 10 mg PO DAILY Qty: 30 0RF Discontinued amitriptyline 10 mg tablet 10 mg PO BEDTIME Discharge Orders: Discharge Order (Routine); Ordered 12/11/23 Ordered By: Vickie Alvarez Referrals: Salomon Harp MD [Primary Care Provider] - Discharge Activity: Increase activity as tolerated, Limit activity as instructed, Use walker/crutches as instructed and As per PT/OT instructions Activity Restrictions/Additional Instructions: Please use Eliquis 2.5 mg twice daily for prevention of clot only for 30 days then you can resume your aspirin 325 mg daily Weightbearing as tolerated. Maintain dressing until it comes off on its own or you are seen in the clinic. You may shower, but do not submerge your hip in water. Work with therapy for gait training and strengthening. Discharge Attestations Time Spent in Discharge Care*: greater than 30 min Status at Discharge: Cognitive status at discharge: cognitively intact, Behavioral status at discharge: cooperative, Quality Metrics Clinical Quality Measures [ No reported AMI, CVA or VTE this stay] Coding Level of Care Code Acute Code for [facility] Fwd Diagnoses Closed subcapital fracture of right femur, initial encounter S72.011A Encounter type: initial encounter Fracture type: closed
[2023-12-11 11:07] LABS: Glucose Point of Care 162 mg/dL (70-110)
[2023-12-11 11:08] LABS: SARS Covid-2 Antigen negative (Negative)
[2023-12-11] MEDS: morphine IR 15 mg Tablet PO (12:37)
--- NOTE | 2023-12-11 14:24 | P.PN_ITS ---
Subjective 2 Subjective: Patient is resting comfortably in bed. She has minimal complaints of hip pain. She is seen today with her , and is ready for discharge to nursing home. Medications: Reviewed: Yes Vitals/I&O/Wt Last Vital Signs Temp 97.9 F 12/11/23 11:37 Pulse 94 12/11/23 11:37 Resp 18 12/11/23 12:37 BP 129/79 12/11/23 11:37 Pulse Ox 91 12/11/23 11:37 O2 Del Method Nasal Cannula 12/11/23 11:37 O2 Flow Rate 1 12/11/23 10:46 12/10/23 12/11/23 12/11/23 22:59 06:59 14:59 Intake Total 410 / 2660 1286.25 / 3946.25 890 / 890 Output Total 900 / 1140 Balance 410 / 2420 386.25 / 2806.25 890 / 890 Weight last 48 hrs Weight 159 lb 1.6 oz Weight 149 lb 8 oz Weight 145 lb 4.8 oz Weight 145 lb Physical Exam 2 Const: COMMON NORMALS: no acute distress, average body habitus, patient oriented x3 and alert GENERAL APPEARANCE: cooperative and comfortable O RIENTATION/CONSCIOUSNESS: Yes awake OTHER: Patient is status post cerebral aneurysm rupture x 3 according to her. Speech is slow and difficult to understand. HENMT: COMMON NORMALS: normocephalic and atraumatic HEAD & SCALP: n ormocephalic and atraumatic Eye: GENERAL EYE: appearance normal, both eyes and all related structures Chest: COMMONS NORMALS: normal inspection of the chest Resp: COMMON NORMALS: normal respiratory effort EFFORT & INSPECTION: Yes able to speak in complete sentences and Yes symmetric chest movement Extremity: RIGHT LOWER EXTREMITY: Yes hip joint (Dressing is dry and intact.) Right hip: Yes inspection (Thigh is soft without ecchymosis), Yes palpation (No tightness to palpation), Yes ROM (Not evaluated) and Yes neurovascular exam (Able to wiggle toes and ankle, but decreased strength as per preop) Neuro: COMMON NORMALS: patient oriented x3 SENSORIUM/ORIENTATION: Yes alert Psych: COMMON NORMALS: mental status grossly normal APPEARANCE: Yes grossly normal ATTITUDE: Yes calm and Yes engaged ATTENTION/CONCENTRATION: Yes attention grossly intact Skin: COMMON NORMALS: no rashes or lesions noted GENERAL SKIN EXAM: no rashes or lesions noted Urinary Catheter Management: Chirinos: Cath Placed During This Visit: yes, but has since been removed by the nurse Reason for Continuing Indwelling Catheter: Decision to DC Catheter Urinary Catheter Date of Insertion: 12/09/23 Date Urinary Catheter Removed: 12/11/23 Time Urinary Catheter Discontinued: 12:45 Data 12/11/23 04:27 12/11/23 04:27 A&P Assessment and plan (1) Subcapital fracture of right hip: The patient underwent open reduction internal fixation with cannulated screws yesterday. The procedure was well-tolerated. She has no complaints today and remains in her preoperative neurologic status. There is no evidence of DVT. Dressing is dry and intact with no bleeding. There is no tenseness to the thigh. Patient is felt ready for discharge to nursing home, and this has been arranged for her. Qualifiers: Encounter type: initial encounter Fracture type: closed Qualified Code(s): S72.011A - Unspecified intracapsular fracture of right femur, initial encounter for closed fracture Attestations 2 Medical Necessity Statement*: Per hospitalist team. Coding Level of Care Code Acute Code for [facility] Fwd Diagnoses Closed subcapital fracture of right femur, initial encounter S72.011A Encounter type: initial encounter Fracture type: closed
== END 2023-12-11 14:37 | disposition skilled nursing facility (03) | DRG 481 ==
LOC: ER 15:57 → MEDSURG 16:47
PROVIDERS: Specialist; Admitting Provider Internal Medicine; Emergency Provider Emergency Medicine; PCP Family Medicine; Visit Provider Internal Medicine
PROC: 0QS604Z Reposition Right Upper Femur with Internal Fixation Device, Open Approach (ICD-10-PCS; CPT 27236; principal; 2023-12-10 11:45)
DX: S72.011A Unspecified intracapsular fracture of right femur, initial encounter for closed fracture (principal); I69.351 Hemiplegia and hemiparesis following cerebral infarction affecting right dominant side; W18.39XA Other fall on same level, initial encounter; Y92.012 Bathroom of single-family (private) house as the place of occurrence of the external cause; I69.322 Dysarthria following cerebral infarction; F17.210 Nicotine dependence, cigarettes, uncomplicated; I10 Essential (primary) hypertension; I25.10 Atherosclerotic heart disease of native coronary artery without angina pectoris; E11.51 Type 2 diabetes mellitus with diabetic peripheral angiopathy without gangrene; Z79.4 Long term (current) use of insulin; B19.20 Unspecified viral hepatitis C without hepatic coma; F32.A Depression, unspecified; D69.6 Thrombocytopenia, unspecified
CPT/HCPCS: 36415; 36416; 51702; 70450; 71045; 72192; 73502; 76000; 80048; 80053; 81001; 82962; 83735; 85025; 87426; 93005; 96365; 96372; 97161; 97165; 99285; C1713; J0131; J0690; J1815; J2270; J2371; J2405; J2704; J3010; J7030

== ENCOUNTER 2024-01-21 13:05 | Emergency (ER) | payer MEDICAID, SELFPAY ==
[2024-01-21] VITALS (8 sets, daily range): BP systolic 92–176; BP diastolic 55–95; PULSE 66–77; RESP 14–16; TEMP 36.8; O2SAT 92–96
--- NOTE | 2024-01-21 13:21 | XR_ITS ---
WS: [id number] XR chest 1V portable [id number] REASON FOR EXAM: htn, r/o chf FINDINGS: The chest is unchanged compared to 12/12/2023. The heart and the mediastinum are within normal limits. Calcified granulomas disease bilaterally. No acute/subacute pulmonary parenchymal or pleural abnormality. Mild degenerative spondylosis in the thoracic spine. XR/XR chest 1V portable [id number] IMPRESSION: Stable chest without acute abnormality.
--- NOTE | 2024-01-21 13:21 | CT_ITS ---
WS: [id number] CT HEAD NONCONTRAST HISTORY: htn TECHNIQUE: Contiguous axial imaging performed through the brain in 2.5 mm imaging. Bone and soft tiss ue windows. Sagittal and coronal reformats reviewed. All CT scans at [facility] use at least one of these dose optimization techniques: automated exposure control; mA and/or kV adjustment per pa tient size (includes targeted exams where dose is matched to clinical indication); or iterative recon struction. DLP: 1002.35 mGy.cm COMPARISON: 12/09/2023 Large area of encephalomalacia within the posterior LEFT frontal lobe extending into the temporal lob e. Volume loss with no acute blood products. Prior LEFT lacunar infarct centrum semiovale. Mild atrop hy and otherwise mild small vessel ischemic disease. Mild cerebellar atrophy. Ventricles: Normal size with no hydrocephalus. No inferior displacement of cerebellar tonsils. Aneurysm clip is noted in the region of the distal LE FT MCA. Paranasal sinuses: As visualized are clear. Mastoid air cells: Well pneumatized. Calvarium and scalp: LEFT frontal craniotomy. CT/CT head wo con* [id number] IMPRESSION: 1. No acute intracranial hemorrhage or edema. 2. Stable area of encephalomalacia in the LEFT frontal and temporal lobes with an adjacent aneurysm clip and LEFT frontal craniotomy. No acute interval robertson e. 3. Mild atrophy and small vessel ischemic disease otherwise.
--- NOTE | 2024-01-21 13:21 | ECG_ITS ---
[facility] Test Date: 2024-01-21 Pat Name: Eboni Perez Department: Room: Gender: Female Lead Database Administrator: : 1965 Requested By: William Mcgill Order Number: [id number] Jarret MD: Rosana Segovia M.D. Measurements Intervals [place] Rate: 68 P: 72 IA: 146 QRS: 46 QRSD: 84 T: 57 QT: 441 QTc: 469 Interpretive Statements SINUS RHYTHM NONSPECIFIC ST & T-WAVE ABNORMALITY Compared to ECG 12/15/2023 14:04:55 T-wave abnormality now present Electronically Signed On 01-22-2024 0:54:58 CDT by Rosana Segovia M.D. [id number]
--- NOTE | 2024-01-21 13:22 | ED_ITS ---
HPI - Neuro Symptoms/Deficit 2 General: Chief Complaint: Neuro Symptoms/Deficit Stated Complaint: HTN Time Seen by Provider: 01/21/24 13:13 History of Present Illness: 58-year-old female comes in today with c omplaints of back pain, elevated blood pressure, and some stiffness in her right arm. Patient has a history of coronary artery disease, stroke syndrome, diabetes mellitus, and fracture of the right hip. Patient this time resides in a custodial and they are. Patient was brought to the emergency room today due to persistent elevated blood pressure and some stiffness in the right arm. Patient is alert and oriented responding appropriate to questions. Patient is good historian. Patient has very poor orientation. Review of Systems 2 General: Reports: 10 or more systems reviewed and unremarkable except in HPI and below PFSH ED 2 PFSH: Medical History (Updated 01/21/24 @ 16:24 by REINA Rodriges) Hypokalemia Diarrhea Impaired decision making Encounter for assessment of decision-making capacity Impaired decision-making capacity Major depressive disorder, recurrent Recurrent falls Patient needs psychiatric hold for evaluation Closed hip fracture Status post intervention Lichen planus Glossitis Closed fracture of right hip Hypertension Subcapital fracture of right hip Seizures Thrombocytopenia Depressive disorder Colitis History of colon polyps Syncope Chronic migraine without aura, intractable, with status migrainosus Stomatitis and mucositis Erythroplakia of mouth or tongue Oral mucosal lesion Leukoplakia Dysarthria Acute right-sided weakness Acute right-sided muscle weakness Cerebrovascular accident Carotid artery disorder Chronic left arterial ischemic stroke, 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 Hepatitis C CAD (coronary artery disease) Peripheral vascular disease History of CVA (cerebrovascular accident) Brain aneurysm Surgical History History of colonoscopy with polypectomy History of tubal ligation History of surgery for cerebral aneurysm History of angioplasty of peripheral vessel History of appendectomy History of cholecystectomy Family History Father Renal cancer Cancer Lung Mother Hypertension CAD (coronary artery disease) Diabetes Social History Smoking and tobacco/nicotine status: current every day tobacco/nicotine user cigarettes Packs smoked per day: 0.5 Years cigarettes smoked: 30 Alcohol intake: former Substance/Drug Use: never Physical Exam 2 Const: COMMON NORMALS: alert HENMT: COMMON NORMALS: normocephalic HEAD & SCALP: normocephalic TEETH & GINGIVA: Yes poor dentition and Yes other (decayed teeth to gum line, thickened gums) Neck/C-Spine: COMMON NORMALS: full ROM Chest: COMMONS NORMALS: normal inspection of the chest Resp: COMMON NORMALS: normal respiratory effort and clear to auscultation bilaterally AUSCULTATION: clear to auscultation bilaterally Cardio: COMMON NORMALS: regular rate and regular rhythm RATE: regular rate RHYTHM: regular rhythm GI: COMMON NORMALS: Soft to palpation and non-tender PALPATION: Yes Soft to palpation Back/Pelvis: COMMON NORMALS: thoracic and lumbar spine normal to inspection Extremity: COMMON NORMALS: full ROM Neuro: SENSORIUM/ORIENTATION: Yes alert Skin: COMMON NORMALS: turgor normal GENERAL SKIN EXAM: turgor normal Course 2 Vital Signs: Vital signs: Vital Signs Pulse Rate 66 01/21/24 16:00 Respiratory Rate 16 01/21/24 16:00 Blood Pressure 104/60 01/21/24 16:00 Pulse Oximetry 94 01/21/24 16:00 Oxygen Delivery Me thod Room Air 01/21/24 16:00 MDM - Neuro Symptoms/Deficit Medical Decision Making 58-year-old female comes in today for complaints of stiffness to the right lower arm and hand. Patient appears nontoxic. Patient appears no acute distress. Patient moves all extremities well. Patient has generalized weakness. Respirations are even lungs are clear to auscultation. Skin is warm and dry. Patient reports back pain. Patient denies any recent falls or injuries. Patient this time resides in a custodial for a hip fracture recovery and recent CVA. Chest x-ray was stable. Head CT noted no significant change from prior exams. CBC was unremarkable. CMP did note a potassium of 2.9. 2-hour troponin shows no change on delta. BNP was slightly elevated at 900 but no baseline was recorded in the past. No swelling of the extremities or cardiac congestion noted on chest x-ray suggest known CHF at this time. Patient's blood pressure was slightly elevated at the admission she was given 1 clonidine which was very effective in bringing her pressure down. Patient also at that time was complaining of back pain which may have actually been the cause for her blood pressure being elevated because 7.5 hydrocodone seem to resolve her back pain and her pressure did come down more to 100/60. At this time I recommend just treatment of pain with some tramadol to see if that would help with her blood pressure and monitor her blood pressure. We will correct her potassium with oral potassium and have it rechecked in 1 week. No signs of severe illness or acute coronary syndrome was noted at this time. No sign of an acute stroke was noted at this time. Patient was discharged home/to custodial with instruction to return as needed. Lab Data 01/21/24 14:01 01/21/24 14:01 Radiology Impressions Chest X-Ray 01/21/24 13:21 IMPRESSION: Stable chest without acute abnormality. Head CT 01/21/24 13:21 IMPRESSION: 1. No acute intracranial hemorrhage or edema. 2. Stable area of encephalomalacia in the LEFT frontal and temporal lobes with an adjacent aneurysm clip and LEFT frontal craniotomy. No acute interval change. 3. Mild atrophy and small vessel ischemic disease otherwise. Laboratory Results WBC 8.54 10^3/uL (3.29-11.43) 01/21/24 14:01 RBC 4.57 10^6/uL (3.85-5.65) 01/21/24 14:01 Hgb 14.00 g/dL (11.27-16.99) 01/21/24 14:01 Hct 40.5 % (36-47) 01/21/24 14:01 MCV 88.6 fl (85-98) 01/21/24 14:01 MCH 30.6 pg (27-33) 01/21/24 14:01 MCHC 34.6 g/dL (30-55) 01/21/24 14:01 RDW 14.0 % (12.1-15.1) 01/21/24 14:01 Plt Count 149 10^3/cmm (157-399) L 01/21/24 14:01 MPV 12.0 fL (7.4-10.4) H 01/21/24 14:01 Neut % (Auto) 51.2 % 01/21/24 14:01 Lymph % (Auto) 37.7 % 01/21/24 14:01 [place] % (Auto) 8.3 % 01/21/24 14:01 Eos % (Auto) 2.0 % 01/21/24 14:01 Baso % (Auto) 0.6 % 01/21/24 14:01 Neut # (Auto) 4.37 10^3/uL (1.8-7.7) 01/21/24 14:01 Lymph # (Auto) 3.2 10^3/uL (0.8-4.8) 01/21/24 14:01 [place] # (Auto) 0.7 10^3/uL (0.2-0.9) 01/21/24 14:01 Eos # (Auto) 0.2 10^3/uL (0.0-0.8) 01/21/24 14:01 Baso # (Auto) 0.1 10^3/uL (0.0-0.1) 01/21/24 14:01 Nucleated RBC % (auto) 0 % 01/21/24 14:01 Nucleated RBCs # 0.0 /100WBC 01/21/24 14:01 Sodium 137 mmol/L (136-145) 01/21/24 14:01 Potassium 2.9 mmol/L (3.5-5.1) L 01/21/24 14:01 Chloride 98 mmol/L (98-107) 01/21/24 14:01 Carbon Dioxide 25 mmol/L (22-29) 01/21/24 14:01 Anion Gap 16.9 (5-19) 01/21/24 14:01 BUN 9 mg/dL (6-20) 01/21/24 14:01 Creatinine 0.6 mg/dL (0.5-0.9) 01/21/24 14:01 GFR Calculation 102.7 mL/min (90-130) 01/21/24 14:01 Glucose 130 mg/dL (65-115) H 01/21/24 14:01 Calculated Osmolality 284 mOsm/kg (285-295) L 01/21/24 14:01 Calcium 9.0 mg/dL (8.5-10.5) 01/21/24 14:01 Total Bilirubin 0.5 mg/dL (0.15-1.2) 01/21/24 14:01 AST 21 U/L (0-32) 01/21/24 14:01 ALT 18 U/L (0-33) 01/21/24 14:01 Alkaline Phosphatase 128 U/L (35-105) H 01/21/24 14:01 Troponin T Baseline 14 ng/L (0-10) H 01/21/24 14:01 Troponin T 120 Minute 15.54 ng/L (0-10) H 01/21/24 15:42 Delta Troponin T 1.54 ABS# (0-10) 01/21/24 15:42 NT-Pro-B Natriuret Pep 940 pg/mL (0-125) H 01/21/24 14:01 Total Protein 6.9 g/dL (6.6-8.7) 01/21/24 14:01 Albumin 4.0 g/dL (3.5-5.2) 01/21/24 14:01 Globulin 2.9 g/dL (1.3-4.6) 01/21/24 14:01 All radiology interpretation(s) finalized by discharge EKG Data EKG 1: I personally reviewed and interpreted this EKG as follows: EKG interpretation date: 01/21/24 EKG interpretation time: 13:40 Interpretation: EKG shows a sinus rhythm with a regular rate at [address] elevation is noted. Some nonspecific ST abnormality is noted. No other ectopy is noted. No prior exam was available for immediate comparison. Dr. Ledesma had reviewed the EKG to rule out STEMI. Computer generated interpretation: Sinus rhythm, nonspecific ST and T wave abnormality, borderline EKG, unconfirmed report. Discharge Plan Discharge Patient Disposition: Home Clinical Impression: Hypokalemia, History of CVA with residual deficit Back pain Qualifiers: Back pain location: low back pain Chronicity: unspecified Back pain laterality: bilateral Sciatica presence: without sciatica Qualified Code(s): M54.50 - Low back pain, unspecified Condition: Stable Prescriptions: New tramadol 50 mg tablet 50 mg PO BID PRN (Reason: pain) Qty: 14 0RF potassium chloride 10 mEq capsule, extended release 10 meq PO DAILY Qty: 10 0RF No Action Trulicity 0.75 mg/0.5 mL pen injector 0.75 mg SUBCUT Q7D Rx Instructions: SATURDAYS ondansetron 4 mg tablet,disintegrating 4 mg PO Q8H PRN (Reason: nausea and vomiting) 30 Days Qty: 30 0RF dapagliflozin propanediol [Farxiga] 5 mg Tablet 5 mg PO DAILY metoprolol tartrate 100 mg tablet 100 mg PO BID folic acid 1 mg Tablet 1 mg PO DAILY Vitamin D3 50 mcg (2,000 unit) Tablet 50 mcg PO DAILY atorvastatin 20 mg tablet 20 mg PO DAILY aspirin 325 mg Tablet 325 mg PO DAILY paroxetine HCl 30 mg tablet 30 mg PO DAILY pantoprazole [Protonix] 40 mg tablet,delayed release (DR/EC) 40 mg PO DAILY PRN (Reason: Acid Reflux) morphine 15 mg tablet 15 mg PO BID PRN (Reason: pain) Qty: 10 0RF sennosides-docusate sodium [Senna-S] 8.6-50 mg tablet 1 tab-cap PO DAILY Qty: 10 0RF Discharge Orders: Discharge ED (Routine); Ordered 01/21/24 Ordered By: William Lopez Referrals: Salomon Harp MD [Primary Care Provider] - Discharge Diet: Usual diet Discharge Activity: Increase activity as tolerated Patient Instructions: Back Pain (ED) Activity Restrictions/Additional Instructions: Continue routine medications as directed. Use acetaminophen to help with pain. Use tramadol for severe pain. Drink plenty of water and fluids. Healthy diet and activity. Follow-up with primary care for further instructions. Take potassium for low potassium and have it rechecked in 1 week. Coding Level of Care Code ED Marketing Project Manager for Mario Nielsen
--- NOTE | 2024-01-21 13:48 | PC.PHAR ---
Addendum entered by Teresa Harris 01/21/24 14:12: VERIFIED WITH [facility]. Original Note: PT IS FROM DANDRE DUNN
[2024-01-21] MEDS: ondansetron 4 MG Tablet PO (13:49)
[2024-01-21] MEDS: cloNIDine 0.1 mg Tablet PO (13:49)
[2024-01-21] MEDS: HYDROcodone-acetaminophen 7.5-325 mg Tablet 1 TAB PO (13:50)
[2024-01-21 14:10] LABS: Basophils # 0.1 10^3/uL (0.0-0.1); Basophils % 0.6 %; Eosinophils # 0.2 10^3/uL (0.0-0.8); Hematocrit 40.5 % (36-47); Lymphocytes # 3.2 10^3/uL (0.8-4.8); Lymphocytes % 37.7 %; Mean Corpuscular HGB Conc 34.6 g/dL (30-55); Mean Corpuscular Hemoglobin 30.6 pg (27-33); Mean Corpuscular Volume 88.6 fl (85-98); Monocytes # 0.7 10^3/uL (0.2-0.9); Monocytes % 8.3 %; Neutrophils # 4.37 10^3/uL (1.8-7.7); Neutrophils % 51.2 %; Nucleated Red Blood Cells % 0 %; Platelet Count 149 10^3/cmm (157-399); Red Blood Count 4.57 10^6/uL (3.85-5.65); White Blood Count 8.54 10^3/uL (3.29-11.43)
[2024-01-21 14:28] LABS: Troponin(5th) Baseline 14 ng/L (0-10)
[2024-01-21 14:58] LABS: Alanine Aminotransferase 18 U/L (0-33); Alkaline Phosphatase 128 U/L (35-105); Anion Gap 16.9 (5-19); Aspartate Amino Transferase 21 U/L (0-32); Blood Urea Nitrogen 9 mg/dL (6-20); Carbon Dioxide 25 mmol/L (22-29); Chloride 98 mmol/L (98-107); Globulin 2.9 g/dL (1.3-4.6); Glomerular Filtration Rate 102.7 mL/min (90-130); Glucose 130 mg/dL (65-115); NT Pro B Type Natriuretic Pept 940 pg/mL (0-125); Osmolality Calculated 284 mOsm/kg (285-295); Sodium 137 mmol/L (136-145); Total Bilirubin 0.5 mg/dL (0.15-1.2); Total Protein 6.9 g/dL (6.6-8.7)
[2024-01-21 15:19] LABS: Potassium 2.9 mmol/L (3.5-5.1)
--- NOTE | 2024-01-21 15:21 | ECG_ITS ---
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 Measurements Intervals [place] Rate: 66 P: 72 TN: 154 QRS: 50 QRSD: 82 T: 55 QT: 486 QTc: 511 Interpretive Statements SINUS RHYTHM MODERATE ST DEPRESSION [0.05+ mV ST DEPRESSION] PROLONGED QT INTERVAL Compared to ECG 01/21/2024 13:38:54 ST (T wave) deviation now present Prolonged QT interval now present T-wave abnormality no longer present Electronically Signed On 01-22-2024 1:08:13 CDT by Rosana Segovia M.D. [id number]
[2024-01-21] MEDS: sodium chloride 0.9% 500 ML 999 ML IV (15:51)
[2024-01-21] MEDS: potassium chloride ER 20 mEq Tablet 40 MEQ PO (15:51)
[2024-01-21 16:17] LABS: Troponin 5 2HR 15.54 ng/L (0-10); Troponin 5 2HR Delta 1.54 ABS# (0-10)
--- NOTE | 2024-01-21 19:25 | PC.NURSE ---
pt discharge delayed due to needing a ride back to [facility].
--- NOTE | 2024-01-26 09:55 | W.ED.NEUROSD ---
HPI - Neuro Symptoms/Deficit General: Chief Complaint: Neuro Symptoms/Deficit Stated Complaint: HTN Time Seen by Provider: 01/21/24 13:13 PFSH ED PFSH: Medical History (Updated 01/21/24 @ 16:24 by REINA Rodriges) Hypokalemia Diarrhea Impaired decision making Encounter for assessment of decision-making capacity Impaired decision-making capacity Major depressive disorder, recurrent Recurrent falls Patient needs psychiatric hold for evaluation Closed hip fracture Status post intervention Lichen planus Glossitis Closed fracture of right hip Hypertension Subcapital fracture of right hip Seizures Thrombocytopenia Depressive disorder Colitis History of colon polyps Syncope Chronic migraine without aura, intractable, with status migrainosus Stomatitis and mucositis Erythroplakia of mouth or tongue Oral mucosal lesion Leukoplakia Dysarthria Acute right-sided weakness Acute right-sided muscle weakness Cerebrovascular accident Carotid artery disorder Chronic left arterial ischemic stroke, 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 Hepatitis C CAD (coronary artery disease) Peripheral vascular disease History of CVA (cerebrovascular accident) Brain aneurysm Surgical History History of colonoscopy with polypectomy History of tubal ligation History of surgery for cerebral aneurysm History of angioplasty of peripheral vessel History of appendectomy History of cholecystectomy Family History Father Renal cancer Cancer Lung Mother Hypertension CAD (coronary artery disease) Diabetes Social History Smoking and tobacco/nicotine status: current every day tobacco/nicotine user cigarettes Packs smoked per day: 0.5 Years cigarettes smoked: 30 Alcohol intake: former Substance/Drug Use: never Course Vital Signs: Vital signs: Vital Signs Temperature 98.2 F 01/21/24 20:32 Pulse Rate 77 01/21/24 20:32 Respiratory Rate 16 01/21/24 20:32 Blood Pressure 111/55 01/21/24 20:32 Pulse Oximetry 96 01/21/24 20:32 Oxygen Delivery Me thod Room Air 01/21/24 19:00 MDM - Neuro Symptoms/Deficit Lab Data 01/21/24 14:01 01/21/24 14:01 Radiology Impressions Chest X-Ray 01/21/24 13:21 IMPRESSION: Stable chest without acute abnormality. Head CT 01/21/24 13:21 IMPRESSION: 1. No acute intracranial hemorrhage or edema. 2. Stable area of encephalomalacia in the LEFT frontal and temporal lobes with an adjacent aneurysm clip and LEFT frontal craniotomy. No acute interval change. 3. Mild atrophy and small vessel ischemic disease otherwise. Laboratory Results WBC 8.54 10^3/uL (3.29-11.43) 01/21/24 14:01 RBC 4.57 10^6/uL (3.85-5.65) 01/21/24 14:01 Hgb 14.00 g/dL (11.27-16.99) 01/21/24 14:01 Hct 40.5 % (36-47) 01/21/24 14:01 MCV 88.6 fl (85-98) 01/21/24 14:01 MCH 30.6 pg (27-33) 01/21/24 14:01 MCHC 34.6 g/dL (30-55) 01/21/24 14:01 RDW 14.0 % (12.1-15.1) 01/21/24 14:01 Plt Count 149 10^3/cmm (157-399) L 01/21/24 14:01 MPV 12.0 fL (7.4-10.4) H 01/21/24 14:01 Neut % (Auto) 51.2 % 01/21/24 14:01 Lymph % (Auto) 37.7 % 01/21/24 14:01 [place] % (Auto) 8.3 % 01/21/24 14:01 Eos % (Auto) 2.0 % 01/21/24 14:01 Baso % (Auto) 0.6 % 01/21/24 14:01 Neut # (Auto) 4.37 10^3/uL (1.8-7.7) 01/21/24 14:01 Lymph # (Auto) 3.2 10^3/uL (0.8-4.8) 01/21/24 14:01 [place] # (Auto) 0.7 10^3/uL (0.2-0.9) 01/21/24 14:01 Eos # (Auto) 0.2 10^3/uL (0.0-0.8) 01/21/24 14:01 Baso # (Auto) 0.1 10^3/uL (0.0-0.1) 01/21/24 14:01 Nucleated RBC % (auto) 0 % 01/21/24 14:01 Nucleated RBCs # 0.0 /100WBC 01/21/24 14:01 Sodium 137 mmol/L (136-145) 01/21/24 14:01 Potassium 2.9 mmol/L (3.5-5.1) L 01/21/24 14:01 Chloride 98 mmol/L (98-107) 01/21/24 14:01 Carbon Dioxide 25 mmol/L (22-29) 01/21/24 14:01 Anion Gap 16.9 (5-19) 01/21/24 14:01 BUN 9 mg/dL (6-20) 01/21/24 14:01 Creatinine 0.6 mg/dL (0.5-0.9) 01/21/24 14:01 GFR Calculation 102.7 mL/min (90-130) 01/21/24 14:01 Glucose 130 mg/dL (65-115) H 01/21/24 14:01 Calculated Osmolality 284 mOsm/kg (285-295) L 01/21/24 14:01 Calcium 9.0 mg/dL (8.5-10.5) 01/21/24 14:01 Total Bilirubin 0.5 mg/dL (0.15-1.2) 01/21/24 14:01 AST 21 U/L (0-32) 01/21/24 14:01 ALT 18 U/L (0-33) 01/21/24 14:01 Alkaline Phosphatase 128 U/L (35-105) H 01/21/24 14:01 Troponin T Baseline 14 ng/L (0-10) H 01/21/24 14:01 Troponin T 120 Minute 15.54 ng/L (0-10) H 01/21/24 15:42 Delta Troponin T 1.54 ABS# (0-10) 01/21/24 15:42 NT-Pro-B Natriuret Pep 940 pg/mL (0-125) H 01/21/24 14:01 Total Protein 6.9 g/dL (6.6-8.7) 01/21/24 14:01 Albumin 4.0 g/dL (3.5-5.2) 01/21/24 14:01 Globulin 2.9 g/dL (1.3-4.6) 01/21/24 14:01 Discharge Plan Discharge Patient Disposition: Home Clinical Impression: Hypokalemia, History of CVA with residual deficit Back pain Qualifiers: Back pain location: low back pain Chronicity: unspecified Back pain laterality: bilateral Sciatica presence: without sciatica Qualified Code(s): M54.50 - Low back pain, unspecified Condition: Stable Prescriptions: No Action Trulicity 0.75 mg/0.5 mL pen injector 0.75 mg SUBCUT Q7D Rx Instructions: SATURDAYS ondansetron 4 mg tablet,disintegrating 4 mg PO Q8H PRN (Reason: nausea and vomiting) 30 Days Qty: 30 0RF dapagliflozin propanediol [Farxiga] 5 mg Tablet 5 mg PO DAILY metoprolol tartrate 100 mg tablet 100 mg PO BID folic acid 1 mg Tablet 1 mg PO DAILY Vitamin D3 50 mcg (2,000 unit) Tablet 50 mcg PO DAILY atorvastatin 20 mg tablet 20 mg PO DAILY aspirin 325 mg Tablet 325 mg PO DAILY paroxetine HCl 30 mg tablet 30 mg PO DAILY pantoprazole [Protonix] 40 mg tablet,delayed release (DR/EC) 40 mg PO DAILY PRN (Reason: Acid Reflux) morphine 15 mg tablet 15 mg PO BID PRN (Reason: pain) Qty: 10 0RF sennosides-docusate sodium [Senna-S] 8.6-50 mg tablet 1 tab-cap PO DAILY Qty: 10 0RF Discharge Orders: Discharge ED (Routine); Ordered 01/21/24 Ordered By: William Lopez Referrals: Salomon Harp MD [Primary Care Provider] - Discharge Diet: Usual diet Discharge Activity: Increase activity as tolerated Patient Instructions: Back Pain (ED) Activity Restrictions/Additional Instructions: Continue routine medications as directed. Use acetaminophen to help with pain. Use tramadol for severe pain. Drink plenty of water and fluids. Healthy diet and activity. Follow-up with primary care for further instructions. Take potassium for low potassium and have it rechecked in 1 week. Coding Level of Care Code ED Clin Application Specialist for Mario Nielsen
--- NOTE | 2024-01-26 10:00 | PC.NURSE ---
RX TRANSMITTED TO [facility] BY MATTHEW BUTCHER PER DAND[facility] DUNN REQUEST.
== END 2024-01-21 20:33 | disposition home or self-care (01) ==
PROVIDERS: Emergency Provider Nurse Practitioner Family; PCP Family Medicine
DX: M54.50 Low back pain, unspecified (principal); E87.6 Hypokalemia; I10 Essential (primary) hypertension; E11.9 Type 2 diabetes mellitus without complications; Z86.19 Personal history of other infectious and parasitic diseases; I25.10 Atherosclerotic heart disease of native coronary artery without angina pectoris; F17.210 Nicotine dependence, cigarettes, uncomplicated; I69.90 Unspecified sequelae of unspecified cerebrovascular disease
CPT/HCPCS: 36415; 70450; 71045; 80053; 83880; 84484; 85025; 93005; 99285; J7040; Q0162

== ENCOUNTER → 2024-02-01 10:28 | Outpatient (BNVA) | payer MEDICAID, SELFPAY | PROVIDERS: PCP Family Medicine; Visit Provider Nurse Practitioner | DX: S72.011D Unspecified intracapsular fracture of right femur, subsequent encounter for closed fracture with routine healing (principal); Z98.890 Other specified postprocedural states; Z87.81 Personal history of (healed) traumatic fracture; X58.XXXD Exposure to other specified factors, subsequent encounter | CPT/HCPCS: 73502; 99024; 99213 ==

== ENCOUNTER → 2024-06-02 10:33 | Outpatient (BNVA) | payer MEDICAID, SELFPAY | PROVIDERS: PCP Family Medicine; Visit Provider Nurse Practitioner | DX: Z98.890 Other specified postprocedural states (principal); S72.011D Unspecified intracapsular fracture of right femur, subsequent encounter for closed fracture with routine healing; X58.XXXD Exposure to other specified factors, subsequent encounter | CPT/HCPCS: 73502; 99213 ==

== ENCOUNTER 2024-11-14 02:39 | Emergency (ER) | payer MEDICAID, SELFPAY ==
[2024-11-14 02:40] VITALS: BP 109/72; PULSE 75; RESP 16; TEMP 36.5; O2SAT 98; BMI 19.7
--- NOTE | 2024-11-14 02:58 | CTR_ITS ---
PROCEDURE INFORMATION: Exam: CT Cervical Spine Without Contrast Exam date and time: 11/14/2024 3:11 AM Age: 59 years old Clinical indication: Injury or trauma; Fall; Blunt trauma; Patient fell getting out of bed and struck head against nightstand. Hematoma to left temporal. History of aneurysm with CVA. ; Additional info: Head inj TECHNIQUE: Imaging protocol: Computed tomography of the cervical spine without contrast. Radiation optimization: All CT scans at this facility use at least one of these dose optimization techniques: automated exposure control; mA and/or kV adjustment per patient size (includes targeted exams where dose is matched to clinical indication); or iterative reconstruction. COMPARISON: CT head wo con* [id number] 11/14/2024 3:09 AM RADIATION DOSE METRICS: Total DLP (mGy-cm): 261.65 FINDINGS: Bones: No acute fracture. Normal alignment. No significant disc bulge or herniation. No severe spinal canal stenosis. No significant neural foraminal narrowing. Lungs: Lung apices are normal. Lymph nodes: Reactive cervical lymph nodes. Soft tissues: Unremarkable. CT/CT cervical spin wo con* [id number] IMPRESSION: No acute fracture or malalignment.
--- NOTE | 2024-11-14 02:58 | CTR_ITS ---
PROCEDURE INFORMATION: Exam: CT Head Without Contrast Exam date and time: 11/14/2024 3:09 AM Age: 59 years old Clinical indication: Injury or trauma; Fall; Blunt trauma (contusions or hematomas); Prior surgery; Surgery date: 6+ months; Surgery type: Craniectomy; Patient fell getting out of bed and struck head against nightstand. Hematoma to left temporal. History of aneurysm with CVA. ; Additional info: Head inj TECHNIQUE: Imaging protocol: Computed tomography of the head without contrast. Radiation optimization: All CT scans at this facility use at least one of these dose optimization techniques: automated exposure control; mA and/or kV adjustment per patient size (includes targeted exams where dose is matched to clinical indication); or iterative reconstruction. COMPARISON: CT head wo con* [id number] 01/21/2024 1:26 PM RADIATION DOSE METRICS: Total DLP (mGy-cm): 981.94 FINDINGS: Brain: Left frontal lobe encephalomalacia. No hemorrhage. Cerebral ventricles: Ex vacuo dilation of the left frontal horn. Paranasal sinuses: Visualized sinuses are unremarkable. No fluid levels. Mastoid air cells: Visualized mastoid air cells are well aerated. Bones: Postoperative changes of left frontal craniotomy. Soft tissues: Left frontal scalp hematoma measuring up to 9 mm in thickness. Vasculature: Aneurysmal clip along the left MCA. CT/CT head wo con* [id number] IMPRESSION: No acute intracranial abnormality.
--- NOTE | 2024-11-14 03:20 | W.ED.FALL ---
HPI - Fall General: Chief Complaint: Fall Stated Complaint: fall, head injury Time Seen by Provider: 11/14/24 03:17 History of Present Illness: 59-year-old female who rolled out of bed, striking her head on the floor. She has a left frontotemporal hematoma. She has a headache. Related Data Home Medications ?Medication ?Instructions ?Recorded ?Confirmed dapagliflozin propanediol 5 mg 5 mg PO DAILY 07/07/22 11/15/24 tablet (Farxiga) dulaglutide 0.75 mg/0.5 mL 0.75 mg SUBCUT Q7D 06/11/23 11/15/24 subcutaneous pen injector (Trulicity) aspirin 325 mg tablet 325 mg PO DAILY 10/19/23 11/15/24 atorvastatin 20 mg tablet 20 mg PO DAILY 10/19/23 11/15/24 pantoprazole 40 mg tablet,delayed 40 mg PO DAILY PRN Acid Reflux 10/19/23 11/15/24 release (Protonix) metoprolol tartrate 100 mg tablet 100 mg PO BID 12/07/23 11/15/24 cholecalciferol (vitamin D3) 50 50 mcg PO DAILY 01/21/24 11/15/24 mcg (2,000 unit) tablet (Vitamin D3) amitriptyline 10 mg tablet 10 mg PO DAILY 11/15/24 11/15/24 fluoxetine 40 mg capsule (Prozac) 40 mg PO DAILY 11/15/24 11/15/24 quetiapine 100 mg tablet (Seroquel) 100 mg PO DAILY 11/15/24 11/15/24 quetiapine 50 mg tablet (Seroquel) 50 mg PO DAILY 11/15/24 11/15/24 Previous Rx's ?Medication ?Instructions ?Recorded ondansetron 4 mg disintegrating 4 mg PO Q8H PRN nausea and 08/12/23 tablet vomiting 30 days #30 tabs Allergies Allergy/AdvReac Type Severity Reaction Status Date / Time codeine Allergy ADR-Vomitin Verified 11/15/24 15:52 g hydrocodone (From Vicodin) Allergy ADR-Nausea Verified 11/15/24 15:52 morphine Allergy ADR-Nausea Verified 11/15/24 15:52 nystatin Allergy Unknown Verified 11/15/24 15:52 Penicillins Allergy Unknown Verified 11/15/24 15:52 metformin Allergy Intermediate ADR-Vomitin Uncoded 11/15/24 15:52 g PFSH ED PFSH: Medical History Hypokalemia Diarrhea Impaired decision making Encounter for assessment of decision-making capacity Impaired decision-making capacity Major depressive disorder, recurrent Recurrent falls Patient needs psychiatric hold for evaluation Closed hip fracture Status post intervention Lichen planus Glossitis Closed fracture of right hip Hypertension Subcapital fracture of right hip Seizures Thrombocytopenia Depressive disorder Colitis History of colon polyps Syncope Chronic migraine without aura, intractable, with status migrainosus Stomatitis and mucositis Erythroplakia of mouth or tongue Oral mucosal lesion Leukoplakia Dysarthria Acute right-sided weakness Acute right-sided muscle weakness Cerebrovascular accident Carotid artery disorder Chronic left arterial ischemic stroke, 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 Hepatitis C CAD (coronary artery disease) Peripheral vascular disease History of CVA (cerebrovascular accident) Brain aneurysm Surgical History S/P ORIF (open reduction internal fixation) fracture Date of procedure: December 10, 2023 Pre-op diagnosis: Right subcapital hip fracture Procedure done: Open reduction internal fixation right subcapital hip fracture utilizing 3 cannulated screws Implants: [employer] cannulated screws x 3 Surgeon: Rosana Painting MD History of colonoscopy with polypectomy History of tubal ligation History of surgery for cerebral aneurysm History of angioplasty of peripheral vessel History of appendectomy History of cholecystectomy Family History Father Renal cancer Cancer Lung Mother Hypertension CAD (coronary artery disease) Diabetes Social History Smoking and tobacco/nicotine status: current every day tobacco/nicotine user cigarettes Packs smoked per day: 0.5 Years cigarettes smoked: 30 Alcohol intake: former Substance/Drug Use: never Physical Exam Const: COMMON NORMALS: no acute distress GENERAL APPEARANCE: cooperative and frail appearing; not ill appearing NUTRITIONAL APPEARANCE: thin ORIENTATION/CONSCIOUSNESS: Yes awake, Yes oriented to person and Yes oriented to place HENMT: COMMON NORMALS: Normal external nose present HEAD & SCALP: contusion (left forehead) and hematoma NOSE: Normal external nose present and Normal nares present MOUTH: lip normal and tongue normal Eye: COMMON NORMALS: Equal, round and reactive pupils present and EOMs intact bilaterally PUPIL: Yes Equal, round and reactive pupils present Neck/C-Spine: GENERAL: Yes trachea midline CERVICAL SPINE: No Cervical spine tenderness Chest: CHEST: Yes Symmetrical chest wall rise Resp: COMMON NORMALS: normal respiratory effort, No use of accessory muscles and clear to auscultation bilaterally AUSCULTATION: clear to auscultation bilaterally GI: COMMON NORMALS: Normal to inspection, nondistended, normoactive bowel sounds present and Soft to palpation PALPATION: Yes Soft to palpation Neuro: SENSORIUM/ORIENTATION: Yes oriented to person and Yes oriented to place Course Vital Signs: Vital signs: Vital Signs Temperature 97.7 F 11/14/24 02:40 Pulse Rate 82 11/14/24 04:53 Respiratory Rate 16 11/14/24 04:53 Blood Pressure 124/75 11/14/24 04:53 Pulse Oximetry 98 11/14/24 04:53 Oxygen Delivery Me thod Room Air 11/14/24 02:40 MDM - Fall Medical Decision Making CT scans of the head and cervical spine are negative. No other apparent injuries. She will be allowed discharge. Lab Data Radiology Impressions Cervical Spine CT 11/14/24 02:58 IMPRESSION: No acute fracture or malalignment. Head CT 11/14/24 02:58 IMPRESSION: No acute intracranial abnormality. All radiology interpretation(s) finalized by discharge Discharge Plan Discharge Patient Disposition: Home Clinical Impression: Forehead contusion Condition: Stable Prescriptions: No Action Trulicity 0.75 mg/0.5 mL pen injector 0.75 mg SUBCUT Q7D Rx Instructions: SATURDAYS fluoxetine [Prozac] 40 mg capsule 40 mg PO DAILY quetiapine [Seroquel] 100 mg tablet 100 mg PO DAILY amitriptyline 10 mg tablet 10 mg PO DAILY quetiapine [Seroquel] 50 mg tablet 50 mg PO DAILY ondansetron 4 mg tablet,disintegrating 4 mg PO Q8H PRN (Reason: nausea and vomiting) 30 Days Qty: 30 0RF dapagliflozin propanediol [Farxiga] 5 mg Tablet 5 mg PO DAILY metoprolol tartrate 100 mg tablet 100 mg PO BID Vitamin D3 50 mcg (2,000 unit) Tablet 50 mcg PO DAILY atorvastatin 20 mg tablet 20 mg PO DAILY aspirin 325 mg Tablet 325 mg PO DAILY pantoprazole [Protonix] 40 mg tablet,delayed release (DR/EC) 40 mg PO DAILY PRN (Reason: Acid Reflux) Discharge Orders: Discharge ED (Routine); Ordered 11/14/24 Ordered By: Blaze Gibson Referrals: Salomon Harp MD [Primary Care Provider, [facility]] - 4-7 days Patient Instructions: Scalp Contusion in Adults (ED), Opioid Safety, Pain Management Activity Restrictions/Additional Instructions: Return for any problems Print Language: Ecuadorean Coding Level of Care Code ED Occupational Nurse for Mario Nielsen
[2024-11-14] MEDS: TRAMadol 50 mg Tablet PO (04:04)
[2024-11-14 04:53] VITALS: BP 124/75; PULSE 82; RESP 16; O2SAT 98
== END 2024-11-14 05:16 | disposition home or self-care (01) ==
PROVIDERS: Emergency Provider Emergency Medicine; PCP Family Medicine
DX: S00.83XA Contusion of other part of head, initial encounter (principal); Z79.82 Long term (current) use of aspirin; F17.210 Nicotine dependence, cigarettes, uncomplicated; Z86.73 Personal history of transient ischemic attack (TIA), and cerebral infarction without residual deficits; I10 Essential (primary) hypertension; I25.10 Atherosclerotic heart disease of native coronary artery without angina pectoris; W06.XXXA Fall from bed, initial encounter
CPT/HCPCS: 70450; 72125; 99284; J9999

== ENCOUNTER → 2024-11-15 14:54 | Outpatient (BNVA) | payer MEDICAID, SELFPAY | PROVIDERS: PCP Family Medicine; Visit Provider Internal Medicine Cardiovascular Disease | DX: I67.1 Cerebral aneurysm, nonruptured (principal); I10 Essential (primary) hypertension; F12.10 Cannabis abuse, uncomplicated; F17.210 Nicotine dependence, cigarettes, uncomplicated; I25.10 Atherosclerotic heart disease of native coronary artery without angina pectoris | CPT/HCPCS: 99214 ==

== ENCOUNTER 2024-11-16 12:24 | Emergency (ER) | payer MEDICAID, SELFPAY ==
[2024-11-16 12:31] VITALS: BP 183/94; PULSE 77; RESP 16; TEMP 36.8; O2SAT 97
--- NOTE | 2024-11-16 14:00 | W.ED.GENADLT ---
HPI - General Adult General: Chief complaint: Eye Problems Stated complaint: L eye pain Time Seen by Provider: 11/16/24 13:35 Source: patient Mode of arrival: wheelchair Limitations: no limitations History of Present Illness: 59yo female initially presented for worsening bruising around her left eye following a fall that occurred 2 days ago. Patient reports her HOSPITAL PLAN ADMINISTRATOR was worried as the bruising was worsening. Patient is also concerned about her blood pressure. She states it was elevated at home before she came to the emergency department and is elevated here. She reports that she did take her blood pressure medication this morning. Patient denies headache, vision changes, painful movement of the eye, pain surrounding the eye, any other concerns at this time. Associated symptoms: Deny chest pain, dyspnea or headache(s) Related Data Home Medications ?Medication ?Instructions ?Recorded ?Confirmed dapagliflozin propanediol 5 mg 5 mg PO DAILY 07/07/22 11/15/24 tablet (Farxiga) dulaglutide 0.75 mg/0.5 mL 0.75 mg SUBCUT Q7D 06/11/23 11/15/24 subcutaneous pen injector (Trulicity) aspirin 325 mg tablet 325 mg PO DAILY 10/19/23 11/15/24 atorvastatin 20 mg tablet 20 mg PO DAILY 10/19/23 11/15/24 pantoprazole 40 mg tablet,delayed 40 mg PO DAILY PRN Acid Reflux 10/19/23 11/15/24 release (Protonix) metoprolol tartrate 100 mg tablet 100 mg PO BID 12/07/23 11/15/24 cholecalciferol (vitamin D3) 50 50 mcg PO DAILY 01/21/24 11/15/24 mcg (2,000 unit) tablet (Vitamin D3) amitriptyline 10 mg tablet 10 mg PO DAILY 11/15/24 11/15/24 fluoxetine 40 mg capsule (Prozac) 40 mg PO DAILY 11/15/24 11/15/24 quetiapine 100 mg tablet (Seroquel) 100 mg PO DAILY 11/15/24 11/15/24 quetiapine 50 mg tablet (Seroquel) 50 mg PO DAILY 11/15/24 11/15/24 Previous Rx's ?Medication ?Instructions ?Recorded ondansetron 4 mg disintegrating 4 mg PO Q8H PRN nausea and 08/12/23 tablet vomiting 30 days #30 tabs amlodipine 5 mg tablet 5 mg PO DAILY #90 tabs 11/15/24 Allergies Allergy/AdvReac Type Severity Reaction Status Date / Time codeine Allergy ADR-Vomitin Verified 11/15/24 15:52 g hydrocodone (From Vicodin) Allergy ADR-Nausea Verified 11/15/24 15:52 morphine Allergy ADR-Nausea Verified 11/15/24 15:52 nystatin Allergy Unknown Verified 11/15/24 15:52 Penicillins Allergy Unknown Verified 11/15/24 15:52 metformin Allergy Intermediate ADR-Vomitin Uncoded 11/15/24 15:52 g Review of Systems Const: Denies: fever(s), chills or body aches Eyes: Denies: change in vision or eye discomfort Card: Denies: chest pain Resp: Denies: dyspnea Musc: Denies: neck pain or back pain Neuro: Denies: headache(s) PFSH ED PFSH: Medical History Hypokalemia Diarrhea Impaired decision making Encounter for assessment of decision-making capacity Impaired decision-making capacity Major depressive disorder, recurrent Recurrent falls Patient needs psychiatric hold for evaluation Closed hip fracture Status post intervention Lichen planus Glossitis Closed fracture of right hip Hypertension Subcapital fracture of right hip Seizures Thrombocytopenia Depressive disorder Colitis History of colon polyps Syncope Chronic migraine without aura, intractable, with status migrainosus Stomatitis and mucositis Erythroplakia of mouth or tongue Oral mucosal lesion Leukoplakia Dysarthria Acute right-sided weakness Acute right-sided muscle weakness Cerebrovascular accident Carotid artery disorder Chronic left arterial ischemic stroke, 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 Hepatitis C CAD (coronary artery disease) Peripheral vascular disease History of CVA (cerebrovascular accident) Brain aneurysm Surgical History S/P ORIF (open reduction internal fixation) fracture Date of procedure: December 10, 2023 Pre-op diagnosis: Right subcapital hip fracture Procedure done: Open reduction internal fixation right subcapital hip fracture utilizing 3 cannulated screws Implants: [employer] cannulated screws x 3 Surgeon: Rosana Painting MD History of colonoscopy with polypectomy History of tubal ligation History of surgery for cerebral aneurysm History of angioplasty of peripheral vessel History of appendectomy History of cholecystectomy Family History Father Renal cancer Cancer Lung Mother Hypertension CAD (coronary artery disease) Diabetes Social History Smoking and tobacco/nicotine status: current every day tobacco/nicotine user cigarettes Packs smoked per day: 0.5 Years cigarettes smoked: 30 Alcohol intake: former Substance/Drug Use: never Physical Exam Const: COMMON NORMALS: no acute distress, patient oriented x3 and alert GENERAL APPEARANCE: cooperative ORIENTATION/CONSCIOUSNESS: Yes awake OTHER: Patient is sitting upright in a wheelchair in vertical flow in no acute distress. She is able to provide history with no difficulty. She is interactive with exam appropriately. No family at bedside HENMT: COMMON NORMALS: normocephalic and Normal external nose present HEAD & SCALP: normocephalic and contusion (left forehead and infraorbital area) NOSE: Normal external nose present MOUTH: lip normal Eye: GENERAL EYE: appearance normal, both eyes and all related structures Neck/C-Spine: COMMON NORMALS: full ROM Chest: CHEST: Yes Symmetrical chest wall rise Resp: COMMON NORMALS: normal respiratory effort EFFORT & INSPECTION: No respiratory distress Neuro: COMMON NORMALS: patient oriented x3 SENSORIUM/ORIENTATION: Yes alert Psych: COMMON NORMALS: cooperative Course Vital Signs: Vital signs: Vital Signs Temperature 98.3 F 11/16/24 12:31 Pulse Rate 77 11/16/24 12:31 Respiratory Rate 16 11/16/24 12:31 Blood Pressure 183/94 11/16/24 12:31 Pulse Oximetry 97 11/16/24 12:31 Oxygen Delivery Me thod Room Air 11/16/24 12:31 MDM - General Adult Medical Decision Making 59yo female initially presented for worsening bruising around her left eye following a fall that occurred 2 days ago. Patient reports her HOSPITAL PLAN ADMINISTRATOR was worried as the bruising was worsening. Patient is also concerned about her blood pressure. She states it was elevated at home before she came to the emergency department and is elevated here. She reports that she did take her blood pressure medication this morning. Patient denies headache, vision changes, painful movement of the eye, pain surrounding the eye, any other concerns at this time. Patient is nontoxic in appearance. Vital signs are stable. Chart review reveals patient was seen in this ER 2 days ago following a fall. She did have negative CT scans of her head and cervical spine at that time. Also noted in chart review patient was seen by cardiology yesterday and prescribed amlodipine 5 mg. Discussed the chart review with patient. Discussed with patient that the bruising will appear worse and likely extend lower on her face due to gravity. Discussed use of a cool compress to help with the swelling and contusion. As for the blood pressure, patient has not yet started taking the amlodipine. She has not yet picked it up. Discussed with patient we would not want to start another blood pressure medication when she has not yet picked up her first medication that was prescribed yesterday. Encourage patient to continue with her previously prescribed medications and add the amlodipine that is at the pharmacy. Recommend she continue to monitor her blood pressure. Advise she follow-up with primary care/cardiology in about a week with an update of the blood pressure and to discuss recheck. Return precautions provided. Patient states understanding and has no further questions or concerns at this time. Medical Records I reviewed the patient's medical records. No radiology studies performed this visit Discharge Plan Discharge Patient Disposition: Home Clinical Impression: Facial contusion Qualifiers: Encounter type: subsequent encounter Qualified Code(s): S00.83XD - Contusion of other part of head, subsequent encounter HTN (hypertension) Qualifiers: Hypertension type: unspecified Qualified Code(s): I10 - Essential (primary) hypertension Condition: Stable Prescriptions: No Action Trulicity 0.75 mg/0.5 mL pen injector 0.75 mg SUBCUT Q7D Rx Instructions: SATURDAYS fluoxetine [Prozac] 40 mg capsule 40 mg PO DAILY quetiapine [Seroquel] 100 mg tablet 100 mg PO DAILY amitriptyline 10 mg tablet 10 mg PO DAILY quetiapine [Seroquel] 50 mg tablet 50 mg PO DAILY amlodipine 5 mg tablet 5 mg PO DAILY Qty: 90 3RF ondansetron 4 mg tablet,disintegrating 4 mg PO Q8H PRN (Reason: nausea and vomiting) 30 Days Qty: 30 0RF dapagliflozin propanediol [Farxiga] 5 mg Tablet 5 mg PO DAILY metoprolol tartrate 100 mg tablet 100 mg PO BID Vitamin D3 50 mcg (2,000 unit) Tablet 50 mcg PO DAILY atorvastatin 20 mg tablet 20 mg PO DAILY aspirin 325 mg Tablet 325 mg PO DAILY pantoprazole [Protonix] 40 mg tablet,delayed release (DR/EC) 40 mg PO DAILY PRN (Reason: Acid Reflux) Discharge Orders: Discharge ED (Routine); Ordered 11/16/24 Ordered By: Damien Denise Referrals: Salomon Harp MD [Primary Care Provider, Family Practice] Discharge Diet: Usual diet Discharge Activity: Resume usual activity Patient Instructions: Hypertension (ED), Facial Contusion (ED), Pain Management Activity Restrictions/Additional Instructions: The bruising on your face may potentially worsen over the next couple of days and appear lower on the face due to gravity. Application of a cool compress for 10 to 15 minutes at a time will help with swelling and bruising For your blood pressure, Dr. Walters sent a new blood pressure medication to your pharmacy yesterday. Please begin taking the prescribed amlodipine once daily in addition to your previously prescribed medications Follow-up with primary care/cardiology, call in about a week with an update of your blood pressure and to discuss a recheck Return to the emergency department if any rapid worsening symptoms and as needed Print Language: Romanian Coding Level of Care Code ED Rfp Writer for Mario Nielsen
== END 2024-11-16 14:28 | disposition home or self-care (01) ==
PROVIDERS: Emergency Provider Nurse Practitioner; PCP Family Medicine
DX: S00.83XD Contusion of other part of head, subsequent encounter (principal); I10 Essential (primary) hypertension; Z79.82 Long term (current) use of aspirin; F17.210 Nicotine dependence, cigarettes, uncomplicated; Z86.73 Personal history of transient ischemic attack (TIA), and cerebral infarction without residual deficits; I25.10 Atherosclerotic heart disease of native coronary artery without angina pectoris; E11.9 Type 2 diabetes mellitus without complications; X58.XXXD Exposure to other specified factors, subsequent encounter
CPT/HCPCS: 99283

== ENCOUNTER 2024-12-12 11:28 | Outpatient (CLI) | payer MEDICAID, SELFPAY ==
--- NOTE | 2024-12-12 11:35 | USCV_ITS ---
Eboni Perez Age: 59 Gender: F : 1965 Exam Date: 12/12/2024 12:18 Ordering Phys: Vickie Walters MD ([email or web address]) Technologist: [employer] Exam Location: [facility] [place] Indication: CAROTID DISEASE Risk Factors: Previous Vascular Surgery: Right Brachial BP: / Left Brachial BP: / Right Left Velocity (cm/s) Spectral Plaque Velocity (cm/s) Spectral Plaque Syst/Diast Broadening Syst/Diast Broadening 57.20/ 12.80 Prox CCA 56.00 / 15.60 60.10/ 18.50 Mid CCA 59.60 / 18.40 56.30/ 16.60 Distal CCA 84.10 / 21.50 72.90/ 24.60 Prox ICA 61.80 / 21.30 74.90/ 33.90 Mid ICA 68.70 / 25.40 63.50/ 26.60 Distal ICA 51.70 / 19.90 71.20 ECA 77.90 1.30 ICA/CCA 0.70 Antegrade Vertebral Antegrade 45.30/ 9.60 cm/s 42.80/ 18.40 cm/s Bi Subclavian Bi 61.40 67.50 CONCLUSIONS Right ICA stenosis <50%. Moderate atheromatous plaque right carotid bulb/ICA. Left ICA stenosis <50%. Moderate atheromatous plaque left carotid bulb/ICA. Intimal thickening in the common carotid arteries and internal carotid arteries bilaterally. Normal antegrade Doppler flow noted in the right vertebral artery. Normal antegrade Doppler flow noted in the left vertebral artery. Mustapha Durant MD (Electronically Signed) Final Date: 12 December 2024 15:45 S
== END 2024-12-12 11:29 | disposition home or self-care (01) ==
LOC: RAD 11:30
PROVIDERS: PCP Family Medicine; Visit Provider Internal Medicine Cardiovascular Disease
DX: I65.23 Occlusion and stenosis of bilateral carotid arteries (principal)
CPT/HCPCS: 73502; 93880; 99214

== ENCOUNTER → 2025-01-06 11:30 | Outpatient (BNVA) | payer MEDICAID, SELFPAY | PROVIDERS: PCP Family Medicine; Visit Provider Specialist | DX: M16.11 Unilateral primary osteoarthritis, right hip (principal); M16.51 Unilateral post-traumatic osteoarthritis, right hip | CPT/HCPCS: 20610; 77002; J1100; J2795; J3301; J9999 ==

== ENCOUNTER 2025-02-17 10:45 | Outpatient (CLI) | payer MEDICAID, SELFPAY ==
--- NOTE | 2025-02-17 10:53 | MM_ITS ---
WS: [id number] BILATERAL 3D TOMOSYNTHESIS DIGITAL SCREENING MAMMOGRAPHY WITH CAD CLINICAL INFORMATION: SCREENING HISTORY: Screening mammogram. No current complaints. COMPARISON: 2022 TECHNIQUE: Bilateral CC and MLO views. FINDINGS: Scattered fibroglandular densities bilaterally. No suspicious focal mass, asymmetry, calcifications, or architectural distortion. No evidence of malignancy. Punctate and lucent centered calcifications. MM/MM scr tomosynthesis [id number] IMPRESSION: DENSITY: There are scattered areas of fibroglandular density. BI-RADS: 2 - Benign. FOLLOW UP: 1 Year Follow-up Recommend return to annual screening mammography.
--- NOTE | 2025-02-17 10:53 | CT_ITS ---
WS: [id number] LDCT LUNG CANCER SCREENING HISTORY: HX OF TOBACCO USE TECHNIQUE: Axial imaging performed from the apices to 1 cm below the costophrenic angles. Coronal and sagittal reformats are submitted with axial MIP series. All CT scans at [facility] use at least one of these dose optimization techniques: automated exposure control; mA and/or kV adjustment per patient size (includes targeted exams where dose is matched to clinical indication); or iterative reconstruction. DLP: 49.11 mGy.cm DIvol: Mean CTDIvol: 0.80 (mGy) COMPARISON: None available. Diagnostic quality: Satisfactory Lungs: Hyperinflated lungs. Mild pleural thickening and scarring at the apices. 3 mm nodule LEFT lower lobe, image 175 series 5. 4 mm nodule LEFT lower lobe image 183 series 5. 6 mm round nodule RIGHT middle lobe, image 205 series 5. No endobronchial lesions. No pneumonia. Heart: Normal size heart with no pericardial effusion.. Scattered coronary artery calcifications. Other findings: Atherosclerosis aorta. No aneurysm. Atherosclerotic plaque extends into the great vessels. Small hiatal hernia. No adrenal mass. Increase in thoracic kyphosis. CT/CT lung screening [id number] IMPRESSION: LUNG-RADS: 3-Probably Benign FOLLOW UP: 6 Month LDCT OTHER FINDINGS (S MODIFIER): None.
== END 2025-02-17 10:46 | disposition home or self-care (01) ==
PROVIDERS: PCP Family Medicine; Visit Provider Family Medicine
DX: Z12.31 Encounter for screening mammogram for malignant neoplasm of breast (principal); Z12.2 Encounter for screening for malignant neoplasm of respiratory organs; R91.8 Other nonspecific abnormal finding of lung field; Z87.891 Personal history of nicotine dependence
CPT/HCPCS: 71271; 77063; 77067

== ENCOUNTER → 2025-03-17 09:57 | Outpatient (BNVA) | payer MEDICAID, SELFPAY | PROVIDERS: PCP Family Medicine; Visit Provider Nurse Practitioner | DX: M16.51 Unilateral post-traumatic osteoarthritis, right hip (principal) | CPT/HCPCS: 99213 ==